=== PATIENT | female | born 1960 | race Caucasian/White ===

== ENCOUNTER → 2018-02-26 09:13 | Outpatient (CLI) | payer OTHER, MEDICAID, SELFPAY ==
[2018-02-26 09:34] LABS: Add Manual Diff / Slide Review NO; Eosinophils Percent Auto 1.8 % (2-4); Hematocrit 45.2 % (36-46); Hemoglobin 15.9 g/dL (12.0-16.0); Mean Corpuscular HGB Conc 35.3 % (30-36); Mean Corpuscular Volume 90.8 fL (80-100); Monocytes Percent Auto 5.3 % (3-14); Neutrophils Absolute Auto 3900 /uL (3000-5900); Neutrophils Percent Auto 53.9 % (50-75); Platelet Count 170 X10^3/uL (150-400); Red Blood Cell Count 4.98 X10^6/uL (4.0-5.2); Red Cell Distribution Width 13.3 % (11.6-14.8); White Blood Cell Count 7.3 X10^3/uL (4.5-11.0)
[2018-02-26 09:52] LABS: Alanine Aminotransferase 23 IU/L (9-52); Albumin 3.8 g/dL (3.5-5.0); Albumin Globulin Ratio 1.2 (1.0-2.8); Alkaline Phosphatase 62 U/L (38-126); Aspartate Aminotransferase 21 IU/L (14-36); BUN Creatinine Ratio 16.7 (6-22); Bilirubin Total 0.5 mg/dL (0.2-1.3); Blood Urea Nitrogen 10 mg/dL (7-17); Calcium 9.2 mg/dL (8.4-10.2); Carbon Dioxide 27 mmol/L (22-32); Chloride 101 mmol/L (98-107); Estimated Glomerular Filt Rate > 60.0 mL/min (>60); Globulin 3.3 g/dL (1.7-4.1); Glucose 89 mg/dL (70-100); HEMOLYSIS 16 (0-50); Sodium 138 mmol/L (137-145); Total Protein 7.1 g/dL (6.3-8.2)
== END ==
PROVIDERS: PCP Physician Assistant; Visit Provider Physician Assistant
DX: R10.12 Left upper quadrant pain (principal); R16.1 Splenomegaly, not elsewhere classified
CPT/HCPCS: 36415; 80053; 85025

== ENCOUNTER → 2018-03-07 08:35 | Outpatient (CLI) | payer OTHER, MEDICAID, SELFPAY ==
--- NOTE | 2018-03-07 08:37 | DI.US.S_ITS ---
PROCEDURE: US ABDOMEN COMPLETE INDICATIONS: Left upper quadrant pain TECHNIQUE: Real-time scanning was performed of the abdominal and retroperitoneal organs, with image documentation. COMPARISON: None. FINDINGS: Liver: Liver is normal in size and hyperechoic in echotexture. Gallbladder: Gallbladder is surgically absent Biliary ducts: Intrahepatic bile ducts are non-dilated. Extrahepatic bile duct caliber measures 8 mm. Normal is 6-7 mm or less in diameter, or 10 mm or less post-cholecystectomy. Pancreas: Visualized portions of the pancreas are sonographically normal. Spleen: Spleen is normal in size and homogeneous in echotexture. Kidneys: Kidneys are normal in size and echotexture. Right kidney measures 12.1 cm long; left kidney measures 12.3 cm long. No hydronephrosis or nephrolithiasis. No solid masses. Aorta: Visualized aorta is normal in caliber at less than 3 cm. Iliacs: Proximal common iliac arteries are normal in caliber at less than 2.5 cm. IVC: Intrahepatic inferior vena cava is patent. Miscellaneous: No free abdominal fluid. IMPRESSION: 1. Echogenic liver, likely representing hepatic steatosis but other etiologies not excluded. No mass lesions seen. No splenomegaly. 2. Gallbladder surgically absent. Mildly dilated common bile is compatible with prior cholecystectomy. Dictated by: Mac Rocha M.D. on 03/07/2018 at 9:43 Approved by: Mac Rocha M.D. on 03/07/2018 at 9:46
== END ==
PROVIDERS: PCP Physician Assistant; Visit Provider Physician Assistant
DX: K83.8 Other specified diseases of biliary tract (principal); R10.12 Left upper quadrant pain; Z90.49 Acquired absence of other specified parts of digestive tract
CPT/HCPCS: 76700

== ENCOUNTER → 2018-05-17 14:01 | Outpatient (CLI) | payer OTHER, MEDICAID, SELFPAY ==
[2018-05-17 16:05] LABS: Hep C Virus Ab w/Reflex Quant NEGATIVE s/c (NEGATIVE)
== END ==
PROVIDERS: Visit Provider Internal Medicine Gastroenterology
DX: Z11.59 Encounter for screening for other viral diseases (principal)
CPT/HCPCS: 36415; 86803

== ENCOUNTER 2018-06-22 10:01 | Day surgery (SDC) | payer OTHER, MEDICAID, SELFPAY ==
[2018-06-22] VITALS (10 sets, daily range): BP systolic 108–134; BP diastolic 75–94; PULSE 70–80; RESP 8–18; TEMP 36.1–36.3; O2SAT 92–97; BMI 37.8
--- NOTE | 2018-06-22 | PATH_ITS ---
[facility] Accession Number: [id number] . 01 Material submitted: . PART A: BODY OF ANTRUM PART B: TRANSVERSE COLON POLYP PART C: DESCENDING COLON POLYP . 02 Diagnosis: A. Antrum, Biopsy: Gastric antral mucosa with no diagnostic abnormality. No evidence of Helicobacter organisms on H/E stain. Negative for intestinal metaplasia, dysplasia or malignancy. . B. Transverse Colon Polyp: Hyperplastic polyp. . C. Descending Colon Polyp: Tubular adenoma. MRV/06/24/2018 . 02 Electronically signed: . Zackery Kearns MD, PhD, Pathologist NPI- [id number] . 01 Gross description: . Received three formalin-filled containers each labeled with the patient's name. . A. In a container labeled body antrum, the specimen consists of three 0.1 to 0.3 cm portions of tissue. Entirely submitted in cassette A. B. In a container labeled transverse colon polyp, the specimen consists of a 0.4 cm portion of tissue. Entirely submitted in cassette B. C. In a container labeled descending colon polyp, the specimen consists of a 0.1 cm portion of tissue. Entirely submitted in cassette C. ([facility]:[id number]) /[facility] . 02 Pathologist provided ICD-10: D12.4, K63.5, R10.13 . 02 CPT . 031165, 686481, 760593 Specimen Comment: A duplicate report has been generated due to demographic updates. Performed at: [facility] [address] [id number] MD Emre Goddard MD Phone: [phone] Performed at: 02 [facility] [place] [id number] [place] [id number] MD Jacob Swanson MD Phone: [phone]
[2018-06-22] MEDS: SODIUM CHLORIDE 0.9% 1,000 ML 70 ML IV (10:47)
--- NOTE | 2018-06-22 11:07 | PM.HP.1 ---
History of Present Illness Date Patient Seen: 06/22/18 Chief complaint: colonoscopy egd Narrative: 58-year-old female with history of heartburn and changes in bowel habits. Please refer to detailed office note 05/17/2018. She has been experiencing heartburn while taking Tums. She has a prior history of H pylori and peptic ulcer disease. Patient History Surgical History History of carpal tunnel repair Family & Social History Social History: household members family Tobacco & Substance use: Smoking Status Current every day smoker Meds Home Medications Medication Instructions Recorded Confirmed Type fluticasone [Flovent Diskus] 50 mcg INH BID #0 08/31/17 06/22/18 History ipratropium-albuterol [Combivent 1 puff INH PRN PRN #0 08/31/17 06/22/18 History Respimat] losartan 100 mg PO QDAY #0 08/31/17 06/22/18 History paroxetine HCl 37.5 mg PO QDAY #0 08/31/17 06/22/18 History levothyroxine [Synthroid] 50 mcg PO QDAY #90 tab 01/06/18 06/22/18 History triamcinolone acetonide 0.1 % 1 applictn TOP BID #80 gram 02/25/18 06/22/18 Rx topical cream oxybutynin chloride ER 10 mg 10 mg PO QDAY #90 tab 03/17/18 06/22/18 Rx tablet,extended release 24 hr carvedilol 3.125 mg tablet 3.125 mg PO BID #180 tab 04/27/18 06/22/18 Rx pravastatin 80 mg tablet 80 mg PO HS #90 tab 06/20/18 06/22/18 Rx Allergies Allergy/AdvReac Type Severity Reaction Status Date / Time No Known Allergies Allergy Uncoded 06/22/18 10:31 Review of Systems Review of Systems All systems reviewed & are unremarkable except as noted in HPI and below Exam Vital Signs (past 8 hours): - 06/22/18 10:40 Temperature 96.9 F L Pulse Rate 80 Respiratory Rate 15 Blood Pressure 134/94 H Pulse Oximetry 94 Oxygen Delivery Method Room Air Narrative Exam Narrative: General: Patient is obese, not in apparent distress Cardiovascular: Regular rate and rhythm, no murmurs, rubs, or gallops; no evidence of edema; no palpable abdominal aortic aneurysm Gastrointestinal: Normoactive bowel sounds, soft, nontender, nondistended, no rebound tenderness, no hepatosplenomegaly, no evidence of hernia Assessment & Plan Plan: Assessment/Plan Narrative: 58-year-old female with heartburn and changes in bowel habit here for upper endoscopy for further evaluation and colonoscopy for polyp surveillance. No changes in her physical exam since 05/17/2018 Regarding the procedure(s), the risks and potential complications, benefits, and alternatives (including not doing the procedure) were discussed with the patient. The risks include but are not limited to bleeding, infection, perforation which may require surgical intervention, missed lesions, and adverse reactions to sedative medicines. After a question and answer period, the patient agreed to proceed with the procedure(s) and gives informed consent.
--- NOTE | 2018-06-22 11:39 | PM.OP.ENDO ---
Operative Date/Time/Diagnoses Date of procedure: 06/22/18 Procedure Notes Procedure in detail: Surgeon: Oscar Holloway MD Procedure: Esophagogastroduodenoscopy with biopsy and colonoscopy with polypectomy Preoperative diagnosis: Longstanding heartburn with breakthrough symptoms with medication; colon polyp surveillance Postoperative diagnosis: Gastroduodenitis status post biopsy, small hiatal hernia, colon polyp status post polypectomy, grade 1 internal hemorrhoids Medications: Conscious sedation using 4 mg IV of Midazolam and 100 mcg IV of Fentanyl for EGD; 6 mg IV of Midazolam and 150 mcg IV of Fentanyl (total for both procedures) Preanesthesia Assessment An H and P was performed/updated and the Px?s ASA class is 2. The procedure was discussed in detail with the patient. The potential risks and complications including infection, bleeding, missed lesions, perforation, need for surgery in case of perforation, prolonged hospital stay, and were explained. A brief question and answer period was allotted and once all questions were answered, informed consent was obtained. The patient was brought back to the procedure room and placed on standard monitoring. The patient?s vital signs were monitored continuously throughout the entire procedure. Prior to starting, a timeout was performed to confirm the patient?s identity, allergies, medications, and procedure. Procedure in detail The patient was placed in left lateral decubitus position and a bite block was inserted. The tip of the upper endoscope was placed into the mouth and advanced without difficulty under direct visualization into the esophagus. Esophagus: Normal Stomach: Small hiatal hernia; there were multiple erosions in the antral area. Biopsies were taken to rule out H pylori Duodenum: There was mild patchy erythema in the duodenal bulb, the remainder of the visualized duodenum up to the 2nd portion showed no evidence of inflammation or ulceration After the upper endoscopy, preparations were made for the colonoscopy. Once adequate sedation was obtained a WAQAR was performed. The digital rectal examination did not reveal any palpable lesions. The tip of the colonoscope was placed in the anal canal and advanced without difficulty all the way to the cecum which was identified by the appendiceal orifice and the ileocecal valve. Careful examination of all roy of the colon was performed with irrigation of any stool. In the transverse colon, there was note of a 3 mm colon polyp which was removed by means of cold Jumbo forceps. Resection and retrieval were complete with minimal bleeding In the descending colon, there was note of a 3 mm colon polyp which was removed by means of cold Jumbo forceps. Resection and retrieval were complete with minimal bleeding Retroflexion was performed in the rectum which revealed grade 1 internal hemorrhoids. The patient tolerated the procedure well and will be brought back to the recovery area to be discharged once criteria are met. The prep was judged to be good/excellent and adequate to identify polyps less than 5 mm. The withdrawal time was 9 min. The total physician intraservice time was 26 min. Complications There were no complications and estimated blood loss was minimal. Recommendations Resume previous diet and avoid any food triggers for heartburn Anti reflex measures at all times Continue outpatient medications Start ranitidine 150 mg twice daily for the next 8 weeks Follow-up pathology results Repeat colonoscopy for colon polyp surveillance in 5 years Follow-up at our office if with persistent symptoms An emergency contact number was given to the patient for any complications related to the procedure
[2018-06-22] MEDS: TETRACAINE/BENZOCAINE/BUTAMBEN (CETACAINE) BOTTLE 1 SPRAY TOP (11:57)
[2018-06-22] MEDS: fentaNYL 250 MCG/5 ML INJ IV (11:59)
[2018-06-22] MEDS: MIDAZOLAM 5 MG/5 ML VIAL IV (11:59)
--- NOTE | 2018-06-22 12:17 | PM.DS.1 ---
History of Present Illness Chief complaint: colonoscopy egd Narrative: 58-year-old female with history of heartburn and changes in bowel habits. Please refer to detailed office note 05/17/2018. She has been experiencing heartburn while taking Tums. She has a prior history of H pylori and peptic ulcer disease. Discharge Providers Primary care physician: Cassie Ferris PA-C Discharge provider: Oscar Holloway MD Exam Vital Signs (past 8 hours): - 06/22/18 10:40 Temperature 96.9 F L Pulse Rate 80 Respiratory Rate 15 Blood Pressure 134/94 H Pulse Oximetry 94 Oxygen Delivery Method Room Air Narrative Exam Narrative: General: Patient is obese, not in apparent distress Cardiovascular: Regular rate and rhythm, no murmurs, rubs, or gallops; no evidence of edema; no palpable abdominal aortic aneurysm Gastrointestinal: Normoactive bowel sounds, soft, nontender, nondistended, no rebound tenderness, no hepatosplenomegaly, no evidence of hernia Discharge Plan Discharge Plan Patient Disposition: Home Discharge Med Rec/Prescriptions Prescriptions: Continue triamcinolone acetonide 0.1 % cream 1 applictn TOP BID Qty: 80 RF: 3 losartan 100 MG tablet 100 mg PO QDAY Qty: 0 RF: 0 ipratropium-albuterol [Combivent Respimat] 4 GM mist 1 puff INH PRN PRN (Reason: Shortness Of Breath) Qty: 0 RF: 0 fluticasone [Flovent Diskus] 50 MCG blister with device 50 mcg INH BID Qty: 0 RF: 0 paroxetine HCl 37.5 MG tablet extended release 24 hr 37.5 mg PO QDAY Qty: 0 RF: 0 levothyroxine [Synthroid] 50 MCG tablet 50 mcg PO QDAY Qty: 90 RF: 0 oxybutynin chloride 10 mg tablet extended release 24hr 10 mg PO QDAY Qty: 90 RF: 1 carvedilol [Coreg] 3.125 mg tablet 3.125 mg PO BID Qty: 180 RF: 1 pravastatin 80 mg tablet 80 mg PO HS Qty: 90 RF: 3 Discharge Orders: Discharge (Order); Ordered 06/22/18 Ordered By: Oscar Holloway Provider Discharge Instructions Diet: Diet as Tolerated Visit Report/Discharge Packet Stand Alone Forms: Surgery Discharge Discharge Data Primary Care Provider: Cassie Ferris Attending Provider: Oscar Holloway
--- NOTE | 2018-06-22 12:44 | SUR.PHASEI ---
arrousable to verbal stimuli, responds appropriatly, drifts back to sleep when not disturbed. oxygen decreased to 2L/cannula.
--- NOTE | 2018-06-22 12:48 | SUR.PHASEI ---
awake taking ice chips orally oxygen discontinued.
== END 2018-06-22 13:15 | disposition home or self-care (01) ==
PROVIDERS: PCP Physician Assistant; Visit Provider Internal Medicine Gastroenterology
PROC: 0DJ08ZZ Inspection of Upper Intestinal Tract, Via Natural or Artificial Opening Endoscopic (ICD-10-PCS; CPT 43235; principal; 2018-06-22 11:00)
PROC: 0DJD8ZZ Inspection of Lower Intestinal Tract, Via Natural or Artificial Opening Endoscopic (ICD-10-PCS; CPT 45378; 2018-06-22 11:00)
DX: K29.90 Gastroduodenitis, unspecified, without bleeding (principal); K44.9 Diaphragmatic hernia without obstruction or gangrene; K64.0 First degree hemorrhoids; R19.4 Change in bowel habit; R10.9 Unspecified abdominal pain; Z86.010 Personal history of colon polyps; I10 Essential (primary) hypertension; E78.5 Hyperlipidemia, unspecified; E03.9 Hypothyroidism, unspecified; K63.5 Polyp of colon; D12.4 Benign neoplasm of descending colon
CPT/HCPCS: 45380; 43239; 88305; J2250; J3010

== ENCOUNTER → 2018-07-26 13:28 | Outpatient (CLI) | payer OTHER, MEDICAID, SELFPAY | PROVIDERS: PCP Family Medicine; Visit Provider Family Medicine | DX: M85.851 Other specified disorders of bone density and structure, right thigh (principal); Z78.0 Asymptomatic menopausal state; F17.200 Nicotine dependence, unspecified, uncomplicated | CPT/HCPCS: 77080 ==

== ENCOUNTER → 2018-09-07 12:33 | Outpatient (CLI) | payer OTHER, MEDICAID, SELFPAY ==
[2018-09-07 13:04] LABS: Alanine Aminotransferase 25 IU/L (9-52); Albumin 4.2 g/dL (3.5-5.0); Albumin Globulin Ratio 1.3 (1.0-2.8); Alkaline Phosphatase 59 U/L (38-126); Aspartate Aminotransferase 26 IU/L (14-36); BUN Creatinine Ratio 16.7 (6-22); Bilirubin Total 0.6 mg/dL (0.2-1.3); Blood Urea Nitrogen 10 mg/dL (7-17); Calcium 9.3 mg/dL (8.4-10.2); Carbon Dioxide 27 mmol/L (22-32); Chloride 103 mmol/L (98-107); Cholesterol 162 mg/dL (140-199); Estimated Glomerular Filt Rate > 60.0 mL/min (>60); Globulin 3.2 g/dL (1.7-4.1); Glucose 99 mg/dL (70-100); HDL Cholesterol 52 mg/dL (40-60); HEMOLYSIS 27 (0-50); LDL Cholesterol Calculated 89 mg/dL (<100); Potassium 3.9 mmol/L (3.4-5.1); Sodium 142 mmol/L (137-145); Total Protein 7.4 g/dL (6.3-8.2); Triglycerides 103 mg/dL (35-150)
== END ==
PROVIDERS: PCP Family Medicine; Visit Provider Family Medicine
DX: E03.9 Hypothyroidism, unspecified (principal); I10 Essential (primary) hypertension
CPT/HCPCS: 36415; 80053; 80061

== ENCOUNTER → 2019-01-04 11:32 | Outpatient (CLI) | payer OTHER, MEDICAID, SELFPAY ==
--- NOTE | 2019-01-04 | DI.MG.S_ITS ---
BILATERAL DIGITAL SCREENING MAMMOGRAM 3D/2D WITH CAD: 01/04/2019 CLINICAL: Routine screening. Comparison is made to exams dated: 12/28/2017 mammogram - [facility], 12/03/2016 mammogram, and 04/21/2016 mammogram - . There are scattered fibroglandular elements in both breasts. Current study was also evaluated with a Computer Aided Detection (CAD) system. No significant masses, calcifications, or other findings are seen in either breast. There has been no significant interval change. IMPRESSION: NEGATIVE There is no mammographic evidence of malignancy. A 1 year screening mammogram is recommended. This exam was interpreted at Station ID: [id number]. NOTE: For mammograms, a report in lay terms will be sent to the patient. Approximately 15% of breast malignancies will not be visualized mammographically. In the management of a palpable breast mass, a negative mammogram must not discourage biopsy of a clinically suspicious lesion. Electronically Signed By: Rosy nevarez/jeniffer:01/04/2019 17:17:24 letter sent: Normal Exam ACR BI-RADS Category 1: Negative [id number]
== END ==
PROVIDERS: PCP Family Medicine; Visit Provider Family Medicine
DX: Z12.31 Encounter for screening mammogram for malignant neoplasm of breast (principal)
CPT/HCPCS: 77063; 77067

== ENCOUNTER → 2019-01-18 08:44 | Outpatient (CLI) | payer OTHER, MEDICAID, SELFPAY ==
[2019-01-18 09:28] LABS: Add Manual Diff / Slide Review NO; Basophils Absolute Auto 100 /uL (0-100); Basophils Percent Auto 0.7 % (0-2); Eosinophils Absolute Auto 100 /uL (0-450); Hematocrit 44.7 % (36-46); Lymphocytes Absolute Auto 2600 /uL (1100-4500); Lymphocytes Percent Auto 34.8 % (25-40); Mean Corpuscular HGB Conc 35.7 % (30-36); Mean Corpuscular Hemoglobin 32.7 PG (26-34); Mean Corpuscular Volume 91.5 fL (80-100); Monocytes Absolute Auto 400 /uL (0-900); Monocytes Percent Auto 4.9 % (3-14); Neutrophils Absolute Auto 4300 /uL (1500-7000); Neutrophils Percent Auto 57.6 % (50-75); Platelet Count 196 X10^3/uL (150-400); Red Blood Cell Count 4.89 X10^6/uL (4.0-5.2); White Blood Cell Count 7.4 X10^3/uL (4.5-11.0)
[2019-01-18 09:59] LABS: Alanine Aminotransferase 17 IU/L (9-52); Albumin 3.9 g/dL (3.5-5.0); Albumin Globulin Ratio 1.3 (1.0-2.8); Alkaline Phosphatase 64 U/L (38-126); Aspartate Aminotransferase 31 IU/L (14-36); Bilirubin Total 0.6 mg/dL (0.2-1.3); Blood Urea Nitrogen 12 mg/dL (7-17); Calcium 8.8 mg/dL (8.4-10.2); Carbon Dioxide 25 mmol/L (22-32); Chloride 106 mmol/L (98-107); Cholesterol 148 mg/dL (140-199); Estimated Glomerular Filt Rate > 60.0 mL/min (>60); Globulin 2.9 g/dL (1.7-4.1); Glucose 111 mg/dL (70-100); HDL Cholesterol 47 mg/dL (40-60); HEMOLYSIS 20 (0-50); LDL Cholesterol Calculated 87 mg/dL (<100); Potassium 3.9 mmol/L (3.4-5.1); Sodium 137 mmol/L (137-145); Total Protein 6.8 g/dL (6.3-8.2); Triglycerides 72 mg/dL (35-150)
[2019-01-18 10:12] LABS: Free T3, Triiodothyronine Free 3.13 pg/mL (2.77-5.27); Free T4, Direct Thyroxine 1.39 ng/dL (0.78-2.19)
[2019-01-18 10:28] LABS: Thyroid Stimulating Hormone 1.42 uIU/mL (0.47-4.68)
== END ==
PROVIDERS: PCP Family Medicine; Visit Provider Family Medicine
DX: E03.9 Hypothyroidism, unspecified (principal); Z51.81 Encounter for therapeutic drug level monitoring
CPT/HCPCS: 36415; 80053; 80061; 84439; 84443; 84481; 85025

== ENCOUNTER → 2019-02-07 13:10 | Outpatient (CLI) | payer OTHER, MEDICAID, SELFPAY ==
--- NOTE | 2019-02-07 13:12 | DI.RAD.S_ITS ---
PROCEDURE: XR WRIST RT MIN 3V INDICATIONS: R hip pain, right wrist pain TECHNIQUE: 4 views of the wrist were acquired. COMPARISON: None. FINDINGS: Bones: No fractures or dislocations. No suspicious bony lesions. First CMC and triscaphe joint degeneration. Sclerotic and mildly collapsed appearance of the scaphoid proximal pole Soft tissues: No suspicious soft tissue calcifications. 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 As clinically warranted, recommend continued surveillance with serial radiographs to assess progression. First CMC and triscaphe joint degeneration Dictated by: Junior Ingram M.D. on 02/07/2019 at 14:07 Approved by: Junior Ingram M.D. on 02/07/2019 at 14:09
--- NOTE | 2019-02-07 13:12 | DI.RAD.S_ITS ---
PROCEDURE: XR LUMBAR SPINE 2-3V INDICATIONS: R hip pain, right wrist pain TECHNIQUE: 3 views of the lumbar spine were acquired. COMPARISON: None. FINDINGS: Bones: No fracture or focal osseous destruction. Multilevel degenerative endplate sclerosis and spurring. Diffuse facet arthropathy. Straightening of the normal lordotic curvature. Mild narrowing of the upper lumbar and lower thoracic disc spaces. Soft tissues: Overlying bowel gas pattern is normal. No suspicious soft tissue calcifications. IMPRESSION: Mild upper lumbar spondylosis, and facet arthropathy Dictated by: Junior Ingram M.D. on 02/07/2019 at 15:56 Approved by: Junior Ingram M.D. on 02/07/2019 at 15:58
--- NOTE | 2019-02-07 13:12 | DI.RAD.S_ITS ---
PROCEDURE: XR HIP W PEL IF DONE RT 2V INDICATIONS: R hip pain, right wrist pain TECHNIQUE: 2 views of the hip were acquired. COMPARISON: None. FINDINGS: Bones: No fractures or dislocations. No suspicious bony lesions. The visualized pelvic ring appears intact. Mild right hip joint degeneration. Soft tissues: No suspicious soft tissue calcifications or masses. IMPRESSION: Mild right hip joint degeneration. Dictated by: Junior Ingram M.D. on 02/07/2019 at 16:02 Approved by: Junior Ingram M.D. on 02/07/2019 at 17:00
--- NOTE | 2019-02-07 13:12 | DI.RAD.S_ITS ---
PROCEDURE: XR SACRUM COCCYX MIN 2V INDICATIONS: coccyodynia TECHNIQUE: 3 views of the sacrum and coccyx acquired. COMPARISON: None. FINDINGS: Bones: No fractures or dislocations. No suspicious bony lesions. Lower lumbar spondylosis.. Sacroiliac joints appear unremarkable. Mild degenerative changes at the pubic symphysis. Soft tissues: Visualized bowel gas pattern is normal. No suspicious soft tissue densities. IMPRESSION: No definite fracture seen. Lower lumbar spondylosis. Dictated by: Junior Ingram M.D. on 02/07/2019 at 14:28 Approved by: Junior Ingram M.D. on 02/07/2019 at 14:29
== END ==
PROVIDERS: PCP Family Medicine; Visit Provider Family Medicine
DX: M25.551 Pain in right hip (principal); M16.11 Unilateral primary osteoarthritis, right hip; M25.531 Pain in right wrist; M19.031 Primary osteoarthritis, right wrist; M18.11 Unilateral primary osteoarthritis of first carpometacarpal joint, right hand; M53.3 Sacrococcygeal disorders, not elsewhere classified; M47.816 Spondylosis without myelopathy or radiculopathy, lumbar region
CPT/HCPCS: 72100; 72220; 73110; 73502

== ENCOUNTER → 2019-03-20 07:48 | Outpatient (CLI) | payer OTHER, MEDICAID, SELFPAY ==
--- NOTE | 2019-03-20 07:51 | DI.MRI.S_ITS ---
PROCEDURE: MR WRIST RT WO CON INDICATIONS: r wrist pain, recommended by ortho TECHNIQUE: Noncontrast coronal proton density fast spin echo and T2 fast spin echo with fat saturation; coronal 3-D gradient echo, axial T1 spin echo and T2 fast spin echo with fat saturation, sagittal T1 spin echo through the wrist. COMPARISON: [facility], CR, XR WRIST RT MIN 3V, 02/07/2019, 13:16. FINDINGS: Image quality: Excellent. Bones and cartilage: Fracture involving proximal one third of the scaphoid body is seen with mild edema at the fracture site. A well corticated margin is seen at fracture site concerning for delayed union or nonunion. There is ill-defined sclerotic changes involving proximal portion of scaphoid concerning for avascular necrosis. No other area of abnormal marrow signal is seen. No other fracture or dislocation. Carpal ligaments: The scapholunate and lunotriquetral ligaments appear intact. In the absence of intra-articular contrast, the extrinsic carpal ligaments are not well identified. On sagittal images, the pisohamate ligament appears intact. Triangular fibrocartilage complex: Degenerative changes involving ulnar portion of triangular fibrocartilage complex is seen, focal perforation near its ulnar insertion cannot be excluded. The adjacent meniscal homolog appears normal in the absence of intra-articular contrast. The extensor carpi ulnaris tendon is normal in location and morphology. Tendons and soft tissues: The carpal tunnel structures appear normal, including the median nerve. The ulnar nerve appears normal within Guyon's canal. All six extensor tendon compartments demonstrate normal morphology, without pathologic tendon sheath fluid. No soft tissue ganglion cysts. IMPRESSION: 1. Fracture involving proximal portion of scaphoid body with corticated margin suggestive of delayed union or nonunion. There is suggestion of avascular necrosis involving proximal portion of scaphoid fragment. No other area of abnormal marrow signal. No other fracture or dislocation. 2. Degenerative changes along ulnar aspect of triangular fibrocartilage complex with suggestion of focal perforation near its root insertion. 3. Wrist ligaments are grossly intact. Wrist tendons are grossly intact. Dictated by: Miles June M.D. on 03/20/2019 at 14:29 Approved by: Miles June M.D. on 03/20/2019 at 14:33
== END ==
PROVIDERS: Family Provider Physician Assistant Surgical; PCP Family Medicine; Visit Provider Family Medicine
DX: M25.531 Pain in right wrist (principal); S62.031A Displaced fracture of proximal third of navicular [scaphoid] bone of right wrist, initial encounter for closed fracture; X58.XXXA Exposure to other specified factors, initial encounter
CPT/HCPCS: 73221

== ENCOUNTER 2019-07-25 13:00 | Outpatient (RCR) | payer OTHER, MEDICAID, SELFPAY ==
--- NOTE | 2019-04-14 10:20 | PT.OIE ---
Current Diagnoses Pain in left hip (04/14/19) Past Surgical History (Last Reviewed 07/18/18 @ 12:23 by Adriana Ferreira DO) History of carpal tunnel repair Provider Visit Care Team Role Provider Type Adriana Ferreira DO Attending Provider Physician Family Provider Primary Care Provider Specialty: Family Practice Address: [address] [place] [address], [id number] Email: [email or web address] Physical Therapy Initial Evaluation PT-OP-A Visit Information Start: 04/14/19 09:30 Freq: Status: Active Protocol: Document 04/14/19 10:20 SAK (Rec: 04/14/19 10:35 SAK [id number]) Out-Patient Physical Therapy Visit Information Visit Information Visit Type Initial Evaluation Visit Start Time 10:15 Visit Stop Time 11:10 Total Visit Minutes 55 Visit Number 1 Precautions Precautions PMH: multiple falls and injuries PT-OP-B Current Condition Start: 04/14/19 09:30 Freq: Status: Active Protocol: Document 04/14/19 10:20 SAK (Rec: 04/14/19 10:35 SAK [id number]) Current Condition History of Current Condition Onset Date years Current Complaints bilateral LBP, tailbone pain History of Current Condition Progressive worsening of LBP and pain in tailbone region, poor tolerance for standing and walking, pain sitting; can 't sit directly on tailbone. Laying on side causes hands to go numb, laying on back increases LB and tailbone pain . Multiple falls. Reports poor alignment of pelvis. Takes Ibuprofen and uses heat for mild relief. Prior Treatments and Tests chiropractor and PT: helpful but reports pelvic alignment wouldn't stay when had adjustments by chiropractor. Not able to do any exercises. States told left leg shorter by 1 1/2 inches xray: Lower lumbar spondylosis , degenerative arthritis, Multilevel degenerative endplate sclerosis and spurring. Diffuse facet arthropathy. Straightening of the normal lordotic curvature. Treatment Goals Patient/Caregiver Goals strengthen core muscle Decrease pain Improve function Prior Functional Status Baseline Function- ADL's Independent Baseline Function- Mobility Independent Baseline Function- Gait Independent, no device, no limitations Baseline Function- Work/School doesn't work; disabled Baseline Function- Recreation/Hobbies no limitations Current Functional Impairments (Reported) Functional Limitations- ADL's painful Functional Limitations- Mobility/Gait limited to household and short distance community due to pain Functional Limitations- Work/School unable Functional Limitations- Recreation/ unable, painful Hobbies Personal Factors Other Personal Factors That May Effect PMH: arthritis, HTN, Therapy/Recovery depression, falls, neck pain, osteopenia, PTSD, thyroid dysfunction PT-OP-C Subjective Start: 04/14/19 09:30 Freq: Status: Active Protocol: Document 04/14/19 10:20 SAK (Rec: 04/14/19 16:49 [facility] [id number]) Patient Questionnaires Lower Extremity Functional Scale LEFS Score 30 OP-PT Pain Assessment Pain Assessment Grid Paper Pain Assessment Grid Completed Yes Location bilateral LB, coccyx Intensity 7 Scale Used Numeric (1 - 10) Frequency Frequent Pain Aggravating Factors ADL's Activity Standing Sitting Walking Pain Alleviating Factors Inactivity Changing Position PT-OP-F Manual Assessment Start: 04/14/19 09:30 Freq: Status: Active Protocol: Document 04/14/19 10:20 SAK (Rec: 04/14/19 16:49 [facility] [id number]) Manual Assessments Other Manual Assessments Other Manual Assessments Leg length: right 1/2 shorter than left PT-OP-G Mobility & Gait Start: 04/14/19 09:30 Freq: Status: Active Protocol: Document 04/14/19 10:20 SAK (Rec: 04/14/19 16:49 [facility] [id number]) OP Mobility Evaluation Bed Mobility Rolling poor core stab Supine to and from Sit cues for logroll OP Gait Assessment Gait Gait Assistance Required: Independent Assistive Devices Assistive Device None Gait Deviations General Gait Pattern Antalgic Decreased Stride Length Decreased Feet Clearance Flexed Trunk Factors Limiting Gait Function Factors Limiting Gait Function Pain PT-OP-H Neuro Start: 04/14/19 09:30 Freq: Status: Active Protocol: Document 04/14/19 10:20 SAK (Rec: 04/14/19 16:49 [facility] [id number]) Sensation Evaluation Gross Sensation Gross Sensation WNL Comments Summary Comments denied N/T LE's PT-OP-J Posture/Palpation/Skin Start: 04/14/19 09:30 Freq: Status: Active Protocol: Document 04/14/19 10:20 SAK (Rec: 04/14/19 16:49 [facility] [id number]) Posture Evaluation Position Standing Head/C-Spine Posture Forward Head T-Spine Posture Increased Kyphosis L-Spine Posture Increased Lordosis Pelvis Posture (L) Iliac Crest Superior (R) PSIS Inferior Palpation Assessment Location buttocks Palpation Details increased soft tissue tightness throughout right buttock lumbar paraspinals Palpation Findings Soft Tissue Tightness Muscle Guarding Tenderness PT-OP-K Range of Motion Start: 04/14/19 09:30 Freq: Status: Active Protocol: Document 04/14/19 10:20 SAK (Rec: 04/14/19 16:49 [facility] [id number]) Lumbar Spine Range of Motion Lumbar Spine Active Testing Position Standing ROM Limitations Pain Comments Moderate decrease in all motions due to c/o pain. With forward flexion PSIS became level. Hip Goniometric Range of Motion Hip left Hip ROM WFL No Testing Position Supine Flexion w/Knee Flexed 95 Straight Leg Raise 55 Extension 0 Internal Rotation 10 External Rotation 60 Right Hip ROM WFL No Testing Position Supine Flexion w/Knee Flexed 95 Straight Leg Raise 65 Extension 0 Internal Rotation 5 External Rotation 55 Hip ROM Limitations Hip ROM Limitations Soft Tissue Tightness Knee Goniometric Range of Motion Knee herbie Knee ROM WFL Yes Ankle and Foot Goniometric Range of Motion Ankle and Foot Active Ankle/Foot ROM WFL No Ankle and Foot ROM Limitations ROM Limitations Soft Tissue Tightness Comments df right 0, left 5 PT-OP-L Special Tests Start: 04/14/19 09:30 Freq: Status: Active Protocol: Document 04/14/19 10:20 SAK (Rec: 04/14/19 16:49 [facility] [id number]) Special Tests Lumbar Spine Special Tests Straight Leg Raise Test Results negative herbie Manual Traction Test Results decreased pain Eliezer Test Results positive herbie for hip flex tightness PT-OP-M Strength Start: 04/14/19 09:30 Freq: Status: Active Protocol: Document 04/14/19 10:20 SAK (Rec: 04/14/19 16:49 [facility] [id number]) Trunk Strength Trunk Manual Muscle Testing Testing Position Supine Flexion 2+ Poor+ Extension 3- Fair- Core Stabilization poor ability to activate TrA and multifidi Hip Strength Hip Manual Muscle Testing Left Flexion (L2) 3+ Fair+ Extension (S1) 3- Fair- Abduction 4- Good- External Rotation 4- Good- Internal Rotation 4- Good- Right Flexion (L2) 3+ Fair+ Extension (S1) 3- Fair- Abduction 4- Good- External Rotation 4- Good- Internal Rotation 4- Good- Knee Strength Knee Manual Muscle Testing herbie Flexion (S2) 5 Normal Extension (L3) 5 Normal Ankle/Foot Strength Ankle and Foot Manual Muscle Testing herbie Dorsiflexion (L4) 4 Good Plantarflexion (S1) 4- Good- PT-OP-Q Treatments Start: 04/14/19 09:30 Freq: Status: Active Protocol: Document 04/14/19 10:20 SAK (Rec: 04/14/19 16:49 [facility] [id number]) Self-Care/Home Management Treatment Education Patient Education Pain Management Posture Other Education abdominal bracing/core stabilization Activities Self-Care/Home Management Activities cut 10/04 cork for trial in right shoe PT-OP-R Modalities Start: 04/14/19 09:30 Freq: Status: Active Protocol: Document 04/14/19 10:20 SAK (Rec: 04/16/19 11:31 [facility] [id number]) Hot Pack/Cold Pack Treatment Hot Pack Location herbie lumbosacral spine Patient Position Hooklying Treatment Duration (minutes) 15 Patient Tolerance Good PT-OP-T Assessment and Plan Start: 04/14/19 09:30 Freq: Status: Active Protocol: Document 04/14/19 10:20 SAK (Rec: 04/14/19 16:49 [facility] [id number]) Physical Therapy Assessment Rehab Potential Rehabilitation Potential Good Evaluation Complexity Number of Personal Factors/Comorbidities 3 or More Number of Body Systems Impaired 3 Clinical Presentation at Evaluation Evolving Impairments Impairments Activity Tolerance Pain ROM Strength Goals Four Impairment inability to sit in neutral position due to coccyx pain Alf Goal (LTG) Patient will be able to sit in neutral position for at least 30 min without an increase in pain LTG Duration 06/15/19 Three Impairment sleep impairment due to pain Short Term Goal (STG) Patient will report at least a 25% improvement in her abiity to sleep STG Duration 05/15/19 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 Assembler Goal (LTG) Patient cata report at a least a 50% improvement in her ability to sleep due to decrease in her pain LTG Duration 06/15/19 Two Impairment unable to tolerate any exercise program Short Term Goal (STG) Instruct patient in HEP for core stabilization, flexibility, and strengthening STG Duration 04/26/19 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 Assembler Goal (LTG) Patient to be independent and compliant with HEP for long- term fitness and pain management possibly to include aquatic exercises LTG Duration 06/15/19 One Impairment activity intolerance; LEFS 30% Short Term Goal (STG) Improve LEFS to at least 50% STG Duration 05/15/19 Alf Goal (LTG) Improve LEFS to at least 70%, and decrease Oswestry score to no greater than 30% including ability to do usual daily activities without an increase in pain. LTG Duration 06/15/19 Assessment Summary Assessment Patient presents with function -limiting pain in bilateral lumbar spine, SI, and coccyx region which appears due muscle imbalances causing pelvic asymmetry, leg length discrepancy; patient has deficits in muscle strength throughout her core and hip musculature and decreased flexibility in same. She has difficulty activitating her core musculature for stabilization and function in her daily activities. She is uncomfortable in all positions but especially standing and walking, and in sitting shifts her position off of her coccyx. Her right LE is 1/2 inches shorter than her left this date but feel her muscle imbalances and pelvic asymmetry may be contributory; I put 1/8 cork in her right shoe today and depending on tolerance will increase it to 1/4 next session while we also address the muscle imbalances. Feel she may benefit from aquatic therapy to allow for bouyancy supported therapeutic exercise while decreasing joint compression in her spine and LE's. We started ther ex for activation of her deep core musculature today and did trial of moist heat for muscle relaxation and pain management. Physical Therapy Plan Frequency and Duration Frequency of Treatment 2 Duration of Treatment 8 Plan of Care Start Date 04/14/19 Plan of Care End Date 06/15/19 Therapeutic Interventions Therapeutic Interventions Aquatic Therapy Home Exercise Program Joint Mobilizations Manual Therapy Neuromuscular Re-education Patient/Caregiver Education Self-Care/Home Management Soft Tissue Mobilization Taping Therapeutic Activities Therapeutic Exercises Modalities Hot Packs Traction- Mechanical Ultrasound Next Visit Focus/Plan Next Note Type Treatment Note Next Visit Plan Review core stabilization and progress with therapeutic exercises for stabilization, gentle strengthening and flexibility. Manual therapy techniques for correction of pelvic malalignment. Modalities as indicated.
--- NOTE | 2019-04-18 09:03 | PT.OTN ---
Current Diagnoses Other chronic pain (04/18/19) Pain in left hip (04/18/19) Low back pain (04/18/19) Physical Therapy Treatment Note PT-OP-A Visit Information Start: 04/14/19 09:30 Freq: Status: Active Protocol: Document 04/18/19 09:03 SAK (Rec: 04/18/19 09:41 SAK [id number]) Out-Patient Physical Therapy Visit Information Visit Information Visit Type Treatment Note Visit Start Time 09:00 Visit Stop Time 09:45 Total Visit Minutes 45 Visit Number 2 Precautions Precautions PMH: multiple falls and injuries PT-OP-B Current Condition Start: 04/14/19 09:30 Freq: Status: Active Protocol: Document 04/14/19 10:20 SAK (Rec: 04/14/19 10:35 SAK [id number]) Current Condition History of Current Condition Onset Date years Current Complaints bilateral LBP, tailbone pain History of Current Condition Progressive worsening of LBP and pain in tailbone region, poor tolerance for standing and walking, pain sitting; can 't sit directly on tailbone. Laying on side causes hands to go numb, laying on back increases LB and tailbone pain . Multiple falls. Reports poor alignment of pelvis. Takes Ibuprofen and uses heat for mild relief. Prior Treatments and Tests chiropractor and PT: helpful but reports pelvic alignment wouldn't stay when had adjustments by chiropractor. Not able to do any exercises. States told left leg shorter by 1 1/2 inches xray: Lower lumbar spondylosis , degenerative arthritis, Multilevel degenerative endplate sclerosis and spurring. Diffuse facet arthropathy. Straightening of the normal lordotic curvature. Treatment Goals Patient/Caregiver Goals strengthen core muscle Decrease pain Improve function Prior Functional Status Baseline Function- ADL's Independent Baseline Function- Mobility Independent Baseline Function- Gait Independent, no device, no limitations Baseline Function- Work/School doesn't work; disabled Baseline Function- Recreation/Hobbies no limitations Current Functional Impairments (Reported) Functional Limitations- ADL's painful Functional Limitations- Mobility/Gait limited to household and short distance community due to pain Functional Limitations- Work/School unable Functional Limitations- Recreation/ unable, painful Hobbies Personal Factors Other Personal Factors That May Effect PMH: arthritis, HTN, Therapy/Recovery depression, falls, neck pain, osteopenia, PTSD, thyroid dysfunction PT-OP-C Subjective Start: 04/14/19 09:30 Freq: Status: Active Protocol: Document 04/18/19 09:03 SAK (Rec: 04/18/19 09:41 SAK [id number]) OP-PT Subjective Patient Comments Patient Comments No change though reports doing a lot of physical activity cleaning and painting her mother's house. 10/04 rubink felt ok in shoe, will add second one today. Brought prior HEP but left in pickup. PT-OP-F Manual Assessment Start: 04/14/19 09:30 Freq: Status: Active Protocol: Document 04/14/19 10:20 SAK (Rec: 04/14/19 16:49 SAK [id number]) Manual Assessments Other Manual Assessments Other Manual Assessments Leg length: right 1/2 shorter than left PT-OP-G Mobility & Gait Start: 04/14/19 09:30 Freq: Status: Active Protocol: Document 04/14/19 10:20 SAK (Rec: 04/14/19 16:49 SAK [id number]) OP Mobility Evaluation Bed Mobility Rolling poor core stab Supine to and from Sit cues for logroll OP Gait Assessment Gait Gait Assistance Required: Independent Assistive Devices Assistive Device None Gait Deviations General Gait Pattern Antalgic Decreased Stride Length Decreased Feet Clearance Flexed Trunk Factors Limiting Gait Function Factors Limiting Gait Function Pain PT-OP-H Neuro Start: 04/14/19 09:30 Freq: Status: Active Protocol: Document 04/14/19 10:20 SAK (Rec: 04/14/19 16:49 SAK [id number]) Sensation Evaluation Gross Sensation Gross Sensation WNL Comments Summary Comments denied N/T LE's PT-OP-J Posture/Palpation/Skin Start: 04/14/19 09:30 Freq: Status: Active Protocol: Document 04/14/19 10:20 SAK (Rec: 04/14/19 16:49 SAK [id number]) Posture Evaluation Position Standing Head/C-Spine Posture Forward Head T-Spine Posture Increased Kyphosis L-Spine Posture Increased Lordosis Pelvis Posture (L) Iliac Crest Superior (R) PSIS Inferior Palpation Assessment Location buttocks Palpation Details increased soft tissue tightness throughout right buttock lumbar paraspinals Palpation Findings Soft Tissue Tightness Muscle Guarding Tenderness PT-OP-K Range of Motion Start: 04/14/19 09:30 Freq: Status: Active Protocol: Document 04/14/19 10:20 SAK (Rec: 04/14/19 16:49 [facility] [id number]) Lumbar Spine Range of Motion Lumbar Spine Active Testing Position Standing ROM Limitations Pain Comments Moderate decrease in all motions due to c/o pain. With forward flexion PSIS became level. Hip Goniometric Range of Motion Hip left Hip ROM WFL No Testing Position Supine Flexion w/Knee Flexed 95 Straight Leg Raise 55 Extension 0 Internal Rotation 10 External Rotation 60 Right Hip ROM WFL No Testing Position Supine Flexion w/Knee Flexed 95 Straight Leg Raise 65 Extension 0 Internal Rotation 5 External Rotation 55 Hip ROM Limitations Hip ROM Limitations Soft Tissue Tightness Knee Goniometric Range of Motion Knee herbie Knee ROM WFL Yes Ankle and Foot Goniometric Range of Motion Ankle and Foot Active Ankle/Foot ROM WFL No Ankle and Foot ROM Limitations ROM Limitations Soft Tissue Tightness Comments df right 0, left 5 PT-OP-L Special Tests Start: 04/14/19 09:30 Freq: Status: Active Protocol: Document 04/14/19 10:20 SAK (Rec: 04/14/19 16:49 [facility] [id number]) Special Tests Lumbar Spine Special Tests Straight Leg Raise Test Results negative herbie Manual Traction Test Results decreased pain Eliezer Test Results positive herbie for hip flex tightness PT-OP-M Strength Start: 04/14/19 09:30 Freq: Status: Active Protocol: Document 04/14/19 10:20 SAK (Rec: 04/14/19 16:49 [facility] [id number]) Trunk Strength Trunk Manual Muscle Testing Testing Position Supine Flexion 2+ Poor+ Extension 3- Fair- Core Stabilization poor ability to activate TrA and multifidi Hip Strength Hip Manual Muscle Testing Left Flexion (L2) 3+ Fair+ Extension (S1) 3- Fair- Abduction 4- Good- External Rotation 4- Good- Internal Rotation 4- Good- Right Flexion (L2) 3+ Fair+ Extension (S1) 3- Fair- Abduction 4- Good- External Rotation 4- Good- Internal Rotation 4- Good- Knee Strength Knee Manual Muscle Testing herbie Flexion (S2) 5 Normal Extension (L3) 5 Normal Ankle/Foot Strength Ankle and Foot Manual Muscle Testing herbie Dorsiflexion (L4) 4 Good Plantarflexion (S1) 4- Good- PT-OP-Q Treatments Start: 04/14/19 09:30 Freq: Status: Active Protocol: Document 04/18/19 09:03 [facility] (Rec: 04/18/19 09:41 [facility] [id number]) Therapeutic Exercises Supine Exercises pec stretch Reps/Minutes 30x2 postural isometric Reps/Minutes 10x hip ab/ER Resistance L1 TB Reps/Minutes 10x hip add fiona Supine Exercise Name pillow squeeze Reps/Minutes 10x gluteal set Reps/Minutes 10x TrA Reps/Minutes 10x Manual Therapy Treatment Soft Tissue Mobilization right piriformis Mobilization Type Myofascial Release Rolling Strumming Body Position Prone lumbar paraspinals Mobilization Type Manual Lymphatic Drainage Rolling Strumming Body Position Prone Self-Care/Home Management Treatment Education Patient Education Pain Management Posture Other Education abdominal bracing/core stabilization Activities Self-Care/Home Management Activities patient to try 1/4 cork PT-OP-R Modalities Start: 04/14/19 09:30 Freq: Status: Active Protocol: Document 04/18/19 09:03 [facility] (Rec: 04/20/19 16:47 [facility] [id number]) Electric Stimulation Electric Stimulation Interferential Current (IFC) Body Location bilateral l/s, piriformis Duration (Minutes) 15 Target/Sweep Sweep High/Low High Patient Position Prone Combined With Heat/Cold Cold Pack Comments prone pillow PT-OP-T Assessment and Plan Start: 04/14/19 09:30 Freq: Status: Active Protocol: Document 04/18/19 09:03 [facility] (Rec: 04/18/19 09:41 [facility] [id number]) Physical Therapy Assessment Goals Four Impairment inability to sit in neutral position due to coccyx pain Senior Care Goal (LTG) Patient will be able to sit in neutral position for at least 30 min without an increase in pain LTG Duration 06/15/19 Three Impairment sleep impairment due to pain Short Term Goal (STG) Patient will report at least a 25% improvement in her abiity to sleep STG Duration 05/15/19 Hotel Supplies Salesperson Goal (LTG) Patient cata report at a least a 50% improvement in her ability to sleep due to decrease in her pain LTG Duration 06/15/19 Two Impairment unable to tolerate any exercise program Short Term Goal (STG) Instruct patient in HEP for core stabilization, flexibility, and strengthening STG Duration 04/26/19 Senior Care Goal (LTG) Patient to be independent and compliant with HEP for long- term fitness and pain management possibly to include aquatic exercises LTG Duration 06/15/19 One Impairment activity intolerance; LEFS 30% Short Term Goal (STG) Improve LEFS to at least 50% STG Duration 05/15/19 Senior Care Goal (LTG) Improve LEFS to at least 70%, and decrease Oswestry score to no greater than 30% including ability to do usual daily activities without an increase in pain. LTG Duration 06/15/19 Assessment Summary Assessment Patient reported decreased pain with treatment today. No change with use of 10/04 cork, will now try 09/30. Heavy physical activity has been causing increased pain. Physical Therapy Plan Frequency and Duration Frequency of Treatment 2 Duration of Treatment 8 Plan of Care Start Date 04/14/19 Plan of Care End Date 06/15/19 Therapeutic Interventions Therapeutic Interventions Aquatic Therapy Home Exercise Program Joint Mobilizations Manual Therapy Neuromuscular Re-education Patient/Caregiver Education Self-Care/Home Management Soft Tissue Mobilization Taping Therapeutic Activities Therapeutic Exercises Modalities Hot Packs Traction- Mechanical Ultrasound Next Visit Focus/Plan Next Note Type Treatment Note Next Visit Plan Review core stabilization and progress with therapeutic exercises for stabilization, gentle strengthening and flexibility. Manual therapy techniques for correction of pelvic malalignment. Modalities as indicated.
--- NOTE | 2019-05-10 14:05 | PT.OTN ---
Current Diagnoses Other chronic pain (05/10/19) Pain in left hip (05/10/19) Low back pain (05/10/19) Physical Therapy Treatment Note PT-OP-A Visit Information Start: 04/14/19 09:30 Freq: Status: Active Protocol: Document 05/10/19 13:00 SAK (Rec: 05/10/19 14:05 SAK [id number]) Out-Patient Physical Therapy Visit Information Visit Information Visit Type Treatment Note Visit Start Time 13:00 Visit Stop Time 13:45 Total Visit Minutes 55 Visit Number 3 Number of MECHANICAL INTEGRITY ENGINEER Visits 0 Precautions Precautions PMH: multiple falls and injuries PT-OP-B Current Condition Start: 04/14/19 09:30 Freq: Status: Active Protocol: Document 04/14/19 10:20 SAK (Rec: 04/14/19 10:35 SAK [id number]) Current Condition History of Current Condition Onset Date years Current Complaints bilateral LBP, tailbone pain History of Current Condition Progressive worsening of LBP and pain in tailbone region, poor tolerance for standing and walking, pain sitting; can 't sit directly on tailbone. Laying on side causes hands to go numb, laying on back increases LB and tailbone pain . Multiple falls. Reports poor alignment of pelvis. Takes Ibuprofen and uses heat for mild relief. Prior Treatments and Tests chiropractor and PT: helpful but reports pelvic alignment wouldn't stay when had adjustments by chiropractor. Not able to do any exercises. States told left leg shorter by 1 1/2 inches xray: Lower lumbar spondylosis , degenerative arthritis, Multilevel degenerative endplate sclerosis and spurring. Diffuse facet arthropathy. Straightening of the normal lordotic curvature. Treatment Goals Patient/Caregiver Goals strengthen core muscle Decrease pain Improve function Prior Functional Status Baseline Function- ADL's Independent Baseline Function- Mobility Independent Baseline Function- Gait Independent, no device, no limitations Baseline Function- Work/School doesn't work; disabled Baseline Function- Recreation/Hobbies no limitations Current Functional Impairments (Reported) Functional Limitations- ADL's painful Functional Limitations- Mobility/Gait limited to household and short distance community due to pain Functional Limitations- Work/School unable Functional Limitations- Recreation/ unable, painful Hobbies Personal Factors Other Personal Factors That May Effect PMH: arthritis, HTN, Therapy/Recovery depression, falls, neck pain, osteopenia, PTSD, thyroid dysfunction PT-OP-C Subjective Start: 04/14/19 09:30 Freq: Status: Active Protocol: Document 05/10/19 13:00 SAK (Rec: 05/10/19 14:05 SAK [id number]) OP-PT Subjective Patient Comments Patient Comments States she feels the cork in her shoe is helpful, a little less pain. Didn't get exercise handout last session. Liked massage and e-stim with ice laying on stomach. PT-OP-F Manual Assessment Start: 04/14/19 09:30 Freq: Status: Active Protocol: Document 04/14/19 10:20 SAK (Rec: 04/14/19 16:49 SAK [id number]) Manual Assessments Other Manual Assessments Other Manual Assessments Leg length: right 1/2 shorter than left PT-OP-G Mobility & Gait Start: 04/14/19 09:30 Freq: Status: Active Protocol: Document 04/14/19 10:20 SAK (Rec: 04/14/19 16:49 SAK [id number]) OP Mobility Evaluation Bed Mobility Rolling poor core stab Supine to and from Sit cues for logroll OP Gait Assessment Gait Gait Assistance Required: Independent Assistive Devices Assistive Device None Gait Deviations General Gait Pattern Antalgic Decreased Stride Length Decreased Feet Clearance Flexed Trunk Factors Limiting Gait Function Factors Limiting Gait Function Pain PT-OP-H Neuro Start: 04/14/19 09:30 Freq: Status: Active Protocol: Document 04/14/19 10:20 SAK (Rec: 04/14/19 16:49 [facility] [id number]) Sensation Evaluation Gross Sensation Gross Sensation WNL Comments Summary Comments denied N/T LE's PT-OP-J Posture/Palpation/Skin Start: 04/14/19 09:30 Freq: Status: Active Protocol: Document 04/14/19 10:20 SAK (Rec: 04/14/19 16:49 SAK [id number]) Posture Evaluation Position Standing Head/C-Spine Posture Forward Head T-Spine Posture Increased Kyphosis L-Spine Posture Increased Lordosis Pelvis Posture (L) Iliac Crest Superior (R) PSIS Inferior Palpation Assessment Location buttocks Palpation Details increased soft tissue tightness throughout right buttock lumbar paraspinals Palpation Findings Soft Tissue Tightness Muscle Guarding Tenderness PT-OP-K Range of Motion Start: 04/14/19 09:30 Freq: Status: Active Protocol: Document 04/14/19 10:20 SAK (Rec: 04/14/19 16:49 [facility] [id number]) Lumbar Spine Range of Motion Lumbar Spine Active Testing Position Standing ROM Limitations Pain Comments Moderate decrease in all motions due to c/o pain. With forward flexion PSIS became level. Hip Goniometric Range of Motion Hip left Hip ROM WFL No Testing Position Supine Flexion w/Knee Flexed 95 Straight Leg Raise 55 Extension 0 Internal Rotation 10 External Rotation 60 Right Hip ROM WFL No Testing Position Supine Flexion w/Knee Flexed 95 Straight Leg Raise 65 Extension 0 Internal Rotation 5 External Rotation 55 Hip ROM Limitations Hip ROM Limitations Soft Tissue Tightness Knee Goniometric Range of Motion Knee herbie Knee ROM WFL Yes Ankle and Foot Goniometric Range of Motion Ankle and Foot Active Ankle/Foot ROM WFL No Ankle and Foot ROM Limitations ROM Limitations Soft Tissue Tightness Comments df right 0, left 5 PT-OP-L Special Tests Start: 04/14/19 09:30 Freq: Status: Active Protocol: Document 04/14/19 10:20 SAK (Rec: 04/14/19 16:49 [facility] [id number]) Special Tests Lumbar Spine Special Tests Straight Leg Raise Test Results negative herbie Manual Traction Test Results decreased pain Eliezer Test Results positive herbie for hip flex tightness PT-OP-M Strength Start: 04/14/19 09:30 Freq: Status: Active Protocol: Document 04/14/19 10:20 SAK (Rec: 04/14/19 16:49 [facility] [id number]) Trunk Strength Trunk Manual Muscle Testing Testing Position Supine Flexion 2+ Poor+ Extension 3- Fair- Core Stabilization poor ability to activate TrA and multifidi Hip Strength Hip Manual Muscle Testing Left Flexion (L2) 3+ Fair+ Extension (S1) 3- Fair- Abduction 4- Good- External Rotation 4- Good- Internal Rotation 4- Good- Right Flexion (L2) 3+ Fair+ Extension (S1) 3- Fair- Abduction 4- Good- External Rotation 4- Good- Internal Rotation 4- Good- Knee Strength Knee Manual Muscle Testing herbie Flexion (S2) 5 Normal Extension (L3) 5 Normal Ankle/Foot Strength Ankle and Foot Manual Muscle Testing herbie Dorsiflexion (L4) 4 Good Plantarflexion (S1) 4- Good- PT-OP-Q Treatments Start: 04/14/19 09:30 Freq: Status: Active Protocol: Document 05/10/19 13:00 [facility] (Rec: 05/10/19 14:05 [facility] [id number]) Cardio Equipment Recumbent Stepper (Sci-Fit) Duration (Minutes) 6 Resistance 1.0 Seat Position 8 Gym Equipment Shuttle Recovery Unilateral Squats Resistance 37 Shuttle Recovery Platform Stable Reps/Time 10x Bilateral Squats Resistance 50 Shuttle Recovery Platform Stable Reps/Time 10x Therapeutic Exercises Supine Exercises pec stretch Reps/Minutes 30x2 postural isometric Reps/Minutes 10x hip ab/ER Resistance L1 TB Reps/Minutes 10x hip add fiona Supine Exercise Name pillow squeeze Reps/Minutes 10x gluteal set Reps/Minutes 10x TrA Reps/Minutes 10x Standing Exercises HC stretch Resistance CARLITA Reps/Minutes 2x30 shoulder extension Resistance L1 Reps/Minutes 10x row Resistance L1 Reps/Minutes 10x Manual Therapy Treatment Soft Tissue Mobilization right piriformis Mobilization Type Myofascial Release Rolling Strumming Body Position Prone Comments prone pillow lumbar paraspinals Mobilization Type Manual Lymphatic Drainage Rolling Strumming Body Position Prone Comments prone pillow PT-OP-R Modalities Start: 04/14/19 09:30 Freq: Status: Active Protocol: Document 05/10/19 13:00 [facility] (Rec: 05/10/19 14:05 [facility] [id number]) Electric Stimulation Electric Stimulation Interferential Current (IFC) Body Location bilateral l/s, piriformis Duration (Minutes) 15 Target/Sweep Sweep High/Low High Patient Position Prone Combined With Heat/Cold Cold Pack Comments prone pillow PT-OP-T Assessment and Plan Start: 04/14/19 09:30 Freq: Status: Active Protocol: Document 05/10/19 13:00 [facility] (Rec: 05/10/19 14:05 [facility] [id number]) Physical Therapy Assessment Goals Four Impairment inability to sit in neutral position due to coccyx pain Compensator Goal (LTG) Patient will be able to sit in neutral position for at least 30 min without an increase in pain LTG Duration 06/15/19 Three Impairment sleep impairment due to pain Short Term Goal (STG) Patient will report at least a 25% improvement in her abiity to sleep STG Duration 05/15/19 Compensator Goal (LTG) Patient cata report at a least a 50% improvement in her ability to sleep due to decrease in her pain LTG Duration 06/15/19 Two Impairment unable to tolerate any exercise program Short Term Goal (STG) Instruct patient in HEP for core stabilization, flexibility, and strengthening STG Duration 04/26/19 Compensator Goal (LTG) Patient to be independent and compliant with HEP for long- term fitness and pain management possibly to include aquatic exercises LTG Duration 06/15/19 One Impairment activity intolerance; LEFS 30% Short Term Goal (STG) Improve LEFS to at least 50% STG Duration 05/15/19 Halfway Goal (LTG) Improve LEFS to at least 70%, and decrease Oswestry score to no greater than 30% including ability to do usual daily activities without an increase in pain. LTG Duration 06/15/19 Assessment Summary Assessment Good tolerance for today's treatment with mod cues for exercise performance. Wrritten HEP issued. Patient compliant with wearing cork in show and finds it helpful. Physical Therapy Plan Frequency and Duration Frequency of Treatment 2 Duration of Treatment 8 Plan of Care Start Date 04/14/19 Plan of Care End Date 06/15/19 Therapeutic Interventions Therapeutic Interventions Aquatic Therapy Home Exercise Program Joint Mobilizations Manual Therapy Neuromuscular Re-education Patient/Caregiver Education Self-Care/Home Management Soft Tissue Mobilization Taping Therapeutic Activities Therapeutic Exercises Modalities Hot Packs Traction- Mechanical Ultrasound Next Visit Focus/Plan Next Note Type Treatment Note Next Visit Plan Progress ther ex as tolerated with emphasis on core stabilization
--- NOTE | 2019-05-15 17:26 | PT-OP ANOTE ---
didn't show for PT appointment
--- NOTE | 2019-05-17 16:27 | PT.OTN ---
Current Diagnoses Other chronic pain (05/17/19) Pain in left hip (05/17/19) Low back pain (05/17/19) Physical Therapy Treatment Note PT-OP-A Visit Information Start: 04/14/19 09:30 Freq: Status: Active Protocol: Document 05/17/19 15:29 SAK (Rec: 05/17/19 16:27 SAK [id number]) Out-Patient Physical Therapy Visit Information Visit Information Visit Type Treatment Note Visit Start Time 15:15 Visit Stop Time 16:15 Total Visit Minutes 60 Visit Number 4 Number of SPECIMEN PROCESSOR Visits 0 Precautions Precautions PMH: multiple falls and injuries PT-OP-B Current Condition Start: 04/14/19 09:30 Freq: Status: Active Protocol: Document 04/14/19 10:20 SAK (Rec: 04/14/19 10:35 SAK [id number]) Current Condition History of Current Condition Onset Date years Current Complaints bilateral LBP, tailbone pain History of Current Condition Progressive worsening of LBP and pain in tailbone region, poor tolerance for standing and walking, pain sitting; can 't sit directly on tailbone. Laying on side causes hands to go numb, laying on back increases LB and tailbone pain . Multiple falls. Reports poor alignment of pelvis. Takes Ibuprofen and uses heat for mild relief. Prior Treatments and Tests chiropractor and PT: helpful but reports pelvic alignment wouldn't stay when had adjustments by chiropractor. Not able to do any exercises. States told left leg shorter by 1 1/2 inches xray: Lower lumbar spondylosis , degenerative arthritis, Multilevel degenerative endplate sclerosis and spurring. Diffuse facet arthropathy. Straightening of the normal lordotic curvature. Treatment Goals Patient/Caregiver Goals strengthen core muscle Decrease pain Improve function Prior Functional Status Baseline Function- ADL's Independent Baseline Function- Mobility Independent Baseline Function- Gait Independent, no device, no limitations Baseline Function- Work/School doesn't work; disabled Baseline Function- Recreation/Hobbies no limitations Current Functional Impairments (Reported) Functional Limitations- ADL's painful Functional Limitations- Mobility/Gait limited to household and short distance community due to pain Functional Limitations- Work/School unable Functional Limitations- Recreation/ unable, painful Hobbies Personal Factors Other Personal Factors That May Effect PMH: arthritis, HTN, Therapy/Recovery depression, falls, neck pain, osteopenia, PTSD, thyroid dysfunction PT-OP-C Subjective Start: 04/14/19 09:30 Freq: Status: Active Protocol: Document 05/17/19 15:29 SAK (Rec: 05/17/19 16:27 SAK [id number]) OP-PT Subjective Patient Comments Patient Comments Thinks she has had multiple instances of injuring herself then compensating. LBP better , tailbone still painful, has been about 1 yr. Apologizes for oversleeping and missing last appointment. PT-OP-F Manual Assessment Start: 04/14/19 09:30 Freq: Status: Active Protocol: Document 04/14/19 10:20 SAK (Rec: 04/14/19 16:49 SAK [id number]) Manual Assessments Other Manual Assessments Other Manual Assessments Leg length: right 1/2 shorter than left PT-OP-G Mobility & Gait Start: 04/14/19 09:30 Freq: Status: Active Protocol: Document 04/14/19 10:20 SAK (Rec: 04/14/19 16:49 SAK [id number]) OP Mobility Evaluation Bed Mobility Rolling poor core stab Supine to and from Sit cues for logroll OP Gait Assessment Gait Gait Assistance Required: Independent Assistive Devices Assistive Device None Gait Deviations General Gait Pattern Antalgic Decreased Stride Length Decreased Feet Clearance Flexed Trunk Factors Limiting Gait Function Factors Limiting Gait Function Pain PT-OP-H Neuro Start: 04/14/19 09:30 Freq: Status: Active Protocol: Document 04/14/19 10:20 SAK (Rec: 04/14/19 16:49 SAK [id number]) Sensation Evaluation Gross Sensation Gross Sensation WNL Comments Summary Comments denied N/T LE's PT-OP-J Posture/Palpation/Skin Start: 04/14/19 09:30 Freq: Status: Active Protocol: Document 04/14/19 10:20 SAK (Rec: 04/14/19 16:49 SAK [id number]) Posture Evaluation Position Standing Head/C-Spine Posture Forward Head T-Spine Posture Increased Kyphosis L-Spine Posture Increased Lordosis Pelvis Posture (L) Iliac Crest Superior (R) PSIS Inferior Palpation Assessment Location buttocks Palpation Details increased soft tissue tightness throughout right buttock lumbar paraspinals Palpation Findings Soft Tissue Tightness Muscle Guarding Tenderness PT-OP-K Range of Motion Start: 04/14/19 09:30 Freq: Status: Active Protocol: Document 04/14/19 10:20 SAK (Rec: 04/14/19 16:49 [facility] [id number]) Lumbar Spine Range of Motion Lumbar Spine Active Testing Position Standing ROM Limitations Pain Comments Moderate decrease in all motions due to c/o pain. With forward flexion PSIS became level. Hip Goniometric Range of Motion Hip left Hip ROM WFL No Testing Position Supine Flexion w/Knee Flexed 95 Straight Leg Raise 55 Extension 0 Internal Rotation 10 External Rotation 60 Right Hip ROM WFL No Testing Position Supine Flexion w/Knee Flexed 95 Straight Leg Raise 65 Extension 0 Internal Rotation 5 External Rotation 55 Hip ROM Limitations Hip ROM Limitations Soft Tissue Tightness Knee Goniometric Range of Motion Knee herbie Knee ROM WFL Yes Ankle and Foot Goniometric Range of Motion Ankle and Foot Active Ankle/Foot ROM WFL No Ankle and Foot ROM Limitations ROM Limitations Soft Tissue Tightness Comments df right 0, left 5 PT-OP-L Special Tests Start: 04/14/19 09:30 Freq: Status: Active Protocol: Document 04/14/19 10:20 [facility] (Rec: 04/14/19 16:49 [facility] [id number]) Special Tests Lumbar Spine Special Tests Straight Leg Raise Test Results negative herbie Manual Traction Test Results decreased pain Eliezer Test Results positive herbie for hip flex tightness PT-OP-M Strength Start: 04/14/19 09:30 Freq: Status: Active Protocol: Document 04/14/19 10:20 SAK (Rec: 04/14/19 16:49 [facility] [id number]) Trunk Strength Trunk Manual Muscle Testing Testing Position Supine Flexion 2+ Poor+ Extension 3- Fair- Core Stabilization poor ability to activate TrA and multifidi Hip Strength Hip Manual Muscle Testing Left Flexion (L2) 3+ Fair+ Extension (S1) 3- Fair- Abduction 4- Good- External Rotation 4- Good- Internal Rotation 4- Good- Right Flexion (L2) 3+ Fair+ Extension (S1) 3- Fair- Abduction 4- Good- External Rotation 4- Good- Internal Rotation 4- Good- Knee Strength Knee Manual Muscle Testing herbie Flexion (S2) 5 Normal Extension (L3) 5 Normal Ankle/Foot Strength Ankle and Foot Manual Muscle Testing heribe Dorsiflexion (L4) 4 Good Plantarflexion (S1) 4- Good- PT-OP-Q Treatments Start: 04/14/19 09:30 Freq: Status: Active Protocol: Document 05/17/19 15:29 [facility] (Rec: 05/17/19 16:27 [facility] [id number]) Cardio Equipment Recumbent Stepper (Sci-Fit) Duration (Minutes) 7 Resistance 2 Seat Position 8 Gym Equipment Shuttle Recovery Unilateral Squats Resistance 37 Shuttle Recovery Platform Stable Reps/Time 10x Bilateral Squats Resistance 50 Shuttle Recovery Platform Stable Reps/Time 10x Therapeutic Exercises Supine Exercises TrA with march Reps/Minutes 10x pec stretch Reps/Minutes 30x2 postural isometric Reps/Minutes 10x TrA Reps/Minutes 10x Standing Exercises HC stretch Resistance CARLITA Reps/Minutes 2x30 shoulder extension Resistance L1 Reps/Minutes 10x row Resistance L1 Reps/Minutes 10x Manual Therapy Treatment Soft Tissue Mobilization right piriformis Mobilization Type Myofascial Release Rolling Strumming Body Position Prone Comments prone pillow lumbar paraspinals Mobilization Type Myofascial Release Rolling Strumming Body Position Prone Comments prone pillow Self-Care/Home Management Treatment Education Other Education use of tennis ball for soft tissue release of piriformis PT-OP-R Modalities Start: 04/14/19 09:30 Freq: Status: Active Protocol: Document 05/17/19 15:29 [facility] (Rec: 05/17/19 16:27 [facility] [id number]) Hot Pack/Cold Pack Treatment Hot Pack Location herbie lumbosacral spine Patient Position Hooklying Treatment Duration (minutes) 15 Patient Tolerance Good PT-OP-T Assessment and Plan Start: 04/14/19 09:30 Freq: Status: Active Protocol: Document 05/17/19 15:29 [facility] (Rec: 05/17/19 16:27 [facility] [id number]) Physical Therapy Assessment Goals Four Impairment inability to sit in neutral position due to coccyx pain [facility]ci Goal (LTG) Patient will be able to sit in neutral position for at least 30 min without an increase in pain LTG Duration 06/15/19 Three Impairment sleep impairment due to pain Short Term Goal (STG) Patient will report at least a 25% improvement in her abiity to sleep STG Duration 05/15/19 [facility] Goal (LTG) Patient cata report at a least a 50% improvement in her ability to sleep due to decrease in her pain LTG Duration 06/15/19 Two Impairment unable to tolerate any exercise program Short Term Goal (STG) Instruct patient in HEP for core stabilization, flexibility, and strengthening STG Duration 04/26/19 Member Of Technical Staff Goal (LTG) Patient to be independent and compliant with HEP for long- term fitness and pain management possibly to include aquatic exercises LTG Duration 06/15/19 One Impairment activity intolerance; LEFS 30% Short Term Goal (STG) Improve LEFS to at least 50% STG Duration 05/15/19 [facility] Goal (LTG) Improve LEFS to at least 70%, and decrease Oswestry score to no greater than 30% including ability to do usual daily activities without an increase in pain. LTG Duration 06/15/19 Assessment Summary Assessment mild progress with decrease in LBP, persistent tailbone pain , will need further assessment . Physical Therapy Plan Frequency and Duration Frequency of Treatment 2 Duration of Treatment 8 Plan of Care Start Date 04/14/19 Plan of Care End Date 06/15/19 Therapeutic Interventions Therapeutic Interventions Aquatic Therapy Home Exercise Program Joint Mobilizations Manual Therapy Neuromuscular Re-education Patient/Caregiver Education Self-Care/Home Management Soft Tissue Mobilization Taping Therapeutic Activities Therapeutic Exercises Modalities Hot Packs Traction- Mechanical Ultrasound Next Visit Focus/Plan Next Note Type Treatment Note Next Visit Plan Assess coccyx position, mobilize as indicated. Progress ther ex as tolerated with emphasis on core stabilization
--- NOTE | 2019-05-22 16:33 | PT.OTN ---
Current Diagnoses Other chronic pain (05/22/19) Pain in left hip (05/22/19) Low back pain (05/22/19) Physical Therapy Treatment Note PT-OP-A Visit Information Start: 04/14/19 09:30 Freq: Status: Active Protocol: Document 05/22/19 15:15 SAK (Rec: 05/22/19 16:33 [facility] [id number]) Out-Patient Physical Therapy Visit Information Visit Information Visit Type Treatment Note Visit Start Time 15:15 Visit Stop Time 16:17 Total Visit Minutes 62 Number of PHYSICAL CHEMISTRY PROFESSOR Visits 0 Precautions Precautions PMH: multiple falls and injuries PT-OP-B Current Condition Start: 04/14/19 09:30 Freq: Status: Active Protocol: Document 04/14/19 10:20 SAK (Rec: 04/14/19 10:35 [facility] [id number]) Current Condition History of Current Condition Onset Date years Current Complaints bilateral LBP, tailbone pain History of Current Condition Progressive worsening of LBP and pain in tailbone region, poor tolerance for standing and walking, pain sitting; can 't sit directly on tailbone. Laying on side causes hands to go numb, laying on back increases LB and tailbone pain . Multiple falls. Reports poor alignment of pelvis. Takes Ibuprofen and uses heat for mild relief. Prior Treatments and Tests chiropractor and PT: helpful but reports pelvic alignment wouldn't stay when had adjustments by chiropractor. Not able to do any exercises. States told left leg shorter by 1 1/2 inches xray: Lower lumbar spondylosis , degenerative arthritis, Multilevel degenerative endplate sclerosis and spurring. Diffuse facet arthropathy. Straightening of the normal lordotic curvature. Treatment Goals Patient/Caregiver Goals strengthen core muscle Decrease pain Improve function Prior Functional Status Baseline Function- ADL's Independent Baseline Function- Mobility Independent Baseline Function- Gait Independent, no device, no limitations Baseline Function- Work/School doesn't work; disabled Baseline Function- Recreation/Hobbies no limitations Current Functional Impairments (Reported) Functional Limitations- ADL's painful Functional Limitations- Mobility/Gait limited to household and short distance community due to pain Functional Limitations- Work/School unable Functional Limitations- Recreation/ unable, painful Hobbies Personal Factors Other Personal Factors That May Effect PMH: arthritis, HTN, Therapy/Recovery depression, falls, neck pain, osteopenia, PTSD, thyroid dysfunction PT-OP-C Subjective Start: 04/14/19 09:30 Freq: Status: Active Protocol: Document 05/22/19 15:15 SAK (Rec: 05/22/19 16:33 SAK [id number]) OP-PT Subjective Patient Comments Patient Comments Reports decreased pain in back and hip, coccyx pain the same . When knees straight can clench buttock muscles, with knees bent cannot. PT-OP-F Manual Assessment Start: 04/14/19 09:30 Freq: Status: Active Protocol: Document 04/14/19 10:20 SAK (Rec: 04/14/19 16:49 SAK [id number]) Manual Assessments Other Manual Assessments Other Manual Assessments Leg length: right 1/2 shorter than left PT-OP-G Mobility & Gait Start: 04/14/19 09:30 Freq: Status: Active Protocol: Document 04/14/19 10:20 SAK (Rec: 04/14/19 16:49 SAK [id number]) OP Mobility Evaluation Bed Mobility Rolling poor core stab Supine to and from Sit cues for logroll OP Gait Assessment Gait Gait Assistance Required: Independent Assistive Devices Assistive Device None Gait Deviations General Gait Pattern Antalgic Decreased Stride Length Decreased Feet Clearance Flexed Trunk Factors Limiting Gait Function Factors Limiting Gait Function Pain PT-OP-H Neuro Start: 04/14/19 09:30 Freq: Status: Active Protocol: Document 04/14/19 10:20 SAK (Rec: 04/14/19 16:49 SAK [id number]) Sensation Evaluation Gross Sensation Gross Sensation WNL Comments Summary Comments denied N/T LE's PT-OP-J Posture/Palpation/Skin Start: 04/14/19 09:30 Freq: Status: Active Protocol: Document 04/14/19 10:20 SAK (Rec: 04/14/19 16:49 SAK [id number]) Posture Evaluation Position Standing Head/C-Spine Posture Forward Head T-Spine Posture Increased Kyphosis L-Spine Posture Increased Lordosis Pelvis Posture (L) Iliac Crest Superior (R) PSIS Inferior Palpation Assessment Location buttocks Palpation Details increased soft tissue tightness throughout right buttock lumbar paraspinals Palpation Findings Soft Tissue Tightness Muscle Guarding Tenderness PT-OP-K Range of Motion Start: 04/14/19 09:30 Freq: Status: Active Protocol: Document 04/14/19 10:20 SAK (Rec: 04/14/19 16:49 [facility] [id number]) Lumbar Spine Range of Motion Lumbar Spine Active Testing Position Standing ROM Limitations Pain Comments Moderate decrease in all motions due to c/o pain. With forward flexion PSIS became level. Hip Goniometric Range of Motion Hip left Hip ROM WFL No Testing Position Supine Flexion w/Knee Flexed 95 Straight Leg Raise 55 Extension 0 Internal Rotation 10 External Rotation 60 Right Hip ROM WFL No Testing Position Supine Flexion w/Knee Flexed 95 Straight Leg Raise 65 Extension 0 Internal Rotation 5 External Rotation 55 Hip ROM Limitations Hip ROM Limitations Soft Tissue Tightness Knee Goniometric Range of Motion Knee herbie Knee ROM WFL Yes Ankle and Foot Goniometric Range of Motion Ankle and Foot Active Ankle/Foot ROM WFL No Ankle and Foot ROM Limitations ROM Limitations Soft Tissue Tightness Comments df right 0, left 5 PT-OP-L Special Tests Start: 04/14/19 09:30 Freq: Status: Active Protocol: Document 04/14/19 10:20 SAK (Rec: 04/14/19 16:49 [facility] [id number]) Special Tests Lumbar Spine Special Tests Straight Leg Raise Test Results negative herbie Manual Traction Test Results decreased pain Eliezer Test Results positive herbie for hip flex tightness PT-OP-M Strength Start: 04/14/19 09:30 Freq: Status: Active Protocol: Document 04/14/19 10:20 SAK (Rec: 04/14/19 16:49 [facility] [id number]) Trunk Strength Trunk Manual Muscle Testing Testing Position Supine Flexion 2+ Poor+ Extension 3- Fair- Core Stabilization poor ability to activate TrA and multifidi Hip Strength Hip Manual Muscle Testing Left Flexion (L2) 3+ Fair+ Extension (S1) 3- Fair- Abduction 4- Good- External Rotation 4- Good- Internal Rotation 4- Good- Right Flexion (L2) 3+ Fair+ Extension (S1) 3- Fair- Abduction 4- Good- External Rotation 4- Good- Internal Rotation 4- Good- Knee Strength Knee Manual Muscle Testing herbie Flexion (S2) 5 Normal Extension (L3) 5 Normal Ankle/Foot Strength Ankle and Foot Manual Muscle Testing herbie Dorsiflexion (L4) 4 Good Plantarflexion (S1) 4- Good- PT-OP-Q Treatments Start: 04/14/19 09:30 Freq: Status: Active Protocol: Document 05/22/19 15:15 SAK (Rec: 05/22/19 16:33 [facility] [id number]) Cardio Equipment Recumbent Stepper (Sci-Fit) Duration (Minutes) 8 Resistance 2 Seat Position 8 Gym Equipment Shuttle Recovery Unilateral Squats Resistance 37 Shuttle Recovery Platform Stable Reps/Time 10x Bilateral Squats Resistance 50 Shuttle Recovery Platform Stable Reps/Time 10x Therapeutic Exercises Supine Exercises happy baby Reps/Minutes 1x 30 segmental bridge Reps/Minutes 10x gluteal set Reps/Minutes 10x Comments knees extended, knees bent ( unable knees bent) TrA Reps/Minutes 10x Standing Exercises HC stretch Resistance CARLITA Reps/Minutes 2x30 Other Exercises cat/cow Reps/Minutes 5x Comments including wag the tail herber pose Reps/Minutes 5x Manual Therapy Treatment Soft Tissue Mobilization right piriformis Mobilization Type Myofascial Release Rolling Strumming Body Position Prone Comments prone pillow lumbar paraspinals Mobilization Type Myofascial Release Rolling Strumming Body Position Prone Comments prone pillow Self-Care/Home Management Treatment Education Other Education use of raquetball ball for soft tissue release pelvis PT-OP-R Modalities Start: 04/14/19 09:30 Freq: Status: Active Protocol: Document 05/22/19 15:15 [facility] (Rec: 05/22/19 16:33 [facility] [id number]) Electric Stimulation Electric Stimulation Interferential Current (IFC) Body Location bilateral l/s, piriformis Duration (Minutes) 15 Target/Sweep Sweep High/Low High Patient Position Prone Combined With Heat/Cold Cold Pack Comments prone pillow PT-OP-T Assessment and Plan Start: 04/14/19 09:30 Freq: Status: Active Protocol: Document 05/22/19 15:15 [facility] (Rec: 05/22/19 16:33 [facility] [id number]) Physical Therapy Assessment Goals Four Impairment inability to sit in neutral position due to coccyx pain Senior Living Goal (LTG) Patient will be able to sit in neutral position for at least 30 min without an increase in pain LTG Duration 06/15/19 Three Impairment sleep impairment due to pain Short Term Goal (STG) Patient will report at least a 25% improvement in her abiity to sleep STG Duration 05/15/19 Instructor Trainer Canine Service Goal (LTG) Patient cata report at a least a 50% improvement in her ability to sleep due to decrease in her pain LTG Duration 06/15/19 Two Impairment unable to tolerate any exercise program Short Term Goal (STG) Instruct patient in HEP for core stabilization, flexibility, and strengthening STG Duration 04/26/19 Senior Living Goal (LTG) Patient to be independent and compliant with HEP for long- term fitness and pain management possibly to include aquatic exercises LTG Duration 06/15/19 One Impairment activity intolerance; LEFS 30% Short Term Goal (STG) Improve LEFS to at least 50% STG Duration 05/15/19 Senior Living Goal (LTG) Improve LEFS to at least 70%, and decrease Oswestry score to no greater than 30% including ability to do usual daily activities without an increase in pain. LTG Duration 06/15/19 Assessment Summary Assessment Good progress with decrease in hip and LBP. Increased focus today on coccyx pain with ther ex and soft tissue work. Patient's coccyx appears in flexed position, discussed options for treatment including internal manual correction which patient not receptive to this date, prefers to obtain cushion, discussed options. Physical Therapy Plan Frequency and Duration Frequency of Treatment 2 Duration of Treatment 8 Plan of Care Start Date 04/14/19 Plan of Care End Date 06/15/19 Therapeutic Interventions Therapeutic Interventions Aquatic Therapy Home Exercise Program Joint Mobilizations Manual Therapy Neuromuscular Re-education Patient/Caregiver Education Self-Care/Home Management Soft Tissue Mobilization Taping Therapeutic Activities Therapeutic Exercises Modalities Hot Packs Traction- Mechanical Ultrasound Next Visit Focus/Plan Next Note Type Treatment Note Next Visit Plan Patient to see orthopedist tomorrow. Evaluate response to today's treatment and continue PT pending any further recommendations from orthopedist.
--- NOTE | 2019-05-24 16:40 | PT.OTN ---
Current Diagnoses Other chronic pain (05/24/19) Pain in left hip (05/24/19) Low back pain (05/24/19) Physical Therapy Treatment Note PT-OP-A Visit Information Start: 04/14/19 09:30 Freq: Status: Active Protocol: Document 05/24/19 15:13 SAK (Rec: 05/24/19 16:09 [facility] [id number]) Out-Patient Physical Therapy Visit Information Visit Information Visit Type Treatment Note Visit Start Time 15:15 Visit Stop Time 16:17 Total Visit Minutes 62 Visit Number 6 Number of FIELD MARKETING DIRECTOR Visits 0 Precautions Precautions PMH: multiple falls and injuries PT-OP-B Current Condition Start: 04/14/19 09:30 Freq: Status: Active Protocol: Document 04/14/19 10:20 SAK (Rec: 04/14/19 10:35 SAK [id number]) Current Condition History of Current Condition Onset Date years Current Complaints bilateral LBP, tailbone pain History of Current Condition Progressive worsening of LBP and pain in tailbone region, poor tolerance for standing and walking, pain sitting; can 't sit directly on tailbone. Laying on side causes hands to go numb, laying on back increases LB and tailbone pain . Multiple falls. Reports poor alignment of pelvis. Takes Ibuprofen and uses heat for mild relief. Prior Treatments and Tests chiropractor and PT: helpful but reports pelvic alignment wouldn't stay when had adjustments by chiropractor. Not able to do any exercises. States told left leg shorter by 1 1/2 inches xray: Lower lumbar spondylosis , degenerative arthritis, Multilevel degenerative endplate sclerosis and spurring. Diffuse facet arthropathy. Straightening of the normal lordotic curvature. Treatment Goals Patient/Caregiver Goals strengthen core muscle Decrease pain Improve function Prior Functional Status Baseline Function- ADL's Independent Baseline Function- Mobility Independent Baseline Function- Gait Independent, no device, no limitations Baseline Function- Work/School doesn't work; disabled Baseline Function- Recreation/Hobbies no limitations Current Functional Impairments (Reported) Functional Limitations- ADL's painful Functional Limitations- Mobility/Gait limited to household and short distance community due to pain Functional Limitations- Work/School unable Functional Limitations- Recreation/ unable, painful Hobbies Personal Factors Other Personal Factors That May Effect PMH: arthritis, HTN, Therapy/Recovery depression, falls, neck pain, osteopenia, PTSD, thyroid dysfunction PT-OP-C Subjective Start: 04/14/19 09:30 Freq: Status: Active Protocol: Document 05/24/19 15:13 SAK (Rec: 05/24/19 16:09 SAK [id number]) OP-PT Subjective Patient Comments Patient Comments No new c/o, tolerated last session well. I think my gluts are starting to work. Got raquetball for soft tissue mobilization as taught last session. PT-OP-F Manual Assessment Start: 04/14/19 09:30 Freq: Status: Active Protocol: Document 04/14/19 10:20 SAK (Rec: 04/14/19 16:49 SAK [id number]) Manual Assessments Other Manual Assessments Other Manual Assessments Leg length: right 1/2 shorter than left PT-OP-G Mobility & Gait Start: 04/14/19 09:30 Freq: Status: Active Protocol: Document 04/14/19 10:20 SAK (Rec: 04/14/19 16:49 [facility] [id number]) OP Mobility Evaluation Bed Mobility Rolling poor core stab Supine to and from Sit cues for logroll OP Gait Assessment Gait Gait Assistance Required: Independent Assistive Devices Assistive Device None Gait Deviations General Gait Pattern Antalgic,Decreased Stride Length,Decreased Feet Clearance,Flexed Trunk Factors Limiting Gait Function Factors Limiting Gait Function Pain PT-OP-H Neuro Start: 04/14/19 09:30 Freq: Status: Active Protocol: Document 04/14/19 10:20 SAK (Rec: 04/14/19 16:49 [facility] [id number]) Sensation Evaluation Gross Sensation Gross Sensation WNL Comments Summary Comments denied N/T LE's PT-OP-J Posture/Palpation/Skin Start: 04/14/19 09:30 Freq: Status: Active Protocol: Document 04/14/19 10:20 SAK (Rec: 04/14/19 16:49 [facility] [id number]) Posture Evaluation Position Standing Head/C-Spine Posture Forward Head T-Spine Posture Increased Kyphosis L-Spine Posture Increased Lordosis Pelvis Posture (L) Iliac Crest Superior,(R) PSIS Inferior Palpation Assessment Location buttocks Palpation Details increased soft tissue tightness throughout right buttock lumbar paraspinals Palpation Findings Soft Tissue Tightness,Muscle Guarding,Tenderness PT-OP-K Range of Motion Start: 04/14/19 09:30 Freq: Status: Active Protocol: Document 04/14/19 10:20 SAK (Rec: 04/14/19 16:49 [facility] [id number]) Lumbar Spine Range of Motion Lumbar Spine Active Testing Position Standing ROM Limitations Pain Comments Moderate decrease in all motions due to c/o pain. With forward flexion PSIS became level. Hip Goniometric Range of Motion Hip left Hip ROM WFL No Testing Position Supine Flexion w/Knee Flexed 95 Straight Leg Raise 55 Extension 0 Internal Rotation 10 External Rotation 60 Right Hip ROM WFL No Testing Position Supine Flexion w/Knee Flexed 95 Straight Leg Raise 65 Extension 0 Internal Rotation 5 External Rotation 55 Hip ROM Limitations Hip ROM Limitations Soft Tissue Tightness Knee Goniometric Range of Motion Knee herbie Knee ROM WFL Yes Ankle and Foot Goniometric Range of Motion Ankle and Foot Active Ankle/Foot ROM WFL No Ankle and Foot ROM Limitations ROM Limitations Soft Tissue Tightness Comments df right 0, left 5 PT-OP-L Special Tests Start: 04/14/19 09:30 Freq: Status: Active Protocol: Document 04/14/19 10:20 SAK (Rec: 04/14/19 16:49 [facility] [id number]) Special Tests Lumbar Spine Special Tests Straight Leg Raise Test Results negative herbie Manual Traction Test Results decreased pain Eliezer Test Results positive herbie for hip flex tightness PT-OP-M Strength Start: 04/14/19 09:30 Freq: Status: Active Protocol: Document 04/14/19 10:20 SAK (Rec: 04/14/19 16:49 [facility] [id number]) Trunk Strength Trunk Manual Muscle Testing Testing Position Supine Flexion 2+ Poor+ Extension 3- Fair- Core Stabilization poor ability to activate TrA and multifidi Hip Strength Hip Manual Muscle Testing Left Flexion (L2) 3+ Fair+ Extension (S1) 3- Fair- Abduction 4- Good- External Rotation 4- Good- Internal Rotation 4- Good- Right Flexion (L2) 3+ Fair+ Extension (S1) 3- Fair- Abduction 4- Good- External Rotation 4- Good- Internal Rotation 4- Good- Knee Strength Knee Manual Muscle Testing herbie Flexion (S2) 5 Normal Extension (L3) 5 Normal Ankle/Foot Strength Ankle and Foot Manual Muscle Testing herbie Dorsiflexion (L4) 4 Good Plantarflexion (S1) 4- Good- PT-OP-Q Treatments Start: 04/14/19 09:30 Freq: Status: Active Protocol: Document 05/24/19 15:13 [facility] (Rec: 05/24/19 16:09 [facility] [id number]) Cardio Equipment Recumbent Stepper (Sci-Fit) Duration (Minutes) 8 Resistance 2 Seat Position 8 Other last 4 min LE's only Gym Equipment Shuttle Recovery Unilateral Squats Resistance 37 Shuttle Recovery Platform Stable Reps/Time 10x Bilateral Squats Resistance 62 Shuttle Recovery Platform Stable Reps/Time 10x Sport Cord forward, backward, side Cord/Resistance green Reps/Duration 5x ea Therapeutic Exercises Supine Exercises TrA with single leg lower Reps/Minutes 3x happy baby Reps/Minutes 1x 30 segmental bridge Reps/Minutes 10x TrA with march Reps/Minutes 10x gluteal set Reps/Minutes 10x Comments knees extended, knees bent ( unable knees bent) Standing Exercises HC stretch Resistance CARLITA Reps/Minutes 2x30 Other Exercises cat/cow Reps/Minutes 5x Comments including wag the tail herber pose Reps/Minutes 5x Comments forward Manual Therapy Treatment Soft Tissue Mobilization right piriformis Mobilization Type Myofascial Release,Rolling, Strumming Body Position Prone Comments prone pillow lumbar paraspinals Mobilization Type Myofascial Release,Rolling, Strumming Body Position Prone Comments prone pillow PT-OP-R Modalities Start: 04/14/19 09:30 Freq: Status: Active Protocol: Document 05/24/19 15:13 [facility] (Rec: 05/24/19 16:09 [facility] [id number]) Electric Stimulation Electric Stimulation Interferential Current (IFC) Body Location bilateral l/s, piriformis Duration (Minutes) 15 Target/Sweep Sweep High/Low High Patient Position Prone Combined With Heat/Cold Hot Pack Comments prone pillow PT-OP-T Assessment and Plan Start: 04/14/19 09:30 Freq: Status: Active Protocol: Document 05/24/19 15:13 [facility] (Rec: 05/24/19 16:09 [facility] [id number]) Physical Therapy Assessment Goals Four Impairment inability to sit in neutral position due to coccyx pain Rheologist Goal (LTG) Patient will be able to sit in neutral position for at least 30 min without an increase in pain LTG Duration 06/15/19 Three Impairment sleep impairment due to pain Short Term Goal (STG) Patient will report at least a 25% improvement in her abiity to sleep STG Duration 05/15/19 Rheologist Goal (LTG) Patient cata report at a least a 50% improvement in her ability to sleep due to decrease in her pain LTG Duration 06/15/19 Two Impairment unable to tolerate any exercise program Short Term Goal (STG) Instruct patient in HEP for core stabilization, flexibility, and strengthening STG Duration 04/26/19 Rheologist Goal (LTG) Patient to be independent and compliant with HEP for long- term fitness and pain management possibly to include aquatic exercises LTG Duration 06/15/19 One Impairment activity intolerance; LEFS 30% Short Term Goal (STG) Improve LEFS to at least 50% STG Duration 05/15/19 [facility] Goal (LTG) Improve LEFS to at least 70%, and decrease Oswestry score to no greater than 30% including ability to do usual daily activities without an increase in pain. LTG Duration 06/15/19 Progress Towards Goals Progress Towards Goals Progressing Toward Goals Assessment Summary Assessment Improving pain, patient compliant with use of raquetball for soft tissue release in pelvic floor. Progressing with ther ex program with good tolerance. Patient appears highly compliant with HEP Physical Therapy Plan Frequency and Duration Frequency of Treatment 2 Duration of Treatment 8 Plan of Care Start Date 04/14/19 Plan of Care End Date 06/15/19 Therapeutic Interventions Therapeutic Interventions Aquatic Therapy,Home Exercise Program,Joint Mobilizations, Manual Therapy,Neuromuscular Re-education,Patient/Caregiver Education,Self-Care/Home Management,Soft Tissue Mobilization,Taping, Therapeutic Activities, Therapeutic Exercises Modalities Hot Packs,Traction- Mechanical ,Ultrasound Next Visit Focus/Plan Next Note Type Treatment Note Next Visit Plan add lateral child's pose, progress core stabilization ex
--- NOTE | 2019-05-30 16:19 | PT.OTN ---
Current Diagnoses Other chronic pain (05/30/19) Pain in left hip (05/30/19) Low back pain (05/30/19) Physical Therapy Treatment Note PT-OP-A Visit Information Start: 04/14/19 09:30 Freq: Status: Active Protocol: Document 05/30/19 15:19 SAK (Rec: 05/30/19 16:11 [facility] [id number]) Out-Patient Physical Therapy Visit Information Visit Information Visit Type Treatment Note Visit Start Time 15:17 Visit Stop Time 16:19 Total Visit Minutes 62 Visit Number 7 Number of MARKETING EXECUTIVE Visits 0 Precautions Precautions PMH: multiple falls and injuries PT-OP-B Current Condition Start: 04/14/19 09:30 Freq: Status: Active Protocol: Document 04/14/19 10:20 SAK (Rec: 04/14/19 10:35 SAK [id number]) Current Condition History of Current Condition Onset Date years Current Complaints bilateral LBP, tailbone pain History of Current Condition Progressive worsening of LBP and pain in tailbone region, poor tolerance for standing and walking, pain sitting; can 't sit directly on tailbone. Laying on side causes hands to go numb, laying on back increases LB and tailbone pain . Multiple falls. Reports poor alignment of pelvis. Takes Ibuprofen and uses heat for mild relief. Prior Treatments and Tests chiropractor and PT: helpful but reports pelvic alignment wouldn't stay when had adjustments by chiropractor. Not able to do any exercises. States told left leg shorter by 1 1/2 inches xray: Lower lumbar spondylosis , degenerative arthritis, Multilevel degenerative endplate sclerosis and spurring. Diffuse facet arthropathy. Straightening of the normal lordotic curvature. Treatment Goals Patient/Caregiver Goals strengthen core muscle Decrease pain Improve function Prior Functional Status Baseline Function- ADL's Independent Baseline Function- Mobility Independent Baseline Function- Gait Independent, no device, no limitations Baseline Function- Work/School doesn't work; disabled Baseline Function- Recreation/Hobbies no limitations Current Functional Impairments (Reported) Functional Limitations- ADL's painful Functional Limitations- Mobility/Gait limited to household and short distance community due to pain Functional Limitations- Work/School unable Functional Limitations- Recreation/ unable, painful Hobbies Personal Factors Other Personal Factors That May Effect PMH: arthritis, HTN, Therapy/Recovery depression, falls, neck pain, osteopenia, PTSD, thyroid dysfunction PT-OP-C Subjective Start: 04/14/19 09:30 Freq: Status: Active Protocol: Document 05/30/19 15:19 SAK (Rec: 05/30/19 16:11 SAK [id number]) OP-PT Subjective Patient Comments Patient Comments Back and buttock pain not quite as well. PT-OP-F Manual Assessment Start: 04/14/19 09:30 Freq: Status: Active Protocol: Document 04/14/19 10:20 SAK (Rec: 04/14/19 16:49 [facility] [id number]) Manual Assessments Other Manual Assessments Other Manual Assessments Leg length: right 1/2 shorter than left PT-OP-G Mobility & Gait Start: 04/14/19 09:30 Freq: Status: Active Protocol: Document 04/14/19 10:20 SAK (Rec: 04/14/19 16:49 [facility] [id number]) OP Mobility Evaluation Bed Mobility Rolling poor core stab Supine to and from Sit cues for logroll OP Gait Assessment Gait Gait Assistance Required: Independent Assistive Devices Assistive Device None Gait Deviations General Gait Pattern Antalgic,Decreased Stride Length,Decreased Feet Clearance,Flexed Trunk Factors Limiting Gait Function Factors Limiting Gait Function Pain PT-OP-H Neuro Start: 04/14/19 09:30 Freq: Status: Active Protocol: Document 04/14/19 10:20 SAK (Rec: 04/14/19 16:49 [facility] [id number]) Sensation Evaluation Gross Sensation Gross Sensation WNL Comments Summary Comments denied N/T LE's PT-OP-J Posture/Palpation/Skin Start: 04/14/19 09:30 Freq: Status: Active Protocol: Document 04/14/19 10:20 SAK (Rec: 04/14/19 16:49 [facility] [id number]) Posture Evaluation Position Standing Head/C-Spine Posture Forward Head T-Spine Posture Increased Kyphosis L-Spine Posture Increased Lordosis Pelvis Posture (L) Iliac Crest Superior,(R) PSIS Inferior Palpation Assessment Location buttocks Palpation Details increased soft tissue tightness throughout right buttock lumbar paraspinals Palpation Findings Soft Tissue Tightness,Muscle Guarding,Tenderness PT-OP-K Range of Motion Start: 04/14/19 09:30 Freq: Status: Active Protocol: Document 04/14/19 10:20 SAK (Rec: 04/14/19 16:49 [facility] [id number]) Lumbar Spine Range of Motion Lumbar Spine Active Testing Position Standing ROM Limitations Pain Comments Moderate decrease in all motions due to c/o pain. With forward flexion PSIS became level. Hip Goniometric Range of Motion Hip left Hip ROM WFL No Testing Position Supine Flexion w/Knee Flexed 95 Straight Leg Raise 55 Extension 0 Internal Rotation 10 External Rotation 60 Right Hip ROM WFL No Testing Position Supine Flexion w/Knee Flexed 95 Straight Leg Raise 65 Extension 0 Internal Rotation 5 External Rotation 55 Hip ROM Limitations Hip ROM Limitations Soft Tissue Tightness Knee Goniometric Range of Motion Knee herbie Knee ROM WFL Yes Ankle and Foot Goniometric Range of Motion Ankle and Foot Active Ankle/Foot ROM WFL No Ankle and Foot ROM Limitations ROM Limitations Soft Tissue Tightness Comments df right 0, left 5 PT-OP-L Special Tests Start: 04/14/19 09:30 Freq: Status: Active Protocol: Document 04/14/19 10:20 [facility] (Rec: 04/14/19 16:49 [facility] [id number]) Special Tests Lumbar Spine Special Tests Straight Leg Raise Test Results negative herbie Manual Traction Test Results decreased pain Eliezer Test Results positive herbie for hip flex tightness PT-OP-M Strength Start: 04/14/19 09:30 Freq: Status: Active Protocol: Document 04/14/19 10:20 [facility] (Rec: 04/14/19 16:49 [facility] [id number]) Trunk Strength Trunk Manual Muscle Testing Testing Position Supine Flexion 2+ Poor+ Extension 3- Fair- Core Stabilization poor ability to activate TrA and multifidi Hip Strength Hip Manual Muscle Testing Left Flexion (L2) 3+ Fair+ Extension (S1) 3- Fair- Abduction 4- Good- External Rotation 4- Good- Internal Rotation 4- Good- Right Flexion (L2) 3+ Fair+ Extension (S1) 3- Fair- Abduction 4- Good- External Rotation 4- Good- Internal Rotation 4- Good- Knee Strength Knee Manual Muscle Testing herbie Flexion (S2) 5 Normal Extension (L3) 5 Normal Ankle/Foot Strength Ankle and Foot Manual Muscle Testing herbie Dorsiflexion (L4) 4 Good Plantarflexion (S1) 4- Good- PT-OP-Q Treatments Start: 04/14/19 09:30 Freq: Status: Active Protocol: Document 05/30/19 15:19 SAK (Rec: 05/30/19 16:11 [facility] [id number]) Cardio Equipment Recumbent Stepper (Sci-Fit) Duration (Minutes) 8 Resistance 2 Seat Position 8 Other last 4 min LE's only Therapeutic Exercises Supine Exercises bridge Reps/Minutes 10x segmental bridge Reps/Minutes 10x Prone Exercises hip ext Side bilateral Reps/Minutes 6x Sidelying Exercises clamshell Reps/Minutes 10x Standing Exercises Hs stretch Reps/Minutes 2x wall squat Reps/Minutes 10x Comments partial resisted sidestepping Resistance yellow TB Reps/Minutes 2 min HC stretch Resistance CARLITA Reps/Minutes 2x30 Therapeutic Activity Therapeutic Activity march Name at counter for UE support Comments emphasis on gluteal activation on stance leg Manual Therapy Treatment Soft Tissue Mobilization right piriformis Mobilization Type Myofascial Release,Rolling, Strumming Body Position Prone Comments prone pillow lumbar paraspinals Mobilization Type Myofascial Release,Rolling, Strumming Body Position Prone Comments prone pillow PT-OP-R Modalities Start: 04/14/19 09:30 Freq: Status: Active Protocol: Document 05/30/19 15:19 [facility] (Rec: 05/30/19 16:11 [facility] [id number]) Electric Stimulation Electric Stimulation Interferential Current (IFC) Body Location bilateral l/s, piriformis Duration (Minutes) 15 Target/Sweep Sweep High/Low High Patient Position Prone Combined With Heat/Cold Hot Pack Comments prone pillow PT-OP-T Assessment and Plan Start: 04/14/19 09:30 Freq: Status: Active Protocol: Document 05/30/19 15:19 [facility] (Rec: 05/30/19 16:11 [facility] [id number]) Physical Therapy Assessment Goals Four Impairment inability to sit in neutral position due to coccyx pain Cloak Room Attendant Goal (LTG) Patient will be able to sit in neutral position for at least 30 min without an increase in pain LTG Duration 06/15/19 Three Impairment sleep impairment due to pain Short Term Goal (STG) Patient will report at least a 25% improvement in her abiity to sleep STG Duration 05/15/19 Cloak Room Attendant Goal (LTG) Patient cata report at a least a 50% improvement in her ability to sleep due to decrease in her pain LTG Duration 06/15/19 Two Impairment unable to tolerate any exercise program Short Term Goal (STG) Instruct patient in HEP for core stabilization, flexibility, and strengthening STG Duration 04/26/19 Cloak Room Attendant Goal (LTG) Patient to be independent and compliant with HEP for long- term fitness and pain management possibly to include aquatic exercises LTG Duration 06/15/19 One Impairment activity intolerance; LEFS 30% Short Term Goal (STG) Improve LEFS to at least 50% STG Duration 05/15/19 Residential Goal (LTG) Improve LEFS to at least 70%, and decrease Oswestry score to no greater than 30% including ability to do usual daily activities without an increase in pain. LTG Duration 06/15/19 Progress Towards Goals Progress Towards Goals Progressing Toward Goals Assessment Summary Assessment Patient continues to have difficulty with activating gluteals though awareness improving. Physical Therapy Plan Frequency and Duration Frequency of Treatment 2 Duration of Treatment 8 Plan of Care Start Date 04/14/19 Plan of Care End Date 06/15/19 Therapeutic Interventions Therapeutic Interventions Aquatic Therapy,Home Exercise Program,Joint Mobilizations, Manual Therapy,Neuromuscular Re-education,Patient/Caregiver Education,Self-Care/Home Management,Soft Tissue Mobilization,Taping, Therapeutic Activities, Therapeutic Exercises Modalities Hot Packs,Traction- Mechanical ,Ultrasound Next Visit Focus/Plan Next Note Type Treatment Note Next Visit Plan add lateral child's pose, progress core stabilization ex
--- NOTE | 2019-06-01 15:46 | PT.OTN ---
Current Diagnoses Other chronic pain (06/01/19) Pain in left hip (06/01/19) Low back pain (06/01/19) Physical Therapy Treatment Note PT-OP-A Visit Information Start: 04/14/19 09:30 Freq: Status: Active Protocol: Document 06/01/19 14:28 SAK (Rec: 06/01/19 15:45 [facility] [id number]) Out-Patient Physical Therapy Visit Information Visit Information Visit Type Treatment Note Visit Start Time 15:10 Visit Stop Time 16:11 Total Visit Minutes 61 Visit Number 8 Number of COTTON FEEDER Visits 0 Precautions Precautions PMH: multiple falls and injuries PT-OP-B Current Condition Start: 04/14/19 09:30 Freq: Status: Active Protocol: Document 04/14/19 10:20 SAK (Rec: 04/14/19 10:35 [facility] [id number]) Current Condition History of Current Condition Onset Date years Current Complaints bilateral LBP, tailbone pain History of Current Condition Progressive worsening of LBP and pain in tailbone region, poor tolerance for standing and walking, pain sitting; can 't sit directly on tailbone. Laying on side causes hands to go numb, laying on back increases LB and tailbone pain . Multiple falls. Reports poor alignment of pelvis. Takes Ibuprofen and uses heat for mild relief. Prior Treatments and Tests chiropractor and PT: helpful but reports pelvic alignment wouldn't stay when had adjustments by chiropractor. Not able to do any exercises. States told left leg shorter by 1 1/2 inches xray: Lower lumbar spondylosis , degenerative arthritis, Multilevel degenerative endplate sclerosis and spurring. Diffuse facet arthropathy. Straightening of the normal lordotic curvature. Treatment Goals Patient/Caregiver Goals strengthen core muscle Decrease pain Improve function Prior Functional Status Baseline Function- ADL's Independent Baseline Function- Mobility Independent Baseline Function- Gait Independent, no device, no limitations Baseline Function- Work/School doesn't work; disabled Baseline Function- Recreation/Hobbies no limitations Current Functional Impairments (Reported) Functional Limitations- ADL's painful Functional Limitations- Mobility/Gait limited to household and short distance community due to pain Functional Limitations- Work/School unable Functional Limitations- Recreation/ unable, painful Hobbies Personal Factors Other Personal Factors That May Effect PMH: arthritis, HTN, Therapy/Recovery depression, falls, neck pain, osteopenia, PTSD, thyroid dysfunction PT-OP-C Subjective Start: 04/14/19 09:30 Freq: Status: Active Protocol: Document 06/01/19 14:28 SAK (Rec: 06/01/19 15:16 SAK [id number]) OP-PT Subjective Patient Comments Patient Comments No new c/o. Compliant to HEP and use of ball for self- massage. No increase in pain after increased exercise next sesson PT-OP-F Manual Assessment Start: 04/14/19 09:30 Freq: Status: Active Protocol: Document 04/14/19 10:20 SAK (Rec: 04/14/19 16:49 [facility] [id number]) Manual Assessments Other Manual Assessments Other Manual Assessments Leg length: right 1/2 shorter than left PT-OP-G Mobility & Gait Start: 04/14/19 09:30 Freq: Status: Active Protocol: Document 04/14/19 10:20 SAK (Rec: 04/14/19 16:49 [facility] [id number]) OP Mobility Evaluation Bed Mobility Rolling poor core stab Supine to and from Sit cues for logroll OP Gait Assessment Gait Gait Assistance Required: Independent Assistive Devices Assistive Device None Gait Deviations General Gait Pattern Antalgic,Decreased Stride Length,Decreased Feet Clearance,Flexed Trunk Factors Limiting Gait Function Factors Limiting Gait Function Pain PT-OP-H Neuro Start: 04/14/19 09:30 Freq: Status: Active Protocol: Document 04/14/19 10:20 SAK (Rec: 04/14/19 16:49 [facility] [id number]) Sensation Evaluation Gross Sensation Gross Sensation WNL Comments Summary Comments denied N/T LE's PT-OP-J Posture/Palpation/Skin Start: 04/14/19 09:30 Freq: Status: Active Protocol: Document 04/14/19 10:20 SAK (Rec: 04/14/19 16:49 [facility] [id number]) Posture Evaluation Position Standing Head/C-Spine Posture Forward Head T-Spine Posture Increased Kyphosis L-Spine Posture Increased Lordosis Pelvis Posture (L) Iliac Crest Superior,(R) PSIS Inferior Palpation Assessment Location buttocks Palpation Details increased soft tissue tightness throughout right buttock lumbar paraspinals Palpation Findings Soft Tissue Tightness,Muscle Guarding,Tenderness PT-OP-K Range of Motion Start: 04/14/19 09:30 Freq: Status: Active Protocol: Document 04/14/19 10:20 [facility] (Rec: 04/14/19 16:49 [facility] [id number]) Lumbar Spine Range of Motion Lumbar Spine Active Testing Position Standing ROM Limitations Pain Comments Moderate decrease in all motions due to c/o pain. With forward flexion PSIS became level. Hip Goniometric Range of Motion Hip left Hip ROM WFL No Testing Position Supine Flexion w/Knee Flexed 95 Straight Leg Raise 55 Extension 0 Internal Rotation 10 External Rotation 60 Right Hip ROM WFL No Testing Position Supine Flexion w/Knee Flexed 95 Straight Leg Raise 65 Extension 0 Internal Rotation 5 External Rotation 55 Hip ROM Limitations Hip ROM Limitations Soft Tissue Tightness Knee Goniometric Range of Motion Knee herbie Knee ROM WFL Yes Ankle and Foot Goniometric Range of Motion Ankle and Foot Active Ankle/Foot ROM WFL No Ankle and Foot ROM Limitations ROM Limitations Soft Tissue Tightness Comments df right 0, left 5 PT-OP-L Special Tests Start: 04/14/19 09:30 Freq: Status: Active Protocol: Document 04/14/19 10:20 SAK (Rec: 04/14/19 16:49 [facility] [id number]) Special Tests Lumbar Spine Special Tests Straight Leg Raise Test Results negative herbie Manual Traction Test Results decreased pain Eliezer Test Results positive herbie for hip flex tightness PT-OP-M Strength Start: 04/14/19 09:30 Freq: Status: Active Protocol: Document 04/14/19 10:20 [facility] (Rec: 04/14/19 16:49 [facility] [id number]) Trunk Strength Trunk Manual Muscle Testing Testing Position Supine Flexion 2+ Poor+ Extension 3- Fair- Core Stabilization poor ability to activate TrA and multifidi Hip Strength Hip Manual Muscle Testing Left Flexion (L2) 3+ Fair+ Extension (S1) 3- Fair- Abduction 4- Good- External Rotation 4- Good- Internal Rotation 4- Good- Right Flexion (L2) 3+ Fair+ Extension (S1) 3- Fair- Abduction 4- Good- External Rotation 4- Good- Internal Rotation 4- Good- Knee Strength Knee Manual Muscle Testing herbie Flexion (S2) 5 Normal Extension (L3) 5 Normal Ankle/Foot Strength Ankle and Foot Manual Muscle Testing herbie Dorsiflexion (L4) 4 Good Plantarflexion (S1) 4- Good- PT-OP-Q Treatments Start: 04/14/19 09:30 Freq: Status: Active Protocol: Document 06/01/19 14:28 SAK (Rec: 06/01/19 15:16 [facility] [id number]) Cardio Equipment Recumbent Stepper (Sci-Fit) Duration (Minutes) 12 Resistance 2 Seat Position 8 Other last 5 min LE's only Gym Equipment Shuttle Recovery Unilateral Squats Resistance 37 Shuttle Recovery Platform Stable Reps/Time 10x2 Bilateral Squats Resistance 75 Shuttle Recovery Platform Stable Reps/Time 10x2 Therapeutic Exercises Supine Exercises bridge Reps/Minutes 10x TrA with single leg lower Reps/Minutes 3x TrA with march Reps/Minutes 10x Prone Exercises hip extension Prone Exercise Name legs off table Reps/Minutes 10x Standing Exercises resisted walking forward, back Resistance yellow TB Hs stretch Reps/Minutes 2x resisted sidestepping Resistance yellow TB Reps/Minutes 2 min HC stretch Resistance CARLITA Reps/Minutes 2x30 Other Exercises cat/cow Reps/Minutes 5x Comments including wag the tail herber pose Reps/Minutes 5x Comments forward Manual Therapy Treatment Soft Tissue Mobilization right piriformis Mobilization Type Myofascial Release,Rolling, Strumming Body Position Prone Comments prone pillow lumbar paraspinals Mobilization Type Myofascial Release,Rolling, Strumming Body Position Prone Comments prone pillow PT-OP-R Modalities Start: 04/14/19 09:30 Freq: Status: Active Protocol: Document 06/01/19 14:28 [facility] (Rec: 06/01/19 15:45 [facility] [id number]) Electric Stimulation Electric Stimulation Interferential Current (IFC) Body Location bilateral l/s, piriformis Duration (Minutes) 15 Target/Sweep Sweep High/Low High Patient Position Prone Combined With Heat/Cold Hot Pack Comments prone pillow PT-OP-T Assessment and Plan Start: 04/14/19 09:30 Freq: Status: Active Protocol: Document 06/01/19 14:28 [facility] (Rec: 06/01/19 15:45 [facility] [id number]) Physical Therapy Assessment Goals Four Impairment inability to sit in neutral position due to coccyx pain Fashion Adviser Goal (LTG) Patient will be able to sit in neutral position for at least 30 min without an increase in pain LTG Duration 06/15/19 Three Impairment sleep impairment due to pain Short Term Goal (STG) Patient will report at least a 25% improvement in her abiity to sleep STG Duration 05/15/19 Half-Way Goal (LTG) Patient cata report at a least a 50% improvement in her ability to sleep due to decrease in her pain LTG Duration 06/15/19 Two Impairment unable to tolerate any exercise program Short Term Goal (STG) Instruct patient in HEP for core stabilization, flexibility, and strengthening STG Duration 04/26/19 Fashion Adviser Goal (LTG) Patient to be independent and compliant with HEP for long- term fitness and pain management possibly to include aquatic exercises LTG Duration 06/15/19 One Impairment activity intolerance; LEFS 30% Short Term Goal (STG) Improve LEFS to at least 50% STG Duration 05/15/19 Half-Way Goal (LTG) Improve LEFS to at least 70%, and decrease Oswestry score to no greater than 30% including ability to do usual daily activities without an increase in pain. LTG Duration 06/15/19 Progress Towards Goals Progress Towards Goals Progressing Toward Goals Assessment Summary Assessment Tolerated progression of ther ex well, mod cues for muscle activation, postural alignment with all ex. Physical Therapy Plan Frequency and Duration Frequency of Treatment 2 Duration of Treatment 8 Plan of Care Start Date 04/14/19 Plan of Care End Date 06/15/19 Therapeutic Interventions Therapeutic Interventions Aquatic Therapy,Home Exercise Program,Joint Mobilizations, Manual Therapy,Neuromuscular Re-education,Patient/Caregiver Education,Self-Care/Home Management,Soft Tissue Mobilization,Taping, Therapeutic Activities, Therapeutic Exercises Modalities Hot Packs,Traction- Mechanical ,Ultrasound Next Visit Focus/Plan Next Note Type Treatment Note Next Visit Plan Continue to progress ther ex as tolerated. Manual therapy for muscle release and pain management. Possible muscle energy technique for coccyx release and mobilization.
--- NOTE | 2019-06-06 17:21 | PT.OTN ---
Current Diagnoses Other chronic pain (06/06/19) Pain in left hip (06/06/19) Low back pain (06/06/19) Physical Therapy Treatment Note PT-OP-A Visit Information Start: 04/14/19 09:30 Freq: Status: Active Protocol: Document 06/06/19 14:30 SAK (Rec: 06/07/19 17:18 SAK [id number]) Out-Patient Physical Therapy Visit Information Visit Information Visit Type Treatment Note Visit Start Time 15:10 Visit Stop Time 16:11 Total Visit Minutes 61 Visit Number 8 Number of AGENT BASED MODELER Visits 0 Precautions Precautions PMH: multiple falls and injuries PT-OP-B Current Condition Start: 04/14/19 09:30 Freq: Status: Active Protocol: Document 04/14/19 10:20 SAK (Rec: 04/14/19 10:35 SAK [id number]) Current Condition History of Current Condition Onset Date years Current Complaints bilateral LBP, tailbone pain History of Current Condition Progressive worsening of LBP and pain in tailbone region, poor tolerance for standing and walking, pain sitting; can 't sit directly on tailbone. Laying on side causes hands to go numb, laying on back increases LB and tailbone pain . Multiple falls. Reports poor alignment of pelvis. Takes Ibuprofen and uses heat for mild relief. Prior Treatments and Tests chiropractor and PT: helpful but reports pelvic alignment wouldn't stay when had adjustments by chiropractor. Not able to do any exercises. States told left leg shorter by 1 1/2 inches xray: Lower lumbar spondylosis , degenerative arthritis, Multilevel degenerative endplate sclerosis and spurring. Diffuse facet arthropathy. Straightening of the normal lordotic curvature. Treatment Goals Patient/Caregiver Goals strengthen core muscle Decrease pain Improve function Prior Functional Status Baseline Function- ADL's Independent Baseline Function- Mobility Independent Baseline Function- Gait Independent, no device, no limitations Baseline Function- Work/School doesn't work; disabled Baseline Function- Recreation/Hobbies no limitations Current Functional Impairments (Reported) Functional Limitations- ADL's painful Functional Limitations- Mobility/Gait limited to household and short distance community due to pain Functional Limitations- Work/School unable Functional Limitations- Recreation/ unable, painful Hobbies Personal Factors Other Personal Factors That May Effect PMH: arthritis, HTN, Therapy/Recovery depression, falls, neck pain, osteopenia, PTSD, thyroid dysfunction PT-OP-C Subjective Start: 04/14/19 09:30 Freq: Status: Active Protocol: Document 06/06/19 14:30 SAK (Rec: 06/07/19 17:18 SAK [id number]) OP-PT Subjective Patient Comments Patient Comments Reports feeling she is getting stronger, doing her exercises . PT-OP-F Manual Assessment Start: 04/14/19 09:30 Freq: Status: Active Protocol: Document 04/14/19 10:20 SAK (Rec: 04/14/19 16:49 SAK [id number]) Manual Assessments Other Manual Assessments Other Manual Assessments Leg length: right 1/2 shorter than left PT-OP-G Mobility & Gait Start: 04/14/19 09:30 Freq: Status: Active Protocol: Document 04/14/19 10:20 SAK (Rec: 04/14/19 16:49 SAK [id number]) OP Mobility Evaluation Bed Mobility Rolling poor core stab Supine to and from Sit cues for logroll OP Gait Assessment Gait Gait Assistance Required: Independent Assistive Devices Assistive Device None Gait Deviations General Gait Pattern Antalgic,Decreased Stride Length,Decreased Feet Clearance,Flexed Trunk Factors Limiting Gait Function Factors Limiting Gait Function Pain PT-OP-H Neuro Start: 04/14/19 09:30 Freq: Status: Active Protocol: Document 04/14/19 10:20 SAK (Rec: 04/14/19 16:49 SAK [id number]) Sensation Evaluation Gross Sensation Gross Sensation WNL Comments Summary Comments denied N/T LE's PT-OP-J Posture/Palpation/Skin Start: 04/14/19 09:30 Freq: Status: Active Protocol: Document 04/14/19 10:20 SAK (Rec: 04/14/19 16:49 [facility] [id number]) Posture Evaluation Position Standing Head/C-Spine Posture Forward Head T-Spine Posture Increased Kyphosis L-Spine Posture Increased Lordosis Pelvis Posture (L) Iliac Crest Superior,(R) PSIS Inferior Palpation Assessment Location buttocks Palpation Details increased soft tissue tightness throughout right buttock lumbar paraspinals Palpation Findings Soft Tissue Tightness,Muscle Guarding,Tenderness PT-OP-K Range of Motion Start: 04/14/19 09:30 Freq: Status: Active Protocol: Document 04/14/19 10:20 SAK (Rec: 04/14/19 16:49 SAK [id number]) Lumbar Spine Range of Motion Lumbar Spine Active Testing Position Standing ROM Limitations Pain Comments Moderate decrease in all motions due to c/o pain. With forward flexion PSIS became level. Hip Goniometric Range of Motion Hip left Hip ROM WFL No Testing Position Supine Flexion w/Knee Flexed 95 Straight Leg Raise 55 Extension 0 Internal Rotation 10 External Rotation 60 Right Hip ROM WFL No Testing Position Supine Flexion w/Knee Flexed 95 Straight Leg Raise 65 Extension 0 Internal Rotation 5 External Rotation 55 Hip ROM Limitations Hip ROM Limitations Soft Tissue Tightness Knee Goniometric Range of Motion Knee herbie Knee ROM WFL Yes Ankle and Foot Goniometric Range of Motion Ankle and Foot Active Ankle/Foot ROM WFL No Ankle and Foot ROM Limitations ROM Limitations Soft Tissue Tightness Comments df right 0, left 5 PT-OP-L Special Tests Start: 04/14/19 09:30 Freq: Status: Active Protocol: Document 04/14/19 10:20 [facility] (Rec: 04/14/19 16:49 [facility] [id number]) Special Tests Lumbar Spine Special Tests Straight Leg Raise Test Results negative herbie Manual Traction Test Results decreased pain Eliezer Test Results positive herbie for hip flex tightness PT-OP-M Strength Start: 04/14/19 09:30 Freq: Status: Active Protocol: Document 04/14/19 10:20 SAK (Rec: 04/14/19 16:49 [facility] [id number]) Trunk Strength Trunk Manual Muscle Testing Testing Position Supine Flexion 2+ Poor+ Extension 3- Fair- Core Stabilization poor ability to activate TrA and multifidi Hip Strength Hip Manual Muscle Testing Left Flexion (L2) 3+ Fair+ Extension (S1) 3- Fair- Abduction 4- Good- External Rotation 4- Good- Internal Rotation 4- Good- Right Flexion (L2) 3+ Fair+ Extension (S1) 3- Fair- Abduction 4- Good- External Rotation 4- Good- Internal Rotation 4- Good- Knee Strength Knee Manual Muscle Testing herbie Flexion (S2) 5 Normal Extension (L3) 5 Normal Ankle/Foot Strength Ankle and Foot Manual Muscle Testing herbie Dorsiflexion (L4) 4 Good Plantarflexion (S1) 4- Good- PT-OP-Q Treatments Start: 04/14/19 09:30 Freq: Status: Active Protocol: Document 06/06/19 14:30 SAK (Rec: 06/07/19 17:18 [facility] [id number]) Cardio Equipment Recumbent Stepper (Sci-Fit) Duration (Minutes) 20 Resistance 2 Seat Position 8 Other last 5 min LE's only Gym Equipment Shuttle Recovery Unilateral Squats Resistance 37 Shuttle Recovery Platform Stable Reps/Time 10x2 Bilateral Squats Resistance 75 Shuttle Recovery Platform Stable Reps/Time 10x2 Therapeutic Exercises Supine Exercises HS stretch Reps/Minutes 2x bridge Reps/Minutes 10x Comments segmental, 4x with LE lift TrA with single leg lower Reps/Minutes 3x gluteal set Reps/Minutes 10x Comments knees bent Prone Exercises hip extension Prone Exercise Name legs off table Reps/Minutes 10x Sidelying Exercises clamshell Reps/Minutes 10x Standing Exercises gluteal set Reps/Minutes 10x resisted walking forward, back Resistance yellow TB HC stretch Resistance CARLITA Reps/Minutes 2x30 Other Exercises cat/cow Reps/Minutes 5x Comments including wag the tail herber pose Reps/Minutes 5x Comments forward Gait Training Gait Activity gait with gluteal activation Description slow Surface level Treatment Focus gluteal activation with stance leg Manual Therapy Treatment Soft Tissue Mobilization right piriformis Mobilization Type Myofascial Release,Rolling, Strumming Body Position Prone Comments prone pillow lumbar paraspinals Mobilization Type Myofascial Release,Rolling, Strumming Body Position Prone Comments prone pillow PT-OP-R Modalities Start: 04/14/19 09:30 Freq: Status: Active Protocol: Document 06/06/19 14:30 [facility] (Rec: 06/07/19 17:18 [facility] [id number]) Electric Stimulation Electric Stimulation Interferential Current (IFC) Body Location bilateral l/s, piriformis Duration (Minutes) 15 Target/Sweep Sweep High/Low High Patient Position Prone Combined With Heat/Cold Hot Pack Comments prone pillow PT-OP-T Assessment and Plan Start: 04/14/19 09:30 Freq: Status: Active Protocol: Document 06/06/19 14:30 [facility] (Rec: 06/07/19 17:18 [facility] [id number]) Physical Therapy Assessment Goals Four Impairment inability to sit in neutral position due to coccyx pain Skilled Nursing Goal (LTG) Patient will be able to sit in neutral position for at least 30 min without an increase in pain LTG Duration 06/15/19 Three Impairment sleep impairment due to pain Short Term Goal (STG) Patient will report at least a 25% improvement in her abiity to sleep STG Duration 8/19/19 Skilled Nursing Goal (LTG) Patient cata report at a least a 50% improvement in her ability to sleep due to decrease in her pain LTG Duration 06/15/19 Two Impairment unable to tolerate any exercise program Short Term Goal (STG) Instruct patient in HEP for core stabilization, flexibility, and strengthening STG Duration 04/26/19 Skilled Nursing Goal (LTG) Patient to be independent and compliant with HEP for long- term fitness and pain management possibly to include aquatic exercises LTG Duration 06/15/19 One Impairment activity intolerance; LEFS 30% Short Term Goal (STG) Improve LEFS to at least 50% STG Duration 05/15/19 Plumbing Installer Goal (LTG) Improve LEFS to at least 70%, and decrease Oswestry score to no greater than 30% including ability to do usual daily activities without an increase in pain. LTG Duration 06/15/19 Progress Towards Goals Progress Towards Goals Progressing Toward Goals Assessment Summary Assessment improving gluteal activation, decreased pain with ex. Physical Therapy Plan Frequency and Duration Frequency of Treatment 2 Duration of Treatment 8 Plan of Care Start Date 04/14/19 Plan of Care End Date 06/15/19 Therapeutic Interventions Therapeutic Interventions Aquatic Therapy,Home Exercise Program,Joint Mobilizations, Manual Therapy,Neuromuscular Re-education,Patient/Caregiver Education,Self-Care/Home Management,Soft Tissue Mobilization,Taping, Therapeutic Activities, Therapeutic Exercises Modalities Hot Packs,Traction- Mechanical ,Ultrasound Next Visit Focus/Plan Next Note Type Treatment Note Next Visit Plan Continue PT per POC.
--- NOTE | 2019-06-07 17:18 | PT.OTN ---
Current Diagnoses Other chronic pain (06/06/19) Pain in left hip (06/06/19) Low back pain (06/06/19) Physical Therapy Treatment Note PT-OP-A Visit Information Start: 04/14/19 09:30 Freq: Status: Active Protocol: Document 06/06/19 14:30 SAK (Rec: 06/07/19 17:18 SAK [id number]) Out-Patient Physical Therapy Visit Information Visit Information Visit Type Treatment Note Visit Start Time 15:10 Visit Stop Time 16:11 Total Visit Minutes 61 Visit Number 8 Number of LOGGING SUPERVISOR Visits 0 Precautions Precautions PMH: multiple falls and injuries PT-OP-B Current Condition Start: 04/14/19 09:30 Freq: Status: Active Protocol: Document 04/14/19 10:20 SAK (Rec: 04/14/19 10:35 SAK [id number]) Current Condition History of Current Condition Onset Date years Current Complaints bilateral LBP, tailbone pain History of Current Condition Progressive worsening of LBP and pain in tailbone region, poor tolerance for standing and walking, pain sitting; can 't sit directly on tailbone. Laying on side causes hands to go numb, laying on back increases LB and tailbone pain . Multiple falls. Reports poor alignment of pelvis. Takes Ibuprofen and uses heat for mild relief. Prior Treatments and Tests chiropractor and PT: helpful but reports pelvic alignment wouldn't stay when had adjustments by chiropractor. Not able to do any exercises. States told left leg shorter by 1 1/2 inches xray: Lower lumbar spondylosis , degenerative arthritis, Multilevel degenerative endplate sclerosis and spurring. Diffuse facet arthropathy. Straightening of the normal lordotic curvature. Treatment Goals Patient/Caregiver Goals strengthen core muscle Decrease pain Improve function Prior Functional Status Baseline Function- ADL's Independent Baseline Function- Mobility Independent Baseline Function- Gait Independent, no device, no limitations Baseline Function- Work/School doesn't work; disabled Baseline Function- Recreation/Hobbies no limitations Current Functional Impairments (Reported) Functional Limitations- ADL's painful Functional Limitations- Mobility/Gait limited to household and short distance community due to pain Functional Limitations- Work/School unable Functional Limitations- Recreation/ unable, painful Hobbies Personal Factors Other Personal Factors That May Effect PMH: arthritis, HTN, Therapy/Recovery depression, falls, neck pain, osteopenia, PTSD, thyroid dysfunction PT-OP-C Subjective Start: 04/14/19 09:30 Freq: Status: Active Protocol: Document 06/06/19 14:30 SAK (Rec: 06/07/19 17:18 SAK [id number]) OP-PT Subjective Patient Comments Patient Comments Reports feeling she is getting stronger, doing her exercises . PT-OP-F Manual Assessment Start: 04/14/19 09:30 Freq: Status: Active Protocol: Document 04/14/19 10:20 SAK (Rec: 04/14/19 16:49 SAK [id number]) Manual Assessments Other Manual Assessments Other Manual Assessments Leg length: right 1/2 shorter than left PT-OP-G Mobility & Gait Start: 04/14/19 09:30 Freq: Status: Active Protocol: Document 04/14/19 10:20 SAK (Rec: 04/14/19 16:49 SAK [id number]) OP Mobility Evaluation Bed Mobility Rolling poor core stab Supine to and from Sit cues for logroll OP Gait Assessment Gait Gait Assistance Required: Independent Assistive Devices Assistive Device None Gait Deviations General Gait Pattern Antalgic,Decreased Stride Length,Decreased Feet Clearance,Flexed Trunk Factors Limiting Gait Function Factors Limiting Gait Function Pain PT-OP-H Neuro Start: 04/14/19 09:30 Freq: Status: Active Protocol: Document 04/14/19 10:20 SAK (Rec: 04/14/19 16:49 SAK [id number]) Sensation Evaluation Gross Sensation Gross Sensation WNL Comments Summary Comments denied N/T LE's PT-OP-J Posture/Palpation/Skin Start: 04/14/19 09:30 Freq: Status: Active Protocol: Document 04/14/19 10:20 SAK (Rec: 04/14/19 16:49 [facility] [id number]) Posture Evaluation Position Standing Head/C-Spine Posture Forward Head T-Spine Posture Increased Kyphosis L-Spine Posture Increased Lordosis Pelvis Posture (L) Iliac Crest Superior,(R) PSIS Inferior Palpation Assessment Location buttocks Palpation Details increased soft tissue tightness throughout right buttock lumbar paraspinals Palpation Findings Soft Tissue Tightness,Muscle Guarding,Tenderness PT-OP-K Range of Motion Start: 04/14/19 09:30 Freq: Status: Active Protocol: Document 04/14/19 10:20 SAK (Rec: 04/14/19 16:49 SAK [id number]) Lumbar Spine Range of Motion Lumbar Spine Active Testing Position Standing ROM Limitations Pain Comments Moderate decrease in all motions due to c/o pain. With forward flexion PSIS became level. Hip Goniometric Range of Motion Hip left Hip ROM WFL No Testing Position Supine Flexion w/Knee Flexed 95 Straight Leg Raise 55 Extension 0 Internal Rotation 10 External Rotation 60 Right Hip ROM WFL No Testing Position Supine Flexion w/Knee Flexed 95 Straight Leg Raise 65 Extension 0 Internal Rotation 5 External Rotation 55 Hip ROM Limitations Hip ROM Limitations Soft Tissue Tightness Knee Goniometric Range of Motion Knee herbie Knee ROM WFL Yes Ankle and Foot Goniometric Range of Motion Ankle and Foot Active Ankle/Foot ROM WFL No Ankle and Foot ROM Limitations ROM Limitations Soft Tissue Tightness Comments df right 0, left 5 PT-OP-L Special Tests Start: 04/14/19 09:30 Freq: Status: Active Protocol: Document 04/14/19 10:20 [facility] (Rec: 04/14/19 16:49 [facility] [id number]) Special Tests Lumbar Spine Special Tests Straight Leg Raise Test Results negative herbie Manual Traction Test Results decreased pain Eliezer Test Results positive herbie for hip flex tightness PT-OP-M Strength Start: 04/14/19 09:30 Freq: Status: Active Protocol: Document 04/14/19 10:20 SAK (Rec: 04/14/19 16:49 [facility] [id number]) Trunk Strength Trunk Manual Muscle Testing Testing Position Supine Flexion 2+ Poor+ Extension 3- Fair- Core Stabilization poor ability to activate TrA and multifidi Hip Strength Hip Manual Muscle Testing Left Flexion (L2) 3+ Fair+ Extension (S1) 3- Fair- Abduction 4- Good- External Rotation 4- Good- Internal Rotation 4- Good- Right Flexion (L2) 3+ Fair+ Extension (S1) 3- Fair- Abduction 4- Good- External Rotation 4- Good- Internal Rotation 4- Good- Knee Strength Knee Manual Muscle Testing herbie Flexion (S2) 5 Normal Extension (L3) 5 Normal Ankle/Foot Strength Ankle and Foot Manual Muscle Testing herbie Dorsiflexion (L4) 4 Good Plantarflexion (S1) 4- Good- PT-OP-Q Treatments Start: 04/14/19 09:30 Freq: Status: Active Protocol: Document 06/06/19 14:30 SAK (Rec: 06/07/19 17:18 [facility] [id number]) Cardio Equipment Recumbent Stepper (Sci-Fit) Duration (Minutes) 20 Resistance 2 Seat Position 8 Other last 5 min LE's only Gym Equipment Shuttle Recovery Unilateral Squats Resistance 37 Shuttle Recovery Platform Stable Reps/Time 10x2 Bilateral Squats Resistance 75 Shuttle Recovery Platform Stable Reps/Time 10x2 Therapeutic Exercises Supine Exercises HS stretch Reps/Minutes 2x bridge Reps/Minutes 10x Comments segmental, 4x with LE lift TrA with single leg lower Reps/Minutes 3x gluteal set Reps/Minutes 10x Comments knees bent Prone Exercises hip extension Prone Exercise Name legs off table Reps/Minutes 10x Sidelying Exercises clamshell Reps/Minutes 10x Standing Exercises gluteal set Reps/Minutes 10x resisted walking forward, back Resistance yellow TB HC stretch Resistance CARLITA Reps/Minutes 2x30 Other Exercises cat/cow Reps/Minutes 5x Comments including wag the tail herber pose Reps/Minutes 5x Comments forward Gait Training Gait Activity gait with gluteal activation Description slow Surface level Treatment Focus gluteal activation with stance leg Manual Therapy Treatment Soft Tissue Mobilization right piriformis Mobilization Type Myofascial Release,Rolling, Strumming Body Position Prone Comments prone pillow lumbar paraspinals Mobilization Type Myofascial Release,Rolling, Strumming Body Position Prone Comments prone pillow PT-OP-R Modalities Start: 04/14/19 09:30 Freq: Status: Active Protocol: Document 06/06/19 14:30 [facility] (Rec: 06/07/19 17:18 [facility] [id number]) Electric Stimulation Electric Stimulation Interferential Current (IFC) Body Location bilateral l/s, piriformis Duration (Minutes) 15 Target/Sweep Sweep High/Low High Patient Position Prone Combined With Heat/Cold Hot Pack Comments prone pillow PT-OP-T Assessment and Plan Start: 04/14/19 09:30 Freq: Status: Active Protocol: Document 06/06/19 14:30 [facility] (Rec: 06/07/19 17:18 [facility] [id number]) Physical Therapy Assessment Goals Four Impairment inability to sit in neutral position due to coccyx pain Residential Goal (LTG) Patient will be able to sit in neutral position for at least 30 min without an increase in pain LTG Duration 06/15/19 Three Impairment sleep impairment due to pain Short Term Goal (STG) Patient will report at least a 25% improvement in her abiity to sleep STG Duration 8/19/19 Residential Goal (LTG) Patient cata report at a least a 50% improvement in her ability to sleep due to decrease in her pain LTG Duration 06/15/19 Two Impairment unable to tolerate any exercise program Short Term Goal (STG) Instruct patient in HEP for core stabilization, flexibility, and strengthening STG Duration 04/26/19 Residential Goal (LTG) Patient to be independent and compliant with HEP for long- term fitness and pain management possibly to include aquatic exercises LTG Duration 06/15/19 One Impairment activity intolerance; LEFS 30% Short Term Goal (STG) Improve LEFS to at least 50% STG Duration 05/15/19 Set Up Machinist Goal (LTG) Improve LEFS to at least 70%, and decrease Oswestry score to no greater than 30% including ability to do usual daily activities without an increase in pain. LTG Duration 06/15/19 Progress Towards Goals Progress Towards Goals Progressing Toward Goals Assessment Summary Assessment improving gluteal activation, decreased pain with ex. Physical Therapy Plan Frequency and Duration Frequency of Treatment 2 Duration of Treatment 8 Plan of Care Start Date 04/14/19 Plan of Care End Date 06/15/19 Therapeutic Interventions Therapeutic Interventions Aquatic Therapy,Home Exercise Program,Joint Mobilizations, Manual Therapy,Neuromuscular Re-education,Patient/Caregiver Education,Self-Care/Home Management,Soft Tissue Mobilization,Taping, Therapeutic Activities, Therapeutic Exercises Modalities Hot Packs,Traction- Mechanical ,Ultrasound Next Visit Focus/Plan Next Note Type Treatment Note Next Visit Plan Continue PT per POC.
--- NOTE | 2019-06-08 16:36 | PT.OTN ---
Current Diagnoses Other chronic pain (06/08/19) Pain in left hip (06/08/19) Low back pain (06/08/19) Physical Therapy Treatment Note PT-OP-A Visit Information Start: 04/14/19 09:30 Freq: Status: Active Protocol: Document 06/08/19 14:33 SAK (Rec: 06/08/19 15:14 SAK [id number]) Out-Patient Physical Therapy Visit Information Visit Information Visit Type Treatment Note Visit Note 10 min late Visit Start Time 14:40 Visit Stop Time 15:25 Total Visit Minutes 45 Visit Number 10 Number of SQL DATA ARCHITECT Visits 0 Precautions Precautions PMH: multiple falls and injuries PT-OP-B Current Condition Start: 04/14/19 09:30 Freq: Status: Active Protocol: Document 04/14/19 10:20 SAK (Rec: 04/14/19 10:35 [facility] [id number]) Current Condition History of Current Condition Onset Date years Current Complaints bilateral LBP, tailbone pain History of Current Condition Progressive worsening of LBP and pain in tailbone region, poor tolerance for standing and walking, pain sitting; can 't sit directly on tailbone. Laying on side causes hands to go numb, laying on back increases LB and tailbone pain . Multiple falls. Reports poor alignment of pelvis. Takes Ibuprofen and uses heat for mild relief. Prior Treatments and Tests chiropractor and PT: helpful but reports pelvic alignment wouldn't stay when had adjustments by chiropractor. Not able to do any exercises. States told left leg shorter by 1 1/2 inches xray: Lower lumbar spondylosis , degenerative arthritis, Multilevel degenerative endplate sclerosis and spurring. Diffuse facet arthropathy. Straightening of the normal lordotic curvature. Treatment Goals Patient/Caregiver Goals strengthen core muscle Decrease pain Improve function Prior Functional Status Baseline Function- ADL's Independent Baseline Function- Mobility Independent Baseline Function- Gait Independent, no device, no limitations Baseline Function- Work/School doesn't work; disabled Baseline Function- Recreation/Hobbies no limitations Current Functional Impairments (Reported) Functional Limitations- ADL's painful Functional Limitations- Mobility/Gait limited to household and short distance community due to pain Functional Limitations- Work/School unable Functional Limitations- Recreation/ unable, painful Hobbies Personal Factors Other Personal Factors That May Effect PMH: arthritis, HTN, Therapy/Recovery depression, falls, neck pain, osteopenia, PTSD, thyroid dysfunction PT-OP-C Subjective Start: 04/14/19 09:30 Freq: Status: Active Protocol: Document 06/08/19 14:33 SAK (Rec: 06/08/19 15:14 SAK [id number]) OP-PT Subjective Patient Comments Patient Comments States everything getting better except her tailbone pain. Willing to be scheduled with women's health PT for further evaluation of tailbone and mobilization as indicated , possibly to include internal mobilization. PT-OP-F Manual Assessment Start: 04/14/19 09:30 Freq: Status: Active Protocol: Document 04/14/19 10:20 SAK (Rec: 04/14/19 16:49 SAK [id number]) Manual Assessments Other Manual Assessments Other Manual Assessments Leg length: right 1/2 shorter than left PT-OP-G Mobility & Gait Start: 04/14/19 09:30 Freq: Status: Active Protocol: Document 04/14/19 10:20 SAK (Rec: 04/14/19 16:49 [facility] [id number]) OP Mobility Evaluation Bed Mobility Rolling poor core stab Supine to and from Sit cues for logroll OP Gait Assessment Gait Gait Assistance Required: Independent Assistive Devices Assistive Device None Gait Deviations General Gait Pattern Antalgic,Decreased Stride Length,Decreased Feet Clearance,Flexed Trunk Factors Limiting Gait Function Factors Limiting Gait Function Pain PT-OP-H Neuro Start: 04/14/19 09:30 Freq: Status: Active Protocol: Document 04/14/19 10:20 SAK (Rec: 04/14/19 16:49 [facility] [id number]) Sensation Evaluation Gross Sensation Gross Sensation WNL Comments Summary Comments denied N/T LE's PT-OP-J Posture/Palpation/Skin Start: 04/14/19 09:30 Freq: Status: Active Protocol: Document 04/14/19 10:20 SAK (Rec: 04/14/19 16:49 SAK [id number]) Posture Evaluation Position Standing Head/C-Spine Posture Forward Head T-Spine Posture Increased Kyphosis L-Spine Posture Increased Lordosis Pelvis Posture (L) Iliac Crest Superior,(R) PSIS Inferior Palpation Assessment Location buttocks Palpation Details increased soft tissue tightness throughout right buttock lumbar paraspinals Palpation Findings Soft Tissue Tightness,Muscle Guarding,Tenderness PT-OP-K Range of Motion Start: 04/14/19 09:30 Freq: Status: Active Protocol: Document 04/14/19 10:20 SAK (Rec: 04/14/19 16:49 [facility] [id number]) Lumbar Spine Range of Motion Lumbar Spine Active Testing Position Standing ROM Limitations Pain Comments Moderate decrease in all motions due to c/o pain. With forward flexion PSIS became level. Hip Goniometric Range of Motion Hip left Hip ROM WFL No Testing Position Supine Flexion w/Knee Flexed 95 Straight Leg Raise 55 Extension 0 Internal Rotation 10 External Rotation 60 Right Hip ROM WFL No Testing Position Supine Flexion w/Knee Flexed 95 Straight Leg Raise 65 Extension 0 Internal Rotation 5 External Rotation 55 Hip ROM Limitations Hip ROM Limitations Soft Tissue Tightness Knee Goniometric Range of Motion Knee herbie Knee ROM WFL Yes Ankle and Foot Goniometric Range of Motion Ankle and Foot Active Ankle/Foot ROM WFL No Ankle and Foot ROM Limitations ROM Limitations Soft Tissue Tightness Comments df right 0, left 5 PT-OP-L Special Tests Start: 04/14/19 09:30 Freq: Status: Active Protocol: Document 04/14/19 10:20 SAK (Rec: 04/14/19 16:49 [facility] [id number]) Special Tests Lumbar Spine Special Tests Straight Leg Raise Test Results negative herbie Manual Traction Test Results decreased pain Eliezer Test Results positive herbie for hip flex tightness PT-OP-M Strength Start: 04/14/19 09:30 Freq: Status: Active Protocol: Document 04/14/19 10:20 SAK (Rec: 04/14/19 16:49 [facility] [id number]) Trunk Strength Trunk Manual Muscle Testing Testing Position Supine Flexion 2+ Poor+ Extension 3- Fair- Core Stabilization poor ability to activate TrA and multifidi Hip Strength Hip Manual Muscle Testing Left Flexion (L2) 3+ Fair+ Extension (S1) 3- Fair- Abduction 4- Good- External Rotation 4- Good- Internal Rotation 4- Good- Right Flexion (L2) 3+ Fair+ Extension (S1) 3- Fair- Abduction 4- Good- External Rotation 4- Good- Internal Rotation 4- Good- Knee Strength Knee Manual Muscle Testing herbie Flexion (S2) 5 Normal Extension (L3) 5 Normal Ankle/Foot Strength Ankle and Foot Manual Muscle Testing herbie Dorsiflexion (L4) 4 Good Plantarflexion (S1) 4- Good- PT-OP-Q Treatments Start: 04/14/19 09:30 Freq: Status: Active Protocol: Document 06/08/19 14:33 SAK (Rec: 06/08/19 15:14 SAK [id number]) Cardio Equipment Recumbent Stepper (Sci-Fit) Duration (Minutes) 5 Resistance 2.2 Seat Position 8 Other LE's only Gym Equipment Shuttle Recovery Unilateral Squats Resistance 37 Shuttle Recovery Platform Stable Reps/Time 10x2 Bilateral Squats Resistance 75 Shuttle Recovery Platform Stable Reps/Time 10x2 Therapeutic Exercises Prone Exercises hip extension Prone Exercise Name legs off table Reps/Minutes 10x Sidelying Exercises clamshell Reps/Minutes 10x Other Exercises cat/cow Reps/Minutes 5x herber pose Reps/Minutes 3x Comments forward, lateral Manual Therapy Treatment Soft Tissue Mobilization right piriformis Mobilization Type Myofascial Release,Rolling, Strumming Body Position Prone Comments prone pillow lumbar paraspinals Mobilization Type Myofascial Release,Rolling, Strumming Body Position Prone Comments prone pillow PT-OP-R Modalities Start: 04/14/19 09:30 Freq: Status: Active Protocol: Document 06/08/19 14:33 [facility] (Rec: 06/08/19 15:14 [facility] [id number]) Electric Stimulation Electric Stimulation Interferential Current (IFC) Body Location bilateral l/s, piriformis Duration (Minutes) 15 Target/Sweep Sweep High/Low High Patient Position Prone Combined With Heat/Cold Hot Pack Comments prone pillow PT-OP-T Assessment and Plan Start: 04/14/19 09:30 Freq: Status: Active Protocol: Document 06/08/19 14:33 SANTA (Rec: 06/08/19 15:14 [facility] [id number]) Physical Therapy Assessment Goals Four Impairment inability to sit in neutral position due to coccyx pain Parking Cashier Goal (LTG) Patient will be able to sit in neutral position for at least 30 min without an increase in pain LTG Duration 06/15/19 Three Impairment sleep impairment due to pain Short Term Goal (STG) Patient will report at least a 25% improvement in her abiity to sleep STG Duration 05/15/19 Parking Cashier Goal (LTG) Patient cata report at a least a 50% improvement in her ability to sleep due to decrease in her pain LTG Duration 06/15/19 Two Impairment unable to tolerate any exercise program Short Term Goal (STG) Instruct patient in HEP for core stabilization, flexibility, and strengthening STG Duration 04/26/19 Parking Cashier Goal (LTG) Patient to be independent and compliant with HEP for long- term fitness and pain management possibly to include aquatic exercises LTG Duration 06/15/19 One Impairment activity intolerance; LEFS 30% Short Term Goal (STG) Improve LEFS to at least 50% STG Duration 05/15/19 Parking Cashier Goal (LTG) Improve LEFS to at least 70%, and decrease Oswestry score to no greater than 30% including ability to do usual daily activities without an increase in pain. LTG Duration 06/15/19 Assessment Summary Assessment Decreased back and LE pain, coccyx pain and difficulty sitting persists. Patient now agreeable to see women's health specialist PT for further evaluation and treatment of coccyx pain to possibly include internal mobilization. Physical Therapy Plan Frequency and Duration Frequency of Treatment 2 Duration of Treatment 8 Plan of Care Start Date 04/14/19 Plan of Care End Date 06/15/19 Therapeutic Interventions Therapeutic Interventions Aquatic Therapy,Home Exercise Program,Joint Mobilizations, Manual Therapy,Neuromuscular Re-education,Patient/Caregiver Education,Self-Care/Home Management,Soft Tissue Mobilization,Taping, Therapeutic Activities, Therapeutic Exercises Modalities Hot Packs,Traction- Mechanical ,Ultrasound Next Visit Focus/Plan Next Note Type Treatment Note Next Visit Plan Continue PT per POC to help patient achieve her goals. LEFS questionnaire
--- NOTE | 2019-07-11 14:30 | PT.OTN ---
Current Diagnoses Other chronic pain (07/11/19) Pain in left hip (07/11/19) Low back pain (07/11/19) Physical Therapy Treatment Note PT-OP-A Visit Information Start: 04/14/19 09:30 Freq: Status: Active Protocol: Document 07/11/19 14:30 SP (Rec: 07/11/19 16:12 SP [id number]) Out-Patient Physical Therapy Visit Information Visit Information Visit Type Treatment Note Visit Start Time 13:45 Visit Stop Time 14:30 Total Visit Minutes 45 Visit Number 11 Number of SUPPORT TEAM MEMBER Visits 1 PT-OP-B Current Condition Start: 04/14/19 09:30 Freq: Status: Active Protocol: Document 04/14/19 10:20 SAK (Rec: 04/14/19 10:35 SAK [id number]) Current Condition History of Current Condition Onset Date years Current Complaints bilateral LBP, tailbone pain History of Current Condition Progressive worsening of LBP and pain in tailbone region, poor tolerance for standing and walking, pain sitting; can 't sit directly on tailbone. Laying on side causes hands to go numb, laying on back increases LB and tailbone pain . Multiple falls. Reports poor alignment of pelvis. Takes Ibuprofen and uses heat for mild relief. Prior Treatments and Tests chiropractor and PT: helpful but reports pelvic alignment wouldn't stay when had adjustments by chiropractor. Not able to do any exercises. States told left leg shorter by 1 1/2 inches xray: Lower lumbar spondylosis , degenerative arthritis, Multilevel degenerative endplate sclerosis and spurring. Diffuse facet arthropathy. Straightening of the normal lordotic curvature. Treatment Goals Patient/Caregiver Goals strengthen core muscle Decrease pain Improve function Prior Functional Status Baseline Function- ADL's Independent Baseline Function- Mobility Independent Baseline Function- Gait Independent, no device, no limitations Baseline Function- Work/School doesn't work; disabled Baseline Function- Recreation/Hobbies no limitations Current Functional Impairments (Reported) Functional Limitations- ADL's painful Functional Limitations- Mobility/Gait limited to household and short distance community due to pain Functional Limitations- Work/School unable Functional Limitations- Recreation/ unable, painful Hobbies Personal Factors Other Personal Factors That May Effect PMH: arthritis, HTN, Therapy/Recovery depression, falls, neck pain, osteopenia, PTSD, thyroid dysfunction PT-OP-C Subjective Start: 04/14/19 09:30 Freq: Status: Active Protocol: Document 07/11/19 14:30 SP (Rec: 07/11/19 16:12 SP [id number]) OP-PT Subjective Patient Comments Patient Comments Pt states doing each exercise until tires, not good at counting. PT-OP-F Manual Assessment Start: 04/14/19 09:30 Freq: Status: Active Protocol: Document 04/14/19 10:20 SAK (Rec: 04/14/19 16:49 SAK [id number]) Manual Assessments Other Manual Assessments Other Manual Assessments Leg length: right 1/2 shorter than left PT-OP-G Mobility & Gait Start: 04/14/19 09:30 Freq: Status: Active Protocol: Document 04/14/19 10:20 SAK (Rec: 04/14/19 16:49 SAK [id number]) OP Mobility Evaluation Bed Mobility Rolling poor core stab Supine to and from Sit cues for logroll OP Gait Assessment Gait Gait Assistance Required: Independent Assistive Devices Assistive Device None Gait Deviations General Gait Pattern Antalgic,Decreased Stride Length,Decreased Feet Clearance,Flexed Trunk Factors Limiting Gait Function Factors Limiting Gait Function Pain PT-OP-H Neuro Start: 04/14/19 09:30 Freq: Status: Active Protocol: Document 04/14/19 10:20 SAK (Rec: 04/14/19 16:49 SAK [id number]) Sensation Evaluation Gross Sensation Gross Sensation WNL Comments Summary Comments denied N/T LE's PT-OP-J Posture/Palpation/Skin Start: 04/14/19 09:30 Freq: Status: Active Protocol: Document 04/14/19 10:20 SAK (Rec: 04/14/19 16:49 SAK [id number]) Posture Evaluation Position Standing Head/C-Spine Posture Forward Head T-Spine Posture Increased Kyphosis L-Spine Posture Increased Lordosis Pelvis Posture (L) Iliac Crest Superior,(R) PSIS Inferior Palpation Assessment Location buttocks Palpation Details increased soft tissue tightness throughout right buttock lumbar paraspinals Palpation Findings Soft Tissue Tightness,Muscle Guarding,Tenderness PT-OP-K Range of Motion Start: 04/14/19 09:30 Freq: Status: Active Protocol: Document 04/14/19 10:20 SAK (Rec: 04/14/19 16:49 SAK [id number]) Lumbar Spine Range of Motion Lumbar Spine Active Testing Position Standing ROM Limitations Pain Comments Moderate decrease in all motions due to c/o pain. With forward flexion PSIS became level. Hip Goniometric Range of Motion Hip left Hip ROM WFL No Testing Position Supine Flexion w/Knee Flexed 95 Straight Leg Raise 55 Extension 0 Internal Rotation 10 External Rotation 60 Right Hip ROM WFL No Testing Position Supine Flexion w/Knee Flexed 95 Straight Leg Raise 65 Extension 0 Internal Rotation 5 External Rotation 55 Hip ROM Limitations Hip ROM Limitations Soft Tissue Tightness Knee Goniometric Range of Motion Knee herbie Knee ROM WFL Yes Ankle and Foot Goniometric Range of Motion Ankle and Foot Active Ankle/Foot ROM WFL No Ankle and Foot ROM Limitations ROM Limitations Soft Tissue Tightness Comments df right 0, left 5 PT-OP-L Special Tests Start: 04/14/19 09:30 Freq: Status: Active Protocol: Document 04/14/19 10:20 SAK (Rec: 04/14/19 16:49 SAK [id number]) Special Tests Lumbar Spine Special Tests Straight Leg Raise Test Results negative herbie Manual Traction Test Results decreased pain Eliezer Test Results positive herbie for hip flex tightness PT-OP-M Strength Start: 04/14/19 09:30 Freq: Status: Active Protocol: Document 04/14/19 10:20 SAK (Rec: 04/14/19 16:49 SAK [id number]) Trunk Strength Trunk Manual Muscle Testing Testing Position Supine Flexion 2+ Poor+ Extension 3- Fair- Core Stabilization poor ability to activate TrA and multifidi Hip Strength Hip Manual Muscle Testing Left Flexion (L2) 3+ Fair+ Extension (S1) 3- Fair- Abduction 4- Good- External Rotation 4- Good- Internal Rotation 4- Good- Right Flexion (L2) 3+ Fair+ Extension (S1) 3- Fair- Abduction 4- Good- External Rotation 4- Good- Internal Rotation 4- Good- Knee Strength Knee Manual Muscle Testing herbie Flexion (S2) 5 Normal Extension (L3) 5 Normal Ankle/Foot Strength Ankle and Foot Manual Muscle Testing herbie Dorsiflexion (L4) 4 Good Plantarflexion (S1) 4- Good- PT-OP-Q Treatments Start: 04/14/19 09:30 Freq: Status: Active Protocol: Document 07/11/19 14:30 SP (Rec: 07/11/19 16:12 SP [id number]) Cardio Equipment Recumbent Bicycle Duration (Minutes) 20 Resistance 2.2 Therapeutic Exercises Supine Exercises DKFO Side bilateral Reps/Minutes x5 3sec hold Comments slow controlled bridge Equipment Used level 1 TB Reps/Minutes 10x 2 Comments Ab bracing, cued trans ab PPT TrA with single leg lower Supine Exercise Name DL lift with alternating knee extension Reps/Minutes x4 Prone Exercises Bird dog Side bilateral Reps/Minutes x5 Comments Cued for LE contact with table hip extension Prone Exercise Name legs off table Side bilateral Reps/Minutes 10 x2 Comments alternating, keep knee straight Sidelying Exercises TS rotation Side bilateral Reps/Minutes x5 clamshell Equipment Used level 1 TB Reps/Minutes 10x Comments slow and controlled Sitting Exercises glut stretch Reps/Minutes 30 sec x3 HS stretch Side bilateral Reps/Minutes 30 sec hold x3 scap retraction Reps/Minutes 5 sec hold x10 Comments cued to decrease shld elevation recruitment Standing Exercises side stepping Resistance level 1 TB 10 ft x2 l aps Equipment Used AROM cones 10 ft x2 laps Comments keep feet parallel QL stretch Side bilateral Reps/Minutes 30 sec x3 Other Exercises cat/cow Reps/Minutes 5x PT-OP-R Modalities Start: 04/14/19 09:30 Freq: Status: Active Protocol: Document 06/08/19 14:33 SAK (Rec: 06/08/19 15:14 SAK [id number]) Electric Stimulation Electric Stimulation Interferential Current (IFC) Body Location bilateral l/s, piriformis Duration (Minutes) 15 Target/Sweep Sweep High/Low High Patient Position Prone Combined With Heat/Cold Hot Pack Comments prone pillow PT-OP-T Assessment and Plan Start: 04/14/19 09:30 Freq: Status: Active Protocol: Document 07/11/19 14:30 SP (Rec: 07/11/19 16:12 SP [id number]) Physical Therapy Assessment Assessment Summary Assessment decreased tailbone pain from 10 /10 to 3/10 end of tx. Focused on glut and trans ab facilitation and level pelvis during side step patterning to assist improve gait with positive demonstration and feedback. Cued as needed for posture. Physical Therapy Plan Frequency and Duration Frequency of Treatment 2 Duration of Treatment 8 Plan of Care Start Date 04/14/19 Plan of Care End Date 06/15/19 Therapeutic Interventions Therapeutic Interventions Aquatic Therapy,Home Exercise Program,Joint Mobilizations, Manual Therapy,Neuromuscular Re-education,Patient/Caregiver Education,Self-Care/Home Management,Soft Tissue Mobilization,Taping, Therapeutic Activities, Therapeutic Exercises Modalities Hot Packs,Traction- Mechanical ,Ultrasound Next Visit Focus/Plan Next Note Type Treatment Note Next Visit Plan Continue PT per POC to help patient achieve her goals. LEFS questionnaire
--- NOTE | 2019-07-25 16:31 | PT.OPPN ---
Current Diagnoses Other chronic pain (07/25/19) Pain in left hip (07/25/19) Low back pain (07/25/19) Physical Therapy Progress Note PT-OP-A Visit Information Start: 04/14/19 09:30 Freq: Status: Active Protocol: Document 07/25/19 15:58 NFW (Rec: 07/25/19 16:31 NFW [id number]) Out-Patient Physical Therapy Visit Information Visit Information Visit Type Progress Note Visit Start Time 13:00 Visit Stop Time 13:45 Total Visit Minutes 45 Visit Number 12 PT-OP-B Current Condition Start: 04/14/19 09:30 Freq: Status: Active Protocol: Document 07/25/19 15:58 NFW (Rec: 07/25/19 16:31 NFW [id number]) Current Condition History of Current Condition Current Complaints Pain concentrated lowback and coccyx. Pain does reach level of 8/10. Treatment Goals Patient/Caregiver Goals Return to normal activities without the high intensity of pain. PT-OP-C Subjective Start: 04/14/19 09:30 Freq: Status: Active Protocol: Document 07/25/19 15:58 NFW (Rec: 07/25/19 16:31 NFW [id number]) OP-PT Subjective Patient Comments Patient Comments Pt is pleased with the progress that she has made in PT. She attributes the decrease frequency and intensity of pain and her improved activity level to the use of heel lift in her right shoe. She states she can now stand for 20-30 min, walk for 10-15 min and sit for 10 min. Patient has also been able to do some light gardening at her mother's home. Patient Reported Progress Improving Patient Questionnaires Lower Extremity Functional Scale LEFS Score 28 LEFS Impairment 60 to 79% Impaired (Score 17- 31) Oswestry Low Back Index Oswestry Score 25 Oswestry Impairment 20 to 39% Impaired (Score 20- 39) OP-PT Pain Assessment Location bilateral LB, coccyx Pain Location Details L/S Junction, Coccyx Intensity 7 Scale Used Numeric (1 - 10) PT-OP-F Manual Assessment Start: 04/14/19 09:30 Freq: Status: Active Protocol: Document 04/14/19 10:20 SAK (Rec: 04/14/19 16:49 SAK [id number]) Manual Assessments Other Manual Assessments Other Manual Assessments Leg length: right 1/2 shorter than left PT-OP-G Mobility & Gait Start: 04/14/19 09:30 Freq: Status: Active Protocol: Document 04/14/19 10:20 SAK (Rec: 04/14/19 16:49 SAK [id number]) OP Mobility Evaluation Bed Mobility Rolling poor core stab Supine to and from Sit cues for logroll OP Gait Assessment Gait Gait Assistance Required: Independent Assistive Devices Assistive Device None Gait Deviations General Gait Pattern Antalgic,Decreased Stride Length,Decreased Feet Clearance,Flexed Trunk Factors Limiting Gait Function Factors Limiting Gait Function Pain PT-OP-H Neuro Start: 04/14/19 09:30 Freq: Status: Active Protocol: Document 04/14/19 10:20 SAK (Rec: 04/14/19 16:49 SAK [id number]) Sensation Evaluation Gross Sensation Gross Sensation WNL Comments Summary Comments denied N/T LE's PT-OP-J Posture/Palpation/Skin Start: 04/14/19 09:30 Freq: Status: Active Protocol: Document 07/25/19 15:58 NFW (Rec: 07/25/19 16:31 NFW [id number]) Posture Evaluation Position Standing Head/C-Spine Posture Forward Head T-Spine Posture Increased Kyphosis L-Spine Posture Increased Lordosis Pelvis Posture (L) Iliac Crest Superior,(R) PSIS Inferior Palpation Assessment Location buttocks Palpation Location Over greater trochanter, decrease tenderness over buttocks lumbar paraspinals Palpation Location Lumbar Paraspinals Palpation Details Decrease tenderness to palpation over L/S spine PT-OP-K Range of Motion Start: 04/14/19 09:30 Freq: Status: Active Protocol: Document 07/25/19 15:58 NFW (Rec: 07/25/19 16:31 NFW [id number]) Lumbar Spine Range of Motion Lumbar Spine Active Testing Position Standing Comments Decrease of pain in available ROM. Hip Goniometric Range of Motion Hip Measured in Degrees left Hip ROM WFL No Testing Position Supine Flexion w/Knee Flexed 100 Straight Leg Raise 65 Internal Rotation 10 External Rotation 70 Right Hip ROM WFL No Testing Position Supine Flexion w/Knee Flexed 95 Straight Leg Raise 75 Internal Rotation 5 External Rotation 60 Hip ROM Limitations Hip ROM Limitations Soft Tissue Tightness,Pain Knee Goniometric Range of Motion Knee Measured in Degrees herbie Knee ROM WFL Yes Ankle and Foot Goniometric Range of Motion Ankle and Foot Measured in Degrees Active Ankle/Foot ROM WFL No Ankle and Foot ROM Limitations ROM Limitations Soft Tissue Tightness Comments Notable inflexibility gastrocnemius herbie. R>L PT-OP-L Special Tests Start: 04/14/19 09:30 Freq: Status: Active Protocol: Document 07/25/19 15:58 NFW (Rec: 07/25/19 16:31 NFW [id number]) Special Tests Lumbar Spine Special Tests Straight Leg Raise Test Results negative herbie. Manual Traction Comments eases pain Eliezer Test Results negative herbie. PT-OP-M Strength Start: 04/14/19 09:30 Freq: Status: Active Protocol: Document 07/25/19 15:58 NFW (Rec: 07/25/19 16:31 NFW [id number]) Trunk Strength Trunk Manual Muscle Testing Testing Position Supine Flexion 2+ Poor+ Extension 3- Fair- Core Stabilization poor ability to activate TrA and multifidi Abdominal Stabilization level 1 Hip Strength Hip Manual Muscle Testing Left Flexion (L2) 4 Good Extension (S1) 3- Fair- Abduction 4- Good- External Rotation 4- Good- Internal Rotation 4- Good- Right Flexion (L2) 4 Good Extension (S1) 3- Fair- Abduction 4- Good- External Rotation 4- Good- Internal Rotation 4- Good- Knee Strength Knee Manual Muscle Testing herbie Flexion (S2) 5 Normal Extension (L3) 5 Normal Ankle/Foot Strength Ankle and Foot Manual Muscle Testing herbie Dorsiflexion (L4) 4 Good Plantarflexion (S1) 4- Good- PT-OP-T Assessment and Plan Start: 04/14/19 09:30 Freq: Status: Active Protocol: Document 07/25/19 15:58 NFW (Rec: 07/25/19 16:31 NFW [id number]) Physical Therapy Assessment Rehab Potential Rehabilitation Potential Good Impairments Impairments Activity Tolerance,Pain,ROM, Strength Goals Four Impairment inability to sit in neutral position due to coccyx pain Correction Goal (LTG) Patient will be able to sit in neutral position for at least 30 min without an increase in pain LTG Duration 09/26/19 Three Impairment sleep impairment due to pain Short Term Goal (STG) Patient will report at least a 25% improvement in her abiity to sleep STG Duration 09/26/19 Correction Goal (LTG) Patient cata report at a least a 50% improvement in her ability to sleep due to decrease in her pain LTG Duration 09/26/19 Two Impairment unable to tolerate any exercise program Short Term Goal (STG) Instruct patient in HEP for core stabilization, flexibility, and strengthening STG Duration 08/26/19 Correction Goal (LTG) Patient to be independent and compliant with HEP for long- term fitness and pain management possibly to include aquatic exercises LTG Duration 09/26/19 One Impairment activity intolerance; LEFS 30% Short Term Goal (STG) Improve LEFS to at least 50% STG Duration 08/26/19 Artificial Snow Making Machine Operator Goal (LTG) Improve LEFS to at least 70%, and decrease Oswestry score to no greater than 30% including ability to do usual daily activities without an increase in pain. LTG Duration 09/26/19
--- NOTE | 2019-07-25 16:32 | PT.OPPOC ---
Current Diagnoses Other chronic pain (07/25/19) Pain in left hip (07/25/19) Low back pain (07/25/19) Visit Care Team Role Provider Type Adriana Ferreira DO Attending Provider Physician Primary Care Provider Specialty: [facility] Address: [address] [place] [address], [address], [address] Email: [email or web address] Plan Of Care PT-OP-T Assessment and Plan Start: 04/14/19 09:30 Freq: Status: Active Protocol: Document 07/25/19 15:58 NFW (Rec: 07/25/19 16:31 NFW [id number]) Physical Therapy Assessment Rehab Potential Rehabilitation Potential Good Impairments Impairments Activity Tolerance,Pain,ROM, Strength Goals Four Impairment inability to sit in neutral position due to coccyx pain Fpc Goal (LTG) Patient will be able to sit in neutral position for at least 30 min without an increase in pain LTG Duration 09/26/19 Three Impairment sleep impairment due to pain Short Term Goal (STG) Patient will report at least a 25% improvement in her abiity to sleep STG Duration 09/26/19 Fpc Goal (LTG) Patient cata report at a least a 50% improvement in her ability to sleep due to decrease in her pain LTG Duration 09/26/19 Two Impairment unable to tolerate any exercise program Short Term Goal (STG) Instruct patient in HEP for core stabilization, flexibility, and strengthening STG Duration 08/26/19 Surveyor Goal (LTG) Patient to be independent and compliant with HEP for long- term fitness and pain management possibly to include aquatic exercises LTG Duration 09/26/19 One Impairment activity intolerance; LEFS 30% Short Term Goal (STG) Improve LEFS to at least 50% STG Duration 08/26/19 Surveyor Goal (LTG) Improve LEFS to at least 70%, and decrease Oswestry score to no greater than 30% including ability to do usual daily activities without an increase in pain. LTG Duration 09/26/19 Plan of Care Dates Plan of Care Start Date 04/14/19 Plan of Care End Date 06/15/19
--- NOTE | 2019-07-25 16:59 | PT.OTN ---
Current Diagnoses Other chronic pain (07/25/19) Pain in left hip (07/25/19) Low back pain (07/25/19) Physical Therapy Treatment Note PT-OP-A Visit Information Start: 04/14/19 09:30 Freq: Status: Active Protocol: Document 07/25/19 15:58 NFW (Rec: 07/25/19 16:31 NFW [id number]) Out-Patient Physical Therapy Visit Information Visit Information Visit Type Progress Note Visit Start Time 13:00 Visit Stop Time 13:45 Total Visit Minutes 45 Visit Number 12 PT-OP-B Current Condition Start: 04/14/19 09:30 Freq: Status: Active Protocol: Document 07/25/19 15:58 NFW (Rec: 07/25/19 16:31 NFW [id number]) Current Condition History of Current Condition Current Complaints Pain concentrated lowback and coccyx. Pain does reach level of 8/10. Treatment Goals Patient/Caregiver Goals Return to normal activities without the high intensity of pain. PT-OP-C Subjective Start: 04/14/19 09:30 Freq: Status: Active Protocol: Document 07/25/19 15:58 NFW (Rec: 07/25/19 16:31 NFW [id number]) OP-PT Subjective Patient Comments Patient Comments Pt is pleased with the progress that she has made in PT. She attributes the decrease frequency and intensity of pain and her improved activity level to the use of heel lift in her right shoe. She states she can now stand for 20-30 min, walk for 10-15 min and sit for 10 min. Patient has also been able to do some light gardening at her mother's home. Patient Reported Progress Improving Patient Questionnaires Lower Extremity Functional Scale LEFS Score 28 LEFS Impairment 60 to 79% Impaired (Score 17- 31) Oswestry Low Back Index Oswestry Score 25 Oswestry Impairment 20 to 39% Impaired (Score 20- 39) OP-PT Pain Assessment Location bilateral LB, coccyx Pain Location Details L/S Junction, Coccyx Intensity 7 Scale Used Numeric (1 - 10) PT-OP-F Manual Assessment Start: 04/14/19 09:30 Freq: Status: Active Protocol: Document 04/14/19 10:20 SAK (Rec: 04/14/19 16:49 SAK [id number]) Manual Assessments Other Manual Assessments Other Manual Assessments Leg length: right 1/2 shorter than left PT-OP-G Mobility & Gait Start: 04/14/19 09:30 Freq: Status: Active Protocol: Document 04/14/19 10:20 SAK (Rec: 04/14/19 16:49 SAK [id number]) OP Mobility Evaluation Bed Mobility Rolling poor core stab Supine to and from Sit cues for logroll OP Gait Assessment Gait Gait Assistance Required: Independent Assistive Devices Assistive Device None Gait Deviations General Gait Pattern Antalgic,Decreased Stride Length,Decreased Feet Clearance,Flexed Trunk Factors Limiting Gait Function Factors Limiting Gait Function Pain PT-OP-H Neuro Start: 04/14/19 09:30 Freq: Status: Active Protocol: Document 04/14/19 10:20 SAK (Rec: 04/14/19 16:49 SAK [id number]) Sensation Evaluation Gross Sensation Gross Sensation WNL Comments Summary Comments denied N/T LE's PT-OP-J Posture/Palpation/Skin Start: 04/14/19 09:30 Freq: Status: Active Protocol: Document 07/25/19 15:58 NFW (Rec: 07/25/19 16:31 NFW [id number]) Posture Evaluation Position Standing Head/C-Spine Posture Forward Head T-Spine Posture Increased Kyphosis L-Spine Posture Increased Lordosis Pelvis Posture (L) Iliac Crest Superior,(R) PSIS Inferior Palpation Assessment Location buttocks Palpation Location Over greater trochanter, decrease tenderness over buttocks lumbar paraspinals Palpation Location Lumbar Paraspinals Palpation Details Decrease tenderness to palpation over L/S spine PT-OP-K Range of Motion Start: 04/14/19 09:30 Freq: Status: Active Protocol: Document 07/25/19 15:58 NFW (Rec: 07/25/19 16:31 NFW [id number]) Lumbar Spine Range of Motion Lumbar Spine Active Testing Position Standing Comments Decrease of pain in available ROM. Hip Goniometric Range of Motion Hip left Hip ROM WFL No Testing Position Supine Flexion w/Knee Flexed 100 Straight Leg Raise 65 Internal Rotation 10 External Rotation 70 Right Hip ROM WFL No Testing Position Supine Flexion w/Knee Flexed 95 Straight Leg Raise 75 Internal Rotation 5 External Rotation 60 Hip ROM Limitations Hip ROM Limitations Soft Tissue Tightness,Pain Knee Goniometric Range of Motion Knee herbie Knee ROM WFL Yes Ankle and Foot Goniometric Range of Motion Ankle and Foot Active Ankle/Foot ROM WFL No Ankle and Foot ROM Limitations ROM Limitations Soft Tissue Tightness Comments Notable inflexibility gastrocnemius herbie. R>L PT-OP-L Special Tests Start: 04/14/19 09:30 Freq: Status: Active Protocol: Document 07/25/19 15:58 NFW (Rec: 07/25/19 16:31 NFW [id number]) Special Tests Lumbar Spine Special Tests Straight Leg Raise Test Results negative herbie. Manual Traction Comments eases pain Eliezer Test Results negative herbie. PT-OP-M Strength Start: 04/14/19 09:30 Freq: Status: Active Protocol: Document 07/25/19 15:58 NFW (Rec: 07/25/19 16:31 NFW [id number]) Trunk Strength Trunk Manual Muscle Testing Testing Position Supine Flexion 2+ Poor+ Extension 3- Fair- Core Stabilization poor ability to activate TrA and multifidi Abdominal Stabilization level 1 Hip Strength Hip Manual Muscle Testing Left Flexion (L2) 4 Good Extension (S1) 3- Fair- Abduction 4- Good- External Rotation 4- Good- Internal Rotation 4- Good- Right Flexion (L2) 4 Good Extension (S1) 3- Fair- Abduction 4- Good- External Rotation 4- Good- Internal Rotation 4- Good- Knee Strength Knee Manual Muscle Testing herbie Flexion (S2) 5 Normal Extension (L3) 5 Normal Ankle/Foot Strength Ankle and Foot Manual Muscle Testing herbie Dorsiflexion (L4) 4 Good Plantarflexion (S1) 4- Good- PT-OP-Q Treatments Start: 04/14/19 09:30 Freq: Status: Active Protocol: Document 07/25/19 15:58 NFW (Rec: 07/25/19 16:31 NFW [id number]) Therapeutic Activity Therapeutic Activity 1 Name Education - Functional Standin Reps/Minutes 20 Comments Discussion static standing and controlling trendelenberg. Progression into standing with activities such as reaching overhead, doing dishes, reaching below knee level. PT-OP-R Modalities Start: 04/14/19 09:30 Freq: Status: Active Protocol: Document 06/08/19 14:33 SAK (Rec: 06/08/19 15:14 SAK [id number]) Electric Stimulation Electric Stimulation Interferential Current (IFC) Body Location bilateral l/s, piriformis Duration (Minutes) 15 Target/Sweep Sweep High/Low High Patient Position Prone Combined With Heat/Cold Hot Pack Comments prone pillow PT-OP-T Assessment and Plan Start: 04/14/19 09:30 Freq: Status: Active Protocol: Document 07/25/19 15:58 NFW (Rec: 07/25/19 16:31 NFW [id number]) Physical Therapy Assessment Rehab Potential Rehabilitation Potential Good Impairments Impairments Activity Tolerance,Pain,ROM, Strength Goals Four Impairment inability to sit in neutral position due to coccyx pain Care Home Goal (LTG) Patient will be able to sit in neutral position for at least 30 min without an increase in pain LTG Duration 09/26/19 Three Impairment sleep impairment due to pain Short Term Goal (STG) Patient will report at least a 25% improvement in her abiity to sleep STG Duration 09/26/19 Video Game Script Writer Goal (LTG) Patient cata report at a least a 50% improvement in her ability to sleep due to decrease in her pain LTG Duration 09/26/19 Two Impairment unable to tolerate any exercise program Short Term Goal (STG) Instruct patient in HEP for core stabilization, flexibility, and strengthening STG Duration 08/26/19 Care Home Goal (LTG) Patient to be independent and compliant with HEP for long- term fitness and pain management possibly to include aquatic exercises LTG Duration 09/26/19 One Impairment activity intolerance; LEFS 30% Short Term Goal (STG) Improve LEFS to at least 50% STG Duration 08/26/19 Video Game Script Writer Goal (LTG) Improve LEFS to at least 70%, and decrease Oswestry score to no greater than 30% including ability to do usual daily activities without an increase in pain. LTG Duration 09/26/19 Physical Therapy Plan Frequency and Duration Frequency of Treatment 2x/Week Duration of Treatment 8 Plan of Care Start Date 07/25/19 Plan of Care End Date 09/23/19
--- NOTE | 2019-07-27 17:00 | PT.OPPN ---
Current Diagnoses Other chronic pain (07/25/19) Pain in left hip (07/25/19) Low back pain (07/25/19) Physical Therapy Progress Note PT-OP-A Visit Information Start: 04/14/19 09:30 Freq: Status: Active Protocol: Document 07/25/19 15:58 NFW (Rec: 07/25/19 16:31 NFW [id number]) Out-Patient Physical Therapy Visit Information Visit Information Visit Type Progress Note Visit Start Time 13:00 Visit Stop Time 13:45 Total Visit Minutes 45 Visit Number 12 PT-OP-B Current Condition Start: 04/14/19 09:30 Freq: Status: Active Protocol: Document 07/25/19 15:58 NFW (Rec: 07/25/19 16:31 NFW [id number]) Current Condition History of Current Condition Current Complaints Pain concentrated lowback and coccyx. Pain does reach level of 8/10. Treatment Goals Patient/Caregiver Goals Return to normal activities without the high intensity of pain. PT-OP-C Subjective Start: 04/14/19 09:30 Freq: Status: Active Protocol: Document 07/25/19 15:58 NFW (Rec: 07/25/19 16:31 NFW [id number]) OP-PT Subjective Patient Comments Patient Comments Pt is pleased with the progress that she has made in PT. She attributes the decrease frequency and intensity of pain and her improved activity level to the use of heel lift in her right shoe. She states she can now stand for 20-30 min, walk for 10-15 min and sit for 10 min. Patient has also been able to do some light gardening at her mother's home. Patient Reported Progress Improving Patient Questionnaires Lower Extremity Functional Scale LEFS Score 28 LEFS Impairment 60 to 79% Impaired (Score 17- 31) Oswestry Low Back Index Oswestry Score 25 Oswestry Impairment 20 to 39% Impaired (Score 20- 39) OP-PT Pain Assessment Location bilateral LB, coccyx Pain Location Details L/S Junction, Coccyx Intensity 7 Scale Used Numeric (1 - 10) PT-OP-F Manual Assessment Start: 04/14/19 09:30 Freq: Status: Active Protocol: Document 04/14/19 10:20 SAK (Rec: 04/14/19 16:49 SAK [id number]) Manual Assessments Other Manual Assessments Other Manual Assessments Leg length: right 1/2 shorter than left PT-OP-G Mobility & Gait Start: 04/14/19 09:30 Freq: Status: Active Protocol: Document 04/14/19 10:20 SAK (Rec: 04/14/19 16:49 SAK [id number]) OP Mobility Evaluation Bed Mobility Rolling poor core stab Supine to and from Sit cues for logroll OP Gait Assessment Gait Gait Assistance Required: Independent Assistive Devices Assistive Device None Gait Deviations General Gait Pattern Antalgic,Decreased Stride Length,Decreased Feet Clearance,Flexed Trunk Factors Limiting Gait Function Factors Limiting Gait Function Pain PT-OP-H Neuro Start: 04/14/19 09:30 Freq: Status: Active Protocol: Document 04/14/19 10:20 SAK (Rec: 04/14/19 16:49 SAK [id number]) Sensation Evaluation Gross Sensation Gross Sensation WNL Comments Summary Comments denied N/T LE's PT-OP-J Posture/Palpation/Skin Start: 04/14/19 09:30 Freq: Status: Active Protocol: Document 07/25/19 15:58 NFW (Rec: 07/25/19 16:31 NFW [id number]) Posture Evaluation Position Standing Head/C-Spine Posture Forward Head T-Spine Posture Increased Kyphosis L-Spine Posture Increased Lordosis Pelvis Posture (L) Iliac Crest Superior,(R) PSIS Inferior Palpation Assessment Location buttocks Palpation Location Over greater trochanter, decrease tenderness over buttocks lumbar paraspinals Palpation Location Lumbar Paraspinals Palpation Details Decrease tenderness to palpation over L/S spine PT-OP-K Range of Motion Start: 04/14/19 09:30 Freq: Status: Active Protocol: Document 07/25/19 15:58 NFW (Rec: 07/25/19 16:31 NFW [id number]) Lumbar Spine Range of Motion Lumbar Spine Active Testing Position Standing Comments Decrease of pain in available ROM. Hip Goniometric Range of Motion Hip Measured in Degrees left Hip ROM WFL No Testing Position Supine Flexion w/Knee Flexed 100 Straight Leg Raise 65 Internal Rotation 10 External Rotation 70 Right Hip ROM WFL No Testing Position Supine Flexion w/Knee Flexed 95 Straight Leg Raise 75 Internal Rotation 5 External Rotation 60 Hip ROM Limitations Hip ROM Limitations Soft Tissue Tightness,Pain Knee Goniometric Range of Motion Knee Measured in Degrees herbie Knee ROM WFL Yes Ankle and Foot Goniometric Range of Motion Ankle and Foot Measured in Degrees Active Ankle/Foot ROM WFL No Ankle and Foot ROM Limitations ROM Limitations Soft Tissue Tightness Comments Notable inflexibility gastrocnemius herbie. R>L PT-OP-L Special Tests Start: 04/14/19 09:30 Freq: Status: Active Protocol: Document 07/25/19 15:58 NFW (Rec: 07/25/19 16:31 NFW [id number]) Special Tests Lumbar Spine Special Tests Straight Leg Raise Test Results negative herbie. Manual Traction Comments eases pain Eliezer Test Results negative herbie. PT-OP-M Strength Start: 04/14/19 09:30 Freq: Status: Active Protocol: Document 07/25/19 15:58 NFW (Rec: 07/25/19 16:31 NFW [id number]) Trunk Strength Trunk Manual Muscle Testing Testing Position Supine Flexion 2+ Poor+ Extension 3- Fair- Core Stabilization poor ability to activate TrA and multifidi Abdominal Stabilization level 1 Hip Strength Hip Manual Muscle Testing Left Flexion (L2) 4 Good Extension (S1) 3- Fair- Abduction 4- Good- External Rotation 4- Good- Internal Rotation 4- Good- Right Flexion (L2) 4 Good Extension (S1) 3- Fair- Abduction 4- Good- External Rotation 4- Good- Internal Rotation 4- Good- Knee Strength Knee Manual Muscle Testing herbie Flexion (S2) 5 Normal Extension (L3) 5 Normal Ankle/Foot Strength Ankle and Foot Manual Muscle Testing herbie Dorsiflexion (L4) 4 Good Plantarflexion (S1) 4- Good- PT-OP-T Assessment and Plan Start: 04/14/19 09:30 Freq: Status: Active Protocol: Document 07/25/19 15:58 NFW (Rec: 07/25/19 16:31 NFW [id number]) Physical Therapy Assessment Rehab Potential Rehabilitation Potential Good Impairments Impairments Activity Tolerance,Pain,ROM, Strength Goals Four Impairment inability to sit in neutral position due to coccyx pain Correction Goal (LTG) Patient will be able to sit in neutral position for at least 30 min without an increase in pain LTG Duration 09/26/19 Three Impairment sleep impairment due to pain Short Term Goal (STG) Patient will report at least a 25% improvement in her abiity to sleep STG Duration 09/26/19 Correction Goal (LTG) Patient cata report at a least a 50% improvement in her ability to sleep due to decrease in her pain LTG Duration 09/26/19 Two Impairment unable to tolerate any exercise program Short Term Goal (STG) Instruct patient in HEP for core stabilization, flexibility, and strengthening STG Duration 08/26/19 Correction Goal (LTG) Patient to be independent and compliant with HEP for long- term fitness and pain management possibly to include aquatic exercises LTG Duration 09/26/19 One Impairment activity intolerance; LEFS 30% Short Term Goal (STG) Improve LEFS to at least 50% STG Duration 08/26/19 Mold Capper Helper Goal (LTG) Improve LEFS to at least 70%, and decrease Oswestry score to no greater than 30% including ability to do usual daily activities without an increase in pain. LTG Duration 09/26/19 Physical Therapy Plan Frequency and Duration Frequency of Treatment 2x/Week Duration of Treatment 8 Plan of Care Start Date 07/25/19 Plan of Care End Date 09/23/19
--- NOTE | 2019-07-27 17:01 | PT.OPPOC ---
Current Diagnoses Other chronic pain (07/25/19) Pain in left hip (07/25/19) Low back pain (07/25/19) Visit Care Team Role Provider Type Adriana Ferreira DO Attending Provider Physician Primary Care Provider Specialty: [facility] Address: [address] [place] [address], [address], [address] Email: [email or web address] Plan Of Care PT-OP-T Assessment and Plan Start: 04/14/19 09:30 Freq: Status: Active Protocol: Document 07/25/19 15:58 NFW (Rec: 07/25/19 16:31 NFW [id number]) Physical Therapy Assessment Rehab Potential Rehabilitation Potential Good Impairments Impairments Activity Tolerance,Pain,ROM, Strength Goals Four Impairment inability to sit in neutral position due to coccyx pain Skilled Nursing Goal (LTG) Patient will be able to sit in neutral position for at least 30 min without an increase in pain LTG Duration 09/26/19 Three Impairment sleep impairment due to pain Short Term Goal (STG) Patient will report at least a 25% improvement in her abiity to sleep STG Duration 09/26/19 Skilled Nursing Goal (LTG) Patient cata report at a least a 50% improvement in her ability to sleep due to decrease in her pain LTG Duration 09/26/19 Two Impairment unable to tolerate any exercise program Short Term Goal (STG) Instruct patient in HEP for core stabilization, flexibility, and strengthening STG Duration 08/26/19 Museum Director Goal (LTG) Patient to be independent and compliant with HEP for long- term fitness and pain management possibly to include aquatic exercises LTG Duration 09/26/19 One Impairment activity intolerance; LEFS 30% Short Term Goal (STG) Improve LEFS to at least 50% STG Duration 08/26/19 Museum Director Goal (LTG) Improve LEFS to at least 70%, and decrease Oswestry score to no greater than 30% including ability to do usual daily activities without an increase in pain. LTG Duration 09/26/19 Physical Therapy Plan Frequency and Duration Frequency of Treatment 2x/Week Duration of Treatment 8 Plan of Care Start Date 07/25/19 Plan of Care End Date 09/23/19 Plan of Care Dates Plan of Care Start Date 07/25/19 Plan of Care End Date 09/23/19
== END 2019-07-26 13:00 ==
LOC: PHYS 13:00
PROVIDERS: PCP Family Medicine; Visit Provider Family Medicine
DX: M25.552 Pain in left hip (principal); M54.5 Low back pain; G89.29 Other chronic pain
CPT/HCPCS: 97010; 97014; 97110; 97140; 97162; 97530; 97535; G0283

== ENCOUNTER → 2019-08-03 15:52 | Outpatient (CLI) | payer OTHER, MEDICAID, SELFPAY ==
--- NOTE | 2019-08-03 | DI.MRI.S_ITS ---
PROCEDURE: MR LUMBAR SPINE WO CON INDICATIONS: Low back and bilateral hip pain TECHNIQUE: Noncontrast sagittal T1 spin echo and T2 fast echo, sagittal STIR, axial T1 and T2 fast spin echo through the lumbar spine. In cases with scoliosis, additional coronal T2 fast spin echo may be performed. COMPARISON: None. FINDINGS: Image quality: Excellent. Alignment and Curvature: There is normal bony alignment. Bone Marrow: Marrow is of normal overall signal. No acute vertebral body compression fractures. Spinal Cord: Conus medullaris terminates at the T12 level. Visualized cord demonstrates normal signal and size. Paraspinous Soft Tissues: No paravertebral masses. 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 There is nonspecific, dependent posterior subcutaneous soft tissue edema from level of L1-L2 L1-L2: Normal appearance. L2-L3: Mild canal narrowing. Lateral recesses appear patent. Moderate right foraminal stenosis with nerve root compression. Mild left foraminal narrowing with minimal nerve root compression. L3-L4: No canal stenosis. Lateral recesses appear patent. Mild left foraminal narrowing with nerve root compression. Mild right foraminal narrowing with minimal nerve root compression L4-L5: No canal stenosis. Lateral recesses appear patent. Mild right foraminal narrowing with minimal nerve root compression. No left foraminal stenosis L5-S1: Normal appearance. IMPRESSION: Multilevel lumbar spondylosis and facet disease with diffuse mild-moderate foraminal narrowing from L2-L5 as discussed above. Dictated by: Junior Ingram M.D. on 08/03/2019 at 17:14 Approved by: Junior Ingram M.D. on 08/03/2019 at 17:18
== END ==
PROVIDERS: PCP Family Medicine; Visit Provider Physician Assistant Surgical
DX: M54.5 Low back pain (principal); M25.552 Pain in left hip; M25.551 Pain in right hip; M47.816 Spondylosis without myelopathy or radiculopathy, lumbar region; M48.061 Spinal stenosis, lumbar region without neurogenic claudication
CPT/HCPCS: 72148

== ENCOUNTER → 2019-08-11 08:09 | Outpatient (CLI) | payer OTHER, MEDICAID, SELFPAY ==
[2019-08-11 09:17] LABS: Alanine Aminotransferase 15 IU/L (<35); Albumin 3.7 g/dL (3.5-5.0); Albumin Globulin Ratio 1.3 (1.0-2.8); Alkaline Phosphatase 55 U/L (38-126); Aspartate Aminotransferase 24 IU/L (14-36); BUN Creatinine Ratio 21.4 (6-22); Bilirubin Total 0.5 mg/dL (0.2-1.3); Blood Urea Nitrogen 15 mg/dL (7-17); Calcium 9.5 mg/dL (8.4-10.2); Carbon Dioxide 29 mmol/L (22-32); Chloride 104 mmol/L (98-107); Cholesterol 163 mg/dL (140-199); Estimated Glomerular Filt Rate > 60.0 mL/min (>60); Globulin 2.9 g/dL (1.7-4.1); Glucose 104 mg/dL (70-100); HDL Cholesterol 56 mg/dL (40-60); HEMOLYSIS < 15 (0-50); LDL Cholesterol Calculated 92 mg/dL (<100); Potassium 3.7 mmol/L (3.4-5.1); Sodium 139 mmol/L (137-145); Total Protein 6.6 g/dL (6.3-8.2); Triglycerides 76 mg/dL (35-150)
== END ==
PROVIDERS: PCP Family Medicine; Visit Provider Family Medicine
DX: I10 Essential (primary) hypertension (principal)
CPT/HCPCS: 36415; 80053; 80061

== ENCOUNTER → 2020-05-01 16:51 | Outpatient (CLI) | payer OTHER, MEDICAID, SELFPAY ==
--- NOTE | 2020-05-01 | DI.MG.S_ITS ---
BILATERAL DIGITAL SCREENING MAMMOGRAM 3D/2D WITH CAD: 05/01/2020 CLINICAL: Routine screening. Comparison is made to exams dated: 01/04/2019 mammogram, 12/28/2017 mammogram - [facility], and 12/03/2016 mammogram - [facility]. There are scattered fibroglandular elements in both breasts. Current study was also evaluated with a Computer Aided Detection (CAD) system. No significant masses, calcifications, or other findings are seen in either breast. There has been no significant interval change. IMPRESSION: NEGATIVE There is no mammographic evidence of malignancy. A 1 year screening mammogram is recommended. This exam was interpreted at Station ID: [id number]. NOTE: For mammograms, a report in lay terms will be sent to the patient. Approximately 15% of breast malignancies will not be visualized mammographically. In the management of a palpable breast mass, a negative mammogram must not discourage biopsy of a clinically suspicious lesion. Electronically Signed By: Paxton montalvo/jeniffer:05/01/2020 17:08:37 letter sent: Normal Exam ACR BI-RADS Category 1: Negative [id number]
== END ==
PROVIDERS: PCP Family Medicine; Referring Provider Family Medicine; Visit Provider Family Medicine
DX: Z12.31 Encounter for screening mammogram for malignant neoplasm of breast (principal)
CPT/HCPCS: 77063; 77067

== ENCOUNTER → 2020-08-30 13:39 | Outpatient (CLI) | payer OTHER, MEDICAID, SELFPAY ==
--- NOTE | 2020-08-30 13:45 | DI.RAD.S_ITS ---
PROCEDURE: XR FOOT LT MIN 3V INDICATIONS: Left heal pain TECHNIQUE: 3 views of the foot were acquired. COMPARISON: None. FINDINGS: Bones: No fractures or dislocations. No suspicious bony lesions. Moderate 1st MTP joint degeneration. Plantar and posterior calcaneal spurring. Mild midfoot sclerosis and spurring. Soft tissues: No tibiotalar joint effusion. Achilles tendon appears normal. IMPRESSION: Degenerative changes as above. Posterior and plantar calcaneal spurring. Dictated by: Junior Ingram M.D. on 08/30/2020 at 14:22 Approved by: Junior Ingram M.D. on 08/30/2020 at 14:24
== END ==
PROVIDERS: PCP Family Medicine; Referring Provider Family Medicine; Visit Provider Family Medicine
DX: M79.672 Pain in left foot (principal); M77.32 Calcaneal spur, left foot
CPT/HCPCS: 73630

== ENCOUNTER → 2020-10-21 13:01 | Outpatient (CLI) | payer OTHER, MEDICAID, SELFPAY ==
[2020-10-21 14:15] LABS: COVID19 -Nasal RAPID Negative (Negative)
== END ==
PROVIDERS: PCP Family Medicine; Visit Provider Family Medicine Sleep Medicine
DX: Z20.822 Contact with and (suspected) exposure to COVID-19 (principal); G47.33 Obstructive sleep apnea (adult) (pediatric)
CPT/HCPCS: 87635; 95810

== ENCOUNTER → 2020-11-14 08:27 | Outpatient (CLI) | payer OTHER, MEDICAID, SELFPAY ==
[2020-11-14 12:37] LABS: COVID19 -Nasal RAPID Negative (Negative)
== END ==
PROVIDERS: PCP Family Medicine; Visit Provider Family Medicine Sleep Medicine
DX: Z20.822 Contact with and (suspected) exposure to COVID-19 (principal); G47.33 Obstructive sleep apnea (adult) (pediatric); R06.83 Snoring; G47.34 Idiopathic sleep related nonobstructive alveolar hypoventilation
CPT/HCPCS: 87635; 95811

== ENCOUNTER → 2020-12-05 08:20 | Outpatient (CLI) | payer OTHER, MEDICAID, SELFPAY ==
[2020-12-05 09:13] LABS: Add Manual Diff / Slide Review NO; Basophils Absolute Auto 100 /uL (0-100); Basophils Percent Auto 1.3 % (0-2); Eosinophils Absolute Auto 200 /uL (0-450); Eosinophils Percent Auto 2.5 % (2-4); Hematocrit 45.8 % (36-46); Hemoglobin 15.7 g/dL (12.0-16.0); Lymphocytes Absolute Auto 2100 /uL (1100-4500); Lymphocytes Percent Auto 28.4 % (25-40); Mean Corpuscular HGB Conc 34.3 % (30-36); Mean Corpuscular Hemoglobin 31.4 PG (26-34); Mean Corpuscular Volume 91.3 fL (80-100); Monocytes Absolute Auto 500 /uL (0-900); Monocytes Percent Auto 6.3 % (3-14); Neutrophils Absolute Auto 4500 /uL (1500-7000); Neutrophils Percent Auto 61.5 % (50-75); Platelet Count 207 X10^3/uL (150-400); Red Blood Cell Count 5.01 X10^6/uL (4.0-5.2); Red Cell Distribution Width 12.8 % (11.6-14.8); White Blood Cell Count 7.3 X10^3/uL (4.5-11.0)
[2020-12-05 09:34] LABS: Alanine Aminotransferase 15 IU/L (<35); Albumin 4.1 g/dL (3.5-5.0); Albumin Globulin Ratio 1.3 (1.0-2.8); Alkaline Phosphatase 66 U/L (38-126); Aspartate Aminotransferase 22 IU/L (14-36); BUN Creatinine Ratio 34.5 (6-22); Bilirubin Total 0.4 mg/dL (0.2-1.3); Blood Urea Nitrogen 19 mg/dL (7-17); Calcium 9.3 mg/dL (8.4-10.2); Carbon Dioxide 25 mmol/L (22-32); Chloride 106 mmol/L (98-107); Cholesterol 181 mg/dL (140-199); Estimated Glomerular Filt Rate > 60.0 mL/min (>60); Globulin 3.1 g/dL (1.7-4.1); Glucose 111 mg/dL (70-100); HDL Cholesterol 51 mg/dL (40-60); HEMOLYSIS < 15 (0-50); LDL Cholesterol Calculated 118 mg/dL (<100); Potassium 3.9 mmol/L (3.4-5.1); Sodium 138 mmol/L (137-145); Total Protein 7.2 g/dL (6.3-8.2); Triglycerides 59 mg/dL (35-150)
[2020-12-05 10:06] LABS: Free T3, Triiodothyronine Free 2.95 pg/mL (2.77-5.27); Free T4, Direct Thyroxine 1.43 ng/dL (0.78-2.19)
[2020-12-05 10:19] LABS: Thyroid Stimulating Hormone 3.17 uIU/mL (0.47-4.68)
== END ==
PROVIDERS: PCP Family Medicine; Referring Provider Family Medicine; Visit Provider Family Medicine
DX: E03.9 Hypothyroidism, unspecified (principal); E78.5 Hyperlipidemia, unspecified; I10 Essential (primary) hypertension
CPT/HCPCS: 36415; 80053; 80061; 84439; 84443; 84481; 85025

== ENCOUNTER → 2020-12-05 14:45 | Outpatient (CLI) | payer MEDICARE, MEDICAID, SELFPAY ==
[2020-12-05] MEDS: COVID-19 VACC, Ad26(JANSSEN)/PF 0.5 ML IM (15:09)
== END ==
PROVIDERS: PCP Family Medicine; Visit Provider Internal Medicine
DX: Z23 Encounter for immunization (principal)
CPT/HCPCS: 0031A; 91303

== ENCOUNTER → 2020-12-13 14:58 | Outpatient (CLI) | payer OTHER, MEDICAID, SELFPAY ==
[2020-12-13 15:44] LABS: COVID19 -Nasal RAPID Negative (Negative)
== END ==
PROVIDERS: PCP Family Medicine; Visit Provider Family Medicine Sleep Medicine
DX: Z20.822 Contact with and (suspected) exposure to COVID-19 (principal)
CPT/HCPCS: 87635; C9803

== ENCOUNTER → 2021-01-06 15:49 | Outpatient (CLI) | payer OTHER, MEDICAID, SELFPAY ==
[2021-01-06 17:05] LABS: Add Manual Diff / Slide Review NO; Basophils Absolute Auto 100 /uL (0-100); Basophils Percent Auto 0.9 % (0-2); Eosinophils Absolute Auto 200 /uL (0-450); Hematocrit 43.3 % (36-46); Lymphocytes Absolute Auto 2700 /uL (1100-4500); Lymphocytes Percent Auto 34.8 % (25-40); Mean Corpuscular HGB Conc 34.6 % (30-36); Mean Corpuscular Hemoglobin 31.6 PG (26-34); Mean Corpuscular Volume 91.2 fL (80-100); Monocytes Absolute Auto 400 /uL (0-900); Monocytes Percent Auto 5.6 % (3-14); Neutrophils Absolute Auto 4400 /uL (1500-7000); Neutrophils Percent Auto 56.7 % (50-75); Platelet Count 200 X10^3/uL (150-400); Red Blood Cell Count 4.75 X10^6/uL (4.0-5.2); Red Cell Distribution Width 12.7 % (11.6-14.8); White Blood Cell Count 7.8 X10^3/uL (4.5-11.0)
[2021-01-06 18:13] LABS: Alanine Aminotransferase 15 IU/L (<35); Albumin Globulin Ratio 1.3 (1.0-2.8); Alkaline Phosphatase 63 U/L (38-126); Aspartate Aminotransferase 25 IU/L (14-36); BUN Creatinine Ratio 27.7 (6-22); Bilirubin Total 0.3 mg/dL (0.2-1.3); Bilirubin Unconjugated 0.1 mg/dL (0.0-1.1); Blood Urea Nitrogen 18 mg/dL (7-17); Calcium 9.5 mg/dL (8.4-10.2); Carbon Dioxide 25 mmol/L (22-32); Chloride 108 mmol/L (98-107); Cholesterol 198 mg/dL (140-199); Estimated Glomerular Filt Rate > 60.0 mL/min (>60); Globulin 3.1 g/dL (1.7-4.1); Glucose 113 mg/dL (70-100); HDL Cholesterol 58 mg/dL (40-60); HEMOLYSIS < 15 (0-50); LDL Cholesterol Calculated 106 mg/dL (<100); Potassium 3.4 mmol/L (3.4-5.1); Sodium 140 mmol/L (137-145); Total Protein 7.1 g/dL (6.3-8.2); Triglycerides 169 mg/dL (35-150)
[2021-01-07 01:59] LABS: Hepatitis B Surface Antigen NEGATIVE s/c (NEGATIVE)
[2021-01-07 02:19] LABS: Hep C Virus Ab w/Reflex Quant NEGATIVE s/c (NEGATIVE)
[2021-01-07 05:30] LABS: Hepatitis B Core Antibody Negative (Negative)
[2021-01-07 09:36] LABS: Hepatitis B Surf Ab Qualitativ Non Reactive (.)
[2021-01-09 00:44] LABS: QuantiFERON Mitogen Value >10.00 IU/mL (.); QuantiFERON Nil Value 0.02 IU/mL (.); QuantiFERON TB Gold Plus Negative (Negative); QuantiFERON TB1 Ag Value 0.05 IU/mL (.); QuantiFERON TB2 Ag Value 0.05 IU/mL (.)
== END ==
PROVIDERS: PCP Family Medicine; Referring Provider Physician Assistant; Visit Provider Physician Assistant
DX: L40.0 Psoriasis vulgaris (principal)
CPT/HCPCS: 36415; 80048; 80061; 80076; 85025; 86480; 86704; 86706; 86803; 87340

== ENCOUNTER → 2021-06-04 12:45 | Outpatient (CLI) | payer OTHER, MEDICAID, SELFPAY ==
--- NOTE | 2021-06-04 | DI.MG.S_ITS ---
BILATERAL DIGITAL SCREENING MAMMOGRAM 3D/2D WITH CAD: 06/04/2021 CLINICAL: Routine screening. Comparison is made to exams dated: 05/01/2020 mammogram, 01/04/2019 mammogram, and 12/28/2017 mammogram - [facility]. There are scattered fibroglandular elements in both breasts. Current study was also evaluated with a Computer Aided Detection (CAD) system. There is a stable benign focal asymmetry in the right breast. There also are benign post operative findings in the right breast. No significant masses, calcifications, or other findings are seen in either breast. There has been no significant interval change. IMPRESSION: BENIGN There is no mammographic evidence of malignancy. A 1 year screening mammogram is recommended. This exam was interpreted at Station ID: [id number]. NOTE: For mammograms, a report in lay terms will be sent to the patient. Approximately 15% of breast malignancies will not be visualized mammographically. In the management of a palpable breast mass, a negative mammogram must not discourage biopsy of a clinically suspicious lesion. Electronically Signed By: Shayan Howard acr/jeniffer:06/04/2021 13:31:16 letter sent: Normal Exam ACR BI-RADS Category 2: Benign Finding(s) [id number]
== END ==
PROVIDERS: PCP Family Medicine; Referring Provider Family Medicine; Visit Provider Family Medicine
DX: Z12.31 Encounter for screening mammogram for malignant neoplasm of breast (principal)
CPT/HCPCS: 77063; 77067

== ENCOUNTER → 2021-06-25 09:36 | Outpatient (CLI) | payer OTHER, MEDICAID, SELFPAY ==
--- NOTE | 2021-06-25 | DI.RAD.S_ITS ---
PROCEDURE: XR FOOT LT MIN 3V INDICATIONS: LEFT FOOT PAIN TECHNIQUE: 3 views of the foot were acquired. COMPARISON: Located Within [facility], , XR FOOT LT MIN 3V, 08/30/2020, 13:47. FINDINGS: Bones: No fractures or dislocations. No suspicious bony lesions. Mild MTP narrowing is present. It is overall relatively stable compared to prior exam. Plantar posterior calcaneal spurs are noted, also stable. Soft tissues: No tibiotalar joint effusion. Achilles tendon appears normal. IMPRESSION: Persistent degenerative change most prominent at 1st MTP joint as above. Dictated by: Victoria Prescott M.D. on 06/25/2021 at 12:04 Approved by: Victoria Prescott M.D. on 06/25/2021 at 12:06
== END ==
PROVIDERS: PCP Family Medicine; Referring Provider Podiatrist Foot & Ankle Surgery; Visit Provider Podiatrist Foot & Ankle Surgery
DX: M93.872 Other specified osteochondropathies, left ankle and foot (principal); M79.672 Pain in left foot
CPT/HCPCS: 73630

== ENCOUNTER 2021-07-03 13:00 | Outpatient (RCR) | payer OTHER, MEDICAID, SELFPAY ==
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
--- NOTE | 2021-05-14 15:43 | PT.OPPOC ---
Physical, Occupational & Speech Therapy At [facility] Current Diagnoses Other acquired deformities of unspecified foot (05/14/21) Juvenile osteochondrosis of tarsus, unspecified ankle (05/14/21) Visit Care Team Role Provider Type Chu Bradley DO Primary Care Provider Physician Specialty: Family Practice Address: [address] [place] [address], [id number] Email: Vern Hardwick DPM Attending Provider Non-Staff Referring Provider Specialty: Podiatry Address: [address] [place] [address], [phone] Email: Plan Of Care PT-OP-T Assessment and Plan Start: 05/13/21 13:59 Freq: Status: Active Protocol: Document 05/14/21 10:29 MB (Rec: 05/14/21 15:42 MB [id number]) Physical Therapy Assessment Rehab Potential Rehabilitation Potential Fair Evaluation Complexity Number of Personal Factors/Comorbidities 3 or More Number of Body Systems Impaired 3 Clinical Presentation at Evaluation Evolving Impairments Impairments Activity Tolerance,Balance, Functional Activities, Functional Mobility,Gait,Pain, Posture,ROM,Soft Tissue Mobility,Strength,Transfers Other Impairments Personal factors include pt reports she is agoraphobic, multiple areas of pain and questionable activity tolerance, previous PT course was not helpful. Body systems affected include musculoskeletal, neuromuscular , psychosocial. Her clinical presentation is evolving in setting of increasing pain and known bone spur, increased body mass and difficulty with increased upright time. Other Concerns Fall Risk Yes Goals 3 Continuous Process Rotary Drum Tanner Goal (LTG) Pt will report a 25% improvement in left LE pain to improve quality of life by . LTG Duration 8 weeks 2 Half-Way Goal (LTG) Pt will perform progressive HEP with I including aquatic program, balance, strengtehning, flexibility and gait exercises to improve pain and gait by 07/14/21. LTG Duration 8 weeks 1 Continuous Process Rotary Drum Tanner Goal (LTG) Pt will perform WNLs on a standardized balance test to decrease fall risk by 07/14/21 . LTG Duration 8 weeks Assessment Summary Assessment Pt is a 61 y/o female returning to PT. She reports left heel spur and doctor's note also records this as a report of the patient and PT does not see that the doctor validates this report. Pt presents with antalgic gait favoring the left foot, decreased left ankle ROM and strength and decreased balance . She reports that she did not receive a lot of relief from previous PT course. She is open to aquatic HEP and therapy and PT can start providing a HEP while therapy is not yet back in the pool. Pt put on waiting list for the pool. She reports a coccyx and sacral issue but is it is unclear what she means. She also reports her right leg is shorter than the left and that the most recent doctor told her to use the Super Feet and not worry about addressing the leg length difference. With barefoot gait today, she is mildly functionally shoulder in RLE. Overall, clinical presentation is chronic and functional prognosis is guarded. Pt will benefit from PT to attempt to improve flexibility, range, balance and gait. Barriers include high pain, multiple areas of pain, leg length reports and presentation, decreased insight and low activity tolerance. PT does feel that leg length discrepancy should be further addressed to ensure less left LE burden. Physical Therapy Plan Frequency and Duration Frequency of Treatment 2x/Week Duration of Treatment 8 weeks Plan of Care Start Date 05/14/21 Plan of Care End Date 07/14/21 Therapeutic Interventions Therapeutic Interventions Aquatic Therapy,Balance Training,Canalithic Repositioning,Gait Training, Home Exercise Program,Joint Mobilizations,Manual Therapy, Neuromuscular Re-education, Orthotic/Prosthetic Management ,Patient/Caregiver Education, Self-Care/Home Management, Sensory Integration,Soft Tissue Mobilization,Taping, Therapeutic Activities, Therapeutic Exercises Modalities Cold Pack/Ice Massage,Electric Stimulation,Hot Packs, Ultrasound Next Visit Focus/Plan Next Note Type Treatment Note Next Visit Plan Initiate recumbent stepper, relook at leg length and consider adding full-length cork liner to right shoe, consider coming up with pool program, manual work Plan of Care Dates Plan of Care Start Date 05/14/21 Plan of Care End Date 07/14/21 Electronically Signed by: Chayito Sheets PT 05/14/21 2701 Please Sign and Return: I have reviewed this Plan of Care and certify that the skilled therapy services above are required to meet the patient?s needs. Physician Signature Date Printed Name and Credentials Clinical Instructor Signature Printed Name and Credentials
--- NOTE | 2021-05-16 11:10 | PT.OTN ---
Current Diagnoses Other acquired deformities of unspecified foot (05/16/21) Juvenile osteochondrosis of tarsus, unspecified ankle (05/16/21) Physical Therapy Treatment Note PT-OP-A Visit Information Start: 05/13/21 13:59 Freq: Status: Active Protocol: Document 05/16/21 10:32 MB (Rec: 05/16/21 11:07 MB [id number]) Out-Patient Physical Therapy Visit Information Visit Information Visit Type Treatment Note Visit Note [facility] [employer] 12 visits before pre-auth 11/15 before KX Visit Start Time 10:32 Visit Stop Time 11:10 Total Visit Minutes 38 Visit Number 2 Precautions Precautions Pt states that she is agoraphobic and does not like being out in the clinic with a lot of people X-ray left heel 08/2020: Bones: No fractures or dislocations. No suspicious bony lesions. Moderate 1st MTP joint degeneration. Plantar and posterior calcaneal spurring. Mild midfoot sclerosis and spurring . Soft tissues: No tibiotalar joint effusion. Achilles tendon appears normal. IMPRESSION: Degenerative changes as above. Posterior and plantar calcaneal spurring. PT-OP-B Current Condition Start: 05/13/21 13:59 Freq: Status: Active Protocol: Document 05/14/21 10:29 MB (Rec: 05/14/21 10:52 MB [id number]) Current Condition History of Current Condition Onset Date Greater than a year Current Complaints Left ankle and heel pain that gets worse when she is up during the day History of Current Condition PMH includes back pain, neck pain, falls (last fall 1 month ago), ? neuropathy, osteopenia, SOB, thyroid disorder, cataracts and born with double vision. Pt is on disability. She smokes 1 PPD. Pt has short leg syndrome with the left leg longer. She was given a lift with PT for her right shoe and it seemed to help a little. She is currently not using a lift on the right and a lift will not fit with the Super Feet. Pt states that she likes her soft cushiony snow boots that don't touch the back of the right heel. Pt reports that Dr. Hardwick told her her left calf is so tight that he if did surgery for the spur, it would come back. He would like for her to try PT to help. Pt reports pain up to 7/10 left ankle and heel with WB and walking. She wears slip on shoes today because they do not touch the back of her heel. Dr. Hardwick recommend [employer], which pt purchased and is working on trying to wear. PT at this clinic was not helpful. She saw a lot of different providers. Pt is a little agoraphobic and did not like being around a lot of people. She liked the recumbent stepper. Pt is using brace at night. She got needling from Dr. Bradley and it wasn't helpful. She is wearing slippers or braces at home. Prior Treatments and Tests Pt was getting PT here before COVID and was told that she needed some lifts for her shoes. Treatment Goals Patient/Caregiver Goals To decrease pain and work on dorsiflexion PT-OP-C Subjective Start: 05/13/21 13:59 Freq: Status: Active Protocol: Document 05/16/21 10:32 MB (Rec: 05/16/21 11:07 MB [id number]) OP-PT Subjective Patient Comments Patient Comments Pt states that she forgot to put on her shoes this morning and she arrives in slippers. She states that she might have some pictures from exercises given to her previously and she can bring them in next time. She shows PT boot that she wears at home: she states it is soft and she walks in it . She states it is soft. PT-OP-G Mobility & Gait Start: 05/13/21 13:59 Freq: Status: Active Protocol: Document 05/14/21 10:29 MB (Rec: 05/14/21 14:27 MB [id number]) OP Gait Assessment Comments Gait Comments Gait with bare feet: decreased step-length and foot clearance B, greater on the left. Antalgic quality, little heel strike and toe off, also greater on the left. Very mild functional leg length difference with right leg functional shorter with gait, very mildly today. Decreased pelvic movement, pt favors the left foot and gait is slow. Decreased plantar arch B, some lateral WB on left foot and more flat foot on the right with gait. Little toe movement , extension PT-OP-J Posture/Palpation/Skin Start: 05/13/21 13:59 Freq: Status: Active Protocol: Document 05/14/21 10:29 MB (Rec: 05/14/21 15:23 MB [id number]) Posture Evaluation Comments Posture Comments Standing posture barefoot: Dowager's hump, decreased thoracic kyphosis, right shoulder higher than the left, left iliac crest higher than the right, pt stands with right foot slightly forward and weight shifted to the right PT-OP-K Range of Motion Start: 05/13/21 13:59 Freq: Status: Active Protocol: Document 05/14/21 10:29 MB (Rec: 05/14/21 14:29 MB [id number]) Hip Goniometric Range of Motion Hip ROM Limitations Comments Supine passive SLR right 80 deg and left 70 deg Ankle and Foot Goniometric Range of Motion Ankle and Foot ROM Limitations Comments Right active DF to neutral in supine, left lacks 5 deg No active eversion left today Decreased great toe extension, more on the left and pt's toes do not abduct from one another well either foot PF in supine: left 25 deg and right 35 deg PT-OP-M Strength Start: 05/13/21 13:59 Freq: Status: Active Protocol: Document 05/14/21 10:29 MB (Rec: 05/14/21 15:25 MB [id number]) Hip Strength Hip Manual Muscle Testing Bilateral Flexion (L2) 5 Normal Abduction 4 Good Knee Strength Knee Manual Muscle Testing Bilateral Flexion (S2) 5 Normal Extension (L3) 5 Normal Ankle/Foot Strength Ankle and Foot Manual Muscle Testing Left Dorsiflexion (L4) 4 Good Inversion 4 Good Comments Does not perform eversion Right Dorsiflexion (L4) 5 Normal Inversion 5 Normal Eversion (S1) 4 Good Toe Strength Toe Manual Muscle Testing Left Great Toe Extension 3- Fair- Right Great Toe Extension 4 Good Comments Sensation feet intact to light touch PT-OP-Q Treatments Start: 05/13/21 13:59 Freq: Status: Active Protocol: Document 05/16/21 10:32 MB (Rec: 05/16/21 11:07 MB [id number]) Cardio Equipment Recumbent Stepper (Sci-Fit) Duration (Minutes) 20 Resistance 1 Seat Position 3 Other Legs only Therapeutic Exercises Supine Exercises Hamstring stretch with AP Side bilateral Equipment Used Towel under thigh for hamstring stretch Comments Opposite leg straight, AP Pelvic realignment exercises Side bilateral Equipment Used Towel under thigh for third exercise Comments 5 rep, 3 sec hold all exercises PT-OP-T Assessment and Plan Start: 05/13/21 13:59 Freq: Status: Active Protocol: Document 05/16/21 10:32 MB (Rec: 05/16/21 11:07 MB [id number]) Physical Therapy Assessment Rehab Potential Rehabilitation Potential Fair Evaluation Complexity Number of Personal Factors/Comorbidities 3 or More Number of Body Systems Impaired 3 Clinical Presentation at Evaluation Evolving Impairments Impairments Activity Tolerance,Balance, Functional Activities, Functional Mobility,Gait,Pain, Posture,ROM,Soft Tissue Mobility,Strength,Transfers Other Impairments Personal factors include pt reports she is agoraphobic, multiple areas of pain and questionable activity tolerance, previous PT course was not helpful. Body systems affected include musculoskeletal, neuromuscular , psychosocial. Her clinical presentation is evolving in setting of increasing pain and known bone spur, increased body mass and difficulty with increased upright time. Other Concerns Fall Risk Yes Goals 3 Archery Equipment Repairer Goal (LTG) Pt will report a 25% improvement in left LE pain to improve quality of life by . LTG Duration 8 weeks 2 Fpc Goal (LTG) Pt will perform progressive HEP with I including aquatic program, balance, strengtehning, flexibility and gait exercises to improve pain and gait by 07/14/21. LTG Duration 8 weeks 1 Fpc Goal (LTG) Pt will perform WNLs on a standardized balance test to decrease fall risk by 07/14/21 . LTG Duration 8 weeks Assessment Summary Assessment Pt does not wear proper foot wear to appointment and so limited PT to hook lying and recumbent stepper exercises. Pt con't with antalgic gait and functional leg length difference with gait. Physical Therapy Plan Frequency and Duration Frequency of Treatment 2x/Week Duration of Treatment 8 weeks Plan of Care Start Date 05/14/21 Plan of Care End Date 07/14/21 Therapeutic Interventions Therapeutic Interventions Aquatic Therapy,Balance Training,Canalithic Repositioning,Gait Training, Home Exercise Program,Joint Mobilizations,Manual Therapy, Neuromuscular Re-education, Orthotic/Prosthetic Management ,Patient/Caregiver Education, Self-Care/Home Management, Sensory Integration,Soft Tissue Mobilization,Taping, Therapeutic Activities, Therapeutic Exercises Modalities Cold Pack/Ice Massage,Electric Stimulation,Hot Packs, Ultrasound Next Visit Focus/Plan Next Note Type Treatment Note Next Visit Plan Relook at leg length and consider adding full-length cork liner to right shoe, consider coming up with pool program, manual work. Consider core progression and leg strengthening in sitting with band. Hip flexor and hip rotator stretches in hook lying.
--- NOTE | 2021-05-20 12:55 | PT.OTN ---
Current Diagnoses Other acquired deformities of unspecified foot (05/20/21) Juvenile osteochondrosis of tarsus, unspecified ankle (05/20/21) Physical Therapy Treatment Note PT-OP-A Visit Information Start: 05/13/21 13:59 Freq: Status: Active Protocol: Document 05/20/21 12:15 MB (Rec: 05/20/21 12:55 MB [id number]) Out-Patient Physical Therapy Visit Information Visit Information Visit Type Treatment Note Visit Note [facility] [employer] 12 visits before pre-auth 12/13 before KX Visit Start Time 12:15 Visit Stop Time 12:55 Total Visit Minutes 40 Visit Number 3 Precautions Precautions Pt states that she is agoraphobic and does not like being out in the clinic with a lot of people X-ray left heel 08/2020: Bones: No fractures or dislocations. No suspicious bony lesions. Moderate 1st MTP joint degeneration. Plantar and posterior calcaneal spurring. Mild midfoot sclerosis and spurring . Soft tissues: No tibiotalar joint effusion. Achilles tendon appears normal. IMPRESSION: Degenerative changes as above. Posterior and plantar calcaneal spurring. PT-OP-B Current Condition Start: 05/13/21 13:59 Freq: Status: Active Protocol: Document 05/14/21 10:29 MB (Rec: 05/14/21 10:52 MB [id number]) Current Condition History of Current Condition Onset Date Greater than a year Current Complaints Left ankle and heel pain that gets worse when she is up during the day History of Current Condition PMH includes back pain, neck pain, falls (last fall 1 month ago), ? neuropathy, osteopenia, SOB, thyroid disorder, cataracts and born with double vision. Pt is on disability. She smokes 1 PPD. Pt has short leg syndrome with the left leg longer. She was given a lift with PT for her right shoe and it seemed to help a little. She is currently not using a lift on the right and a lift will not fit with the Super Feet. Pt states that she likes her soft cushiony snow boots that don't touch the back of the right heel. Pt reports that Dr. Hardwick told her her left calf is so tight that he if did surgery for the spur, it would come back. He would like for her to try PT to help. Pt reports pain up to 7/10 left ankle and heel with WB and walking. She wears slip on shoes today because they do not touch the back of her heel. Dr. Hardwick recommend [employer], which pt purchased and is working on trying to wear. PT at this clinic was not helpful. She saw a lot of different providers. Pt is a little agoraphobic and did not like being around a lot of people. She liked the recumbent stepper. Pt is using brace at night. She got needling from Dr. Bradley and it wasn't helpful. She is wearing slippers or braces at home. Prior Treatments and Tests Pt was getting PT here before COVID and was told that she needed some lifts for her shoes. Treatment Goals Patient/Caregiver Goals To decrease pain and work on dorsiflexion PT-OP-C Subjective Start: 05/13/21 13:59 Freq: Status: Active Protocol: Document 05/20/21 12:15 MB (Rec: 05/20/21 12:55 MB [id number]) OP-PT Subjective Patient Comments Patient Comments Pt brings in her folders and wears her slip on tennis shoes with super feet in them. They are not cushy like her other inserts and she thinks the doctor would like for her heels to toughen up. She has to get used to them. PT-OP-G Mobility & Gait Start: 05/13/21 13:59 Freq: Status: Active Protocol: Document 05/14/21 10:29 MB (Rec: 05/14/21 14:27 MB [id number]) OP Gait Assessment Comments Gait Comments Gait with bare feet: decreased step-length and foot clearance B, greater on the left. Antalgic quality, little heel strike and toe off, also greater on the left. Very mild functional leg length difference with right leg functional shorter with gait, very mildly today. Decreased pelvic movement, pt favors the left foot and gait is slow. Decreased plantar arch B, some lateral WB on left foot and more flat foot on the right with gait. Little toe movement , extension PT-OP-J Posture/Palpation/Skin Start: 05/13/21 13:59 Freq: Status: Active Protocol: Document 05/14/21 10:29 MB (Rec: 05/14/21 15:23 MB [id number]) Posture Evaluation Comments Posture Comments Standing posture barefoot: Dowager's hump, decreased thoracic kyphosis, right shoulder higher than the left, left iliac crest higher than the right, pt stands with right foot slightly forward and weight shifted to the right PT-OP-K Range of Motion Start: 05/13/21 13:59 Freq: Status: Active Protocol: Document 05/14/21 10:29 MB (Rec: 05/14/21 14:29 MB [id number]) Hip Goniometric Range of Motion Hip ROM Limitations Comments Supine passive SLR right 80 deg and left 70 deg Ankle and Foot Goniometric Range of Motion Ankle and Foot ROM Limitations Comments Right active DF to neutral in supine, left lacks 5 deg No active eversion left today Decreased great toe extension, more on the left and pt's toes do not abduct from one another well either foot PF in supine: left 25 deg and right 35 deg PT-OP-M Strength Start: 05/13/21 13:59 Freq: Status: Active Protocol: Document 05/14/21 10:29 MB (Rec: 05/14/21 15:25 MB [id number]) Hip Strength Hip Manual Muscle Testing Bilateral Flexion (L2) 5 Normal Abduction 4 Good Knee Strength Knee Manual Muscle Testing Bilateral Flexion (S2) 5 Normal Extension (L3) 5 Normal Ankle/Foot Strength Ankle and Foot Manual Muscle Testing Left Dorsiflexion (L4) 4 Good Inversion 4 Good Comments Does not perform eversion Right Dorsiflexion (L4) 5 Normal Inversion 5 Normal Eversion (S1) 4 Good Toe Strength Toe Manual Muscle Testing Left Great Toe Extension 3- Fair- Right Great Toe Extension 4 Good Comments Sensation feet intact to light touch PT-OP-Q Treatments Start: 05/13/21 13:59 Freq: Status: Active Protocol: Document 05/20/21 12:15 MB (Rec: 05/20/21 12:55 MB [id number]) Cardio Equipment Recumbent Stepper (Sci-Fit) Duration (Minutes) 13 Resistance 2 Seat Position 7 Other Legs only Therapeutic Exercises Supine Exercises Core progression Supine Exercise Name From old handouts from 2019- november, clam with band around knees, bridge Side bilateral Comments Level 2 band around knees for clam Pelvic tilt with transverse abdominal Supine Exercise Name From old handout from 2019 Comments 10 reps slowly, to perform 1x/ say Glute squeeze with legs straight Supine Exercise Name From old handout from 2019 Side bilateral Comments 10 reps slowly and cues to perform at home 1x/day, toes up Prone Exercises Child's pose static and hands walking Prone Exercise Name From old handout from 2019 Comments Pt to perform 1x/day at home Cat/cow Prone Exercise Name From old handout from 2019 Comments Pt to perform 1x/day at home Gait Training Gait Activity Changed orthotics various ways and gait Comments Pt arrives with both super feet in slip on shoes and her gait is mildly antalgic on the way in. Cut thinnest cork full length and put in right shoe and pt states it feels fine without the super feet in . Put super feet in both shoes with the right one on top of the cork and pt states that gait feels okay PT-OP-T Assessment and Plan Start: 05/13/21 13:59 Freq: Status: Active Protocol: Document 05/20/21 12:15 MB (Rec: 05/20/21 12:55 MB [id number]) Physical Therapy Assessment Rehab Potential Rehabilitation Potential Fair Evaluation Complexity Number of Personal Factors/Comorbidities 3 or More Number of Body Systems Impaired 3 Clinical Presentation at Evaluation Evolving Impairments Impairments Activity Tolerance,Balance, Functional Activities, Functional Mobility,Gait,Pain, Posture,ROM,Soft Tissue Mobility,Strength,Transfers Other Impairments Personal factors include pt reports she is agoraphobic, multiple areas of pain and questionable activity tolerance, previous PT course was not helpful. Body systems affected include musculoskeletal, neuromuscular , psychosocial. Her clinical presentation is evolving in setting of increasing pain and known bone spur, increased body mass and difficulty with increased upright time. Other Concerns Fall Risk Yes Goals 3 Penitentiary Goal (LTG) Pt will report a 25% improvement in left LE pain to improve quality of life by . LTG Duration 8 weeks 2 Job Counselor Goal (LTG) Pt will perform progressive HEP with I including aquatic program, balance, strengtehning, flexibility and gait exercises to improve pain and gait by 07/14/21. LTG Duration 8 weeks 1 Job Counselor Goal (LTG) Pt will perform WNLs on a standardized balance test to decrease fall risk by 07/14/21 . LTG Duration 8 weeks Assessment Summary Assessment Pt brings in handouts from ID and from last PT course here at this clinic. PT ed pt to not do any of the exercises from ID as they are one sided. Will con't to re-integrate PT exercises from this clinic into this PT course. Physical Therapy Plan Frequency and Duration Frequency of Treatment 2x/Week Duration of Treatment 8 weeks Plan of Care Start Date 05/14/21 Plan of Care End Date 07/14/21 Therapeutic Interventions Therapeutic Interventions Aquatic Therapy,Balance Training,Canalithic Repositioning,Gait Training, Home Exercise Program,Joint Mobilizations,Manual Therapy, Neuromuscular Re-education, Orthotic/Prosthetic Management ,Patient/Caregiver Education, Self-Care/Home Management, Sensory Integration,Soft Tissue Mobilization,Taping, Therapeutic Activities, Therapeutic Exercises Modalities Cold Pack/Ice Massage,Electric Stimulation,Hot Packs, Ultrasound Next Visit Focus/Plan Next Note Type Treatment Note Next Visit Plan Add back previous PT course row exercises, consider coming up with pool program, manual work. Consider leg strengthening in sitting with band. Hip flexor and hip rotator stretches in hook lying.
--- NOTE | 2021-05-22 12:59 | PT.OTN ---
Current Diagnoses Other acquired deformities of unspecified foot (05/22/21) Juvenile osteochondrosis of tarsus, unspecified ankle (05/22/21) Physical Therapy Treatment Note PT-OP-A Visit Information Start: 05/13/21 13:59 Freq: Status: Active Protocol: Document 05/22/21 12:16 MB (Rec: 05/22/21 12:49 MB [id number]) Out-Patient Physical Therapy Visit Information Visit Information Visit Type Treatment Note Visit Note [facility] [employer] 12 visits before pre-auth 01/13 before KX Visit Start Time 12:16 Visit Stop Time 12:57 Total Visit Minutes 41 Visit Number 4 Precautions Precautions Pt states that she is agoraphobic and does not like being out in the clinic with a lot of people X-ray left heel 08/2020: Bones: No fractures or dislocations. No suspicious bony lesions. Moderate 1st MTP joint degeneration. Plantar and posterior calcaneal spurring. Mild midfoot sclerosis and spurring . Soft tissues: No tibiotalar joint effusion. Achilles tendon appears normal. IMPRESSION: Degenerative changes as above. Posterior and plantar calcaneal spurring. PT-OP-B Current Condition Start: 05/13/21 13:59 Freq: Status: Active Protocol: Document 05/14/21 10:29 MB (Rec: 05/14/21 10:52 MB [id number]) Current Condition History of Current Condition Onset Date Greater than a year Current Complaints Left ankle and heel pain that gets worse when she is up during the day History of Current Condition PMH includes back pain, neck pain, falls (last fall 1 month ago), ? neuropathy, osteopenia, SOB, thyroid disorder, cataracts and born with double vision. Pt is on disability. She smokes 1 PPD. Pt has short leg syndrome with the left leg longer. She was given a lift with PT for her right shoe and it seemed to help a little. She is currently not using a lift on the right and a lift will not fit with the Super Feet. Pt states that she likes her soft cushiony snow boots that don't touch the back of the right heel. Pt reports that Dr. Hardwick told her her left calf is so tight that he if did surgery for the spur, it would come back. He would like for her to try PT to help. Pt reports pain up to 7/10 left ankle and heel with WB and walking. She wears slip on shoes today because they do not touch the back of her heel. Dr. Hardwick recommend [employer], which pt purchased and is working on trying to wear. PT at this clinic was not helpful. She saw a lot of different providers. Pt is a little agoraphobic and did not like being around a lot of people. She liked the recumbent stepper. Pt is using brace at night. She got needling from Dr. Bradley and it wasn't helpful. She is wearing slippers or braces at home. Prior Treatments and Tests Pt was getting PT here before COVID and was told that she needed some lifts for her shoes. Treatment Goals Patient/Caregiver Goals To decrease pain and work on dorsiflexion PT-OP-C Subjective Start: 05/13/21 13:59 Freq: Status: Active Protocol: Document 05/22/21 12:16 MB (Rec: 05/22/21 12:49 MB [id number]) OP-PT Subjective Patient Comments Patient Comments Pt states that she is feeling pretty good about the exercises. PT-OP-G Mobility & Gait Start: 05/13/21 13:59 Freq: Status: Active Protocol: Document 05/14/21 10:29 MB (Rec: 05/14/21 14:27 MB [id number]) OP Gait Assessment Comments Gait Comments Gait with bare feet: decreased step-length and foot clearance B, greater on the left. Antalgic quality, little heel strike and toe off, also greater on the left. Very mild functional leg length difference with right leg functional shorter with gait, very mildly today. Decreased pelvic movement, pt favors the left foot and gait is slow. Decreased plantar arch B, some lateral WB on left foot and more flat foot on the right with gait. Little toe movement , extension PT-OP-J Posture/Palpation/Skin Start: 05/13/21 13:59 Freq: Status: Active Protocol: Document 05/14/21 10:29 MB (Rec: 05/14/21 15:23 MB [id number]) Posture Evaluation Comments Posture Comments Standing posture barefoot: Dowager's hump, decreased thoracic kyphosis, right shoulder higher than the left, left iliac crest higher than the right, pt stands with right foot slightly forward and weight shifted to the right PT-OP-K Range of Motion Start: 05/13/21 13:59 Freq: Status: Active Protocol: Document 05/14/21 10:29 MB (Rec: 05/14/21 14:29 MB [id number]) Hip Goniometric Range of Motion Hip ROM Limitations Comments Supine passive SLR right 80 deg and left 70 deg Ankle and Foot Goniometric Range of Motion Ankle and Foot ROM Limitations Comments Right active DF to neutral in supine, left lacks 5 deg No active eversion left today Decreased great toe extension, more on the left and pt's toes do not abduct from one another well either foot PF in supine: left 25 deg and right 35 deg PT-OP-M Strength Start: 05/13/21 13:59 Freq: Status: Active Protocol: Document 05/14/21 10:29 MB (Rec: 05/14/21 15:25 MB [id number]) Hip Strength Hip Manual Muscle Testing Bilateral Flexion (L2) 5 Normal Abduction 4 Good Knee Strength Knee Manual Muscle Testing Bilateral Flexion (S2) 5 Normal Extension (L3) 5 Normal Ankle/Foot Strength Ankle and Foot Manual Muscle Testing Left Dorsiflexion (L4) 4 Good Inversion 4 Good Comments Does not perform eversion Right Dorsiflexion (L4) 5 Normal Inversion 5 Normal Eversion (S1) 4 Good Toe Strength Toe Manual Muscle Testing Left Great Toe Extension 3- Fair- Right Great Toe Extension 4 Good Comments Sensation feet intact to light touch PT-OP-Q Treatments Start: 05/13/21 13:59 Freq: Status: Active Protocol: Document 05/22/21 12:16 MB (Rec: 05/22/21 12:49 MB [id number]) Cardio Equipment Recumbent Stepper (Sci-Fit) Duration (Minutes) 13 Resistance 3 Seat Position 6 Other Legs only Therapeutic Exercises Supine Exercises Hip rotator stretch Side bilateral Comments Towel behind non-stretching leg Eliezer stretch Side bilateral Comments Core tight and pelvic tilt first, then dangle leg 30 sec Sitting Exercises Hammock exercises for plantar fascia stretch and PF exercise Side left Comments Level 2 band too easy and then performed with level 4 band Manual Therapy Treatment Other Other Manual Treatments Gentle STM left plantar flexors, plantar fascia, lavage both sides achilles proximall, grade II mobs tarsals, metatarsals and phalanges PT-OP-T Assessment and Plan Start: 05/13/21 13:59 Freq: Status: Active Protocol: Document 05/22/21 12:16 MB (Rec: 05/22/21 12:49 MB [id number]) Physical Therapy Assessment Rehab Potential Rehabilitation Potential Fair Evaluation Complexity Number of Personal Factors/Comorbidities 3 or More Number of Body Systems Impaired 3 Clinical Presentation at Evaluation Evolving Impairments Impairments Activity Tolerance,Balance, Functional Activities, Functional Mobility,Gait,Pain, Posture,ROM,Soft Tissue Mobility,Strength,Transfers Other Impairments Personal factors include pt reports she is agoraphobic, multiple areas of pain and questionable activity tolerance, previous PT course was not helpful. Body systems affected include musculoskeletal, neuromuscular , psychosocial. Her clinical presentation is evolving in setting of increasing pain and known bone spur, increased body mass and difficulty with increased upright time. Other Concerns Fall Risk Yes Goals 3 Foreclosure Field Inspector Goal (LTG) Pt will report a 25% improvement in left LE pain to improve quality of life by . LTG Duration 8 weeks 2 Foreclosure Field Inspector Goal (LTG) Pt will perform progressive HEP with I including aquatic program, balance, strengtehning, flexibility and gait exercises to improve pain and gait by 07/14/21. LTG Duration 8 weeks 1 Intermediate Goal (LTG) Pt will perform WNLs on a standardized balance test to decrease fall risk by 07/14/21 . LTG Duration 8 weeks Assessment Summary Assessment Progressed flexibility exercises today and added ankle strengthening and stretch with band. Will monitor response. Physical Therapy Plan Frequency and Duration Frequency of Treatment 2x/Week Duration of Treatment 8 weeks Plan of Care Start Date 05/14/21 Plan of Care End Date 07/14/21 Therapeutic Interventions Therapeutic Interventions Aquatic Therapy,Balance Training,Canalithic Repositioning,Gait Training, Home Exercise Program,Joint Mobilizations,Manual Therapy, Neuromuscular Re-education, Orthotic/Prosthetic Management ,Patient/Caregiver Education, Self-Care/Home Management, Sensory Integration,Soft Tissue Mobilization,Taping, Therapeutic Activities, Therapeutic Exercises Modalities Cold Pack/Ice Massage,Electric Stimulation,Hot Packs, Ultrasound Next Visit Focus/Plan Next Note Type Treatment Note Next Visit Plan Consider pool program, manual work, LAQ, clam and combined eversion and DF with band for resistance (all three exercises in sitting)
--- NOTE | 2021-05-29 09:41 | PT.OTN ---
Current Diagnoses Other acquired deformities of unspecified foot (05/29/21) Juvenile osteochondrosis of tarsus, unspecified ankle (05/29/21) Physical Therapy Treatment Note PT-OP-A Visit Information Start: 05/13/21 13:59 Freq: Status: Active Protocol: Document 05/29/21 08:54 MB (Rec: 05/29/21 09:23 MB [id number]) Out-Patient Physical Therapy Visit Information Visit Information Visit Type Treatment Note Visit Note [facility] [employer] 12 visits before pre-auth 02/12 before KX Visit Start Time 08:54 Visit Stop Time 09:38 Total Visit Minutes 44 Visit Number 5 Precautions Precautions Pt states that she is agoraphobic and does not like being out in the clinic with a lot of people X-ray left heel 08/2020: Bones: No fractures or dislocations. No suspicious bony lesions. Moderate 1st MTP joint degeneration. Plantar and posterior calcaneal spurring. Mild midfoot sclerosis and spurring . Soft tissues: No tibiotalar joint effusion. Achilles tendon appears normal. IMPRESSION: Degenerative changes as above. Posterior and plantar calcaneal spurring. PT-OP-B Current Condition Start: 05/13/21 13:59 Freq: Status: Active Protocol: Document 05/14/21 10:29 MB (Rec: 05/14/21 10:52 MB [id number]) Current Condition History of Current Condition Onset Date Greater than a year Current Complaints Left ankle and heel pain that gets worse when she is up during the day History of Current Condition PMH includes back pain, neck pain, falls (last fall 1 month ago), ? neuropathy, osteopenia, SOB, thyroid disorder, cataracts and born with double vision. Pt is on disability. She smokes 1 PPD. Pt has short leg syndrome with the left leg longer. She was given a lift with PT for her right shoe and it seemed to help a little. She is currently not using a lift on the right and a lift will not fit with the Super Feet. Pt states that she likes her soft cushiony snow boots that don't touch the back of the right heel. Pt reports that Dr. Hardwick told her her left calf is so tight that he if did surgery for the spur, it would come back. He would like for her to try PT to help. Pt reports pain up to 7/10 left ankle and heel with WB and walking. She wears slip on shoes today because they do not touch the back of her heel. Dr. Hardwick recommend [employer], which pt purchased and is working on trying to wear. PT at this clinic was not helpful. She saw a lot of different providers. Pt is a little agoraphobic and did not like being around a lot of people. She liked the recumbent stepper. Pt is using brace at night. She got needling from Dr. Bardley and it wasn't helpful. She is wearing slippers or braces at home. Prior Treatments and Tests Pt was getting PT here before COVID and was told that she needed some lifts for her shoes. Treatment Goals Patient/Caregiver Goals To decrease pain and work on dorsiflexion PT-OP-C Subjective Start: 05/13/21 13:59 Freq: Status: Active Protocol: Document 05/29/21 08:54 MB (Rec: 05/29/21 09:23 MB [id number]) OP-PT Subjective Patient Comments Patient Comments Pt feels good about her exercises. She does not have to do them all everyday. She follows up with Dr. Hardwick in 4 weeks or so to see how she is doing and if she wants a surgical intervention. PT-OP-G Mobility & Gait Start: 05/13/21 13:59 Freq: Status: Active Protocol: Document 05/14/21 10:29 MB (Rec: 05/14/21 14:27 MB [id number]) OP Gait Assessment Comments Gait Comments Gait with bare feet: decreased step-length and foot clearance B, greater on the left. Antalgic quality, little heel strike and toe off, also greater on the left. Very mild functional leg length difference with right leg functional shorter with gait, very mildly today. Decreased pelvic movement, pt favors the left foot and gait is slow. Decreased plantar arch B, some lateral WB on left foot and more flat foot on the right with gait. Little toe movement , extension PT-OP-J Posture/Palpation/Skin Start: 05/13/21 13:59 Freq: Status: Active Protocol: Document 05/14/21 10:29 MB (Rec: 05/14/21 15:23 MB [id number]) Posture Evaluation Comments Posture Comments Standing posture barefoot: Dowager's hump, decreased thoracic kyphosis, right shoulder higher than the left, left iliac crest higher than the right, pt stands with right foot slightly forward and weight shifted to the right PT-OP-K Range of Motion Start: 05/13/21 13:59 Freq: Status: Active Protocol: Document 05/14/21 10:29 MB (Rec: 05/14/21 14:29 MB [id number]) Hip Goniometric Range of Motion Hip ROM Limitations Comments Supine passive SLR right 80 deg and left 70 deg Ankle and Foot Goniometric Range of Motion Ankle and Foot ROM Limitations Comments Right active DF to neutral in supine, left lacks 5 deg No active eversion left today Decreased great toe extension, more on the left and pt's toes do not abduct from one another well either foot PF in supine: left 25 deg and right 35 deg PT-OP-M Strength Start: 05/13/21 13:59 Freq: Status: Active Protocol: Document 05/14/21 10:29 MB (Rec: 05/14/21 15:25 MB [id number]) Hip Strength Hip Manual Muscle Testing Bilateral Flexion (L2) 5 Normal Abduction 4 Good Knee Strength Knee Manual Muscle Testing Bilateral Flexion (S2) 5 Normal Extension (L3) 5 Normal Ankle/Foot Strength Ankle and Foot Manual Muscle Testing Left Dorsiflexion (L4) 4 Good Inversion 4 Good Comments Does not perform eversion Right Dorsiflexion (L4) 5 Normal Inversion 5 Normal Eversion (S1) 4 Good Toe Strength Toe Manual Muscle Testing Left Great Toe Extension 3- Fair- Right Great Toe Extension 4 Good Comments Sensation feet intact to light touch PT-OP-Q Treatments Start: 05/13/21 13:59 Freq: Status: Active Protocol: Document 05/29/21 08:54 MB (Rec: 05/29/21 09:23 MB [id number]) Cardio Equipment Recumbent Stepper (Sci-Fit) Duration (Minutes) 13 Resistance 4 Seat Position 6 Other Legs only Therapeutic Exercises Sitting Exercises LAQ with band around ankles Side bilateral Comments AP foot x5 once extended, 10 reps alterating Clam with band around knees Sitting Exercise Name Trouble with glute squeeze first, did put towel roll under ischial tub Side bilateral Comments Level 2 band around knees, glute squeeze first Ankle eversion and DF with band Side bilateral Comments Level 2 band looped around front of feet, heels close to ground, 10 reps Manual Therapy Treatment Other Other Manual Treatments Gentle STM left plantar flexors, plantar fascia, lavage both sides achilles proximall, grade II mobs tarsals, metatarsals and phalanges PT-OP-T Assessment and Plan Start: 05/13/21 13:59 Freq: Status: Active Protocol: Document 05/29/21 08:54 MB (Rec: 05/29/21 09:23 MB [id number]) Physical Therapy Assessment Rehab Potential Rehabilitation Potential Fair Evaluation Complexity Number of Personal Factors/Comorbidities 3 or More Number of Body Systems Impaired 3 Clinical Presentation at Evaluation Evolving Impairments Impairments Activity Tolerance,Balance, Functional Activities, Functional Mobility,Gait,Pain, Posture,ROM,Soft Tissue Mobility,Strength,Transfers Other Impairments Personal factors include pt reports she is agoraphobic, multiple areas of pain and questionable activity tolerance, previous PT course was not helpful. Body systems affected include musculoskeletal, neuromuscular , psychosocial. Her clinical presentation is evolving in setting of increasing pain and known bone spur, increased body mass and difficulty with increased upright time. Other Concerns Fall Risk Yes Goals 3 Alf Goal (LTG) Pt will report a 25% improvement in left LE pain to improve quality of life by . LTG Duration 8 weeks 2 Alf Goal (LTG) Pt will perform progressive HEP with I including aquatic program, balance, strengtehning, flexibility and gait exercises to improve pain and gait by 07/14/21. LTG Duration 8 weeks 1 Biophysics Teacher Goal (LTG) Pt will perform WNLs on a standardized balance test to decrease fall risk by 07/14/21 . LTG Duration 8 weeks Assessment Summary Assessment Progressed sitting strengthening today and manual work. Pt to start seeing her old PT, Lo, for next three visits and they can discuss pool program and anticipate progression with balance and ankle exercises. Pt has trouble engaging glutes in sitting and so will see if the hip abductor exercise is helpful. She presents with some pitting edema around theraband after exercises today and overall LE edema and so may need to discontinue the band use around her ankles and consider teaching about compression hose. Physical Therapy Plan Frequency and Duration Frequency of Treatment 2x/Week Duration of Treatment 8 weeks Plan of Care Start Date 05/14/21 Plan of Care End Date 07/14/21 Therapeutic Interventions Therapeutic Interventions Aquatic Therapy,Balance Training,Canalithic Repositioning,Gait Training, Home Exercise Program,Joint Mobilizations,Manual Therapy, Neuromuscular Re-education, Orthotic/Prosthetic Management ,Patient/Caregiver Education, Self-Care/Home Management, Sensory Integration,Soft Tissue Mobilization,Taping, Therapeutic Activities, Therapeutic Exercises Modalities Cold Pack/Ice Massage,Electric Stimulation,Hot Packs, Ultrasound Next Visit Focus/Plan Next Note Type Treatment Note Next Visit Plan Consider ed about thigh high compresssion. Consider pool program if Lo agrees since pt cannot get pool therapy right now, manual work, consider BAPS board sitting for ankle movement and control , balance exercises in standing such as on mini tramp , blue cushion, other ankle range and stability exercises, progressive heel raises if tolerable
--- NOTE | 2021-06-04 16:40 | PT.OTN ---
Current Diagnoses Other acquired deformities of unspecified foot (06/04/21) Juvenile osteochondrosis of tarsus, unspecified ankle (06/04/21) Physical Therapy Treatment Note PT-OP-A Visit Information Start: 05/13/21 13:59 Freq: Status: Active Protocol: Document 06/04/21 14:31 SAK (Rec: 06/04/21 15:16 SAK [id number]) Out-Patient Physical Therapy Visit Information Visit Information Visit Type Treatment Note Visit Note [facility] [employer] 12 visits before pre-auth 03/15 before KX Visit Start Time 14:32 Visit Stop Time 15:15 Total Visit Minutes 43 Visit Number 6 Precautions Precautions Pt states that she is agoraphobic and does not like being out in the clinic with a lot of people X-ray left heel 08/2020: Bones: No fractures or dislocations. No suspicious bony lesions. Moderate 1st MTP joint degeneration. Plantar and posterior calcaneal spurring. Mild midfoot sclerosis and spurring . Soft tissues: No tibiotalar joint effusion. Achilles tendon appears normal. IMPRESSION: Degenerative changes as above. Posterior and plantar calcaneal spurring. PT-OP-B Current Condition Start: 05/13/21 13:59 Freq: Status: Active Protocol: Document 05/14/21 10:29 MB (Rec: 05/14/21 10:52 MB [id number]) Current Condition History of Current Condition Onset Date Greater than a year Current Complaints Left ankle and heel pain that gets worse when she is up during the day History of Current Condition PMH includes back pain, neck pain, falls (last fall 1 month ago), ? neuropathy, osteopenia, SOB, thyroid disorder, cataracts and born with double vision. Pt is on disability. She smokes 1 PPD. Pt has short leg syndrome with the left leg longer. She was given a lift with PT for her right shoe and it seemed to help a little. She is currently not using a lift on the right and a lift will not fit with the Super Feet. Pt states that she likes her soft cushiony snow boots that don't touch the back of the right heel. Pt reports that Dr. Hardwick told her her left calf is so tight that he if did surgery for the spur, it would come back. He would like for her to try PT to help. Pt reports pain up to 7/10 left ankle and heel with WB and walking. She wears slip on shoes today because they do not touch the back of her heel. Dr. Hardwick recommend [employer], which pt purchased and is working on trying to wear. PT at this clinic was not helpful. She saw a lot of different providers. Pt is a little agoraphobic and did not like being around a lot of people. She liked the recumbent stepper. Pt is using brace at night. She got needling from Dr. Bradley and it wasn't helpful. She is wearing slippers or braces at home. Prior Treatments and Tests Pt was getting PT here before COVID and was told that she needed some lifts for her shoes. Treatment Goals Patient/Caregiver Goals To decrease pain and work on dorsiflexion PT-OP-C Subjective Start: 05/13/21 13:59 Freq: Status: Active Protocol: Document 06/04/21 14:31 SAK (Rec: 06/04/21 15:16 SAK [id number]) OP-PT Subjective Patient Comments Patient Comments I think I'm getting a little better, pain about a 7/10 today while walking, no pain when sitting. PT-OP-G Mobility & Gait Start: 05/13/21 13:59 Freq: Status: Active Protocol: Document 05/14/21 10:29 MB (Rec: 05/14/21 14:27 MB [id number]) OP Gait Assessment Comments Gait Comments Gait with bare feet: decreased step-length and foot clearance B, greater on the left. Antalgic quality, little heel strike and toe off, also greater on the left. Very mild functional leg length difference with right leg functional shorter with gait, very mildly today. Decreased pelvic movement, pt favors the left foot and gait is slow. Decreased plantar arch B, some lateral WB on left foot and more flat foot on the right with gait. Little toe movement , extension PT-OP-J Posture/Palpation/Skin Start: 05/13/21 13:59 Freq: Status: Active Protocol: Document 05/14/21 10:29 MB (Rec: 05/14/21 15:23 MB [id number]) Posture Evaluation Comments Posture Comments Standing posture barefoot: Dowager's hump, decreased thoracic kyphosis, right shoulder higher than the left, left iliac crest higher than the right, pt stands with right foot slightly forward and weight shifted to the right PT-OP-K Range of Motion Start: 05/13/21 13:59 Freq: Status: Active Protocol: Document 05/14/21 10:29 MB (Rec: 05/14/21 14:29 MB [id number]) Hip Goniometric Range of Motion Hip ROM Limitations Comments Supine passive SLR right 80 deg and left 70 deg Ankle and Foot Goniometric Range of Motion Ankle and Foot ROM Limitations Comments Right active DF to neutral in supine, left lacks 5 deg No active eversion left today Decreased great toe extension, more on the left and pt's toes do not abduct from one another well either foot PF in supine: left 25 deg and right 35 deg PT-OP-M Strength Start: 05/13/21 13:59 Freq: Status: Active Protocol: Document 05/14/21 10:29 MB (Rec: 05/14/21 15:25 MB [id number]) Hip Strength Hip Manual Muscle Testing Bilateral Flexion (L2) 5 Normal Abduction 4 Good Knee Strength Knee Manual Muscle Testing Bilateral Flexion (S2) 5 Normal Extension (L3) 5 Normal Ankle/Foot Strength Ankle and Foot Manual Muscle Testing Left Dorsiflexion (L4) 4 Good Inversion 4 Good Comments Does not perform eversion Right Dorsiflexion (L4) 5 Normal Inversion 5 Normal Eversion (S1) 4 Good Toe Strength Toe Manual Muscle Testing Left Great Toe Extension 3- Fair- Right Great Toe Extension 4 Good Comments Sensation feet intact to light touch PT-OP-Q Treatments Start: 05/13/21 13:59 Freq: Status: Active Protocol: Document 06/04/21 14:31 SAK (Rec: 06/04/21 15:16 SAK [id number]) Cardio Equipment Recumbent Stepper (Sci-Fit) Duration (Minutes) 13 Resistance 4 Seat Position 6 Other Legs only Therapeutic Exercises Sitting Exercises BAPS Sitting Exercise Name f/b, side, circles Equipment Used L3 Reps/Minutes 10x ea Ankle eversion and DF with band Side bilateral Comments Level 2 band looped around front of feet, heels close to ground, 10 reps Hammock exercises for plantar fascia stretch and PF exercise Side left Comments Level 2 band too easy and then performed with level 4 band Manual Therapy Treatment Other Other Manual Treatments Gentle STM left plantar flexors, plantar fascia, lavage both sides achilles proximall, grade II mobs tarsals, metatarsals and phalanges Self-Care/Home Management Treatment Education Other Education measured for compression stocking, given information on Juzo soft 15-20 mm Hg size III, as well as places to purchase. PT-OP-T Assessment and Plan Start: 05/13/21 13:59 Freq: Status: Active Protocol: Document 06/04/21 14:31 SAK (Rec: 06/04/21 15:16 SAK [id number]) Physical Therapy Assessment Rehab Potential Rehabilitation Potential Fair Evaluation Complexity Number of Personal Factors/Comorbidities 3 or More Number of Body Systems Impaired 3 Clinical Presentation at Evaluation Evolving Impairments Impairments Activity Tolerance,Balance, Functional Activities, Functional Mobility,Gait,Pain, Posture,ROM,Soft Tissue Mobility,Strength,Transfers Other Impairments Personal factors include pt reports she is agoraphobic, multiple areas of pain and questionable activity tolerance, previous PT course was not helpful. Body systems affected include musculoskeletal, neuromuscular , psychosocial. Her clinical presentation is evolving in setting of increasing pain and known bone spur, increased body mass and difficulty with increased upright time. Other Concerns Fall Risk Yes Goals 3 [facility] Goal (LTG) Pt will report a 25% improvement in left LE pain to improve quality of life by . LTG Duration 8 weeks 2 [employer] Goal (LTG) Pt will perform progressive HEP with I including aquatic program, balance, strengtehning, flexibility and gait exercises to improve pain and gait by 07/14/21. LTG Duration 8 weeks 1 [employer] Goal (LTG) Pt will perform WNLs on a standardized balance test to decrease fall risk by 07/14/21 . LTG Duration 8 weeks Assessment Summary Assessment Patient pain some reduced per her report though as high as 7 /10. Good tolerance for seated stepper, L3 BAPS board. Mild swelling so given information about compression stockings which may be helpful for pain as well. Kinesiotape tape test on forearm prior to possible taping next session. Compliant to HEP. Physical Therapy Plan Frequency and Duration Frequency of Treatment 2x/Week Duration of Treatment 8 weeks Plan of Care Start Date 05/14/21 Plan of Care End Date 07/14/21 Therapeutic Interventions Therapeutic Interventions Aquatic Therapy,Balance Training,Canalithic Repositioning,Gait Training, Home Exercise Program,Joint Mobilizations,Manual Therapy, Neuromuscular Re-education, Orthotic/Prosthetic Management ,Patient/Caregiver Education, Self-Care/Home Management, Sensory Integration,Soft Tissue Mobilization,Taping, Therapeutic Activities, Therapeutic Exercises Modalities Cold Pack/Ice Massage,Electric Stimulation,Hot Packs, Ultrasound Next Visit Focus/Plan Next Note Type Treatment Note Next Visit Plan Start heel raises, bal ex on foam. Kinesiotape for pain management if tape test tolerated. Continue flexibility, manual treatment.
--- NOTE | 2021-06-09 16:25 | PT.OTN ---
Current Diagnoses Other acquired deformities of unspecified foot (06/09/21) Juvenile osteochondrosis of tarsus, unspecified ankle (06/09/21) Physical Therapy Treatment Note PT-OP-A Visit Information Start: 05/13/21 13:59 Freq: Status: Active Protocol: Document 06/09/21 15:20 SAK (Rec: 06/09/21 16:02 SAK [id number]) Out-Patient Physical Therapy Visit Information Visit Information Visit Type Treatment Note Visit Note [facility] [employer] 12 visits before pre-auth 04/14 before KX Visit Start Time 15:20 Visit Stop Time 16:05 Total Visit Minutes 45 Visit Number 7 Precautions Precautions Pt states that she is agoraphobic and does not like being out in the clinic with a lot of people X-ray left heel 08/2020: Bones: No fractures or dislocations. No suspicious bony lesions. Moderate 1st MTP joint degeneration. Plantar and posterior calcaneal spurring. Mild midfoot sclerosis and spurring . Soft tissues: No tibiotalar joint effusion. Achilles tendon appears normal. IMPRESSION: Degenerative changes as above. Posterior and plantar calcaneal spurring. PT-OP-B Current Condition Start: 05/13/21 13:59 Freq: Status: Active Protocol: Document 05/14/21 10:29 MB (Rec: 05/14/21 10:52 MB [id number]) Current Condition History of Current Condition Onset Date Greater than a year Current Complaints Left ankle and heel pain that gets worse when she is up during the day History of Current Condition PMH includes back pain, neck pain, falls (last fall 1 month ago), ? neuropathy, osteopenia, SOB, thyroid disorder, cataracts and born with double vision. Pt is on disability. She smokes 1 PPD. Pt has short leg syndrome with the left leg longer. She was given a lift with PT for her right shoe and it seemed to help a little. She is currently not using a lift on the right and a lift will not fit with the Super Feet. Pt states that she likes her soft cushiony snow boots that don't touch the back of the right heel. Pt reports that Dr. Hardwick told her her left calf is so tight that he if did surgery for the spur, it would come back. He would like for her to try PT to help. Pt reports pain up to 7/10 left ankle and heel with WB and walking. She wears slip on shoes today because they do not touch the back of her heel. Dr. Hardwick recommend [employer], which pt purchased and is working on trying to wear. PT at this clinic was not helpful. She saw a lot of different providers. Pt is a little agoraphobic and did not like being around a lot of people. She liked the recumbent stepper. Pt is using brace at night. She got needling from Dr. Bradley and it wasn't helpful. She is wearing slippers or braces at home. Prior Treatments and Tests Pt was getting PT here before COVID and was told that she needed some lifts for her shoes. Treatment Goals Patient/Caregiver Goals To decrease pain and work on dorsiflexion PT-OP-C Subjective Start: 05/13/21 13:59 Freq: Status: Active Protocol: Document 06/09/21 15:20 SAK (Rec: 06/09/21 16:02 SAK [id number]) OP-PT Subjective Patient Comments Patient Comments More sore after working (at [employer]) 4+ hours; states after 3 hours starts to hurt. Hasn't ordered compression stockings yet. They won't do anything about my heel spur until I have more mobility in the back of my foot and calf. PT-OP-G Mobility & Gait Start: 05/13/21 13:59 Freq: Status: Active Protocol: Document 05/14/21 10:29 MB (Rec: 05/14/21 14:27 MB [id number]) OP Gait Assessment Comments Gait Comments Gait with bare feet: decreased step-length and foot clearance B, greater on the left. Antalgic quality, little heel strike and toe off, also greater on the left. Very mild functional leg length difference with right leg functional shorter with gait, very mildly today. Decreased pelvic movement, pt favors the left foot and gait is slow. Decreased plantar arch B, some lateral WB on left foot and more flat foot on the right with gait. Little toe movement , extension PT-OP-J Posture/Palpation/Skin Start: 05/13/21 13:59 Freq: Status: Active Protocol: Document 05/14/21 10:29 MB (Rec: 05/14/21 15:23 MB [id number]) Posture Evaluation Comments Posture Comments Standing posture barefoot: Dowager's hump, decreased thoracic kyphosis, right shoulder higher than the left, left iliac crest higher than the right, pt stands with right foot slightly forward and weight shifted to the right PT-OP-K Range of Motion Start: 05/13/21 13:59 Freq: Status: Active Protocol: Document 05/14/21 10:29 MB (Rec: 05/14/21 14:29 MB [id number]) Hip Goniometric Range of Motion Hip ROM Limitations Comments Supine passive SLR right 80 deg and left 70 deg Ankle and Foot Goniometric Range of Motion Ankle and Foot ROM Limitations Comments Right active DF to neutral in supine, left lacks 5 deg No active eversion left today Decreased great toe extension, more on the left and pt's toes do not abduct from one another well either foot PF in supine: left 25 deg and right 35 deg PT-OP-M Strength Start: 05/13/21 13:59 Freq: Status: Active Protocol: Document 05/14/21 10:29 MB (Rec: 05/14/21 15:25 MB [id number]) Hip Strength Hip Manual Muscle Testing Bilateral Flexion (L2) 5 Normal Abduction 4 Good Knee Strength Knee Manual Muscle Testing Bilateral Flexion (S2) 5 Normal Extension (L3) 5 Normal Ankle/Foot Strength Ankle and Foot Manual Muscle Testing Left Dorsiflexion (L4) 4 Good Inversion 4 Good Comments Does not perform eversion Right Dorsiflexion (L4) 5 Normal Inversion 5 Normal Eversion (S1) 4 Good Toe Strength Toe Manual Muscle Testing Left Great Toe Extension 3- Fair- Right Great Toe Extension 4 Good Comments Sensation feet intact to light touch PT-OP-Q Treatments Start: 05/13/21 13:59 Freq: Status: Active Protocol: Document 06/09/21 15:20 SAK (Rec: 06/09/21 16:02 SAK [id number]) Cardio Equipment Recumbent Stepper (Sci-Fit) Duration (Minutes) 10 Resistance 2 Seat Position 6 Other Legs only Therapeutic Exercises Sitting Exercises HC stretch Equipment Used strap Reps/Minutes 2x30 Comments manual overpressure BAPS Sitting Exercise Name f/b, side, circles Equipment Used L3 Reps/Minutes 10x ea Ankle eversion and DF with band Side bilateral Comments Level 2 band looped around front of feet, heels close to ground, 10 reps Hammock exercises for plantar fascia stretch and PF exercise Side left Comments Level 2 band too easy and then performed with level 4 band Manual Therapy Treatment Taping 1 Body Location plantar fascia, achilles, mid calf left Treatment Focus inhibition Type of Tape kinesiotape Skin Inspection intact Comments I strip: anchored at heel, applied to MTP joint distally, and just inferior to knee proximally, paper off tension I strip: to support medial longitudinal arch, 50-75% tension Other Other Manual Treatments STM left plantar flexors, plantar fascia, lavage both sides achilles proximall, grade II mobs tarsals, metatarsals and phalanges PT-OP-T Assessment and Plan Start: 05/13/21 13:59 Freq: Status: Active Protocol: Document 06/09/21 15:20 [facility] (Rec: 06/09/21 16:02 [facility] [id number]) Physical Therapy Assessment Rehab Potential Rehabilitation Potential Fair Evaluation Complexity Number of Personal Factors/Comorbidities 3 or More Number of Body Systems Impaired 3 Clinical Presentation at Evaluation Evolving Impairments Impairments Activity Tolerance,Balance, Functional Activities, Functional Mobility,Gait,Pain, Posture,ROM,Soft Tissue Mobility,Strength,Transfers Other Impairments Personal factors include pt reports she is agoraphobic, multiple areas of pain and questionable activity tolerance, previous PT course was not helpful. Body systems affected include musculoskeletal, neuromuscular , psychosocial. Her clinical presentation is evolving in setting of increasing pain and known bone spur, increased body mass and difficulty with increased upright time. Goals 3 [facility] Goal (LTG) Pt will report a 25% improvement in left LE pain to improve quality of life by . LTG Duration 8 weeks 2 [employer] Goal (LTG) Pt will perform progressive HEP with I including aquatic program, balance, strengtehning, flexibility and gait exercises to improve pain and gait by 07/14/21. LTG Duration 8 weeks 1 [facility] Goal (LTG) Pt will perform WNLs on a standardized balance test to decrease fall risk by 07/14/21 . LTG Duration 8 weeks Assessment Summary Assessment No response to tape test, kinesiotape trial today. Patient has not yet obtained compression stocking. Good tolerance for stretching including addition of manual overpressure to calf stretch, and increased depth of STM at calf, achilles, khalif fascia. Patient experiencing pain with any pressure to heel. Physical Therapy Plan Frequency and Duration Frequency of Treatment 2x/Week Duration of Treatment 8 weeks Plan of Care Start Date 05/14/21 Plan of Care End Date 07/14/21 Therapeutic Interventions Therapeutic Interventions Aquatic Therapy,Balance Training,Canalithic Repositioning,Gait Training, Home Exercise Program,Joint Mobilizations,Manual Therapy, Neuromuscular Re-education, Orthotic/Prosthetic Management ,Patient/Caregiver Education, Self-Care/Home Management, Sensory Integration,Soft Tissue Mobilization,Taping, Therapeutic Activities, Therapeutic Exercises Modalities Cold Pack/Ice Massage,Electric Stimulation,Hot Packs, Ultrasound Next Visit Focus/Plan Next Note Type Treatment Note Next Visit Plan Continue ther ex with emphasis on achilles and calf flexibility, medial longitudinal arch support; add short foot exercise, balance on foam, standing HC stretch off stair.
--- NOTE | 2021-06-12 15:15 | PT.OTN ---
Current Diagnoses Other acquired deformities of unspecified foot (06/12/21) Juvenile osteochondrosis of tarsus, unspecified ankle (06/12/21) Physical Therapy Treatment Note PT-OP-A Visit Information Start: 05/13/21 13:59 Freq: Status: Active Protocol: Document 06/12/21 14:31 MB (Rec: 06/12/21 15:15 MB [id number]) Out-Patient Physical Therapy Visit Information Visit Information Visit Type Treatment Note Visit Note [facility] [employer] 12 visits before pre-auth 05/15 before KX Visit Start Time 14:31 Visit Stop Time 15:15 Total Visit Minutes 44 Visit Number 8 Precautions Precautions Pt states that she is agoraphobic and does not like being out in the clinic with a lot of people X-ray left heel 08/2020: Bones: No fractures or dislocations. No suspicious bony lesions. Moderate 1st MTP joint degeneration. Plantar and posterior calcaneal spurring. Mild midfoot sclerosis and spurring . Soft tissues: No tibiotalar joint effusion. Achilles tendon appears normal. IMPRESSION: Degenerative changes as above. Posterior and plantar calcaneal spurring. PT-OP-B Current Condition Start: 05/13/21 13:59 Freq: Status: Active Protocol: Document 05/14/21 10:29 MB (Rec: 05/14/21 10:52 MB [id number]) Current Condition History of Current Condition Onset Date Greater than a year Current Complaints Left ankle and heel pain that gets worse when she is up during the day History of Current Condition PMH includes back pain, neck pain, falls (last fall 1 month ago), ? neuropathy, osteopenia, SOB, thyroid disorder, cataracts and born with double vision. Pt is on disability. She smokes 1 PPD. Pt has short leg syndrome with the left leg longer. She was given a lift with PT for her right shoe and it seemed to help a little. She is currently not using a lift on the right and a lift will not fit with the Super Feet. Pt states that she likes her soft cushiony snow boots that don't touch the back of the right heel. Pt reports that Dr. Hardwick told her her left calf is so tight that he if did surgery for the spur, it would come back. He would like for her to try PT to help. Pt reports pain up to 7/10 left ankle and heel with WB and walking. She wears slip on shoes today because they do not touch the back of her heel. Dr. Hardwick recommend [employer], which pt purchased and is working on trying to wear. PT at this clinic was not helpful. She saw a lot of different providers. Pt is a little agoraphobic and did not like being around a lot of people. She liked the recumbent stepper. Pt is using brace at night. She got needling from Dr. Bradley and it wasn't helpful. She is wearing slippers or braces at home. Prior Treatments and Tests Pt was getting PT here before COVID and was told that she needed some lifts for her shoes. Treatment Goals Patient/Caregiver Goals To decrease pain and work on dorsiflexion PT-OP-C Subjective Start: 05/13/21 13:59 Freq: Status: Active Protocol: Document 06/12/21 14:31 MB (Rec: 06/12/21 15:15 MB [id number]) OP-PT Subjective Patient Comments Patient Comments Pt has not yet ordered compression hose. She returns to doctor next and wonders about scheduling more appointments. PT-OP-G Mobility & Gait Start: 05/13/21 13:59 Freq: Status: Active Protocol: Document 05/14/21 10:29 MB (Rec: 05/14/21 14:27 MB [id number]) OP Gait Assessment Comments Gait Comments Gait with bare feet: decreased step-length and foot clearance B, greater on the left. Antalgic quality, little heel strike and toe off, also greater on the left. Very mild functional leg length difference with right leg functional shorter with gait, very mildly today. Decreased pelvic movement, pt favors the left foot and gait is slow. Decreased plantar arch B, some lateral WB on left foot and more flat foot on the right with gait. Little toe movement , extension PT-OP-J Posture/Palpation/Skin Start: 05/13/21 13:59 Freq: Status: Active Protocol: Document 05/14/21 10:29 MB (Rec: 05/14/21 15:23 MB [id number]) Posture Evaluation Comments Posture Comments Standing posture barefoot: Dowager's hump, decreased thoracic kyphosis, right shoulder higher than the left, left iliac crest higher than the right, pt stands with right foot slightly forward and weight shifted to the right PT-OP-K Range of Motion Start: 05/13/21 13:59 Freq: Status: Active Protocol: Document 05/14/21 10:29 MB (Rec: 05/14/21 14:29 MB [id number]) Hip Goniometric Range of Motion Hip ROM Limitations Comments Supine passive SLR right 80 deg and left 70 deg Ankle and Foot Goniometric Range of Motion Ankle and Foot ROM Limitations Comments Right active DF to neutral in supine, left lacks 5 deg No active eversion left today Decreased great toe extension, more on the left and pt's toes do not abduct from one another well either foot PF in supine: left 25 deg and right 35 deg PT-OP-M Strength Start: 05/13/21 13:59 Freq: Status: Active Protocol: Document 05/14/21 10:29 MB (Rec: 05/14/21 15:25 MB [id number]) Hip Strength Hip Manual Muscle Testing Bilateral Flexion (L2) 5 Normal Abduction 4 Good Knee Strength Knee Manual Muscle Testing Bilateral Flexion (S2) 5 Normal Extension (L3) 5 Normal Ankle/Foot Strength Ankle and Foot Manual Muscle Testing Left Dorsiflexion (L4) 4 Good Inversion 4 Good Comments Does not perform eversion Right Dorsiflexion (L4) 5 Normal Inversion 5 Normal Eversion (S1) 4 Good Toe Strength Toe Manual Muscle Testing Left Great Toe Extension 3- Fair- Right Great Toe Extension 4 Good Comments Sensation feet intact to light touch PT-OP-Q Treatments Start: 05/13/21 13:59 Freq: Status: Active Protocol: Document 06/12/21 14:31 MB (Rec: 06/12/21 15:15 MB [id number]) Therapeutic Exercises Sitting Exercises Foot intrinsic exercise Side bilateral Comments Barefoot on floor, try to bring great toe out and back, lift arch BAPS Equipment Used L4 Comments 15 reps each, forward and back , side to side and circles Manual Therapy Treatment Other Other Manual Treatments STM left plantarflexors, plantar fascia and gentle toe mobs PT-OP-T Assessment and Plan Start: 05/13/21 13:59 Freq: Status: Active Protocol: Document 06/12/21 14:31 MB (Rec: 06/12/21 15:15 MB [id number]) Physical Therapy Assessment Rehab Potential Rehabilitation Potential Fair Evaluation Complexity Number of Personal Factors/Comorbidities 3 or More Number of Body Systems Impaired 3 Clinical Presentation at Evaluation Evolving Impairments Impairments Activity Tolerance,Balance, Functional Activities, Functional Mobility,Gait,Pain, Posture,ROM,Soft Tissue Mobility,Strength,Transfers Other Impairments Personal factors include pt reports she is agoraphobic, multiple areas of pain and questionable activity tolerance, previous PT course was not helpful. Body systems affected include musculoskeletal, neuromuscular , psychosocial. Her clinical presentation is evolving in setting of increasing pain and known bone spur, increased body mass and difficulty with increased upright time. Goals 3 [facility] Goal (LTG) Pt will report a 25% improvement in left LE pain to improve quality of life by . 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 LTG Duration 8 weeks 1 [employer] Goal (LTG) Pt will perform WNLs on a standardized balance test to decrease fall risk by 07/14/21 . LTG Duration 8 weeks Assessment Summary Assessment Initiated intrinsic strengthening today. Pt returns to doctor next week. Will con't PT 1x/wk after next week and put her on the waiting list for the pool. If therapist hears that pool is not opening in June, would like to create a program for pt to do on her own. Physical Therapy Plan Frequency and Duration Frequency of Treatment 2x/Week Duration of Treatment 8 weeks Plan of Care Start Date 05/14/21 Plan of Care End Date 07/14/21 Therapeutic Interventions Therapeutic Interventions Aquatic Therapy,Balance Training,Canalithic Repositioning,Gait Training, Home Exercise Program,Joint Mobilizations,Manual Therapy, Neuromuscular Re-education, Orthotic/Prosthetic Management ,Patient/Caregiver Education, Self-Care/Home Management, Sensory Integration,Soft Tissue Mobilization,Taping, Therapeutic Activities, Therapeutic Exercises Modalities Cold Pack/Ice Massage,Electric Stimulation,Hot Packs, Ultrasound Next Visit Focus/Plan Next Note Type Treatment Note Next Visit Plan This PT does not recommend calf stretch off step given pain and anatomical changes-- she will con't with standard gastroc and soleus stretches as given and PT can review these. Consider making pool program for patient.
--- NOTE | 2021-06-16 13:39 | PT.OTN ---
Current Diagnoses Other acquired deformities of unspecified foot (06/16/21) Juvenile osteochondrosis of tarsus, unspecified ankle (06/16/21) Physical Therapy Treatment Note PT-OP-A Visit Information Start: 05/13/21 13:59 Freq: Status: Active Protocol: Document 06/16/21 12:57 MB (Rec: 06/16/21 13:39 MB [id number]) Out-Patient Physical Therapy Visit Information Visit Information Visit Type Progress Note Visit Note [facility] [employer] 12 visits before pre-auth 06/15 before KX Visit Start Time 12:57 Visit Stop Time 13:39 Total Visit Minutes 42 Visit Number 9 Precautions Precautions Pt states that she is agoraphobic and does not like being out in the clinic with a lot of people X-ray left heel 08/2020: Bones: No fractures or dislocations. No suspicious bony lesions. Moderate 1st MTP joint degeneration. Plantar and posterior calcaneal spurring. Mild midfoot sclerosis and spurring . Soft tissues: No tibiotalar joint effusion. Achilles tendon appears normal. IMPRESSION: Degenerative changes as above. Posterior and plantar calcaneal spurring. PT-OP-B Current Condition Start: 05/13/21 13:59 Freq: Status: Active Protocol: Document 05/14/21 10:29 MB (Rec: 05/14/21 10:52 MB [id number]) Current Condition History of Current Condition Onset Date Greater than a year Current Complaints Left ankle and heel pain that gets worse when she is up during the day History of Current Condition PMH includes back pain, neck pain, falls (last fall 1 month ago), ? neuropathy, osteopenia, SOB, thyroid disorder, cataracts and born with double vision. Pt is on disability. She smokes 1 PPD. Pt has short leg syndrome with the left leg longer. She was given a lift with PT for her right shoe and it seemed to help a little. She is currently not using a lift on the right and a lift will not fit with the Super Feet. Pt states that she likes her soft cushiony snow boots that don't touch the back of the right heel. Pt reports that Dr. Hardwick told her her left calf is so tight that he if did surgery for the spur, it would come back. He would like for her to try PT to help. Pt reports pain up to 7/10 left ankle and heel with WB and walking. She wears slip on shoes today because they do not touch the back of her heel. Dr. Hardwick recommend [employer]antto, which pt purchased and is working on trying to wear. PT at this clinic was not helpful. She saw a lot of different providers. Pt is a little agoraphobic and did not like being around a lot of people. She liked the recumbent stepper. Pt is using brace at night. She got needling from Dr. Bradley and it wasn't helpful. She is wearing slippers or braces at home. Prior Treatments and Tests Pt was getting PT here before COVID and was told that she needed some lifts for her shoes. Treatment Goals Patient/Caregiver Goals To decrease pain and work on dorsiflexion PT-OP-C Subjective Start: 05/13/21 13:59 Freq: Status: Active Protocol: Document 06/16/21 12:57 MB (Rec: 06/16/21 13:39 MB [id number]) OP-PT Subjective Patient Comments Patient Comments Pt states that she sees Dr. Hardwick this week. She is agreeable to being on the waiting list for the pool. Pt states that the left foot pain is a lot better since starting PT. She would like to be able to wear regular shoes this winter. PT-OP-G Mobility & Gait Start: 05/13/21 13:59 Freq: Status: Active Protocol: Document 05/14/21 10:29 MB (Rec: 05/14/21 14:27 MB [id number]) OP Gait Assessment Comments Gait Comments Gait with bare feet: decreased step-length and foot clearance B, greater on the left. Antalgic quality, little heel strike and toe off, also greater on the left. Very mild functional leg length difference with right leg functional shorter with gait, very mildly today. Decreased pelvic movement, pt favors the left foot and gait is slow. Decreased plantar arch B, some lateral WB on left foot and more flat foot on the right with gait. Little toe movement , extension PT-OP-J Posture/Palpation/Skin Start: 05/13/21 13:59 Freq: Status: Active Protocol: Document 05/14/21 10:29 MB (Rec: 05/14/21 15:23 MB [id number]) Posture Evaluation Comments Posture Comments Standing posture barefoot: Dowager's hump, decreased thoracic kyphosis, right shoulder higher than the left, left iliac crest higher than the right, pt stands with right foot slightly forward and weight shifted to the right PT-OP-K Range of Motion Start: 05/13/21 13:59 Freq: Status: Active Protocol: Document 05/14/21 10:29 MB (Rec: 05/14/21 14:29 MB [id number]) Hip Goniometric Range of Motion Hip ROM Limitations Comments Supine passive SLR right 80 deg and left 70 deg Ankle and Foot Goniometric Range of Motion Ankle and Foot ROM Limitations Comments Right active DF to neutral in supine, left lacks 5 deg No active eversion left today Decreased great toe extension, more on the left and pt's toes do not abduct from one another well either foot PF in supine: left 25 deg and right 35 deg PT-OP-M Strength Start: 05/13/21 13:59 Freq: Status: Active Protocol: Document 05/14/21 10:29 MB (Rec: 05/14/21 15:25 MB [id number]) Hip Strength Hip Manual Muscle Testing Bilateral Flexion (L2) 5 Normal Abduction 4 Good Knee Strength Knee Manual Muscle Testing Bilateral Flexion (S2) 5 Normal Extension (L3) 5 Normal Ankle/Foot Strength Ankle and Foot Manual Muscle Testing Left Dorsiflexion (L4) 4 Good Inversion 4 Good Comments Does not perform eversion Right Dorsiflexion (L4) 5 Normal Inversion 5 Normal Eversion (S1) 4 Good Toe Strength Toe Manual Muscle Testing Left Great Toe Extension 3- Fair- Right Great Toe Extension 4 Good Comments Sensation feet intact to light touch PT-OP-Q Treatments Start: 05/13/21 13:59 Freq: Status: Active Protocol: Document 06/16/21 12:57 MB (Rec: 06/16/21 13:39 MB [id number]) Cardio Equipment Recumbent Stepper (Sci-Fit) Duration (Minutes) 21 Resistance 3 Seat Position Legs only, performed during going over goals and LEF Therapeutic Exercises Supine Exercises Hip rotator stretch Comments Verbally reviewed today Eliezer stretch Comments Verbally reviewed today Core progression Comments Verbally reviewed today Pelvic tilt with transverse abdominal Comments Verbally reviewed today Glute squeeze with legs straight Comments Verbally reviewed today Hamstring stretch with AP Comments Verbally reviewed today Pelvic realignment exercises Comments Verbally reviewed today Prone Exercises Child's pose static and hands walking Comments Verbally reviewed today Cat/cow Comments Verbally reviewed today Sitting Exercises Foot intrinsic exercise Comments Verbally reviewed today LAQ with band around ankles Comments Vebally reviewed today Clam with band around knees Comments Verbally reviewed today Ankle eversion and DF with band Comments Verbally reviewed today Hammock exercises for plantar fascia stretch and PF exercise Comments Verbally reviewed today Manual Therapy Treatment Other Other Manual Treatments KT I strip plantar surface up back of achilles and gastroc, one c strip around for anchor. Gentle edema palpation today and ed pt on benefits of starting to wear her compression hose. PT-OP-T Assessment and Plan Start: 05/13/21 13:59 Freq: Status: Active Protocol: Document 06/16/21 12:57 MB (Rec: 06/16/21 13:39 MB [id number]) Physical Therapy Assessment Rehab Potential Rehabilitation Potential Fair Evaluation Complexity Number of Personal Factors/Comorbidities 3 or More Number of Body Systems Impaired 3 Clinical Presentation at Evaluation Evolving Impairments Impairments Activity Tolerance,Balance, Functional Activities, Functional Mobility,Gait,Pain, Posture,ROM,Soft Tissue Mobility,Strength,Transfers Other Impairments Personal factors include pt reports she is agoraphobic, multiple areas of pain and questionable activity tolerance, previous PT course was not helpful. Body systems affected include musculoskeletal, neuromuscular , psychosocial. Her clinical presentation is evolving in setting of increasing pain and known bone spur, increased body mass and difficulty with increased upright time. Goals 3 Longterm Goal (LTG) Pt will report a 25% improvement in left LE pain to improve quality of life by . 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 06/16/21: Pt is performing pelvic realignment exercises, Eliezer stretch, hamstring stretch with AP, hammock exercise for ankle, she is trying toe extrinsic exercises , LTG Duration 8 weeks 1 Longterm Goal (LTG) Pt will perform WNLs on a standardized balance test to decrease fall risk by 08/16/21 . 06/16/21: Slip on shoes on. No trouble with Romberg EO and EC . Tandem right foot behind imbalance after 1 sec and she con't to try up to 20 sec x2 reps. Left foot behind: similar performance. Pt reports back of both heels are uncomfortable with tandem standing. LTG Duration 8 weeks Assessment Summary Assessment LEF score con't to reflect high funcitonal impairment. Pt con't with pain at the calcaneal spur area on her left heel that limits walking, home activity and shoe wearing. She reports that PT has helped some with flexibility and sharp pains. Pool therapy has not yet started and may start at the end of June or in July. She is wearing the small insert from PT and Super Feet. KT was helping. May consider adding balance exercise for home. Lift amount is limited d /t limited shoe space with Super Feet. Will con't efforts . Physical Therapy Plan Frequency and Duration Frequency of Treatment 2x/Week Duration of Treatment 8 weeks Plan of Care Start Date 06/16/21 Plan of Care End Date 08/15/21 Therapeutic Interventions Therapeutic Interventions Aquatic Therapy,Balance Training,Canalithic Repositioning,Gait Training, Home Exercise Program,Joint Mobilizations,Manual Therapy, Neuromuscular Re-education, Orthotic/Prosthetic Management ,Patient/Caregiver Education, Self-Care/Home Management, Sensory Integration,Soft Tissue Mobilization,Taping, Therapeutic Activities, Therapeutic Exercises Modalities Cold Pack/Ice Massage,Electric Stimulation,Hot Packs, Ultrasound Next Visit Focus/Plan Next Note Type Treatment Note Next Visit Plan Pt will bring in folder with handouts of exercises for actual practice and review of all exercises to see which are most beneficial
--- NOTE | 2021-06-16 13:40 | PT.OPPOC ---
Physical, Occupational & Speech Therapy At [facility] Current Diagnoses Other acquired deformities of unspecified foot (06/16/21) Juvenile osteochondrosis of tarsus, unspecified ankle (06/16/21) Visit Care Team Role Provider Type Chu Bradley DO Primary Care Provider Physician Specialty: Family Practice Address: [address] [place] [address], [id number] Email: Vern Hardwick DPM Attending Provider Non-Staff Referring Provider Specialty: Podiatry Address: [address] [place] [address], [phone] Email: Plan Of Care PT-OP-T Assessment and Plan Start: 05/13/21 13:59 Freq: Status: Active Protocol: Document 06/16/21 12:57 MB (Rec: 06/16/21 13:39 MB [id number]) Physical Therapy Assessment Rehab Potential Rehabilitation Potential Fair Evaluation Complexity Number of Personal Factors/Comorbidities 3 or More Number of Body Systems Impaired 3 Clinical Presentation at Evaluation Evolving Impairments Impairments Activity Tolerance,Balance, Functional Activities, Functional Mobility,Gait,Pain, Posture,ROM,Soft Tissue Mobility,Strength,Transfers Other Impairments Personal factors include pt reports she is agoraphobic, multiple areas of pain and questionable activity tolerance, previous PT course was not helpful. Body systems affected include musculoskeletal, neuromuscular , psychosocial. Her clinical presentation is evolving in setting of increasing pain and known bone spur, increased body mass and difficulty with increased upright time. 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 06/16/21: LEF reflects 55% impairment LTG Duration 8 weeks 2 Fdc Goal (LTG) Pt will perform progressive HEP with I including aquatic program, balance, strengtehning, flexibility and gait exercises to improve pain and gait by 08/16/21. 06/16/21: Pt is performing pelvic realignment exercises, Eliezer stretch, hamstring stretch with AP, hammock exercise for ankle, she is trying toe extrinsic exercises , LTG Duration 8 weeks 1 Mach[employer] Goal (LTG) Pt will perform WNLs on a standardized balance test to decrease fall risk by 08/16/21 . 06/16/21: Slip on shoes on. No trouble with Romberg EO and EC . Tandem right foot behind imbalance after 1 sec and she con't to try up to 20 sec x2 reps. Left foot behind: similar performance. Pt reports back of both heels are uncomfortable with tandem standing. LTG Duration 8 weeks Assessment Summary Assessment LEF score con't to reflect high funcitonal impairment. Pt con't with pain at the calcaneal spur area on her left heel that limits walking, home activity and shoe wearing. She reports that PT has helped some with flexibility and sharp pains. Pool therapy has not yet started and may start at the end of June or in July. She is wearing the small insert from PT and Super Feet. KT was helping. May consider adding balance exercise for home. Lift amount is limited d /t limited shoe space with Super Feet. Will con't efforts . Physical Therapy Plan Frequency and Duration Frequency of Treatment 2x/Week Duration of Treatment 8 weeks Plan of Care Start Date 06/16/21 Plan of Care End Date 08/15/21 Therapeutic Interventions Therapeutic Interventions Aquatic Therapy,Balance Training,Canalithic Repositioning,Gait Training, Home Exercise Program,Joint Mobilizations,Manual Therapy, Neuromuscular Re-education, Orthotic/Prosthetic Management ,Patient/Caregiver Education, Self-Care/Home Management, Sensory Integration,Soft Tissue Mobilization,Taping, Therapeutic Activities, Therapeutic Exercises Modalities Cold Pack/Ice Massage,Electric Stimulation,Hot Packs, Ultrasound Next Visit Focus/Plan Next Note Type Treatment Note Next Visit Plan Pt will bring in folder with handouts of exercises for actual practice and review of all exercises to see which are most beneficial Plan of Care Dates Plan of Care Start Date 06/16/21 Plan of Care End Date 08/15/21 Electronically Signed by: Chayito Sheets, PT 06/16/21 1340 Please Sign and Return: I have reviewed this Plan of Care and certify that the skilled therapy services above are required to meet the patient?s needs. Physician Signature Date Printed Name and Credentials Clinical Instructor Signature Printed Name and Credentials
--- NOTE | 2021-06-20 15:10 | PT.OTN ---
Current Diagnoses Other acquired deformities of unspecified foot (06/20/21) Juvenile osteochondrosis of tarsus, unspecified ankle (06/20/21) Physical Therapy Treatment Note PT-OP-A Visit Information Start: 05/13/21 13:59 Freq: Status: Active Protocol: Document 06/20/21 14:29 MB (Rec: 06/20/21 15:10 MB [id number]) Out-Patient Physical Therapy Visit Information Visit Information Visit Type Treatment Note Visit Note 07/15 before KX Visit Start Time 14:29 Visit Stop Time 15:09 Total Visit Minutes 40 Visit Number 10 Precautions Precautions Pt states that she is agoraphobic and does not like being out in the clinic with a lot of people X-ray left heel 08/2020: Bones: No fractures or dislocations. No suspicious bony lesions. Moderate 1st MTP joint degeneration. Plantar and posterior calcaneal spurring. Mild midfoot sclerosis and spurring . Soft tissues: No tibiotalar joint effusion. Achilles tendon appears normal. IMPRESSION: Degenerative changes as above. Posterior and plantar calcaneal spurring. PT-OP-B Current Condition Start: 05/13/21 13:59 Freq: Status: Active Protocol: Document 05/14/21 10:29 MB (Rec: 05/14/21 10:52 MB [id number]) Current Condition History of Current Condition Onset Date Greater than a year Current Complaints Left ankle and heel pain that gets worse when she is up during the day History of Current Condition PMH includes back pain, neck pain, falls (last fall 1 month ago), ? neuropathy, osteopenia, SOB, thyroid disorder, cataracts and born with double vision. Pt is on disability. She smokes 1 PPD. Pt has short leg syndrome with the left leg longer. She was given a lift with PT for her right shoe and it seemed to help a little. She is currently not using a lift on the right and a lift will not fit with the Super Feet. Pt states that she likes her soft cushiony snow boots that don't touch the back of the right heel. Pt reports that Dr. Hardwick told her her left calf is so tight that he if did surgery for the spur, it would come back. He would like for her to try PT to help. Pt reports pain up to 7/10 left ankle and heel with WB and walking. She wears slip on shoes today because they do not touch the back of her heel. Dr. Hardwick recommend [employer], which pt purchased and is working on trying to wear. PT at this clinic was not helpful. She saw a lot of different providers. Pt is a little agoraphobic and did not like being around a lot of people. She liked the recumbent stepper. Pt is using brace at night. She got needling from Dr. Bradley and it wasn't helpful. She is wearing slippers or braces at home. Prior Treatments and Tests Pt was getting PT here before COVID and was told that she needed some lifts for her shoes. Treatment Goals Patient/Caregiver Goals To decrease pain and work on dorsiflexion PT-OP-C Subjective Start: 05/13/21 13:59 Freq: Status: Active Protocol: Document 06/20/21 14:29 MB (Rec: 06/20/21 15:10 MB [id number]) OP-PT Subjective Patient Comments Patient Comments Pt saw Dr. Hardwick and he is going to operate. She does not have a surgical date. She would like to keep current appointments and pool appointments until she knows surgical plan. The taping is helpful. PT-OP-G Mobility & Gait Start: 05/13/21 13:59 Freq: Status: Active Protocol: Document 05/14/21 10:29 MB (Rec: 05/14/21 14:27 MB [id number]) OP Gait Assessment Comments Gait Comments Gait with bare feet: decreased step-length and foot clearance B, greater on the left. Antalgic quality, little heel strike and toe off, also greater on the left. Very mild functional leg length difference with right leg functional shorter with gait, very mildly today. Decreased pelvic movement, pt favors the left foot and gait is slow. Decreased plantar arch B, some lateral WB on left foot and more flat foot on the right with gait. Little toe movement , extension PT-OP-J Posture/Palpation/Skin Start: 05/13/21 13:59 Freq: Status: Active Protocol: Document 05/14/21 10:29 MB (Rec: 05/14/21 15:23 MB [id number]) Posture Evaluation Comments Posture Comments Standing posture barefoot: Dowager's hump, decreased thoracic kyphosis, right shoulder higher than the left, left iliac crest higher than the right, pt stands with right foot slightly forward and weight shifted to the right PT-OP-K Range of Motion Start: 05/13/21 13:59 Freq: Status: Active Protocol: Document 05/14/21 10:29 MB (Rec: 05/14/21 14:29 MB [id number]) Hip Goniometric Range of Motion Hip ROM Limitations Comments Supine passive SLR right 80 deg and left 70 deg Ankle and Foot Goniometric Range of Motion Ankle and Foot ROM Limitations Comments Right active DF to neutral in supine, left lacks 5 deg No active eversion left today Decreased great toe extension, more on the left and pt's toes do not abduct from one another well either foot PF in supine: left 25 deg and right 35 deg PT-OP-M Strength Start: 05/13/21 13:59 Freq: Status: Active Protocol: Document 05/14/21 10:29 MB (Rec: 05/14/21 15:25 MB [id number]) Hip Strength Hip Manual Muscle Testing Bilateral Flexion (L2) 5 Normal Abduction 4 Good Knee Strength Knee Manual Muscle Testing Bilateral Flexion (S2) 5 Normal Extension (L3) 5 Normal Ankle/Foot Strength Ankle and Foot Manual Muscle Testing Left Dorsiflexion (L4) 4 Good Inversion 4 Good Comments Does not perform eversion Right Dorsiflexion (L4) 5 Normal Inversion 5 Normal Eversion (S1) 4 Good Toe Strength Toe Manual Muscle Testing Left Great Toe Extension 3- Fair- Right Great Toe Extension 4 Good Comments Sensation feet intact to light touch PT-OP-Q Treatments Start: 05/13/21 13:59 Freq: Status: Active Protocol: Document 06/20/21 14:29 MB (Rec: 06/20/21 15:10 MB [id number]) Cardio Equipment Recumbent Stepper (Sci-Fit) Duration (Minutes) 12 Resistance 4 Other Legs only Manual Therapy Treatment Other Other Manual Treatments STM left gastroc, fibularis longus, middle soleus, plantar fascia, gentle toe mobs, Black KT I strip plantar surface up the back of achilles and gastroc, one c strip around for anchor. PT-OP-T Assessment and Plan Start: 05/13/21 13:59 Freq: Status: Active Protocol: Document 06/20/21 14:29 MB (Rec: 06/20/21 15:10 MB [id number]) Physical Therapy Assessment Rehab Potential Rehabilitation Potential Fair Evaluation Complexity Number of Personal Factors/Comorbidities 3 or More Number of Body Systems Impaired 3 Clinical Presentation at Evaluation Evolving Impairments Impairments Activity Tolerance,Balance, Functional Activities, Functional Mobility,Gait,Pain, Posture,ROM,Soft Tissue Mobility,Strength,Transfers Other Impairments Personal factors include pt reports she is agoraphobic, multiple areas of pain and questionable activity tolerance, previous PT course was not helpful. Body systems affected include musculoskeletal, neuromuscular , psychosocial. Her clinical presentation is evolving in setting of increasing pain and known bone spur, increased body mass and difficulty with increased upright time. Goals 3 Migratory Game Bird Biologist Goal (LTG) Pt will report a 25% improvement in left LE pain to improve quality of life by . 06/16/21: LEF reflects 55% impairment LTG Duration 8 weeks 2 Migratory Game Bird Biologist Goal (LTG) Pt will perform progressive HEP with I including aquatic program, balance, strengtehning, flexibility and gait exercises to improve pain and gait by 08/16/21. 06/16/21: Pt is performing pelvic realignment exercises, Eliezer stretch, hamstring stretch with AP, hammock exercise for ankle, she is trying toe extrinsic exercises , LTG Duration 8 weeks 1 Care Home Goal (LTG) Pt will perform WNLs on a standardized balance test to decrease fall risk by 08/16/21 . 06/16/21: Slip on shoes on. No trouble with Romberg EO and EC . Tandem right foot behind imbalance after 1 sec and she con't to try up to 20 sec x2 reps. Left foot behind: similar performance. Pt reports back of both heels are uncomfortable with tandem standing. LTG Duration 8 weeks Assessment Summary Assessment Pt will have surgery but it is not scheduled yet. Once she knows, she will inform PT and then can determine PT plan at that point. Manual work today. Pt will bring in handouts for review of all exercises next PT date. Physical Therapy Plan Frequency and Duration Frequency of Treatment 2x/Week Duration of Treatment 8 weeks Plan of Care Start Date 06/16/21 Plan of Care End Date 08/15/21 Therapeutic Interventions Therapeutic Interventions Aquatic Therapy,Balance Training,Canalithic Repositioning,Gait Training, Home Exercise Program,Joint Mobilizations,Manual Therapy, Neuromuscular Re-education, Orthotic/Prosthetic Management ,Patient/Caregiver Education, Self-Care/Home Management, Sensory Integration,Soft Tissue Mobilization,Taping, Therapeutic Activities, Therapeutic Exercises Modalities Cold Pack/Ice Massage,Electric Stimulation,Hot Packs, Ultrasound Next Visit Focus/Plan Next Note Type Treatment Note Next Visit Plan Similar: Pt will bring in folder with handouts of exercises for actual practice and review of all exercises to see which are most beneficial
--- NOTE | 2021-06-23 13:43 | PT.OTN ---
Current Diagnoses Other acquired deformities of unspecified foot (06/23/21) Juvenile osteochondrosis of tarsus, unspecified ankle (06/23/21) Physical Therapy Treatment Note PT-OP-A Visit Information Start: 05/13/21 13:59 Freq: Status: Active Protocol: Document 06/23/21 12:57 MB (Rec: 06/23/21 13:43 MB [id number]) Out-Patient Physical Therapy Visit Information Visit Information Visit Type Treatment Note Visit Note 08/15 before KX Visit Start Time 12:57 Visit Stop Time 13:42 Total Visit Minutes 45 Visit Number 11 Precautions Precautions Pt states that she is agoraphobic and does not like being out in the clinic with a lot of people X-ray left heel 08/2020: Bones: No fractures or dislocations. No suspicious bony lesions. Moderate 1st MTP joint degeneration. Plantar and posterior calcaneal spurring. Mild midfoot sclerosis and spurring . Soft tissues: No tibiotalar joint effusion. Achilles tendon appears normal. IMPRESSION: Degenerative changes as above. Posterior and plantar calcaneal spurring. PT-OP-B Current Condition Start: 05/13/21 13:59 Freq: Status: Active Protocol: Document 05/14/21 10:29 MB (Rec: 05/14/21 10:52 MB [id number]) Current Condition History of Current Condition Onset Date Greater than a year Current Complaints Left ankle and heel pain that gets worse when she is up during the day History of Current Condition PMH includes back pain, neck pain, falls (last fall 1 month ago), ? neuropathy, osteopenia, SOB, thyroid disorder, cataracts and born with double vision. Pt is on disability. She smokes 1 PPD. Pt has short leg syndrome with the left leg longer. She was given a lift with PT for her right shoe and it seemed to help a little. She is currently not using a lift on the right and a lift will not fit with the Super Feet. Pt states that she likes her soft cushiony snow boots that don't touch the back of the right heel. Pt reports that Dr. Hardwick told her her left calf is so tight that he if did surgery for the spur, it would come back. He would like for her to try PT to help. Pt reports pain up to 7/10 left ankle and heel with WB and walking. She wears slip on shoes today because they do not touch the back of her heel. Dr. Hardwick recommend [employer], which pt purchased and is working on trying to wear. PT at this clinic was not helpful. She saw a lot of different providers. Pt is a little agoraphobic and did not like being around a lot of people. She liked the recumbent stepper. Pt is using brace at night. She got needling from Dr. Bradley and it wasn't helpful. She is wearing slippers or braces at home. Prior Treatments and Tests Pt was getting PT here before COV and was told that she needed some lifts for her shoes. Treatment Goals Patient/Caregiver Goals To decrease pain and work on dorsiflexion PT-OP-C Subjective Start: 05/13/21 13:59 Freq: Status: Active Protocol: Document 06/23/21 12:57 MB (Rec: 06/23/21 13:43 MB [id number]) OP-PT Subjective Patient Comments Patient Comments Pt states that the weekend was unproductive because of the weather. She is still waiting to hear about when her foot surgery will be. PT-OP-G Mobility & Gait Start: 05/13/21 13:59 Freq: Status: Active Protocol: Document 05/14/21 10:29 MB (Rec: 05/14/21 14:27 MB [id number]) OP Gait Assessment Comments Gait Comments Gait with bare feet: decreased step-length and foot clearance B, greater on the left. Antalgic quality, little heel strike and toe off, also greater on the left. Very mild functional leg length difference with right leg functional shorter with gait, very mildly today. Decreased pelvic movement, pt favors the left foot and gait is slow. Decreased plantar arch B, some lateral WB on left foot and more flat foot on the right with gait. Little toe movement , extension PT-OP-J Posture/Palpation/Skin Start: 05/13/21 13:59 Freq: Status: Active Protocol: Document 05/14/21 10:29 MB (Rec: 05/14/21 15:23 MB [id number]) Posture Evaluation Comments Posture Comments Standing posture barefoot: Dowager's hump, decreased thoracic kyphosis, right shoulder higher than the left, left iliac crest higher than the right, pt stands with right foot slightly forward and weight shifted to the right PT-OP-K Range of Motion Start: 05/13/21 13:59 Freq: Status: Active Protocol: Document 05/14/21 10:29 MB (Rec: 05/14/21 14:29 MB [id number]) Hip Goniometric Range of Motion Hip ROM Limitations Comments Supine passive SLR right 80 deg and left 70 deg Ankle and Foot Goniometric Range of Motion Ankle and Foot ROM Limitations Comments Right active DF to neutral in supine, left lacks 5 deg No active eversion left today Decreased great toe extension, more on the left and pt's toes do not abduct from one another well either foot PF in supine: left 25 deg and right 35 deg PT-OP-M Strength Start: 05/13/21 13:59 Freq: Status: Active Protocol: Document 05/14/21 10:29 MB (Rec: 05/14/21 15:25 MB [id number]) Hip Strength Hip Manual Muscle Testing Bilateral Flexion (L2) 5 Normal Abduction 4 Good Knee Strength Knee Manual Muscle Testing Bilateral Flexion (S2) 5 Normal Extension (L3) 5 Normal Ankle/Foot Strength Ankle and Foot Manual Muscle Testing Left Dorsiflexion (L4) 4 Good Inversion 4 Good Comments Does not perform eversion Right Dorsiflexion (L4) 5 Normal Inversion 5 Normal Eversion (S1) 4 Good Toe Strength Toe Manual Muscle Testing Left Great Toe Extension 3- Fair- Right Great Toe Extension 4 Good Comments Sensation feet intact to light touch PT-OP-Q Treatments Start: 05/13/21 13:59 Freq: Status: Active Protocol: Document 06/23/21 12:57 MB (Rec: 06/23/21 13:43 MB [id number]) Cardio Equipment Recumbent Stepper (Sci-Fit) Duration (Minutes) 10 Resistance 3 Other Legs only Therapeutic Exercises Supine Exercises Hip rotator stretch Comments Pt states that she does not like this one d/t shoulder and hands Eliezer stretch Side bilateral Comments Cues to flatten spine and tip pelvis up, core tight, 30 sec hold Core progression Supine Exercise Name Core exercises, mini march, bridge Comments Cues for slowing down march Pelvic tilt with transverse abdominal Comments Performed today Glute squeeze with legs straight Comments Performed today to cues glute contraction Hamstring stretch with AP Side bilateral Comments 20-30 AP with each stretch Pelvic realignment exercises Side bilateral Comments 5 reps, 3 sec hold all exercises Prone Exercises Child's pose static and hands walking Comments Pt performs well today Cat/cow Comments Cues to move pelvis Sitting Exercises Foot intrinsic exercise Comments Pt does not like and asks to d /c LAQ with band around ankles Side bilateral Comments Level 1 band around lower legs , 2 reps alternating with APs Ankle eversion and DF with band Side bilateral Comments Level 1 band, ankle around fore feet, 10 reps slowly Hammock exercises for plantar fascia stretch and PF exercise Comments Pt performing at home Standing Exercises Calf stretch--gastroc and soleus Side bilateral Comments Straighten and bend the back knee to work stretch PT-OP-T Assessment and Plan Start: 05/13/21 13:59 Freq: Status: Active Protocol: Document 06/23/21 12:57 MB (Rec: 06/23/21 13:43 MB [id number]) Physical Therapy Assessment Rehab Potential Rehabilitation Potential Fair Evaluation Complexity Number of Personal Factors/Comorbidities 3 or More Number of Body Systems Impaired 3 Clinical Presentation at Evaluation Evolving Impairments Impairments Activity Tolerance,Balance, Functional Activities, Functional Mobility,Gait,Pain, Posture,ROM,Soft Tissue Mobility,Strength,Transfers Other Impairments Personal factors include pt reports she is agoraphobic, multiple areas of pain and questionable activity tolerance, previous PT course was not helpful. Body systems affected include musculoskeletal, neuromuscular , psychosocial. Her clinical presentation is evolving in setting of increasing pain and known bone spur, increased body mass and difficulty with increased upright time. Goals 3 Mcfp Goal (LTG) Pt will report a 25% improvement in left LE pain to improve quality of life by . 06/16/21: LEF reflects 55% impairment LTG Duration 8 weeks 2 Dietitian Helper Goal (LTG) Pt will perform progressive HEP with I including aquatic program, balance, strengtehning, flexibility and gait exercises to improve pain and gait by 08/16/21. 06/16/21: Pt is performing pelvic realignment exercises, Eliezer stretch, hamstring stretch with AP, hammock exercise for ankle, she is trying toe extrinsic exercises , LTG Duration 8 weeks 1 Dietitian Helper Goal (LTG) Pt will perform WNLs on a standardized balance test to decrease fall risk by 08/16/21 . 06/16/21: Slip on shoes on. No trouble with Romberg EO and EC . Tandem right foot behind imbalance after 1 sec and she con't to try up to 20 sec x2 reps. Left foot behind: similar performance. Pt reports back of both heels are uncomfortable with tandem standing. LTG Duration 8 weeks Assessment Summary Assessment Reviewed pt's HEP today with patient performing almost all of her exercises and PT providing cues as needed for form. Revised program. Physical Therapy Plan Frequency and Duration Frequency of Treatment 2x/Week Duration of Treatment 8 weeks Plan of Care Start Date 06/16/21 Plan of Care End Date 08/15/21 Therapeutic Interventions Therapeutic Interventions Aquatic Therapy,Balance Training,Canalithic Repositioning,Gait Training, Home Exercise Program,Joint Mobilizations,Manual Therapy, Neuromuscular Re-education, Orthotic/Prosthetic Management ,Patient/Caregiver Education, Self-Care/Home Management, Sensory Integration,Soft Tissue Mobilization,Taping, Therapeutic Activities, Therapeutic Exercises Modalities Cold Pack/Ice Massage,Electric Stimulation,Hot Packs, Ultrasound Next Visit Focus/Plan Next Note Type Treatment Note Next Visit Plan Try tandem balance exercise
--- NOTE | 2021-07-03 13:48 | PT.OTN ---
Current Diagnoses Other acquired deformities of unspecified foot (07/03/21) Juvenile osteochondrosis of tarsus, unspecified ankle (07/03/21) Physical Therapy Treatment Note PT-OP-A Visit Information Start: 05/13/21 13:59 Freq: Status: Active Protocol: Document 07/03/21 12:59 MB (Rec: 07/03/21 13:48 MB [id number]) Out-Patient Physical Therapy Visit Information Visit Information Visit Type Treatment Note Visit Note 08/15 before KX Visit Start Time 12:59 Visit Stop Time 13:39 Total Visit Minutes 40 Visit Number 12 Precautions Precautions Pt states that she is agoraphobic and does not like being out in the clinic with a lot of people X-ray left heel 08/2020: Bones: No fractures or dislocations. No suspicious bony lesions. Moderate 1st MTP joint degeneration. Plantar and posterior calcaneal spurring. Mild midfoot sclerosis and spurring . Soft tissues: No tibiotalar joint effusion. Achilles tendon appears normal. IMPRESSION: Degenerative changes as above. Posterior and plantar calcaneal spurring. PT-OP-B Current Condition Start: 05/13/21 13:59 Freq: Status: Active Protocol: Document 05/14/21 10:29 MB (Rec: 05/14/21 10:52 MB [id number]) Current Condition History of Current Condition Onset Date Greater than a year Current Complaints Left ankle and heel pain that gets worse when she is up during the day History of Current Condition PMH includes back pain, neck pain, falls (last fall 1 month ago), ? neuropathy, osteopenia, SOB, thyroid disorder, cataracts and born with double vision. Pt is on disability. She smokes 1 PPD. Pt has short leg syndrome with the left leg longer. She was given a lift with PT for her right shoe and it seemed to help a little. She is currently not using a lift on the right and a lift will not fit with the Super Feet. Pt states that she likes her soft cushiony snow boots that don't touch the back of the right heel. Pt reports that Dr. Hardwick told her her left calf is so tight that he if did surgery for the spur, it would come back. He would like for her to try PT to help. Pt reports pain up to 7/10 left ankle and heel with WB and walking. She wears slip on shoes today because they do not touch the back of her heel. Dr. Hardwick recommend [employer], which pt purchased and is working on trying to wear. PT at this clinic was not helpful. She saw a lot of different providers. Pt is a little agoraphobic and did not like being around a lot of people. She liked the recumbent stepper. Pt is using brace at night. She got needling from Dr. Bradley and it wasn't helpful. She is wearing slippers or braces at home. Prior Treatments and Tests Pt was getting PT here before COVID and was told that she needed some lifts for her shoes. Treatment Goals Patient/Caregiver Goals To decrease pain and work on dorsiflexion PT-OP-C Subjective Start: 05/13/21 13:59 Freq: Status: Active Protocol: Document 07/03/21 12:59 MB (Rec: 07/03/21 13:48 MB [id number]) OP-PT Subjective Patient Comments Patient Comments Pt states that she has left foot surgery on 08/01/21. We will make today her last appointment pre-op. PT-OP-G Mobility & Gait Start: 05/13/21 13:59 Freq: Status: Active Protocol: Document 05/14/21 10:29 MB (Rec: 05/14/21 14:27 MB [id number]) OP Gait Assessment Comments Gait Comments Gait with bare feet: decreased step-length and foot clearance B, greater on the left. Antalgic quality, little heel strike and toe off, also greater on the left. Very mild functional leg length difference with right leg functional shorter with gait, very mildly today. Decreased pelvic movement, pt favors the left foot and gait is slow. Decreased plantar arch B, some lateral WB on left foot and more flat foot on the right with gait. Little toe movement , extension PT-OP-J Posture/Palpation/Skin Start: 05/13/21 13:59 Freq: Status: Active Protocol: Document 05/14/21 10:29 MB (Rec: 05/14/21 15:23 MB [id number]) Posture Evaluation Comments Posture Comments Standing posture barefoot: Dowager's hump, decreased thoracic kyphosis, right shoulder higher than the left, left iliac crest higher than the right, pt stands with right foot slightly forward and weight shifted to the right PT-OP-K Range of Motion Start: 05/13/21 13:59 Freq: Status: Active Protocol: Document 05/14/21 10:29 MB (Rec: 05/14/21 14:29 MB [id number]) Hip Goniometric Range of Motion Hip ROM Limitations Comments Supine passive SLR right 80 deg and left 70 deg Ankle and Foot Goniometric Range of Motion Ankle and Foot ROM Limitations Comments Right active DF to neutral in supine, left lacks 5 deg No active eversion left today Decreased great toe extension, more on the left and pt's toes do not abduct from one another well either foot PF in supine: left 25 deg and right 35 deg PT-OP-M Strength Start: 05/13/21 13:59 Freq: Status: Active Protocol: Document 05/14/21 10:29 MB (Rec: 05/14/21 15:25 MB [id number]) Hip Strength Hip Manual Muscle Testing Bilateral Flexion (L2) 5 Normal Abduction 4 Good Knee Strength Knee Manual Muscle Testing Bilateral Flexion (S2) 5 Normal Extension (L3) 5 Normal Ankle/Foot Strength Ankle and Foot Manual Muscle Testing Left Dorsiflexion (L4) 4 Good Inversion 4 Good Comments Does not perform eversion Right Dorsiflexion (L4) 5 Normal Inversion 5 Normal Eversion (S1) 4 Good Toe Strength Toe Manual Muscle Testing Left Great Toe Extension 3- Fair- Right Great Toe Extension 4 Good Comments Sensation feet intact to light touch PT-OP-Q Treatments Start: 05/13/21 13:59 Freq: Status: Active Protocol: Document 07/03/21 12:59 MB (Rec: 07/03/21 13:48 MB [id number]) Cardio Equipment Recumbent Stepper (Sci-Fit) Duration (Minutes) 17 Resistance 3 Other Legs only Manual Therapy Treatment Other Other Manual Treatments STM left gastroc, fibularis longus, middle soleus, plantar fascia, gentle toe mobs, Black KT I strip plantar surface up the back of achilles and gastroc, one c strip around for anchor. Self-Care/Home Management Treatment Education Other Education Ed pt that today will be her last appointment pre-op since surgery is now scheduled for 08/01/21. Ed pt that post-op, she cannot do any PT exercises that require WB through her left foot. She can perform: hamstring stretch without pumping foot but with bending and straightening knee, Eliezer stretch, glute squeezes, LAQ, thoracic rotation. Ed her that she will con't PT as cleared by Dr. Hardwick post-op and will need clearance for pool post-op/when incision is healed. Anticipate this to be in September of 2021. She will ask surgeon about PT at her follow-up appointment. Ed pt in benefits of rolling walker preferable to crutches, rollator and knee scooter for better control and with her history of falls and being uncoordinated per her report PT-OP-T Assessment and Plan Start: 05/13/21 13:59 Freq: Status: Active Protocol: Document 07/03/21 12:59 MB (Rec: 07/03/21 13:48 MB [id number]) Physical Therapy Assessment Rehab Potential Rehabilitation Potential Fair Evaluation Complexity Number of Personal Factors/Comorbidities 3 or More Number of Body Systems Impaired 3 Clinical Presentation at Evaluation Evolving Impairments Impairments Activity Tolerance,Balance, Functional Activities, Functional Mobility,Gait,Pain, Posture,ROM,Soft Tissue Mobility,Strength,Transfers Other Impairments Personal factors include pt reports she is agoraphobic, multiple areas of pain and questionable activity tolerance, previous PT course was not helpful. Body systems affected include musculoskeletal, neuromuscular , psychosocial. Her clinical presentation is evolving in setting of increasing pain and known bone spur, increased body mass and difficulty with increased upright time. Goals 3 Teenage Program Director Goal (LTG) Pt will report a 25% improvement in left LE pain to improve quality of life by . 07/03/21: Pt reports a 25% improvement in left LE pain since starting PT and she no longer has the constant pain LTG Duration Met 2 Teenage Program Director Goal (LTG) Pt will perform progressive HEP with I including aquatic program, balance, strengtehning, flexibility and gait exercises to improve pain and gait by 08/16/21. 07/03/21: Pt has met HEP goal for land exercises. Will not start aquatic therapy until after surgery when cleared by surgeon LTG Duration Partially met 1 Skilled Nursing Goal (LTG) Pt will perform WNLs on a standardized balance test to decrease fall risk by 08/16/21 . 06/16/21: Slip on shoes on. No trouble with Romberg EO and EC . Tandem right foot behind imbalance after 1 sec and she con't to try up to 20 sec x2 reps. Left foot behind: similar performance. Pt reports back of both heels are uncomfortable with tandem standing. LTG Duration Not met Assessment Summary Assessment Pt has a surgery date scheduled. Ed her in importance of compression, use of rolling walker and safe exercises she has for post-op that do not WB or range the feet. Will d/c PT.
== END 2021-07-15 10:17 ==
LOC: PHYS 13:00
PROVIDERS: PCP Family Medicine; Referring Provider Podiatrist Foot & Ankle Surgery; Visit Provider Podiatrist Foot & Ankle Surgery
DX: M21.6X9 Other acquired deformities of unspecified foot (principal); M92.60 Juvenile osteochondrosis of tarsus, unspecified ankle
CPT/HCPCS: 97110; 97140; 97161; 97535

== ENCOUNTER → 2021-07-17 08:47 | Outpatient (CLI) | payer OTHER, MEDICAID, SELFPAY ==
[2021-07-17 10:18] LABS: Add Manual Diff / Slide Review NO; Basophils Absolute Auto 0 /uL (0-100); Basophils Percent Auto 0.4 % (0-2); Eosinophils Absolute Auto 100 /uL (0-450); Eosinophils Percent Auto 1.2 % (2-4); Hematocrit 46.7 % (36-46); Hemoglobin 15.9 g/dL (12.0-16.0); Lymphocytes Absolute Auto 2000 /uL (1100-4500); Lymphocytes Percent Auto 24.2 % (25-40); Mean Corpuscular Hemoglobin 31.3 PG (26-34); Mean Corpuscular Volume 91.9 fL (80-100); Monocytes Absolute Auto 500 /uL (0-900); Neutrophils Absolute Auto 5600 /uL (1500-7000); Neutrophils Percent Auto 68.2 % (50-75); Platelet Count 175 X10^3/uL (150-400); Red Blood Cell Count 5.08 X10^6/uL (4.0-5.2); Red Cell Distribution Width 12.8 % (11.6-14.8); White Blood Cell Count 8.2 X10^3/uL (4.5-11.0)
[2021-07-17 11:00] LABS: Alanine Aminotransferase 20 IU/L (<35); Albumin 4.1 g/dL (3.5-5.0); Albumin Globulin Ratio 1.4 (1.0-2.8); Alkaline Phosphatase 68 U/L (38-126); Aspartate Aminotransferase 26 IU/L (14-36); BUN Creatinine Ratio 25.8 (6-22); Bilirubin Total 0.8 mg/dL (0.2-1.3); Blood Urea Nitrogen 17 mg/dL (7-17); Calcium 10.1 mg/dL (8.4-10.2); Carbon Dioxide 28 mmol/L (22-32); Chloride 103 mmol/L (98-107); Cholesterol 175 mg/dL (140-199); Estimated Glomerular Filt Rate > 60.0 mL/min (>60); Glucose 95 mg/dL (70-100); HDL Cholesterol 60 mg/dL (40-60); HEMOLYSIS < 15 (0-50); LDL Cholesterol Calculated 102 mg/dL (<100); Potassium 4.2 mmol/L (3.4-5.1); Sodium 139 mmol/L (137-145); Total Protein 7.1 g/dL (6.3-8.2); Triglycerides 66 mg/dL (35-150)
[2021-07-17 11:17] LABS: Free T3, Triiodothyronine Free 2.92 pg/mL (2.77-5.27); Free T4, Direct Thyroxine 1.31 ng/dL (0.78-2.19)
[2021-07-17 11:31] LABS: Thyroid Stimulating Hormone 2.42 uIU/mL (0.47-4.68)
== END ==
PROVIDERS: PCP Family Medicine; Referring Provider Family Medicine; Visit Provider Family Medicine
DX: Z01.818 Encounter for other preprocedural examination (principal); E03.9 Hypothyroidism, unspecified; E78.5 Hyperlipidemia, unspecified; I10 Essential (primary) hypertension
CPT/HCPCS: 36415; 80053; 80061; 84439; 84443; 84481; 85025; 93005; 93010

== ENCOUNTER → 2021-08-11 12:34 | Outpatient (CLI) | payer OTHER, MEDICAID, SELFPAY | PROVIDERS: PCP Family Medicine; Referring Provider Physician Assistant; Visit Provider Physician Assistant | DX: R30.9 Painful micturition, unspecified (principal) | CPT/HCPCS: 87077; 87086; 87186 ==

== ENCOUNTER → 2021-09-15 11:38 | Outpatient (CLI) | payer OTHER, MEDICAID, SELFPAY ==
--- NOTE | 2021-09-15 | DI.RAD.S_ITS ---
PROCEDURE: XR ANKLE LT MIN 3V INDICATIONS: POST ANKLE SURGERY TECHNIQUE: 3 views of the ankle were acquired. COMPARISON: [facility], CR, XR FOOT LT MIN 3V, 06/25/2021, 10:22. FINDINGS: Bones: No fractures or dislocations. Ankle mortise is normally aligned. No suspicious bony lesions. Soft tissues: No tibiotalar joint effusion. Achilles tendon appears thickened distally measuring up to 1.9 cm Achilles tendon calcification also is present IMPRESSION: Thickening of the distal Achilles tendon with tendon calcification. Dictated by: Arthur Orellana RR Interpreted: Miles June MD on 09/15/2021 at 13:24 Transcribed by: MARTÍN on 09/15/2021 at 13:26 Approved by: Miles June M.D. on 09/15/2021 at 13:29
== END ==
PROVIDERS: PCP Family Medicine; Referring Provider Podiatrist Foot & Ankle Surgery; Visit Provider Podiatrist Foot & Ankle Surgery
DX: M92.62 Juvenile osteochondrosis of tarsus, left ankle (principal); M65.872 Other synovitis and tenosynovitis, left ankle and foot; Z98.890 Other specified postprocedural states
CPT/HCPCS: 73610

== ENCOUNTER → 2021-11-14 14:45 | Outpatient (CLI) | payer OTHER, MEDICAID, SELFPAY | PROVIDERS: PCP Family Medicine; Visit Provider Physician Assistant | DX: R30.0 Dysuria (principal) | CPT/HCPCS: 87086 ==

== ENCOUNTER → 2022-03-10 10:43 | Outpatient (CLI) | payer OTHER, MEDICAID, SELFPAY ==
--- NOTE | 2022-03-10 10:44 | DI.RAD.S_ITS ---
PROCEDURE: XR FINGER RT MIN 2V INDICATIONS: Right middle finger pain TECHNIQUE: AP hand, 2 views of the right 3rd finger(s) acquired. COMPARISON: None. FINDINGS: Bones: No fractures or dislocations. No suspicious bony lesions. Soft tissues: No suspicious soft tissue calcifications. IMPRESSION: No fracture. No osseous lesion. If symptoms and/or clinical suspicion for pathology persists, further assessment with repeat radiographs (7-10 days) or advanced imaging (e.g. CT, MRI or bone scan) should be considered. Dictated by: Rina Miranda MD, PhD on 03/10/2022 at 12:11 Approved by: Rina Miranda MD, PhD on 03/10/2022 at 12:12
== END ==
PROVIDERS: PCP Family Medicine; Referring Provider Physician Assistant; Visit Provider Physician Assistant
DX: M79.644 Pain in right finger(s) (principal)
CPT/HCPCS: 73140

== ENCOUNTER → 2022-07-24 11:51 | Outpatient (CLI) | payer OTHER, MEDICAID, SELFPAY ==
--- NOTE | 2022-07-24 | DI.MG.S_ITS ---
BILATERAL DIGITAL SCREENING MAMMOGRAM 3D/2D WITH CAD: 07/24/2022 CLINICAL: Routine screening. Comparison is made to exams dated: 06/04/2021 mammogram, 05/01/2020 mammogram, and 01/04/2019 mammogram - [facility]. There are scattered areas of fibroglandular density in both breasts (category b / 25%-50% glandular tissue). Current study was also evaluated with a Computer Aided Detection (CAD) system. There are benign post operative findings in the right breast. No significant masses, calcifications, or other findings are seen in either breast. There has been no significant interval change. IMPRESSION: BENIGN There is no mammographic evidence of malignancy. A 1 year screening mammogram is recommended. Based on the Tyrer Cuzick model (a risk assessment model) the patient's lifetime risk is 6.3% and her 10 year risk is 2.5%. According to the ACR, ACS, and NCCN guidelines, an annual breast MRI exam along with mammogram is recommended if the patient's lifetime risk is 20% or greater. This exam was interpreted at Station ID: [id number]. NOTE: For mammograms, a report in lay terms will be sent to the patient. Approximately 15% of breast malignancies will not be visualized mammographically. In the management of a palpable breast mass, a negative mammogram must not discourage biopsy of a clinically suspicious lesion. Electronically Signed By: Rosy nevarez/jeniffer:07/24/2022 16:00:31 letter sent: Normal Exam ACR BI-RADS Category 2: Benign Finding(s) 3342F
== END ==
PROVIDERS: PCP Family Medicine; Referring Provider Family Medicine; Visit Provider Family Medicine
DX: Z12.31 Encounter for screening mammogram for malignant neoplasm of breast (principal)
CPT/HCPCS: 77063; 77067

== ENCOUNTER → 2023-02-17 16:42 | Outpatient (CLI) | payer OTHER, MEDICAID, SELFPAY ==
[2023-02-17 19:09] LABS: Appearance Urine UA CLEAR; Bilirubin Urine UA NEGATIVE (NEGATIVE); Color Urine UA YELLOW; Glucose Urine UA NEGATIVE (Negative); Ketones Urine UA NEGATIVE (NEGATIVE); Leukocyte Esterase Urine UA 1+ (NEGATIVE); Nitrite Urine UA NEGATIVE (Negative); Occult Blood Urine UA 1+ (Negative); Protein Urine UA NEGATIVE (Negative); Specific Gravity Urine UA <=1.005 (1.000-1.035)
[2023-02-17 19:29] LABS: Amorphous Sediment Urine 1+; RBC Urine 1-5/HPF (0-5/HPF); Squamous Epithelial Cell Urine 10-30 /HPF (0-5/HPF); WBC Urine 10-30/HPF (0-5/HPF)
[2023-02-17 19:30] LABS: Bacteria Urine Moderate (10-30); Culture Indicated Urine Specimen Cultured
== END ==
PROVIDERS: PCP Family Medicine; Visit Provider Family Medicine
DX: N39.0 Urinary tract infection, site not specified (principal); R30.0 Dysuria; R35.0 Frequency of micturition; R39.15 Urgency of urination; G89.29 Other chronic pain; M25.551 Pain in right hip
CPT/HCPCS: 81001; 87086

== ENCOUNTER → 2023-02-17 16:57 | Outpatient (CLI) | payer OTHER, MEDICAID, SELFPAY ==
--- NOTE | 2023-02-17 | DI.RAD.S_ITS ---
PROCEDURE: XR PELVIS 1-2V INDICATIONS: ROUTINE TECHNIQUE: Single view(s) of the pelvis acquired. COMPARISON: [facility], CR, XR HIP W PEL IF DONE RT 2V, 02/07/2019, 13:22. FINDINGS: Bones: No fractures or dislocations. No suspicious bony lesions. Lower lumbar spondylosis. Degenerative changes of the bilateral hips more severe on the right with increased degenerative changes involving the medial aspect of the right hip joint with increased subchondral lucency. Soft tissues: Visualized bowel gas pattern is normal. No suspicious soft tissue calcifications. IMPRESSION: Pelvis without acute radiographic abnormalities. Progression of right hip osteoarthrosis with possible increased subchondral lucency involving the inferomedial margin of the humeral head. Recommend dedicated radiographic series of the right hip for further evaluation. Dictated by: Robb Hernandez M.D. on 02/18/2023 at 9:25 Approved by: Robb Hernandez M.D. on 02/18/2023 at 9:28
== END ==
PROVIDERS: PCP Family Medicine; Referring Provider Family Medicine; Visit Provider Family Medicine
DX: M25.551 Pain in right hip (principal); G89.29 Other chronic pain; M85.80 Other specified disorders of bone density and structure, unspecified site; N39.0 Urinary tract infection, site not specified; R30.0 Dysuria; R35.0 Frequency of micturition; R39.15 Urgency of urination; M16.11 Unilateral primary osteoarthritis, right hip
CPT/HCPCS: 72170; 81001; 87077; 87086; 87186

== ENCOUNTER → 2023-02-18 09:55 | Outpatient (CLI) | payer OTHER, MEDICAID, SELFPAY ==
[2023-02-18 11:24] LABS: Add Manual Diff / Slide Review NO; Basophils Absolute Auto 0 /uL (0-100); Basophils Percent Auto 0.7 % (0-2); Eosinophils Absolute Auto 100 /uL (0-450); Eosinophils Percent Auto 1.4 % (2-4); Hematocrit 45.3 % (36-46); Hemoglobin 15.6 g/dL (12.0-16.0); Lymphocytes Absolute Auto 1800 /uL (1100-4500); Lymphocytes Percent Auto 25.1 % (25-40); Mean Corpuscular HGB Conc 34.4 % (30-36); Mean Corpuscular Hemoglobin 31.8 PG (26-34); Mean Corpuscular Volume 92.3 fL (80-100); Monocytes Absolute Auto 400 /uL (0-900); Monocytes Percent Auto 5.9 % (3-14); Neutrophils Absolute Auto 4700 /uL (1500-7000); Neutrophils Percent Auto 66.9 % (50-75); Platelet Count 199 X10^3/uL (150-400); Red Blood Cell Count 4.91 X10^6/uL (4.0-5.2); Red Cell Distribution Width 12.9 % (11.6-14.8); White Blood Cell Count 7.1 X10^3/uL (4.5-11.0)
[2023-02-18 11:45] LABS: Alanine Aminotransferase 17 IU/L (<35); Albumin 4.2 g/dL (3.5-5.0); Albumin Globulin Ratio 1.4 (1.0-2.8); Alkaline Phosphatase 83 U/L (38-126); Aspartate Aminotransferase 25 IU/L (14-36); BUN Creatinine Ratio 16.1 (6-22); Bilirubin Total 0.6 mg/dL (0.2-1.3); Blood Urea Nitrogen 9 mg/dL (7-17); Carbon Dioxide 25 mmol/L (22-32); Chloride 105 mmol/L (98-107); Cholesterol 176 mg/dL (140-199); Estimated Glomerular Filt Rate > 60 mL/min (>60); Globulin 3.1 g/dL (1.7-4.1); Glucose 107 mg/dL (80-110); HDL Cholesterol 59 mg/dL (40-60); HEMOLYSIS < 15 (0-50); LDL Cholesterol Calculated 102 mg/dL (<100); Potassium 3.7 mmol/L (3.4-5.1); Sodium 138 mmol/L (137-145); Total Protein 7.3 g/dL (6.3-8.2); Triglycerides 73 mg/dL (35-150)
[2023-02-18 12:01] LABS: TSH w/ Reflex to FT4 4.21 uIU/mL (0.47-4.68)
== END ==
PROVIDERS: PCP Family Medicine; Referring Provider Family Medicine; Visit Provider Family Medicine
DX: E03.9 Hypothyroidism, unspecified (principal); I10 Essential (primary) hypertension; E78.5 Hyperlipidemia, unspecified
CPT/HCPCS: 36415; 80053; 80061; 84443; 85025

== ENCOUNTER → 2023-02-20 10:13 | Outpatient (CLI) | payer OTHER, MEDICAID, SELFPAY ==
--- NOTE | 2023-02-20 10:15 | DI.RAD.S_ITS ---
PROCEDURE: XR HIP W PEL IF DONE RT 2V INDICATIONS: pain TECHNIQUE: AP pelvis with lateral view(s) of the right hip(s). COMPARISON: [facility], , XR HIP W PEL IF DONE RT 2V, 02/07/2019, 13:22. FINDINGS: Bones: Normal mineralization. No fractures or dislocation. Mild asymmetric right-sided joint space loss with mid and inferior acetabular sclerosis. Moderate femoral head spurring. Sacroiliac joints and pubic symphysis are normal. Soft tissues: The visualized bowel gas pattern is normal. No suspicious soft tissue calcifications. IMPRESSION: 1. Mild to moderate asymmetric right hip joint degeneration with minimal progression since the prior study. Dictated by: Ila Posey M.D. on 02/20/2023 at 13:51 Approved by: Ila Posey M.D. on 02/20/2023 at 13:53
== END ==
PROVIDERS: PCP Family Medicine; Referring Provider Family Medicine; Visit Provider Family Medicine
DX: M19.90 Unspecified osteoarthritis, unspecified site (principal)
CPT/HCPCS: 73502

== ENCOUNTER → 2023-03-11 13:48 | Outpatient (CLI) | payer OTHER, MEDICAID, SELFPAY ==
--- NOTE | 2023-03-11 14:03 | DI.DEXA.S_ITS ---
Bone Density Report Name: CHITO BEAN Age: 62 Sex: Female Ethnicity: White Date of : 1960 Indication: postmenopausal; screening for osteoporosis; Referring Provider: KANE FROST D.O. Study: Bone densitometry was performed. Exam Date: March 11, 2023 Accession number: [id number] Bone Density: Region BMD T-score Z-score Classification AP Spine(L1-L4) 1.058 0.1 1.6 Normal Femoral Neck (Left) 0.720 -1.2 0.2 Osteopenia Total Hip (Left) 0.810 -1.1 -0.1 Osteopenia Femoral Neck (Right) 0.742 -1.0 0.4 Normal Total Hip (Right) 0.817 -1.0 0.0 Normal Total Hip Mean 0.813 -1.1 -0.1 Osteopenia World Health Organization criteria for BMD impression classify patients as: Normal (T-score at or above -1.0), Osteopenia (T-score between -1.0 and -2.5), or Osteoporosis (T-score at or below -2.5). 10-year Fracture Risk(1): Major Osteoporotic Fracture 7.0% Hip Fracture 0.8% Reported Risk Factors: [place] (), Neck BMD=0.720, BMI=34.8, smoking (1) FRAX(R) Version 3.08. Fracture probability calculated for an untreated patient. Fracture probability may be lower if the patient has received treatment. Previous Exams: -- Region Exam Age BMD T-score BMD Change BMD Change Date g/cm2 vs Baseline vs Previous -- AP Spine (L1-L4) 03/11/2023 62 1.058 0.1 -0.070 (-6.2%)# -0.070 (-6.2%)# 07/26/2018 58 1.128 0.7 Total Hip(Left) 03/11/2023 62 0.810 -1.1 -0.017 (-2.0%)# -0.017 (-2.0%)# 07/26/2018 58 0.826 -1.0 Total Hip(Right) 03/11/2023 62 0.817 -1.0 -0.023 (-2.8%)# -0.023 (-2.8%)# 07/26/2018 58 0.840 -0.8 -- *Denotes significance at 95% confidence level, LSC for AP Spine = 0.022 g/cm2, LSC for Total Hip = 0.027 g/cm2 # Denotes dissimilar scan types or analysis methods Impression: The patient has low bone mass, based on the Left Femoral Neck T-score. The patient has an estimated ten-year risk of hip fracture of 0.8% and an estimated ten-year risk of major fracture of 7%, based on the WHO FRAX algorithm. The patient has risk factors, including: smoking. No significant bone loss was observed. Discussion: BONE DENSITY IS LOW AT ONE OR MORE SKELETAL SITES. This patient's lowest T-score is low at one or more skeletal sites. It meets the World Health Organization's (WHO) criteria for ?low bone mass? (T-score between -1.0 and -2.5). The patient's 10-year risk of fracture as calculated by FRAX is less than the threshold where pharmacological therapy is recommended by the National Osteoporosis Foundation (NOF). However, all treatment decisions require clinical judgment and consideration of individual patient factors, including patient preferences, comorbidities, previous drug use, risk factors not captured in the FRAX model (e.g., frailty, falls, vitamin D deficiency, increased bone turnover, interval significant decline in bone density) and possible under or overestimation of fracture risk by FRAX. The patient should follow a healthful lifestyle (good nutrition with adequate calcium and vitamin D, and appropriate weight-bearing exercise). Follow-Up: Consider repeating this study in 2 to 3 years to reassess this patient's status, or sooner if there is some new clinical indication. Reported by: KARO ASHER M.D. on 03/11/2023 2:13:00 PM.
== END ==
PROVIDERS: PCP Family Medicine; Referring Provider Family Medicine; Visit Provider Family Medicine
DX: Z78.0 Asymptomatic menopausal state (principal); M85.852 Other specified disorders of bone density and structure, left thigh; Z13.820 Encounter for screening for osteoporosis
CPT/HCPCS: 77080

== ENCOUNTER → 2023-07-27 13:15 | Outpatient (CLI) | payer OTHER, MEDICAID, SELFPAY ==
--- NOTE | 2023-07-27 | DI.MG.S_ITS ---
BILATERAL DIGITAL SCREENING MAMMOGRAM 3D/2D WITH CAD: 07/27/2023 CLINICAL: Routine screening. Comparison is made to exams dated: 07/24/2022 mammogram, 06/04/2021 mammogram, and 05/01/2020 mammogram - [facility]. There are scattered areas of fibroglandular density in both breasts (category b / 25%-50% glandular tissue). Current study was also evaluated with a Computer Aided Detection (CAD) system. There is a stable benign focal asymmetry in both breasts. There also are stable benign calcifications in both breasts. No significant masses, calcifications, or other findings are seen in either breast. There has been no significant interval change. IMPRESSION: BENIGN There is no mammographic evidence of malignancy. A 1 year screening mammogram is recommended. Based on the Tyrer Cuzick model (a risk assessment model) the patient's lifetime risk is 6.2% and her 10 year risk is 2.6%. According to the ACR, ACS, and NCCN guidelines, an annual breast MRI exam along with mammogram is recommended if the patient's lifetime risk is 20% or greater. This exam was interpreted at Station ID: [id number]. NOTE: For mammograms, a report in lay terms will be sent to the patient. Approximately 15% of breast malignancies will not be visualized mammographically. In the management of a palpable breast mass, a negative mammogram must not discourage biopsy of a clinically suspicious lesion. Electronically Signed By: Shayan banks/jeniffer:07/27/2023 14:09:20 letter sent: Normal Exam ACR BI-RADS Category 2: Benign Finding(s) [id number]
== END ==
PROVIDERS: Family Provider Family Medicine; PCP Family Medicine; Referring Provider Family Medicine; Visit Provider Family Medicine
DX: Z12.31 Encounter for screening mammogram for malignant neoplasm of breast (principal)
CPT/HCPCS: 77063; 77067

== ENCOUNTER 2023-08-05 15:00 | Outpatient (RCR) | payer OTHER, MEDICAID, SELFPAY ==
--- NOTE | 2023-05-05 16:00 | PT.OPPOC ---
Physical, Occupational & Speech Therapy At [facility] Current Diagnoses Other chronic pain (05/05/23) Pain in right hip (05/05/23) Difficulty in walking, not elsewhere classified (05/05/23) Weakness (05/05/23) Visit Care Team Role Provider Type Carlos Bradley DO Attending Provider Physician Family Provider Primary Care Provider Referring Provider Specialty: [facility] Address: [address] [place] [address], [facility] Email: Plan Of Care PT-OP-T Assessment and Plan Start: 05/04/23 16:33 Freq: Status: Active Protocol: Document 05/05/23 10:30 SAK (Rec: 05/05/23 11:15 SAK [id number]) Physical Therapy Assessment Rehab Potential Rehabilitation Potential Good Evaluation Complexity Number of Personal Factors/Comorbidities 1-2 Number of Body Systems Impaired 3 Clinical Presentation at Evaluation Evolving Impairments Impairments Balance,Gait,Pain,Strength Goals Three Impairment weakness Impairment LE's and core with altered muscle activation Short Term Goal (STG) Patient will be instsructed in HEP for purposes of core and hip strengthening and stabilization STG Duration 06/05/23 Emergency Dispatcher Goal (LTG) Patient will be independent and compliant with HEP and demonstrate improved strength to at least 4+/5 with improved functional activation of gluteals. Two Impairment gait Impairment antalgic, step-to pattern on stairs Short Term Goal (STG) Patient will be able to walk on level surfaces with minimal to no limp STG Duration 06/05/23 [facility]ci Goal (LTG) Patient will be able to ambulate on stairs with alternating step pattern LTG Duration 07/05/23 One Impairment activity tolerance Impairment Lower extremity functional scale score 32% Short Term Goal (STG) Improve LEFS score to at least 45% as measure of improved functional activity tolerance STG Duration 06/05/23 Emergency Dispatcher Goal (LTG) Improve LEFS score to at least 60% as measure of improved functional activity tolerance and quality of life. LTG Duration 07/05/23 Assessment Summary Assessment Patient presents to PT with function limiting right hip. She has history of LBP and hip pain, not doing consistent exercise at this time, limited functional activity. She presents with weakness throughout her core and hips right greater than left, with altered mechanics and muscle activation during gait and other functional movements. She would benefit from PT for pain management, strengthening , work on gait mechanics and correct muscle activation to help her decrease her pain and return to prior level of function. POC was discussed and she was in agreement. Physical Therapy Plan Frequency and Duration Frequency of Treatment 2x/Week Duration of treatment (weeks) 8 Plan of Care Start Date 05/05/23 Plan of Care End Date 07/05/23 Therapeutic Interventions Therapeutic Interventions Home Exercise Program,Manual Therapy,Neuromuscular Re- education,Patient/Caregiver Education,Self-Care/Home Management,Soft Tissue Mobilization,Taping, Therapeutic Activities, Therapeutic Exercises Modalities Cold Pack/Ice Massage,Electric Stimulation,Hot Packs, Ultrasound Next Visit Focus/Plan Next Note Type Treatment Note Next Visit Plan Review HEP, Gentle strengthening and core stab. Work on gait mechanics, gluteal activation. Review bed positioning. Modalities and manual therapy as indicated Plan of Care Dates Plan of Care Start Date 05/05/23 Plan of Care End Date 07/05/23 Electronically Signed by: Lo Martinez, PT 05/09/23 0828 If you are in agreement with this Plan of Care, please return a signed and dated copy. I have reviewed this Plan of Care and certify that the skilled therapy services above are required to meet the patient?s needs. Physician Signature Date Printed Name and Credentials Clinical Instructor Signature Printed Name and Credentials
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
--- NOTE | 2023-05-10 15:48 | PT.OTN ---
Current Diagnoses Other chronic pain (05/10/23) Pain in right hip (05/10/23) Difficulty in walking, not elsewhere classified (05/10/23) Weakness (05/10/23) Physical Therapy Treatment Note PT-OP-A Visit Information Start: 05/04/23 16:33 Freq: Status: Active Protocol: Document 05/10/23 12:30 SAK (Rec: 05/10/23 13:18 [facility] [id number]) Out-Patient Physical Therapy Visit Information Visit Information Visit Type Treatment Note Visit Start Time 12:31 Visit Stop Time 13:25 Total Visit Minutes 54 Visit Number 2 Evaluation Information Evaluation Date 05/05/23 PT-OP-B Current Condition Start: 05/04/23 16:33 Freq: Status: Active Protocol: Document 05/10/23 12:30 SAK (Rec: 05/10/23 13:18 [facility] [id number]) Current Condition History of Current Condition Onset Date 1 year Current Complaints chronic right hip pain History of Current Condition Gradual worsening of right hip pain to the point it is hard to stand and walk. Doesn't use any device for walking. Doing some exercising. Reports right leg short. Sees chiropractor every other week. Prior Treatments and Tests left achilles bone spur removed 1+ year ago Treatment Goals Patient/Caregiver Goals Be able to walk up ramp to house without pain. Able to walk up and down stairs with alternating patter Decrease pain. Current Functional Impairments (Reported) Functional Limitations- ADL's painful Functional Limitations- Mobility/Gait painful Functional Limitations- Work/School unable Functional Limitations- Recreation/ gardens, does puzzles; painful Hobbies gardening Functional Limitations- Other LEFS PT-OP-C Subjective Start: 05/04/23 16:33 Freq: Status: Active Protocol: Document 05/10/23 12:30 SAK (Rec: 05/10/23 13:18 [facility] [id number]) OP-PT Subjective Patient Comments Patient Comments Didn't do much the past couple days, less pain. Receptive to trial trekking pole for improved support with gait PT-OP-G Mobility & Gait Start: 05/04/23 16:33 Freq: Status: Active Protocol: Document 05/05/23 10:30 SAK (Rec: 05/05/23 11:15 [facility] [id number]) OP Mobility Evaluation Transfers Sit to Stand decreased weight bearing right OP Gait Assessment Gait Gait Assistance Required: Independent Assistive Devices Assistive Device None Gait Deviations General Gait Pattern Antalgic,Decreased Stride Length,Decreased Feet Clearance Factors Limiting Gait Function Factors Limiting Gait Function Decreased Activity Tolerance, Decreased Strength,Limited Range of Motion,Pain,Poor Balance Stair Climbing Evaluation Evaluation Level of Assist On Stairs Independent Technique/Endurance Stair Climbing Technique Step to Step PT-OP-H Neuro Start: 05/04/23 16:33 Freq: Status: Active Protocol: Document 05/05/23 10:30 [facility] (Rec: 05/05/23 11:15 [facility] [id number]) Sensation Evaluation Gross Sensation Gross Sensation WNL PT-OP-J Posture/Palpation/Skin Start: 05/04/23 16:33 Freq: Status: Active Protocol: Document 05/05/23 10:30 [facility] (Rec: 05/05/23 11:15 [facility] [id number]) Posture Evaluation Position Standing Head/C-Spine Posture Forward Head T-Spine Posture Increased Kyphosis L-Spine Posture Shifted Right Shoulder Posture (L) Rounded,(R) Rounded,(L) Elevated Scapula Posture (L) Protracted,(R) Protracted Arm Posture (L) Internally Rotated,(R) Internally Rotated Ankle/Foot Posture (R) Pronated Foot Arch (L) Low Arch,(R) No Arch Palpation Assessment Location piriformis lef Palpation Findings Soft Tissue Tightness, Tenderness hip Palpation Location gr trochanter herbie Palpation Findings Tenderness PT-OP-K Range of Motion Start: 05/04/23 16:33 Freq: Status: Active Protocol: Document 05/05/23 10:30 [facility] (Rec: 05/05/23 11:15 [facility] [id number]) Lumbar Spine Range of Motion Lumbar Spine Active Testing Position Standing Flexion 20 Extension 0 Lateral Flexion Left 20 Lateral Flexion Right 20 PT-OP-M Strength Start: 05/04/23 16:33 Freq: Status: Active Protocol: Document 05/05/23 10:30 [facility] (Rec: 05/05/23 11:15 [facility] [id number]) Hip Strength Hip Manual Muscle Testing Right Flexion (L2) 4- Good- Extension (S1) 3- Fair- Abduction 3+ Fair+ Adduction 4- Good- External Rotation 3+ Fair+ Internal Rotation 4- Good- Left Flexion (L2) 3- Fair- Abduction 3+ Fair+ Adduction 4- Good- External Rotation 3+ Fair+ Internal Rotation 4- Good- Knee Strength Knee Manual Muscle Testing Left Flexion (S2) 4 Good Extension (L3) 4 Good Right Flexion (S2) 4 Good Extension (L3) 4 Good Ankle/Foot Strength Ankle and Foot Manual Muscle Testing Left Dorsiflexion (L4) 4 Good Plantarflexion (S1) 4 Good Right Dorsiflexion (L4) 4 Good Plantarflexion (S1) 4 Good PT-OP-Q Treatments Start: 05/04/23 16:33 Freq: Status: Active Protocol: Document 05/10/23 12:30 [facility] (Rec: 05/10/23 13:18 [facility] [id number]) Cardio Equipment Recumbent Stepper (Sci-Fit) Duration (Minutes) 10 Resistance 1 Other Legs only Gym Equipment Shuttle Recovery Unilateral Squats Resistance 37 Shuttle Recovery Platform Stable Reps/Time 10x2 Bilateral Squats Resistance 50 Shuttle Recovery Platform Stable Reps/Time 10x2 Sport Cord fwd Exercise Details walking, wt shift in stride Cord/Resistance green Reps/Duration 5x Comments cues for gluteal activation. Therapeutic Exercises Supine Exercises glut set Supine Exercise Name alternating push into table Reps/Minutes 10x single leg bridge Reps/Minutes 10x Comments isometric initiation of movement only segmental bridge Reps/Minutes 10x Standing Exercises wt shift Standing Exercise Name A/P Reps/Minutes 10 x ea LE Comments stride position, stressed gluteal activation Gait Training Gait Activity trekking pole Surface 8 min Distance/Duration sequencing Treatment Focus gluteal activation Self-Care/Home Management Treatment Education Patient Education Body Mechanics,Home Exercise Program,Pain Management, Posture PT-OP-R Modalities Start: 05/04/23 16:33 Freq: Status: Active Protocol: Document 05/10/23 12:30 [facility] (Rec: 05/10/23 15:48 [facility] [id number]) Hot Pack/Cold Pack Treatment Hot Pack Location herbie lumbosacral spine Patient Position Hooklying Treatment Duration (minutes) 15 Patient Tolerance Good PT-OP-T Assessment and Plan Start: 05/04/23 16:33 Freq: Status: Active Protocol: Document 05/10/23 12:30 [facility] (Rec: 05/10/23 13:18 [facility] [id number]) Physical Therapy Assessment Goals Three Impairment weakness Impairment LE's and core with altered muscle activation Short Term Goal (STG) Patient will be instsructed in HEP for purposes of core and hip strengthening and stabilization STG Duration 06/05/23 Group Home Goal (LTG) Patient will be independent and compliant with HEP and demonstrate improved strength to at least 4+/5 with improved functional activation of gluteals. Two Impairment gait Impairment antalgic, step-to pattern on stairs Short Term Goal (STG) Patient will be able to walk on level surfaces with minimal to no limp STG Duration 06/05/23 Interceptor Operator Goal (LTG) Patient will be able to ambulate on stairs with alternating step pattern LTG Duration 07/05/23 One Impairment activity tolerance Impairment Lower extremity functional scale score 32% Short Term Goal (STG) Improve LEFS score to at least 45% as measure of improved functional activity tolerance STG Duration 06/05/23 Interceptor Operator Goal (LTG) Improve LEFS score to at least 60% as measure of improved functional activity tolerance and quality of life. LTG Duration 07/05/23 Assessment Summary Assessment Much cuing throughout session, by end was beginning to be able to feel gluteals activating. Improved gait with use of a trekking pole after instruction. Feel patient anterior hip pain at least partially caused by anterior femoral glide syndrome with poor gluteal strength and activation. Stressed importance of gluteal activation during gait, added fwd/bck wt shift to HEP with focus on gluteal activation. Physical Therapy Plan Frequency and Duration Frequency of Treatment 2x/Week Duration of treatment (weeks) 8 Plan of Care Start Date 05/05/23 Plan of Care End Date 07/05/23 Therapeutic Interventions Therapeutic Interventions Home Exercise Program,Manual Therapy,Neuromuscular Re- education,Patient/Caregiver Education,Self-Care/Home Management,Soft Tissue Mobilization,Taping, Therapeutic Activities, Therapeutic Exercises Modalities Cold Pack/Ice Massage,Electric Stimulation,Hot Packs, Ultrasound Next Visit Focus/Plan Next Note Type Treatment Note Next Visit Plan Review HEP, Gentle strengthening and core stab. Work on gait mechanics, gluteal activation. Review bed positioning. Modalities and manual therapy as indicated
--- NOTE | 2023-05-13 14:14 | PT.OTN ---
Current Diagnoses Other chronic pain (05/13/23) Pain in right hip (05/13/23) Difficulty in walking, not elsewhere classified (05/13/23) Weakness (05/13/23) Physical Therapy Treatment Note PT-OP-A Visit Information Start: 05/04/23 16:33 Freq: Status: Active Protocol: Document 05/13/23 12:57 SW (Rec: 05/13/23 14:14 [id number]) Out-Patient Physical Therapy Visit Information Visit Information Visit Type Treatment Note Visit Start Time 13:00 Visit Stop Time 13:43 Total Visit Minutes 43 Visit Number 3 Number of HELICOPTER DISPATCHER Visits 1 PT-OP-B Current Condition Start: 05/04/23 16:33 Freq: Status: Active Protocol: Document 05/10/23 12:30 SAK (Rec: 05/10/23 13:18 SAK [id number]) Current Condition History of Current Condition Onset Date 1 year Current Complaints chronic right hip pain History of Current Condition Gradual worsening of right hip pain to the point it is hard to stand and walk. Doesn't use any device for walking. Doing some exercising. Reports right leg short. Sees chiropractor every other week. Prior Treatments and Tests left achilles bone spur removed 1+ year ago Treatment Goals Patient/Caregiver Goals Be able to walk up ramp to house without pain. Able to walk up and down stairs with alternating patter Decrease pain. Current Functional Impairments (Reported) Functional Limitations- ADL's painful Functional Limitations- Mobility/Gait painful Functional Limitations- Work/School unable Functional Limitations- Recreation/ gardens, does puzzles; painful Hobbies gardening Functional Limitations- Other LEFS PT-OP-C Subjective Start: 05/04/23 16:33 Freq: Status: Active Protocol: Document 05/13/23 12:57 (Rec: 05/13/23 14:14 [id number]) OP-PT Subjective Patient Comments Patient Comments Pt reports she has been doing ok. Nothing new to report. PT-OP-G Mobility & Gait Start: 05/04/23 16:33 Freq: Status: Active Protocol: Document 05/05/23 10:30 SAK (Rec: 05/05/23 11:15 SAK [id number]) OP Mobility Evaluation Transfers Sit to Stand decreased weight bearing right OP Gait Assessment Gait Gait Assistance Required: Independent Assistive Devices Assistive Device None Gait Deviations General Gait Pattern Antalgic,Decreased Stride Length,Decreased Feet Clearance Factors Limiting Gait Function Factors Limiting Gait Function Decreased Activity Tolerance, Decreased Strength,Limited Range of Motion,Pain,Poor Balance Stair Climbing Evaluation Evaluation Level of Assist On Stairs Independent Technique/Endurance Stair Climbing Technique Step to Step PT-OP-H Neuro Start: 05/04/23 16:33 Freq: Status: Active Protocol: Document 05/05/23 10:30 SAK (Rec: 05/05/23 11:15 [facility] [id number]) Sensation Evaluation Gross Sensation Gross Sensation WNL PT-OP-J Posture/Palpation/Skin Start: 05/04/23 16:33 Freq: Status: Active Protocol: Document 05/05/23 10:30 SAK (Rec: 05/05/23 11:15 [facility] [id number]) Posture Evaluation Position Standing Head/C-Spine Posture Forward Head T-Spine Posture Increased Kyphosis L-Spine Posture Shifted Right Shoulder Posture (L) Rounded,(R) Rounded,(L) Elevated Scapula Posture (L) Protracted,(R) Protracted Arm Posture (L) Internally Rotated,(R) Internally Rotated Ankle/Foot Posture (R) Pronated Foot Arch (L) Low Arch,(R) No Arch Palpation Assessment Location piriformis lef Palpation Findings Soft Tissue Tightness, Tenderness hip Palpation Location gr trochanter herbie Palpation Findings Tenderness PT-OP-K Range of Motion Start: 05/04/23 16:33 Freq: Status: Active Protocol: Document 05/05/23 10:30 SAK (Rec: 05/05/23 11:15 [facility] [id number]) Lumbar Spine Range of Motion Lumbar Spine Active Testing Position Standing Flexion 20 Extension 0 Lateral Flexion Left 20 Lateral Flexion Right 20 PT-OP-M Strength Start: 05/04/23 16:33 Freq: Status: Active Protocol: Document 05/05/23 10:30 SAK (Rec: 05/05/23 11:15 [facility] [id number]) Hip Strength Hip Manual Muscle Testing Right Flexion (L2) 4- Good- Extension (S1) 3- Fair- Abduction 3+ Fair+ Adduction 4- Good- External Rotation 3+ Fair+ Internal Rotation 4- Good- Left Flexion (L2) 3- Fair- Abduction 3+ Fair+ Adduction 4- Good- External Rotation 3+ Fair+ Internal Rotation 4- Good- Knee Strength Knee Manual Muscle Testing Left Flexion (S2) 4 Good Extension (L3) 4 Good Right Flexion (S2) 4 Good Extension (L3) 4 Good Ankle/Foot Strength Ankle and Foot Manual Muscle Testing Left Dorsiflexion (L4) 4 Good Plantarflexion (S1) 4 Good Right Dorsiflexion (L4) 4 Good Plantarflexion (S1) 4 Good PT-OP-Q Treatments Start: 05/04/23 16:33 Freq: Status: Active Protocol: Document 05/13/23 12:57 SW (Rec: 05/13/23 14:14 SW [id number]) Cardio Equipment Recumbent Stepper (Sci-Fit) Duration (Minutes) 10 Resistance 1 Other Legs only Gym Equipment Shuttle Recovery Unilateral Squats Resistance 37 Shuttle Recovery Platform Stable Reps/Time 10x2 Bilateral Squats Resistance 50 Shuttle Recovery Platform Stable Reps/Time 10x2 Sport Cord fwd Exercise Details walking, wt shift in stride Cord/Resistance green Reps/Duration 5x Comments cues for gluteal activation. Therapeutic Exercises Supine Exercises Core Supine Exercise Name TA activation w/ BKFO, Marches Comments Cues for stabilization Clam- [place] elimated Resistance Isometric Equipment Used Therapist assist glut set Supine Exercise Name alternating push into table Reps/Minutes 10x single leg bridge Reps/Minutes 10x Comments isometric initiation of movement only segmental bridge Reps/Minutes 10x Standing Exercises wt shift Standing Exercise Name A/P Reps/Minutes 10 x ea LE Comments stride position, stressed gluteal activation PT-OP-R Modalities Start: 05/04/23 16:33 Freq: Status: Active Protocol: Document 05/10/23 12:30 SAK (Rec: 05/10/23 15:48 SAK [id number]) Hot Pack/Cold Pack Treatment Hot Pack Location herbie lumbosacral spine Patient Position Hooklying Treatment Duration (minutes) 15 Patient Tolerance Good Comments 90/90 postion PT-OP-T Assessment and Plan Start: 05/04/23 16:33 Freq: Status: Active Protocol: Document 05/13/23 12:57 SW (Rec: 05/13/23 14:14 SW [id number]) Physical Therapy Assessment Goals Three Impairment weakness Impairment LE's and core with altered muscle activation Short Term Goal (STG) Patient will be instsructed in HEP for purposes of core and hip strengthening and stabilization STG Duration 06/05/23 Half-Way Goal (LTG) Patient will be independent and compliant with HEP and demonstrate improved strength to at least 4+/5 with improved functional activation of gluteals. Two Impairment gait Impairment antalgic, step-to pattern on stairs Short Term Goal (STG) Patient will be able to walk on level surfaces with minimal to no limp STG Duration 06/05/23 Head Start Assistant Teacher Goal (LTG) Patient will be able to ambulate on stairs with alternating step pattern LTG Duration 07/05/23 One Impairment activity tolerance Impairment Lower extremity functional scale score 32% Short Term Goal (STG) Improve LEFS score to at least 45% as measure of improved functional activity tolerance STG Duration 06/05/23 Half-Way Goal (LTG) Improve LEFS score to at least 60% as measure of improved functional activity tolerance and quality of life. LTG Duration 07/05/23 Assessment Summary Assessment Started gentle core strengthing, challenged with stabilization during ex, improved with cues for smaller ROM to maintain control and eliminate compensation. pt had difficulty with isolation of gluteal activation, improved with tactile cues. Thomas was able to feel the isolation in a standing functional position . Pt has not obtained trekking pole, suggested checking Sor[employer]. Pt brought in exercises from a prior round of PT, unable to review d/t time. Physical Therapy Plan Frequency and Duration Frequency of Treatment 2x/Week Duration of treatment (weeks) 8 Plan of Care Start Date 05/05/23 Plan of Care End Date 07/05/23 Therapeutic Interventions Therapeutic Interventions Home Exercise Program,Manual Therapy,Neuromuscular Re- education,Patient/Caregiver Education,Self-Care/Home Management,Soft Tissue Mobilization,Taping, Therapeutic Activities, Therapeutic Exercises Modalities Cold Pack/Ice Massage,Electric Stimulation,Hot Packs, Ultrasound Next Visit Focus/Plan Next Note Type Treatment Note Next Visit Plan Review HEP, Gentle strengthening and core stab. Work on gait mechanics, gluteal activation. Review bed positioning. Modalities and manual therapy as indicated
--- NOTE | 2023-05-20 14:20 | PT.OTN ---
Current Diagnoses Other chronic pain (05/20/23) Pain in right hip (05/20/23) Difficulty in walking, not elsewhere classified (05/20/23) Weakness (05/20/23) Physical Therapy Treatment Note PT-OP-A Visit Information Start: 05/04/23 16:33 Freq: Status: Active Protocol: Document 05/20/23 12:30 SAK (Rec: 05/20/23 13:16 [facility] [id number]) Out-Patient Physical Therapy Visit Information Visit Information Visit Type Treatment Note Visit Start Time 12:30 Visit Stop Time 13:25 Total Visit Minutes 55 Visit Number 4 Number of GEOSPATIAL DEVELOPER Visits 0 PT-OP-B Current Condition Start: 05/04/23 16:33 Freq: Status: Active Protocol: Document 05/10/23 12:30 SAK (Rec: 05/10/23 13:18 [facility] [id number]) Current Condition History of Current Condition Onset Date 1 year Current Complaints chronic right hip pain History of Current Condition Gradual worsening of right hip pain to the point it is hard to stand and walk. Doesn't use any device for walking. Doing some exercising. Reports right leg short. Sees chiropractor every other week. Prior Treatments and Tests left achilles bone spur removed 1+ year ago Treatment Goals Patient/Caregiver Goals Be able to walk up ramp to house without pain. Able to walk up and down stairs with alternating patter Decrease pain. Current Functional Impairments (Reported) Functional Limitations- ADL's painful Functional Limitations- Mobility/Gait painful Functional Limitations- Work/School unable Functional Limitations- Recreation/ gardens, does puzzles; painful Hobbies gardening Functional Limitations- Other LEFS PT-OP-C Subjective Start: 05/04/23 16:33 Freq: Status: Active Protocol: Document 05/20/23 12:30 SAK (Rec: 05/20/23 13:16 [facility] [id number]) OP-PT Subjective Patient Comments Patient Comments No new c/o, feeling a bit better. Continues to use heating pad. PT-OP-G Mobility & Gait Start: 05/04/23 16:33 Freq: Status: Active Protocol: Document 05/05/23 10:30 SAK (Rec: 05/05/23 11:15 [facility] [id number]) OP Mobility Evaluation Transfers Sit to Stand decreased weight bearing right OP Gait Assessment Gait Gait Assistance Required: Independent Assistive Devices Assistive Device None Gait Deviations General Gait Pattern Antalgic,Decreased Stride Length,Decreased Feet Clearance Factors Limiting Gait Function Factors Limiting Gait Function Decreased Activity Tolerance, Decreased Strength,Limited Range of Motion,Pain,Poor Balance Stair Climbing Evaluation Evaluation Level of Assist On Stairs Independent Technique/Endurance Stair Climbing Technique Step to Step PT-OP-H Neuro Start: 05/04/23 16:33 Freq: Status: Active Protocol: Document 05/05/23 10:30 SAK (Rec: 05/05/23 11:15 [facility] [id number]) Sensation Evaluation Gross Sensation Gross Sensation WNL PT-OP-J Posture/Palpation/Skin Start: 05/04/23 16:33 Freq: Status: Active Protocol: Document 05/05/23 10:30 SAK (Rec: 05/05/23 11:15 [facility] [id number]) Posture Evaluation Position Standing Head/C-Spine Posture Forward Head T-Spine Posture Increased Kyphosis L-Spine Posture Shifted Right Shoulder Posture (L) Rounded,(R) Rounded,(L) Elevated Scapula Posture (L) Protracted,(R) Protracted Arm Posture (L) Internally Rotated,(R) Internally Rotated Ankle/Foot Posture (R) Pronated Foot Arch (L) Low Arch,(R) No Arch Palpation Assessment Location piriformis lef Palpation Findings Soft Tissue Tightness, Tenderness hip Palpation Location gr trochanter herbie Palpation Findings Tenderness PT-OP-K Range of Motion Start: 05/04/23 16:33 Freq: Status: Active Protocol: Document 05/05/23 10:30 SAK (Rec: 05/05/23 11:15 [facility] [id number]) Lumbar Spine Range of Motion Lumbar Spine Active Testing Position Standing Flexion 20 Extension 0 Lateral Flexion Left 20 Lateral Flexion Right 20 PT-OP-M Strength Start: 05/04/23 16:33 Freq: Status: Active Protocol: Document 05/05/23 10:30 SAK (Rec: 05/05/23 11:15 [facility] [id number]) Hip Strength Hip Manual Muscle Testing Right Flexion (L2) 4- Good- Extension (S1) 3- Fair- Abduction 3+ Fair+ Adduction 4- Good- External Rotation 3+ Fair+ Internal Rotation 4- Good- Left Flexion (L2) 3- Fair- Abduction 3+ Fair+ Adduction 4- Good- External Rotation 3+ Fair+ Internal Rotation 4- Good- Knee Strength Knee Manual Muscle Testing Left Flexion (S2) 4 Good Extension (L3) 4 Good Right Flexion (S2) 4 Good Extension (L3) 4 Good Ankle/Foot Strength Ankle and Foot Manual Muscle Testing Left Dorsiflexion (L4) 4 Good Plantarflexion (S1) 4 Good Right Dorsiflexion (L4) 4 Good Plantarflexion (S1) 4 Good PT-OP-Q Treatments Start: 05/04/23 16:33 Freq: Status: Active Protocol: Document 05/20/23 12:30 [facility] (Rec: 05/20/23 13:16 [facility] [id number]) Cardio Equipment Recumbent Stepper (Sci-Fit) Duration (Minutes) 10 Resistance 1-3 Seat Position 7 Other Legs only Gym Equipment Cable Column (Body Solid) hip ad Resistance 40 Reps/Time 2x10 hip ab Resistance 30 Reps/Time 2x10 Shuttle Recovery Unilateral Squats Resistance 37 Shuttle Recovery Platform Stable Reps/Time 10x2 Bilateral Squats Resistance 50 Shuttle Recovery Platform Stable Reps/Time 10x2 Sport Cord fwd Exercise Details walking, wt shift in stride Cord/Resistance green Reps/Duration 10x Comments cues for gluteal activation. Therapeutic Exercises Supine Exercises ball press Equipment Used 55 cm ball Reps/Minutes 10 Core Supine Exercise Name TA activation w/november, leg lowering, BKFO Comments Cues for stabilization Clam- [place] elimated Resistance Isometric Equipment Used Therapist assist glut set Supine Exercise Name alternating push into table Reps/Minutes 10x single leg bridge Reps/Minutes 10x Comments isometric initiation of movement only segmental bridge Reps/Minutes 10x Standing Exercises sidestepping Resistance yellow TB Reps/Minutes 10 ft hip extension Equipment Used bent at waist over table Reps/Minutes 10x wt shift Standing Exercise Name A/P Reps/Minutes 10 x ea LE Comments stride position, stressed gluteal activation Self-Care/Home Management Treatment Education Patient Education Body Mechanics,Home Exercise Program,Pain Management, Posture PT-OP-R Modalities Start: 05/04/23 16:33 Freq: Status: Active Protocol: Document 05/20/23 12:30 [facility] (Rec: 05/20/23 13:16 [facility] [id number]) Hot Pack/Cold Pack Treatment Hot Pack Location herbie lumbosacral spine Patient Position Hooklying Treatment Duration (minutes) 15 Patient Tolerance Good Comments 90/90 postion PT-OP-T Assessment and Plan Start: 05/04/23 16:33 Freq: Status: Active Protocol: Document 05/20/23 12:30 [facility] (Rec: 05/20/23 13:16 [facility] [id number]) Physical Therapy Assessment Goals Three Impairment weakness Impairment LE's and core with altered muscle activation Short Term Goal (STG) Patient will be instsructed in HEP for purposes of core and hip strengthening and stabilization STG Duration 06/05/23 Detention Goal (LTG) Patient will be independent and compliant with HEP and demonstrate improved strength to at least 4+/5 with improved functional activation of gluteals. Two Impairment gait Impairment antalgic, step-to pattern on stairs Short Term Goal (STG) Patient will be able to walk on level surfaces with minimal to no limp STG Duration 06/05/23 Detention Goal (LTG) Patient will be able to ambulate on stairs with alternating step pattern LTG Duration 07/05/23 One Impairment activity tolerance Impairment Lower extremity functional scale score 32% Short Term Goal (STG) Improve LEFS score to at least 45% as measure of improved functional activity tolerance STG Duration 06/05/23 Legal Word Processor Goal (LTG) Improve LEFS score to at least 60% as measure of improved functional activity tolerance and quality of life. LTG Duration 07/05/23 Assessment Summary Assessment Decreasing pain, improved gait and gluteal activation ability. Progressed HEP. Physical Therapy Plan Frequency and Duration Frequency of Treatment 2x/Week Duration of treatment (weeks) 8 Plan of Care Start Date 05/05/23 Plan of Care End Date 07/05/23 Therapeutic Interventions Therapeutic Interventions Home Exercise Program,Manual Therapy,Neuromuscular Re- education,Patient/Caregiver Education,Self-Care/Home Management,Soft Tissue Mobilization,Taping, Therapeutic Activities, Therapeutic Exercises Modalities Cold Pack/Ice Massage,Electric Stimulation,Hot Packs, Ultrasound Next Visit Focus/Plan Next Note Type Treatment Note Next Visit Plan Review HEP, Gentle strengthening and core stab. Work on gait mechanics, gluteal activation. Review bed positioning. Modalities and manual therapy as indicated
--- NOTE | 2023-05-24 11:15 | PT.OTN ---
Current Diagnoses Other chronic pain (05/24/23) Pain in right hip (05/24/23) Difficulty in walking, not elsewhere classified (05/24/23) Weakness (05/24/23) Physical Therapy Treatment Note PT-OP-A Visit Information Start: 05/04/23 16:33 Freq: Status: Active Protocol: Document 05/24/23 10:33 SAK (Rec: 05/24/23 11:15 [facility] [id number]) Out-Patient Physical Therapy Visit Information Visit Information Visit Type Treatment Note Visit Start Time 10:33 Visit Stop Time 11:26 Total Visit Minutes 53 Visit Number 5 Number of TEACHER PRIVATE Visits 0 PT-OP-B Current Condition Start: 05/04/23 16:33 Freq: Status: Active Protocol: Document 05/10/23 12:30 SAK (Rec: 05/10/23 13:18 [facility] [id number]) Current Condition History of Current Condition Onset Date 1 year Current Complaints chronic right hip pain History of Current Condition Gradual worsening of right hip pain to the point it is hard to stand and walk. Doesn't use any device for walking. Doing some exercising. Reports right leg short. Sees chiropractor every other week. Prior Treatments and Tests left achilles bone spur removed 1+ year ago Treatment Goals Patient/Caregiver Goals Be able to walk up ramp to house without pain. Able to walk up and down stairs with alternating patter Decrease pain. Current Functional Impairments (Reported) Functional Limitations- ADL's painful Functional Limitations- Mobility/Gait painful Functional Limitations- Work/School unable Functional Limitations- Recreation/ gardens, does puzzles; painful Hobbies gardening Functional Limitations- Other LEFS PT-OP-C Subjective Start: 05/04/23 16:33 Freq: Status: Active Protocol: Document 05/24/23 10:33 SAK (Rec: 05/24/23 11:15 [facility] [id number]) OP-PT Subjective Patient Comments Patient Comments No new c/o PT-OP-G Mobility & Gait Start: 05/04/23 16:33 Freq: Status: Active Protocol: Document 05/05/23 10:30 SAK (Rec: 05/05/23 11:15 [facility] [id number]) OP Mobility Evaluation Transfers Sit to Stand decreased weight bearing right OP Gait Assessment Gait Gait Assistance Required: Independent Assistive Devices Assistive Device None Gait Deviations General Gait Pattern Antalgic,Decreased Stride Length,Decreased Feet Clearance Factors Limiting Gait Function Factors Limiting Gait Function Decreased Activity Tolerance, Decreased Strength,Limited Range of Motion,Pain,Poor Balance Stair Climbing Evaluation Evaluation Level of Assist On Stairs Independent Technique/Endurance Stair Climbing Technique Step to Step PT-OP-H Neuro Start: 05/04/23 16:33 Freq: Status: Active Protocol: Document 05/05/23 10:30 [facility] (Rec: 05/05/23 11:15 [facility] [id number]) Sensation Evaluation Gross Sensation Gross Sensation WNL PT-OP-J Posture/Palpation/Skin Start: 05/04/23 16:33 Freq: Status: Active Protocol: Document 05/05/23 10:30 SAK (Rec: 05/05/23 11:15 [facility] [id number]) Posture Evaluation Position Standing Head/C-Spine Posture Forward Head T-Spine Posture Increased Kyphosis L-Spine Posture Shifted Right Shoulder Posture (L) Rounded,(R) Rounded,(L) Elevated Scapula Posture (L) Protracted,(R) Protracted Arm Posture (L) Internally Rotated,(R) Internally Rotated Ankle/Foot Posture (R) Pronated Foot Arch (L) Low Arch,(R) No Arch Palpation Assessment Location piriformis lef Palpation Findings Soft Tissue Tightness, Tenderness hip Palpation Location gr trochanter herbie Palpation Findings Tenderness PT-OP-K Range of Motion Start: 05/04/23 16:33 Freq: Status: Active Protocol: Document 05/05/23 10:30 [facility] (Rec: 05/05/23 11:15 [facility] [id number]) Lumbar Spine Range of Motion Lumbar Spine Active Testing Position Standing Flexion 20 Extension 0 Lateral Flexion Left 20 Lateral Flexion Right 20 PT-OP-M Strength Start: 05/04/23 16:33 Freq: Status: Active Protocol: Document 05/05/23 10:30 [facility] (Rec: 05/05/23 11:15 [facility] [id number]) Hip Strength Hip Manual Muscle Testing Right Flexion (L2) 4- Good- Extension (S1) 3- Fair- Abduction 3+ Fair+ Adduction 4- Good- External Rotation 3+ Fair+ Internal Rotation 4- Good- Left Flexion (L2) 3- Fair- Abduction 3+ Fair+ Adduction 4- Good- External Rotation 3+ Fair+ Internal Rotation 4- Good- Knee Strength Knee Manual Muscle Testing Left Flexion (S2) 4 Good Extension (L3) 4 Good Right Flexion (S2) 4 Good Extension (L3) 4 Good Ankle/Foot Strength Ankle and Foot Manual Muscle Testing Left Dorsiflexion (L4) 4 Good Plantarflexion (S1) 4 Good Right Dorsiflexion (L4) 4 Good Plantarflexion (S1) 4 Good PT-OP-Q Treatments Start: 05/04/23 16:33 Freq: Status: Active Protocol: Document 05/24/23 10:33 [facility] (Rec: 05/24/23 11:15 [facility] [id number]) Cardio Equipment Recumbent Stepper (Sci-Fit) Duration (Minutes) 10 Resistance 1-3 Seat Position 7 Other Legs only Gym Equipment Cable Column (Body Solid) Hamstring curl Resistance 30, 40 Reps/Time 10x2 hip ad Resistance 40 Reps/Time 2x10 hip ab Resistance 30 Reps/Time 2x10 Shuttle Recovery Unilateral Squats Resistance 37 Shuttle Recovery Platform Stable Reps/Time 10x2 Bilateral Squats Resistance 62 Shuttle Recovery Platform Stable Reps/Time 10x2 Sport Cord fwd Exercise Details walking, wt shift in stride Cord/Resistance green Reps/Duration 10x Comments cues for gluteal activation. Therapeutic Exercises Sitting Exercises table press, table pull Reps/Minutes 10x ea Standing Exercises sidestepping Resistance yellow TB Reps/Minutes 10 ft hip extension Equipment Used bent at waist over table Reps/Minutes 10x wt shift Standing Exercise Name A/P Reps/Minutes 10 x ea LE Comments stride position, stressed gluteal activation Self-Care/Home Management Treatment Education Patient Education Body Mechanics,Home Exercise Program,Pain Management, Posture PT-OP-R Modalities Start: 05/04/23 16:33 Freq: Status: Active Protocol: Document 05/24/23 10:33 [facility] (Rec: 05/24/23 11:15 [facility] [id number]) Hot Pack/Cold Pack Treatment Hot Pack Location herbie lumbosacral spine Patient Position Hooklying Treatment Duration (minutes) 15 Patient Tolerance Good Comments 90/90 postion PT-OP-T Assessment and Plan Start: 05/04/23 16:33 Freq: Status: Active Protocol: Document 05/24/23 10:33 [facility] (Rec: 05/24/23 11:15 [facility] [id number]) Physical Therapy Assessment Goals Three Impairment weakness Impairment LE's and core with altered muscle activation Short Term Goal (STG) Patient will be instsructed in HEP for purposes of core and hip strengthening and stabilization STG Duration 06/05/23 Mcc Goal (LTG) Patient will be independent and compliant with HEP and demonstrate improved strength to at least 4+/5 with improved functional activation of gluteals. Two Impairment gait Impairment antalgic, step-to pattern on stairs Short Term Goal (STG) Patient will be able to walk on level surfaces with minimal to no limp STG Duration 06/05/23 Mcc Goal (LTG) Patient will be able to ambulate on stairs with alternating step pattern LTG Duration 07/05/23 One Impairment activity tolerance Impairment Lower extremity functional scale score 32% Short Term Goal (STG) Improve LEFS score to at least 45% as measure of improved functional activity tolerance STG Duration 06/05/23 Private Duty Rn Goal (LTG) Improve LEFS score to at least 60% as measure of improved functional activity tolerance and quality of life. LTG Duration 07/05/23 Assessment Summary Assessment Good tolerance for progression of ther ex for LE strengthening. Physical Therapy Plan Frequency and Duration Frequency of Treatment 2x/Week Duration of treatment (weeks) 8 Plan of Care Start Date 05/05/23 Plan of Care End Date 07/05/23 Therapeutic Interventions Therapeutic Interventions Home Exercise Program,Manual Therapy,Neuromuscular Re- education,Patient/Caregiver Education,Self-Care/Home Management,Soft Tissue Mobilization,Taping, Therapeutic Activities, Therapeutic Exercises Modalities Cold Pack/Ice Massage,Electric Stimulation,Hot Packs, Ultrasound Next Visit Focus/Plan Next Note Type Treatment Note Next Visit Plan Continue PT POC emphasis on LE strengthening, core strengthening and stab
--- NOTE | 2023-05-26 12:24 | PT.OTN ---
Current Diagnoses Other chronic pain (05/26/23) Pain in right hip (05/26/23) Difficulty in walking, not elsewhere classified (05/26/23) Weakness (05/26/23) Physical Therapy Treatment Note PT-OP-A Visit Information Start: 05/04/23 16:33 Freq: Status: Active Protocol: Document 05/26/23 11:29 (Rec: 05/26/23 12:23 [id number]) Out-Patient Physical Therapy Visit Information Visit Information Visit Type Treatment Note Visit Start Time 11:30 Visit Stop Time 12:23 Total Visit Minutes 53 Visit Number 6 Number of MOTOR COACH SUPERVISOR Visits 1 PT-OP-B Current Condition Start: 05/04/23 16:33 Freq: Status: Active Protocol: Document 05/10/23 12:30 SAK (Rec: 05/10/23 13:18 SAK [id number]) Current Condition History of Current Condition Onset Date 1 year Current Complaints chronic right hip pain History of Current Condition Gradual worsening of right hip pain to the point it is hard to stand and walk. Doesn't use any device for walking. Doing some exercising. Reports right leg short. Sees chiropractor every other week. Prior Treatments and Tests left achilles bone spur removed 1+ year ago Treatment Goals Patient/Caregiver Goals Be able to walk up ramp to house without pain. Able to walk up and down stairs with alternating patter Decrease pain. Current Functional Impairments (Reported) Functional Limitations- ADL's painful Functional Limitations- Mobility/Gait painful Functional Limitations- Work/School unable Functional Limitations- Recreation/ gardens, does puzzles; painful Hobbies gardening Functional Limitations- Other LEFS PT-OP-C Subjective Start: 05/04/23 16:33 Freq: Status: Active Protocol: Document 05/26/23 11:29 (Rec: 05/26/23 12:23 [id number]) OP-PT Subjective Patient Comments Patient Comments Pt reports she has been feeling fine, no new c/o. PT-OP-G Mobility & Gait Start: 05/04/23 16:33 Freq: Status: Active Protocol: Document 05/05/23 10:30 SAK (Rec: 05/05/23 11:15 SAK [id number]) OP Mobility Evaluation Transfers Sit to Stand decreased weight bearing right OP Gait Assessment Gait Gait Assistance Required: Independent Assistive Devices Assistive Device None Gait Deviations General Gait Pattern Antalgic,Decreased Stride Length,Decreased Feet Clearance Factors Limiting Gait Function Factors Limiting Gait Function Decreased Activity Tolerance, Decreased Strength,Limited Range of Motion,Pain,Poor Balance Stair Climbing Evaluation Evaluation Level of Assist On Stairs Independent Technique/Endurance Stair Climbing Technique Step to Step PT-OP-H Neuro Start: 05/04/23 16:33 Freq: Status: Active Protocol: Document 05/05/23 10:30 SAK (Rec: 05/05/23 11:15 [facility] [id number]) Sensation Evaluation Gross Sensation Gross Sensation WNL PT-OP-J Posture/Palpation/Skin Start: 05/04/23 16:33 Freq: Status: Active Protocol: Document 05/05/23 10:30 SAK (Rec: 05/05/23 11:15 [facility] [id number]) Posture Evaluation Position Standing Head/C-Spine Posture Forward Head T-Spine Posture Increased Kyphosis L-Spine Posture Shifted Right Shoulder Posture (L) Rounded,(R) Rounded,(L) Elevated Scapula Posture (L) Protracted,(R) Protracted Arm Posture (L) Internally Rotated,(R) Internally Rotated Ankle/Foot Posture (R) Pronated Foot Arch (L) Low Arch,(R) No Arch Palpation Assessment Location piriformis lef Palpation Findings Soft Tissue Tightness, Tenderness hip Palpation Location gr trochanter herbie Palpation Findings Tenderness PT-OP-K Range of Motion Start: 05/04/23 16:33 Freq: Status: Active Protocol: Document 05/05/23 10:30 SAK (Rec: 05/05/23 11:15 [facility] [id number]) Lumbar Spine Range of Motion Lumbar Spine Active Testing Position Standing Flexion 20 Extension 0 Lateral Flexion Left 20 Lateral Flexion Right 20 PT-OP-M Strength Start: 05/04/23 16:33 Freq: Status: Active Protocol: Document 05/05/23 10:30 SAK (Rec: 05/05/23 11:15 [facility] [id number]) Hip Strength Hip Manual Muscle Testing Right Flexion (L2) 4- Good- Extension (S1) 3- Fair- Abduction 3+ Fair+ Adduction 4- Good- External Rotation 3+ Fair+ Internal Rotation 4- Good- Left Flexion (L2) 3- Fair- Abduction 3+ Fair+ Adduction 4- Good- External Rotation 3+ Fair+ Internal Rotation 4- Good- Knee Strength Knee Manual Muscle Testing Left Flexion (S2) 4 Good Extension (L3) 4 Good Right Flexion (S2) 4 Good Extension (L3) 4 Good Ankle/Foot Strength Ankle and Foot Manual Muscle Testing Left Dorsiflexion (L4) 4 Good Plantarflexion (S1) 4 Good Right Dorsiflexion (L4) 4 Good Plantarflexion (S1) 4 Good PT-OP-Q Treatments Start: 05/04/23 16:33 Freq: Status: Active Protocol: Document 05/26/23 11:29 SW (Rec: 05/26/23 12:23 [id number]) Cardio Equipment Recumbent Stepper (Sci-Fit) Duration (Minutes) 10 Resistance 1-3 Seat Position 7 Other Legs only Gym Equipment Cable Column (Body Solid) LE ext Resistance 20 Reps/Time 2x 15 Hamstring curl Resistance 20 Reps/Time 3x10 hip ad Resistance 30 Reps/Time 3x10 hip ab Resistance 20 Reps/Time 3x10 Shuttle Recovery Unilateral Squats Resistance 37 Shuttle Recovery Platform Stable Reps/Time 10x2 Bilateral Squats Resistance 62 Shuttle Recovery Platform Stable Reps/Time 10x2 Sport Cord fwd Exercise Details walking, wt shift in stride Cord/Resistance green Reps/Duration 10x Comments cues for gluteal activation. Therapeutic Exercises Standing Exercises sidestepping Resistance yellow TB Reps/Minutes 10 ft hip extension Equipment Used bent at waist over table Reps/Minutes 10x wt shift Standing Exercise Name A/P Reps/Minutes 10 x ea LE Comments stride position, stressed gluteal activation PT-OP-R Modalities Start: 05/04/23 16:33 Freq: Status: Active Protocol: Document 05/26/23 11:29 (Rec: 05/26/23 12:23 [id number]) Hot Pack/Cold Pack Treatment Hot Pack Location herbie lumbosacral spine Patient Position Hooklying Treatment Duration (minutes) 10 Patient Tolerance Good Comments 90/90 postion, stroud within reach PT-OP-T Assessment and Plan Start: 05/04/23 16:33 Freq: Status: Active Protocol: Document 05/26/23 11:29 SW (Rec: 05/26/23 12:23 [id number]) Physical Therapy Assessment Goals Three Impairment weakness Impairment LE's and core with altered muscle activation Short Term Goal (STG) Patient will be instsructed in HEP for purposes of core and hip strengthening and stabilization STG Duration 06/05/23 Mcfp Goal (LTG) Patient will be independent and compliant with HEP and demonstrate improved strength to at least 4+/5 with improved functional activation of gluteals. Two Impairment gait Impairment antalgic, step-to pattern on stairs Short Term Goal (STG) Patient will be able to walk on level surfaces with minimal to no limp STG Duration 06/05/23 Advanced Quality Engineer Goal (LTG) Patient will be able to ambulate on stairs with alternating step pattern LTG Duration 07/05/23 One Impairment activity tolerance Impairment Lower extremity functional scale score 32% Short Term Goal (STG) Improve LEFS score to at least 45% as measure of improved functional activity tolerance STG Duration 06/05/23 Advanced Quality Engineer Goal (LTG) Improve LEFS score to at least 60% as measure of improved functional activity tolerance and quality of life. LTG Duration 07/05/23 Assessment Summary Assessment Continued LE strengthening this session, tolerated well but quicker to mm fatigue this date during strengthening exercises. Verbal/ tactile cueing required for glute activation and engagement of core during LE strengthing exercises today. Physical Therapy Plan Frequency and Duration Frequency of Treatment 2x/Week Duration of treatment (weeks) 8 Plan of Care Start Date 05/05/23 Plan of Care End Date 07/05/23 Therapeutic Interventions Therapeutic Interventions Home Exercise Program,Manual Therapy,Neuromuscular Re- education,Patient/Caregiver Education,Self-Care/Home Management,Soft Tissue Mobilization,Taping, Therapeutic Activities, Therapeutic Exercises Modalities Cold Pack/Ice Massage,Electric Stimulation,Hot Packs, Ultrasound Next Visit Focus/Plan Next Note Type Treatment Note Next Visit Plan Continue PT POC emphasis on LE strengthening, core strengthening and stab
--- NOTE | 2023-06-02 16:22 | PT.OTN ---
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 Doesn't use any device for walking. Doing some exercising. Reports right leg short. Sees chiropractor every other week. Prior Treatments and Tests left achilles bone spur removed 1+ year ago Treatment Goals Patient/Caregiver Goals Be able to walk up ramp to house without pain. Able to walk up and down stairs with alternating patter Decrease pain. Current Functional Impairments (Reported) Functional Limitations- ADL's painful Functional Limitations- Mobility/Gait painful Functional Limitations- Work/School unable Functional Limitations- Recreation/ gardens, does puzzles; painful Hobbies gardening Functional Limitations- Other LEFS PT-OP-C Subjective Start: 05/04/23 16:33 Freq: Status: Active Protocol: Document 06/02/23 12:54 (Rec: 06/02/23 13:46 [id number]) OP-PT Subjective Patient Comments Patient Comments Pt reports it is all about the same. Continuing to do work in her garden, bending down seems to be the most painful. PT-OP-G Mobility & Gait Start: 05/04/23 16:33 Freq: Status: Active Protocol: Document 05/05/23 10:30 SAK (Rec: 05/05/23 11:15 SAK [id number]) OP Mobility Evaluation Transfers Sit to Stand decreased weight bearing right OP Gait Assessment Gait Gait Assistance Required: Independent Assistive Devices Assistive Device None Gait Deviations General Gait Pattern Antalgic,Decreased Stride Length,Decreased Feet Clearance Factors Limiting Gait Function Factors Limiting Gait Function Decreased Activity Tolerance, Decreased Strength,Limited Range of Motion,Pain,Poor Balance Stair Climbing Evaluation Evaluation Level of Assist On Stairs Independent Technique/Endurance Stair Climbing Technique Step to Step PT-OP-H Neuro Start: 05/04/23 16:33 Freq: Status: Active Protocol: Document 05/05/23 10:30 [facility] (Rec: 05/05/23 11:15 [facility] [id number]) Sensation Evaluation Gross Sensation Gross Sensation WNL PT-OP-J Posture/Palpation/Skin Start: 05/04/23 16:33 Freq: Status: Active Protocol: Document 05/05/23 10:30 [facility] (Rec: 05/05/23 11:15 [facility] [id number]) Posture Evaluation Position Standing Head/C-Spine Posture Forward Head T-Spine Posture Increased Kyphosis L-Spine Posture Shifted Right Shoulder Posture (L) Rounded,(R) Rounded,(L) Elevated Scapula Posture (L) Protracted,(R) Protracted Arm Posture (L) Internally Rotated,(R) Internally Rotated Ankle/Foot Posture (R) Pronated Foot Arch (L) Low Arch,(R) No Arch Palpation Assessment Location piriformis lef Palpation Findings Soft Tissue Tightness, Tenderness hip Palpation Location gr trochanter herbie Palpation Findings Tenderness PT-OP-K Range of Motion Start: 05/04/23 16:33 Freq: Status: Active Protocol: Document 05/05/23 10:30 [facility] (Rec: 05/05/23 11:15 [facility] [id number]) Lumbar Spine Range of Motion Lumbar Spine Active Testing Position Standing Flexion 20 Extension 0 Lateral Flexion Left 20 Lateral Flexion Right 20 PT-OP-M Strength Start: 05/04/23 16:33 Freq: Status: Active Protocol: Document 05/05/23 10:30 [facility] (Rec: 05/05/23 11:15 [facility] [id number]) Hip Strength Hip Manual Muscle Testing Right Flexion (L2) 4- Good- Extension (S1) 3- Fair- Abduction 3+ Fair+ Adduction 4- Good- External Rotation 3+ Fair+ Internal Rotation 4- Good- Left Flexion (L2) 3- Fair- Abduction 3+ Fair+ Adduction 4- Good- External Rotation 3+ Fair+ Internal Rotation 4- Good- Knee Strength Knee Manual Muscle Testing Left Flexion (S2) 4 Good Extension (L3) 4 Good Right Flexion (S2) 4 Good Extension (L3) 4 Good Ankle/Foot Strength Ankle and Foot Manual Muscle Testing Left Dorsiflexion (L4) 4 Good Plantarflexion (S1) 4 Good Right Dorsiflexion (L4) 4 Good Plantarflexion (S1) 4 Good PT-OP-Q Treatments Start: 05/04/23 16:33 Freq: Status: Active Protocol: Document 06/02/23 12:54 SW (Rec: 06/02/23 13:46 [id number]) Cardio Equipment Recumbent Stepper (Sci-Fit) Duration (Minutes) 10 Resistance 2>3 Seat Position 7 Other Legs only Gym Equipment Shuttle Recovery Unilateral Squats Resistance 37 (new) Shuttle Recovery Platform Stable Reps/Time 10x2 Bilateral Squats Resistance 75 (3 new) Shuttle Recovery Platform Stable Reps/Time 2x10 Shuttle Balance Red Details Fwd/side to side Comments Core/hip stabilization Sport Cord fwd Exercise Details walking, wt shift in stride Cord/Resistance green Reps/Duration 10x Comments cues for gluteal activation. forward, backward, side Cord/Resistance green Reps/Duration 5x ea Comments cue for gluteal activation and core stabilization Therapeutic Exercises Supine Exercises Alternating LE/UE Supine Exercise Name Deadbug Side bilateral Reps/Minutes x5 SLR Side bilateral Reps/Minutes 2 x 10 Comments Cues for core stabilization Core Supine Exercise Name TA activation w/march, leg lowering, BKFO Resistance Plank Comments Cues for stabilization segmental bridge Reps/Minutes 10x Sitting Exercises table press, table pull Reps/Minutes 10x ea Standing Exercises wt shift Standing Exercise Name A/P Reps/Minutes 10 x ea LE Comments stride position, stressed gluteal activation PT-OP-R Modalities Start: 05/04/23 16:33 Freq: Status: Active Protocol: Document 06/02/23 12:54 SW (Rec: 06/02/23 13:46 [id number]) Hot Pack/Cold Pack Treatment Hot Pack Location herbie lumbosacral spine Patient Position Hooklying Treatment Duration (minutes) 10 Patient Tolerance Good Comments 90/90 postion, stroud within reach PT-OP-T Assessment and Plan Start: 05/04/23 16:33 Freq: Status: Active Protocol: Document 06/02/23 12:54 SW (Rec: 06/02/23 13:46 [id number]) Physical Therapy Assessment Goals Three Impairment weakness Impairment LE's and core with altered muscle activation Short Term Goal (STG) Patient will be instsructed in HEP for purposes of core and hip strengthening and stabilization STG Duration 06/05/23 [facility] Goal (LTG) Patient will be independent and compliant with HEP and demonstrate improved strength to at least 4+/5 with improved functional activation of gluteals. Two Impairment gait Impairment antalgic, step-to pattern on stairs Short Term Goal (STG) Patient will be able to walk on level surfaces with minimal to no limp STG Duration 06/05/23 Scenario Writer Goal (LTG) Patient will be able to ambulate on stairs with alternating step pattern LTG Duration 07/05/23 One Impairment activity tolerance Impairment Lower extremity functional scale score 32% Short Term Goal (STG) Improve LEFS score to at least 45% as measure of improved functional activity tolerance STG Duration 06/05/23 [facility] Goal (LTG) Improve LEFS score to at least 60% as measure of improved functional activity tolerance and quality of life. LTG Duration 07/05/23 Assessment Summary Assessment Progressed weight with LE strengthening ex this date. Pt continues to be challenged with gluteal activation requiring frequent verbal/ tactile cues, may benefit from continued focus on strengthening. Physical Therapy Plan Frequency and Duration Frequency of Treatment 2x/Week Duration of treatment (weeks) 8 Plan of Care Start Date 05/05/23 Plan of Care End Date 07/05/23 Therapeutic Interventions Therapeutic Interventions Home Exercise Program,Manual Therapy,Neuromuscular Re- education,Patient/Caregiver Education,Self-Care/Home Management,Soft Tissue Mobilization,Taping, Therapeutic Activities, Therapeutic Exercises Modalities Cold Pack/Ice Massage,Electric Stimulation,Hot Packs, Ultrasound Next Visit Focus/Plan Next Note Type Treatment Note Next Visit Plan Continue PT POC emphasis on LE strengthening, core strengthening and stab
--- NOTE | 2023-06-09 14:00 | PT.OTN ---
Current Diagnoses Other chronic pain (06/08/23) Pain in right hip (06/08/23) Difficulty in walking, not elsewhere classified (06/08/23) Weakness (06/08/23) Physical Therapy Treatment Note PT-OP-A Visit Information Start: 05/04/23 16:33 Freq: Status: Active Protocol: Document 06/08/23 08:05 SAK (Rec: 06/09/23 08:47 SAK [id number]) Out-Patient Physical Therapy Visit Information Visit Information Visit Type Treatment Note Visit Start Time 08:45 Visit Stop Time 09:40 Total Visit Minutes 55 Visit Number 8 PT-OP-B Current Condition Start: 05/04/23 16:33 Freq: Status: Active Protocol: Document 05/10/23 12:30 SAK (Rec: 05/10/23 13:18 SAK [id number]) Current Condition History of Current Condition Onset Date 1 year Current Complaints chronic right hip pain History of Current Condition Gradual worsening of right hip pain to the point it is hard to stand and walk. Doesn't use any device for walking. Doing some exercising. Reports right leg short. Sees chiropractor every other week. Prior Treatments and Tests left achilles bone spur removed 1+ year ago Treatment Goals Patient/Caregiver Goals Be able to walk up ramp to house without pain. Able to walk up and down stairs with alternating patter Decrease pain. Current Functional Impairments (Reported) Functional Limitations- ADL's painful Functional Limitations- Mobility/Gait painful Functional Limitations- Work/School unable Functional Limitations- Recreation/ gardens, does puzzles; painful Hobbies gardening Functional Limitations- Other LEFS PT-OP-C Subjective Start: 05/04/23 16:33 Freq: Status: Active Protocol: Document 06/02/23 12:54 SW (Rec: 06/02/23 13:46 SW [id number]) OP-PT Subjective Patient Comments Patient Comments Pt reports it is all about the same. Continuing to do work in her garden, bending down seems to be the most painful. PT-OP-G Mobility & Gait Start: 05/04/23 16:33 Freq: Status: Active Protocol: Document 05/05/23 10:30 SAK (Rec: 05/05/23 11:15 SAK [id number]) OP Mobility Evaluation Transfers Sit to Stand decreased weight bearing right OP Gait Assessment Gait Gait Assistance Required: Independent Assistive Devices Assistive Device None Gait Deviations General Gait Pattern Antalgic,Decreased Stride Length,Decreased Feet Clearance Factors Limiting Gait Function Factors Limiting Gait Function Decreased Activity Tolerance, Decreased Strength,Limited Range of Motion,Pain,Poor Balance Stair Climbing Evaluation Evaluation Level of Assist On Stairs Independent Technique/Endurance Stair Climbing Technique Step to Step PT-OP-H Neuro Start: 05/04/23 16:33 Freq: Status: Active Protocol: Document 05/05/23 10:30 [facility] (Rec: 05/05/23 11:15 [facility] [id number]) Sensation Evaluation Gross Sensation Gross Sensation WNL PT-OP-J Posture/Palpation/Skin Start: 05/04/23 16:33 Freq: Status: Active Protocol: Document 05/05/23 10:30 SAK (Rec: 05/05/23 11:15 [facility] [id number]) Posture Evaluation Position Standing Head/C-Spine Posture Forward Head T-Spine Posture Increased Kyphosis L-Spine Posture Shifted Right Shoulder Posture (L) Rounded,(R) Rounded,(L) Elevated Scapula Posture (L) Protracted,(R) Protracted Arm Posture (L) Internally Rotated,(R) Internally Rotated Ankle/Foot Posture (R) Pronated Foot Arch (L) Low Arch,(R) No Arch Palpation Assessment Location piriformis lef Palpation Findings Soft Tissue Tightness, Tenderness hip Palpation Location gr trochanter herbie Palpation Findings Tenderness PT-OP-K Range of Motion Start: 05/04/23 16:33 Freq: Status: Active Protocol: Document 05/05/23 10:30 [facility] (Rec: 05/05/23 11:15 [facility] [id number]) Lumbar Spine Range of Motion Lumbar Spine Active Testing Position Standing Flexion 20 Extension 0 Lateral Flexion Left 20 Lateral Flexion Right 20 PT-OP-M Strength Start: 05/04/23 16:33 Freq: Status: Active Protocol: Document 05/05/23 10:30 SAK (Rec: 05/05/23 11:15 [facility] [id number]) Hip Strength Hip Manual Muscle Testing Right Flexion (L2) 4- Good- Extension (S1) 3- Fair- Abduction 3+ Fair+ Adduction 4- Good- External Rotation 3+ Fair+ Internal Rotation 4- Good- Left Flexion (L2) 3- Fair- Abduction 3+ Fair+ Adduction 4- Good- External Rotation 3+ Fair+ Internal Rotation 4- Good- Knee Strength Knee Manual Muscle Testing Left Flexion (S2) 4 Good Extension (L3) 4 Good Right Flexion (S2) 4 Good Extension (L3) 4 Good Ankle/Foot Strength Ankle and Foot Manual Muscle Testing Left Dorsiflexion (L4) 4 Good Plantarflexion (S1) 4 Good Right Dorsiflexion (L4) 4 Good Plantarflexion (S1) 4 Good PT-OP-Q Treatments Start: 05/04/23 16:33 Freq: Status: Active Protocol: Document 06/08/23 08:05 [facility] (Rec: 06/09/23 13:57 [facility] [id number]) Cardio Equipment Recumbent Stepper (Sci-Fit) Duration (Minutes) 10 Resistance 3 Seat Position 7 Other Legs only Therapeutic Exercises Supine Exercises over head stretch Supine Exercise Name herbie and unil right Reps/Minutes 2x30 Comments cues fo reaching right UE up, right LE down, lengthening spine figure 4 Comments Next session HS stretch Side bilateral Reps/Minutes 2x30 SKTC Side bilateral Reps/Minutes 2x30 Comments manual assist, towel Eliezer stretch Side bilateral Reps/Minutes 2x30 Prone Exercises prone hip ext Equipment Used table Reps/Minutes 10x ea Comments prone on table legs over edge, opp foot on floor Manual Therapy Treatment Soft Tissue Mobilization psoas Body Location right Mobilization Type Sustained Pressure Intensity/Depth Moderate Body Position Hooklying Joint Mobilizations right hip Direction long axis dist, lat distraction, MWM inf glide with flex Grade III Body Position Supine PT-OP-R Modalities Start: 05/04/23 16:33 Freq: Status: Active Protocol: Document 06/08/23 08:05 [facility] (Rec: 06/09/23 13:57 [facility] [id number]) Hot Pack/Cold Pack Treatment Hot Pack Location herbie lumbosacral spine, ant/lat right hip Patient Position Hooklying Treatment Duration (minutes) 10 Patient Tolerance Good Comments 90/90 postion, stroud within reach PT-OP-T Assessment and Plan Start: 05/04/23 16:33 Freq: Status: Active Protocol: Document 06/08/23 08:05 [facility] (Rec: 06/09/23 08:47 [facility] [id number]) Physical Therapy Assessment Goals Three Impairment weakness Impairment LE's and core with altered muscle activation Short Term Goal (STG) Patient will be instsructed in HEP for purposes of core and hip strengthening and stabilization STG Duration 06/05/23 Shot Blaster Goal (LTG) Patient will be independent and compliant with HEP and demonstrate improved strength to at least 4+/5 with improved functional activation of gluteals. Two Impairment gait Impairment antalgic, step-to pattern on stairs Short Term Goal (STG) Patient will be able to walk on level surfaces with minimal to no limp STG Duration 06/05/23 Shot Blaster Goal (LTG) Patient will be able to ambulate on stairs with alternating step pattern LTG Duration 07/05/23 One Impairment activity tolerance Impairment Lower extremity functional scale score 32% Short Term Goal (STG) Improve LEFS score to at least 45% as measure of improved functional activity tolerance STG Duration 06/05/23 Shelter Goal (LTG) Improve LEFS score to at least 60% as measure of improved functional activity tolerance and quality of life. LTG Duration 07/05/23 Assessment Summary Assessment Emphasis on lengthening of right side due to sidebending dysfunction. Right leg apears shorter, some improvement in symmetry after left hip stretch, worsened after right hip stretch. Fair HEP compliance but over does bending and lifting activities without correct core support. Physical Therapy Plan Frequency and Duration Frequency of Treatment 2x/Week Duration of treatment (weeks) 8 Plan of Care Start Date 05/05/23 Plan of Care End Date 07/05/23 Therapeutic Interventions Therapeutic Interventions Home Exercise Program,Manual Therapy,Neuromuscular Re- education,Patient/Caregiver Education,Self-Care/Home Management,Soft Tissue Mobilization,Taping, Therapeutic Activities, Therapeutic Exercises Modalities Cold Pack/Ice Massage,Electric Stimulation,Hot Packs, Ultrasound Next Visit Focus/Plan Next Note Type Treatment Note Next Visit Plan Continue PT POC emphasis on LE strengthening, core strengthening and stab
--- NOTE | 2023-06-10 16:26 | PT.OTN ---
Current Diagnoses Other chronic pain (06/10/23) Pain in right hip (06/10/23) Difficulty in walking, not elsewhere classified (06/10/23) Weakness (06/10/23) Physical Therapy Treatment Note PT-OP-A Visit Information Start: 05/04/23 16:33 Freq: Status: Active Protocol: Document 06/10/23 13:00 SW (Rec: 06/10/23 13:47 [id number]) Out-Patient Physical Therapy Visit Information Visit Information Visit Type Treatment Note Visit Start Time 01:00 Visit Stop Time 13:45 Total Visit Minutes 45 PT-OP-B Current Condition Start: 05/04/23 16:33 Freq: Status: Active Protocol: Document 05/10/23 12:30 SAK (Rec: 05/10/23 13:18 SAK [id number]) Current Condition History of Current Condition Onset Date 1 year Current Complaints chronic right hip pain History of Current Condition Gradual worsening of right hip pain to the point it is hard to stand and walk. Doesn't use any device for walking. Doing some exercising. Reports right leg short. Sees chiropractor every other week. Prior Treatments and Tests left achilles bone spur removed 1+ year ago Treatment Goals Patient/Caregiver Goals Be able to walk up ramp to house without pain. Able to walk up and down stairs with alternating patter Decrease pain. Current Functional Impairments (Reported) Functional Limitations- ADL's painful Functional Limitations- Mobility/Gait painful Functional Limitations- Work/School unable Functional Limitations- Recreation/ gardens, does puzzles; painful Hobbies gardening Functional Limitations- Other LEFS PT-OP-C Subjective Start: 05/04/23 16:33 Freq: Status: Active Protocol: Document 06/10/23 13:00 (Rec: 06/10/23 13:47 [id number]) OP-PT Subjective Patient Comments Patient Comments Pt reports things are getting better, back doesn't get the instant hurt and the grabbing in the hip like before. PT-OP-G Mobility & Gait Start: 05/04/23 16:33 Freq: Status: Active Protocol: Document 05/05/23 10:30 SAK (Rec: 05/05/23 11:15 SAK [id number]) OP Mobility Evaluation Transfers Sit to Stand decreased weight bearing right OP Gait Assessment Gait Gait Assistance Required: Independent Assistive Devices Assistive Device None Gait Deviations General Gait Pattern Antalgic,Decreased Stride Length,Decreased Feet Clearance Factors Limiting Gait Function Factors Limiting Gait Function Decreased Activity Tolerance, Decreased Strength,Limited Range of Motion,Pain,Poor Balance Stair Climbing Evaluation Evaluation Level of Assist On Stairs Independent Technique/Endurance Stair Climbing Technique Step to Step PT-OP-H Neuro Start: 05/04/23 16:33 Freq: Status: Active Protocol: Document 05/05/23 10:30 SAK (Rec: 05/05/23 11:15 [facility] [id number]) Sensation Evaluation Gross Sensation Gross Sensation WNL PT-OP-J Posture/Palpation/Skin Start: 05/04/23 16:33 Freq: Status: Active Protocol: Document 05/05/23 10:30 SAK (Rec: 05/05/23 11:15 [facility] [id number]) Posture Evaluation Position Standing Head/C-Spine Posture Forward Head T-Spine Posture Increased Kyphosis L-Spine Posture Shifted Right Shoulder Posture (L) Rounded,(R) Rounded,(L) Elevated Scapula Posture (L) Protracted,(R) Protracted Arm Posture (L) Internally Rotated,(R) Internally Rotated Ankle/Foot Posture (R) Pronated Foot Arch (L) Low Arch,(R) No Arch Palpation Assessment Location piriformis lef Palpation Findings Soft Tissue Tightness, Tenderness hip Palpation Location gr trochanter herbie Palpation Findings Tenderness PT-OP-K Range of Motion Start: 05/04/23 16:33 Freq: Status: Active Protocol: Document 05/05/23 10:30 SAK (Rec: 05/05/23 11:15 [facility] [id number]) Lumbar Spine Range of Motion Lumbar Spine Active Testing Position Standing Flexion 20 Extension 0 Lateral Flexion Left 20 Lateral Flexion Right 20 PT-OP-M Strength Start: 05/04/23 16:33 Freq: Status: Active Protocol: Document 05/05/23 10:30 SAK (Rec: 05/05/23 11:15 [facility] [id number]) Hip Strength Hip Manual Muscle Testing Right Flexion (L2) 4- Good- Extension (S1) 3- Fair- Abduction 3+ Fair+ Adduction 4- Good- External Rotation 3+ Fair+ Internal Rotation 4- Good- Left Flexion (L2) 3- Fair- Abduction 3+ Fair+ Adduction 4- Good- External Rotation 3+ Fair+ Internal Rotation 4- Good- Knee Strength Knee Manual Muscle Testing Left Flexion (S2) 4 Good Extension (L3) 4 Good Right Flexion (S2) 4 Good Extension (L3) 4 Good Ankle/Foot Strength Ankle and Foot Manual Muscle Testing Left Dorsiflexion (L4) 4 Good Plantarflexion (S1) 4 Good Right Dorsiflexion (L4) 4 Good Plantarflexion (S1) 4 Good PT-OP-Q Treatments Start: 05/04/23 16:33 Freq: Status: Active Protocol: Document 06/10/23 13:00 SW (Rec: 06/10/23 13:47 SW [id number]) Cardio Equipment Recumbent Stepper (Sci-Fit) Duration (Minutes) 12 Resistance 3>4 Seat Position 7 Other Legs only Gym Equipment Shuttle Recovery Unilateral Squats Resistance 37 (new) Shuttle Recovery Platform Stable Reps/Time 10x2 Bilateral Squats Resistance 75 (3 new) Shuttle Recovery Platform Stable Reps/Time 2x10 Therapeutic Exercises Supine Exercises over head stretch Supine Exercise Name herbie and unil Left (per PT discussion, trial LLE stretching for leg length) Reps/Minutes 2x30 Comments cues fo reaching right UE up, right LE down, lengthening spine figure 4 Side left Reps/Minutes 2x30 Comments Per PT discussion, stretching out LLE only HS stretch Side left Reps/Minutes 2x30 Comments Per PT discussion, stretching out LLE only SKTC Side left Reps/Minutes 2x30 Comments manual assist, towel (Per PT discussion, stretching out LLE only) Eliezer stretch Side left Reps/Minutes 2x30 Comments Per PT discussion, stretching out LLE only Manual Therapy Treatment Soft Tissue Mobilization psoas Body Location Left Mobilization Type Sustained Pressure Intensity/Depth Moderate Body Position Hooklying Comments Per PT discussion, stretching out LLE only Joint Mobilizations right hip Direction long axis dist, lat distraction, MWM inf glide with flex Grade III Body Position Supine PT-OP-R Modalities Start: 05/04/23 16:33 Freq: Status: Active Protocol: Document 06/08/23 08:05 SAK (Rec: 06/09/23 13:57 SAK [id number]) Hot Pack/Cold Pack Treatment Hot Pack Location herbie lumbosacral spine, ant/lat right hip Patient Position Hooklying Treatment Duration (minutes) 10 Patient Tolerance Good Comments 90/90 postion, stroud within reach PT-OP-T Assessment and Plan Start: 05/04/23 16:33 Freq: Status: Active Protocol: Document 06/10/23 13:00 (Rec: 06/10/23 13:47 [id number]) Physical Therapy Assessment Goals Three Impairment weakness Impairment LE's and core with altered muscle activation Short Term Goal (STG) Patient will be instsructed in HEP for purposes of core and hip strengthening and stabilization STG Duration 06/05/23 Longterm Goal (LTG) Patient will be independent and compliant with HEP and demonstrate improved strength to at least 4+/5 with improved functional activation of gluteals. Two Impairment gait Impairment antalgic, step-to pattern on stairs Short Term Goal (STG) Patient will be able to walk on level surfaces with minimal to no limp STG Duration 06/05/23 Health Care Liaison Goal (LTG) Patient will be able to ambulate on stairs with alternating step pattern LTG Duration 07/05/23 One Impairment activity tolerance Impairment Lower extremity functional scale score 32% Short Term Goal (STG) Improve LEFS score to at least 45% as measure of improved functional activity tolerance STG Duration 06/05/23 Longterm Goal (LTG) Improve LEFS score to at least 60% as measure of improved functional activity tolerance and quality of life. LTG Duration 07/05/23 Assessment Summary Assessment Per discussion with PT, worked on LLE stretching and soft tissue, followed by strengthening to reinforce. Assessed leg length prior to and post session, RLE shorter with minimal to no changes prior to and post session. Per patient subjective feedback, she feels like she is improving, able to ambulate further without immediate pain . Physical Therapy Plan Frequency and Duration Frequency of Treatment 2x/Week Duration of treatment (weeks) 8 Plan of Care Start Date 05/05/23 Plan of Care End Date 07/05/23 Therapeutic Interventions Therapeutic Interventions Home Exercise Program,Manual Therapy,Neuromuscular Re- education,Patient/Caregiver Education,Self-Care/Home Management,Soft Tissue Mobilization,Taping, Therapeutic Activities, Therapeutic Exercises Modalities Cold Pack/Ice Massage,Electric Stimulation,Hot Packs, Ultrasound Next Visit Focus/Plan Next Note Type Treatment Note Next Visit Plan Continue PT POC emphasis on LE strengthening, core strengthening and stab
--- NOTE | 2023-06-14 14:01 | PT.OTN ---
Current Diagnoses Other chronic pain (06/14/23) Pain in right hip (06/14/23) Difficulty in walking, not elsewhere classified (06/14/23) Weakness (06/14/23) Physical Therapy Treatment Note PT-OP-A Visit Information Start: 05/04/23 16:33 Freq: Status: Active Protocol: Document 06/14/23 13:17 SAK (Rec: 06/14/23 14:01 [facility] [id number]) Out-Patient Physical Therapy Visit Information Visit Information Visit Type Treatment Note Visit Start Time 13:18 Visit Stop Time 14:13 Total Visit Minutes 55 PT-OP-B Current Condition Start: 05/04/23 16:33 Freq: Status: Active Protocol: Document 05/10/23 12:30 SAK (Rec: 05/10/23 13:18 SAK [id number]) Current Condition History of Current Condition Onset Date 1 year Current Complaints chronic right hip pain History of Current Condition Gradual worsening of right hip pain to the point it is hard to stand and walk. Doesn't use any device for walking. Doing some exercising. Reports right leg short. Sees chiropractor every other week. Prior Treatments and Tests left achilles bone spur removed 1+ year ago Treatment Goals Patient/Caregiver Goals Be able to walk up ramp to house without pain. Able to walk up and down stairs with alternating patter Decrease pain. Current Functional Impairments (Reported) Functional Limitations- ADL's painful Functional Limitations- Mobility/Gait painful Functional Limitations- Work/School unable Functional Limitations- Recreation/ gardens, does puzzles; painful Hobbies gardening Functional Limitations- Other LEFS PT-OP-C Subjective Start: 05/04/23 16:33 Freq: Status: Active Protocol: Document 06/14/23 13:17 SAK (Rec: 06/14/23 14:01 [facility] [id number]) OP-PT Subjective Patient Comments Patient Comments Saw chiropractor on Wednesday; he couldn't gt things in alignment. 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 Pain less overall. Patient Reported Progress Improving PT-OP-G Mobility & Gait Start: 05/04/23 16:33 Freq: Status: Active Protocol: Document 05/05/23 10:30 SAK (Rec: 05/05/23 11:15 SAK [id number]) OP Mobility Evaluation Transfers Sit to Stand decreased weight bearing right OP Gait Assessment Gait Gait Assistance Required: Independent Assistive Devices Assistive Device None Gait Deviations General Gait Pattern Antalgic,Decreased Stride Length,Decreased Feet Clearance Factors Limiting Gait Function Factors Limiting Gait Function Decreased Activity Tolerance, Decreased Strength,Limited Range of Motion,Pain,Poor Balance Stair Climbing Evaluation Evaluation Level of Assist On Stairs Independent Technique/Endurance Stair Climbing Technique Step to Step PT-OP-H Neuro Start: 05/04/23 16:33 Freq: Status: Active Protocol: Document 05/05/23 10:30 [facility] (Rec: 05/05/23 11:15 [facility] [id number]) Sensation Evaluation Gross Sensation Gross Sensation WNL PT-OP-J Posture/Palpation/Skin Start: 05/04/23 16:33 Freq: Status: Active Protocol: Document 05/05/23 10:30 [facility] (Rec: 05/05/23 11:15 [facility] [id number]) Posture Evaluation Position Standing Head/C-Spine Posture Forward Head T-Spine Posture Increased Kyphosis L-Spine Posture Shifted Right Shoulder Posture (L) Rounded,(R) Rounded,(L) Elevated Scapula Posture (L) Protracted,(R) Protracted Arm Posture (L) Internally Rotated,(R) Internally Rotated Ankle/Foot Posture (R) Pronated Foot Arch (L) Low Arch,(R) No Arch Palpation Assessment Location piriformis lef Palpation Findings Soft Tissue Tightness, Tenderness hip Palpation Location gr trochanter herbie Palpation Findings Tenderness PT-OP-K Range of Motion Start: 05/04/23 16:33 Freq: Status: Active Protocol: Document 05/05/23 10:30 [facility] (Rec: 05/05/23 11:15 [facility] [id number]) Lumbar Spine Range of Motion Lumbar Spine Active Testing Position Standing Flexion 20 Extension 0 Lateral Flexion Left 20 Lateral Flexion Right 20 PT-OP-M Strength Start: 05/04/23 16:33 Freq: Status: Active Protocol: Document 05/05/23 10:30 [facility] (Rec: 05/05/23 11:15 [facility] [id number]) Hip Strength Hip Manual Muscle Testing Right Flexion (L2) 4- Good- Extension (S1) 3- Fair- Abduction 3+ Fair+ Adduction 4- Good- External Rotation 3+ Fair+ Internal Rotation 4- Good- Left Flexion (L2) 3- Fair- Abduction 3+ Fair+ Adduction 4- Good- External Rotation 3+ Fair+ Internal Rotation 4- Good- Knee Strength Knee Manual Muscle Testing Left Flexion (S2) 4 Good Extension (L3) 4 Good Right Flexion (S2) 4 Good Extension (L3) 4 Good Ankle/Foot Strength Ankle and Foot Manual Muscle Testing Left Dorsiflexion (L4) 4 Good Plantarflexion (S1) 4 Good Right Dorsiflexion (L4) 4 Good Plantarflexion (S1) 4 Good PT-OP-Q Treatments Start: 05/04/23 16:33 Freq: Status: Active Protocol: Document 06/14/23 13:17 [facility] (Rec: 06/14/23 14:01 [facility] [id number]) Cardio Equipment Recumbent Stepper (Sci-Fit) Duration (Minutes) 12 Resistance 3>4 Seat Position 7 Other Legs only Gym Equipment Shuttle Recovery Unilateral Squats Resistance 37 (new) Shuttle Recovery Platform Stable Reps/Time 10x2 Bilateral Squats Resistance 75 (3 new) Shuttle Recovery Platform Stable Reps/Time 2x10 Therapeutic Exercises Supine Exercises over head stretch Reps/Minutes 2x30 Comments cues for UE reach up, LE's reach down HS stretch Side left Reps/Minutes 2x30 Comments Per PT discussion, stretching out LLE only SKTC Side left Reps/Minutes 2x30 Comments manual assist, towel (Per PT discussion, stretching out LLE only) single leg bridge Reps/Minutes 10x segmental bridge Reps/Minutes 10x Manual Therapy Treatment Soft Tissue Mobilization psoas Body Location Left Mobilization Type Sustained Pressure Intensity/Depth Moderate Body Position Hooklying Joint Mobilizations right hip Direction long axis dist, lat distraction, MWM inf glide with flex Grade III Body Position Supine PT-OP-R Modalities Start: 05/04/23 16:33 Freq: Status: Active Protocol: Document 06/14/23 13:17 [facility] (Rec: 06/14/23 14:01 [facility] [id number]) Hot Pack/Cold Pack Treatment Hot Pack Location herbie lumbosacral spine, ant/lat right hip Patient Position Hooklying Treatment Duration (minutes) 10 Patient Tolerance Good Comments 90/90 postion, stroud within reach PT-OP-T Assessment and Plan Start: 05/04/23 16:33 Freq: Status: Active Protocol: Document 06/14/23 13:17 [facility] (Rec: 06/14/23 14:01 [facility] [id number]) Physical Therapy Assessment Goals Three Impairment weakness Impairment LE's and core with altered muscle activation Short Term Goal (STG) Patient will be instsructed in HEP for purposes of core and hip strengthening and stabilization STG Duration 06/05/23 Usp Goal (LTG) Patient will be independent and compliant with HEP and demonstrate improved strength to at least 4+/5 with improved functional activation of gluteals. 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 LTG Duration 07/05/23 Assessment Summary Assessment Stretching had no effect on leg length today, improved after distraction long axis right hip.Patient unable to fully extend right hip to neutral contributing to relative leg length discrepancy Patient reporting decrease in pain. Physical Therapy Plan Frequency and Duration Frequency of Treatment 2x/Week Duration of treatment (weeks) 8 Plan of Care Start Date 05/05/23 Plan of Care End Date 07/05/23 Therapeutic Interventions Therapeutic Interventions Home Exercise Program,Manual Therapy,Neuromuscular Re- education,Patient/Caregiver Education,Self-Care/Home Management,Soft Tissue Mobilization,Taping, Therapeutic Activities, Therapeutic Exercises Modalities Cold Pack/Ice Massage,Electric Stimulation,Hot Packs, Ultrasound Next Visit Focus/Plan Next Note Type Treatment Note Next Visit Plan Emphasis on strengthening and core stab, decompression and joint mob right hip.
--- NOTE | 2023-06-17 15:43 | PT.OTN ---
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 Doesn't use any device for walking. Doing some exercising. Reports right leg short. Sees chiropractor every other week. Prior Treatments and Tests left achilles bone spur removed 1+ year ago Treatment Goals Patient/Caregiver Goals Be able to walk up ramp to house without pain. Able to walk up and down stairs with alternating patter Decrease pain. Current Functional Impairments (Reported) Functional Limitations- ADL's painful Functional Limitations- Mobility/Gait painful Functional Limitations- Work/School unable Functional Limitations- Recreation/ gardens, does puzzles; painful Hobbies gardening Functional Limitations- Other LEFS PT-OP-C Subjective Start: 05/04/23 16:33 Freq: Status: Active Protocol: Document 06/17/23 12:57 (Rec: 06/17/23 13:48 [id number]) OP-PT Subjective Patient Comments Patient Comments Pt feeling ok today. All in all I feel like it is getting better. PT-OP-G Mobility & Gait Start: 05/04/23 16:33 Freq: Status: Active Protocol: Document 05/05/23 10:30 SAK (Rec: 05/05/23 11:15 SAK [id number]) OP Mobility Evaluation Transfers Sit to Stand decreased weight bearing right OP Gait Assessment Gait Gait Assistance Required: Independent Assistive Devices Assistive Device None Gait Deviations General Gait Pattern Antalgic,Decreased Stride Length,Decreased Feet Clearance Factors Limiting Gait Function Factors Limiting Gait Function Decreased Activity Tolerance, Decreased Strength,Limited Range of Motion,Pain,Poor Balance Stair Climbing Evaluation Evaluation Level of Assist On Stairs Independent Technique/Endurance Stair Climbing Technique Step to Step PT-OP-H Neuro Start: 05/04/23 16:33 Freq: Status: Active Protocol: Document 05/05/23 10:30 SAK (Rec: 05/05/23 11:15 [facility] [id number]) Sensation Evaluation Gross Sensation Gross Sensation WNL PT-OP-J Posture/Palpation/Skin Start: 05/04/23 16:33 Freq: Status: Active Protocol: Document 05/05/23 10:30 SAK (Rec: 05/05/23 11:15 [facility] [id number]) Posture Evaluation Position Standing Head/C-Spine Posture Forward Head T-Spine Posture Increased Kyphosis L-Spine Posture Shifted Right Shoulder Posture (L) Rounded,(R) Rounded,(L) Elevated Scapula Posture (L) Protracted,(R) Protracted Arm Posture (L) Internally Rotated,(R) Internally Rotated Ankle/Foot Posture (R) Pronated Foot Arch (L) Low Arch,(R) No Arch Palpation Assessment Location piriformis lef Palpation Findings Soft Tissue Tightness, Tenderness hip Palpation Location gr trochanter herbie Palpation Findings Tenderness PT-OP-K Range of Motion Start: 05/04/23 16:33 Freq: Status: Active Protocol: Document 05/05/23 10:30 SAK (Rec: 05/05/23 11:15 [facility] [id number]) Lumbar Spine Range of Motion Lumbar Spine Active Testing Position Standing Flexion 20 Extension 0 Lateral Flexion Left 20 Lateral Flexion Right 20 PT-OP-M Strength Start: 05/04/23 16:33 Freq: Status: Active Protocol: Document 05/05/23 10:30 SAK (Rec: 05/05/23 11:15 [facility] [id number]) Hip Strength Hip Manual Muscle Testing Right Flexion (L2) 4- Good- Extension (S1) 3- Fair- Abduction 3+ Fair+ Adduction 4- Good- External Rotation 3+ Fair+ Internal Rotation 4- Good- Left Flexion (L2) 3- Fair- Abduction 3+ Fair+ Adduction 4- Good- External Rotation 3+ Fair+ Internal Rotation 4- Good- Knee Strength Knee Manual Muscle Testing Left Flexion (S2) 4 Good Extension (L3) 4 Good Right Flexion (S2) 4 Good Extension (L3) 4 Good Ankle/Foot Strength Ankle and Foot Manual Muscle Testing Left Dorsiflexion (L4) 4 Good Plantarflexion (S1) 4 Good Right Dorsiflexion (L4) 4 Good Plantarflexion (S1) 4 Good PT-OP-Q Treatments Start: 05/04/23 16:33 Freq: Status: Active Protocol: Document 06/17/23 12:57 SW (Rec: 06/17/23 13:48 [id number]) Cardio Equipment Recumbent Stepper (Sci-Fit) Duration (Minutes) 12 Resistance 3>4 Seat Position 7 Other Legs only Gym Equipment Shuttle Recovery Unilateral Squats Resistance 37 (new) Shuttle Recovery Platform Stable Reps/Time 10x2 Bilateral Squats Resistance 75 (3 new) Shuttle Recovery Platform Stable Reps/Time 2x10 Therapeutic Exercises Supine Exercises single leg bridge Reps/Minutes 10x segmental bridge Supine Exercise Name feet elevated on bolster Reps/Minutes 10x Standing Exercises Mini squat Standing Exercise Name Mini squat Reps/Minutes x10 Comments verbal cue required for mechanics Anti rotation Standing Exercise Name lateral walk out Side bilateral Resistance orange Side Step Up Equipment Used x 5 w/5# weight in opposite hand Reps/Minutes x15 PT-OP-R Modalities Start: 05/04/23 16:33 Freq: Status: Active Protocol: Document 06/17/23 12:57 SW (Rec: 06/17/23 13:48 [id number]) Hot Pack/Cold Pack Treatment Hot Pack Location herbie lumbosacral spine, ant/lat right hip Patient Position Hooklying Treatment Duration (minutes) 10 Patient Tolerance Good Comments 90/90 postion, stroud within reach PT-OP-T Assessment and Plan Start: 05/04/23 16:33 Freq: Status: Active Protocol: Document 06/17/23 12:57 SW (Rec: 06/17/23 13:48 [id number]) Physical Therapy Assessment Goals Three Impairment weakness Impairment LE's and core with altered muscle activation Short Term Goal (STG) Patient will be instsructed in HEP for purposes of core and hip strengthening and stabilization STG Duration 06/05/23 Spice Cleaner Goal (LTG) Patient will be independent and compliant with HEP and demonstrate improved strength to at least 4+/5 with improved functional activation of gluteals. Two Impairment gait Impairment antalgic, step-to pattern on stairs Short Term Goal (STG) Patient will be able to walk on level surfaces with minimal to no limp STG Duration 06/05/23 Skilled Nursing Goal (LTG) Patient will be able to ambulate on stairs with alternating step pattern LTG Duration 07/05/23 One Impairment activity tolerance Impairment Lower extremity functional scale score 32% Short Term Goal (STG) Improve LEFS score to at least 45% as measure of improved functional activity tolerance STG Duration 06/05/23 Spice Cleaner Goal (LTG) Improve LEFS score to at least 60% as measure of improved functional activity tolerance and quality of life. LTG Duration 07/05/23 Assessment Summary Assessment Revisited hip decompression and joint mobs today for R hip mobility. Added anti rotation lateral walk out for core stabilization, tolerated well with no reproduction of pain. Continued LE strength, trialed mini squats heavy verbal cues required for proper mechanics . Physical Therapy Plan Frequency and Duration Frequency of Treatment 2x/Week Duration of treatment (weeks) 8 Plan of Care Start Date 05/05/23 Plan of Care End Date 07/05/23 Therapeutic Interventions Therapeutic Interventions Home Exercise Program,Manual Therapy,Neuromuscular Re- education,Patient/Caregiver Education,Self-Care/Home Management,Soft Tissue Mobilization,Taping, Therapeutic Activities, Therapeutic Exercises Modalities Cold Pack/Ice Massage,Electric Stimulation,Hot Packs, Ultrasound Next Visit Focus/Plan Next Note Type Treatment Note Next Visit Plan Emphasis on strengthening and core stab, decompression and joint mob right hip.
--- NOTE | 2023-06-21 13:21 | PT.OTN ---
Current Diagnoses Other chronic pain (06/21/23) Pain in right hip (06/21/23) Difficulty in walking, not elsewhere classified (06/21/23) Weakness (06/21/23) Physical Therapy Treatment Note PT-OP-A Visit Information Start: 05/04/23 16:33 Freq: Status: Active Protocol: Document 06/17/23 12:57 SW (Rec: 06/17/23 13:48 SW [id number]) Out-Patient Physical Therapy Visit Information Visit Information Visit Type Treatment Note Visit Start Time 13:00 Visit Stop Time 13:45 Total Visit Minutes 55 Number of ASSISTANT ANALYST Visits 1 PT-OP-B Current Condition Start: 05/04/23 16:33 Freq: Status: Active Protocol: Document 05/10/23 12:30 SAK (Rec: 05/10/23 13:18 SAK [id number]) Current Condition History of Current Condition Onset Date 1 year Current Complaints chronic right hip pain History of Current Condition Gradual worsening of right hip pain to the point it is hard to stand and walk. Doesn't use any device for walking. Doing some exercising. Reports right leg short. Sees chiropractor every other week. Prior Treatments and Tests left achilles bone spur removed 1+ year ago Treatment Goals Patient/Caregiver Goals Be able to walk up ramp to house without pain. Able to walk up and down stairs with alternating patter Decrease pain. Current Functional Impairments (Reported) Functional Limitations- ADL's painful Functional Limitations- Mobility/Gait painful Functional Limitations- Work/School unable Functional Limitations- Recreation/ gardens, does puzzles; painful Hobbies gardening Functional Limitations- Other LEFS PT-OP-C Subjective Start: 05/04/23 16:33 Freq: Status: Active Protocol: Document 06/17/23 12:57 (Rec: 06/17/23 13:48 [id number]) OP-PT Subjective Patient Comments Patient Comments Pt feeling ok today. All in all I feel like it is getting better. PT-OP-G Mobility & Gait Start: 05/04/23 16:33 Freq: Status: Active Protocol: Document 05/05/23 10:30 SAK (Rec: 05/05/23 11:15 SAK [id number]) OP Mobility Evaluation Transfers Sit to Stand decreased weight bearing right OP Gait Assessment Gait Gait Assistance Required: Independent Assistive Devices Assistive Device None Gait Deviations General Gait Pattern Antalgic,Decreased Stride Length,Decreased Feet Clearance Factors Limiting Gait Function Factors Limiting Gait Function Decreased Activity Tolerance, Decreased Strength,Limited Range of Motion,Pain,Poor Balance Stair Climbing Evaluation Evaluation Level of Assist On Stairs Independent Technique/Endurance Stair Climbing Technique Step to Step PT-OP-H Neuro Start: 05/04/23 16:33 Freq: Status: Active Protocol: Document 05/05/23 10:30 SAK (Rec: 05/05/23 11:15 [facility] [id number]) Sensation Evaluation Gross Sensation Gross Sensation WNL PT-OP-J Posture/Palpation/Skin Start: 05/04/23 16:33 Freq: Status: Active Protocol: Document 05/05/23 10:30 SAK (Rec: 05/05/23 11:15 [facility] [id number]) Posture Evaluation Position Standing Head/C-Spine Posture Forward Head T-Spine Posture Increased Kyphosis L-Spine Posture Shifted Right Shoulder Posture (L) Rounded,(R) Rounded,(L) Elevated Scapula Posture (L) Protracted,(R) Protracted Arm Posture (L) Internally Rotated,(R) Internally Rotated Ankle/Foot Posture (R) Pronated Foot Arch (L) Low Arch,(R) No Arch Palpation Assessment Location piriformis lef Palpation Findings Soft Tissue Tightness, Tenderness hip Palpation Location gr trochanter herbie Palpation Findings Tenderness PT-OP-K Range of Motion Start: 05/04/23 16:33 Freq: Status: Active Protocol: Document 05/05/23 10:30 SAK (Rec: 05/05/23 11:15 [facility] [id number]) Lumbar Spine Range of Motion Lumbar Spine Active Testing Position Standing Flexion 20 Extension 0 Lateral Flexion Left 20 Lateral Flexion Right 20 PT-OP-M Strength Start: 05/04/23 16:33 Freq: Status: Active Protocol: Document 05/05/23 10:30 SAK (Rec: 05/05/23 11:15 [facility] [id number]) Hip Strength Hip Manual Muscle Testing Right Flexion (L2) 4- Good- Extension (S1) 3- Fair- Abduction 3+ Fair+ Adduction 4- Good- External Rotation 3+ Fair+ Internal Rotation 4- Good- Left Flexion (L2) 3- Fair- Abduction 3+ Fair+ Adduction 4- Good- External Rotation 3+ Fair+ Internal Rotation 4- Good- Knee Strength Knee Manual Muscle Testing Left Flexion (S2) 4 Good Extension (L3) 4 Good Right Flexion (S2) 4 Good Extension (L3) 4 Good Ankle/Foot Strength Ankle and Foot Manual Muscle Testing Left Dorsiflexion (L4) 4 Good Plantarflexion (S1) 4 Good Right Dorsiflexion (L4) 4 Good Plantarflexion (S1) 4 Good PT-OP-Q Treatments Start: 05/04/23 16:33 Freq: Status: Active Protocol: Document 06/17/23 12:57 SW (Rec: 06/17/23 13:48 [id number]) Cardio Equipment Recumbent Stepper (Sci-Fit) Duration (Minutes) 12 Resistance 3>4 Seat Position 7 Other Legs only Gym Equipment Shuttle Recovery Unilateral Squats Resistance 37 (new) Shuttle Recovery Platform Stable Reps/Time 10x2 Bilateral Squats Resistance 75 (3 new) Shuttle Recovery Platform Stable Reps/Time 2x10 Therapeutic Exercises Supine Exercises single leg bridge Reps/Minutes 10x segmental bridge Supine Exercise Name feet elevated on bolster Reps/Minutes 10x Standing Exercises Mini squat Standing Exercise Name Mini squat Reps/Minutes x10 Comments verbal cue required for mechanics Anti rotation Standing Exercise Name lateral walk out Side bilateral Resistance orange Side Step Up Equipment Used x 5 w/5# weight in opposite hand Reps/Minutes x15 PT-OP-R Modalities Start: 05/04/23 16:33 Freq: Status: Active Protocol: Document 06/17/23 12:57 SW (Rec: 06/17/23 13:48 [id number]) Hot Pack/Cold Pack Treatment Hot Pack Location herbie lumbosacral spine, ant/lat right hip Patient Position Hooklying Treatment Duration (minutes) 10 Patient Tolerance Good Comments 90/90 postion, stroud within reach PT-OP-T Assessment and Plan Start: 05/04/23 16:33 Freq: Status: Active Protocol: Document 06/17/23 12:57 SW (Rec: 06/17/23 13:48 [id number]) Physical Therapy Assessment Goals Three Impairment weakness Impairment LE's and core with altered muscle activation Short Term Goal (STG) Patient will be instsructed in HEP for purposes of core and hip strengthening and stabilization STG Duration 06/05/23 Tire Bladder Maker Goal (LTG) Patient will be independent and compliant with HEP and demonstrate improved strength to at least 4+/5 with improved functional activation of gluteals. Two Impairment gait Impairment antalgic, step-to pattern on stairs Short Term Goal (STG) Patient will be able to walk on level surfaces with minimal to no limp STG Duration 06/05/23 Prison Goal (LTG) Patient will be able to ambulate on stairs with alternating step pattern LTG Duration 07/05/23 One Impairment activity tolerance Impairment Lower extremity functional scale score 32% Short Term Goal (STG) Improve LEFS score to at least 45% as measure of improved functional activity tolerance STG Duration 06/05/23 Tire Bladder Maker Goal (LTG) Improve LEFS score to at least 60% as measure of improved functional activity tolerance and quality of life. LTG Duration 07/05/23 Assessment Summary Assessment Revisited hip decompression and joint mobs today for R hip mobility. Added anti rotation lateral walk out for core stabilization, tolerated well with no reproduction of pain. Continued LE strength, trialed mini squats heavy verbal cues required for proper mechanics . Physical Therapy Plan Frequency and Duration Frequency of Treatment 2x/Week Duration of treatment (weeks) 8 Plan of Care Start Date 05/05/23 Plan of Care End Date 07/05/23 Therapeutic Interventions Therapeutic Interventions Home Exercise Program,Manual Therapy,Neuromuscular Re- education,Patient/Caregiver Education,Self-Care/Home Management,Soft Tissue Mobilization,Taping, Therapeutic Activities, Therapeutic Exercises Modalities Cold Pack/Ice Massage,Electric Stimulation,Hot Packs, Ultrasound Next Visit Focus/Plan Next Note Type Treatment Note Next Visit Plan Emphasis on strengthening and core stab, decompression and joint mob right hip.
--- NOTE | 2023-06-21 13:26 | PT.OTN ---
Current Diagnoses Other chronic pain (06/21/23) Pain in right hip (06/21/23) Difficulty in walking, not elsewhere classified (06/21/23) Weakness (06/21/23) Physical Therapy Treatment Note PT-OP-A Visit Information Start: 05/04/23 16:33 Freq: Status: Active Protocol: Document 06/21/23 12:31 [facility] (Rec: 06/21/23 13:26 [facility] [id number]) Out-Patient Physical Therapy Visit Information Visit Information Visit Type Treatment Note Visit Start Time 12:32 Visit Stop Time 12:37 Total Visit Minutes 55 Number of HYDROTECHNICAL SPECIALIST Visits 0 PT-OP-B Current Condition Start: 05/04/23 16:33 Freq: Status: Active Protocol: Document 05/10/23 12:30 [facility] (Rec: 05/10/23 13:18 [facility] [id number]) Current Condition History of Current Condition Onset Date 1 year Current Complaints chronic right hip pain History of Current Condition Gradual worsening of right hip pain to the point it is hard to stand and walk. Doesn't use any device for walking. Doing some exercising. Reports right leg short. Sees chiropractor every other week. Prior Treatments and Tests left achilles bone spur removed 1+ year ago Treatment Goals Patient/Caregiver Goals Be able to walk up ramp to house without pain. Able to walk up and down stairs with alternating patter Decrease pain. Current Functional Impairments (Reported) Functional Limitations- ADL's painful Functional Limitations- Mobility/Gait painful Functional Limitations- Work/School unable Functional Limitations- Recreation/ gardens, does puzzles; painful Hobbies gardening Functional Limitations- Other LEFS PT-OP-C Subjective Start: 05/04/23 16:33 Freq: Status: Active Protocol: Document 06/21/23 12:31 [facility] (Rec: 06/21/23 13:26 [facility] [id number]) OP-PT Subjective Patient Comments Patient Comments Sore from working at [employer] today. Feels she is getting stronger. PT-OP-G Mobility & Gait Start: 05/04/23 16:33 Freq: Status: Active Protocol: Document 05/05/23 10:30 [facility] (Rec: 05/05/23 11:15 [facility] [id number]) OP Mobility Evaluation Transfers Sit to Stand decreased weight bearing right OP Gait Assessment Gait Gait Assistance Required: Independent Assistive Devices Assistive Device None Gait Deviations General Gait Pattern Antalgic,Decreased Stride Length,Decreased Feet Clearance Factors Limiting Gait Function Factors Limiting Gait Function Decreased Activity Tolerance, Decreased Strength,Limited Range of Motion,Pain,Poor Balance Stair Climbing Evaluation Evaluation Level of Assist On Stairs Independent Technique/Endurance Stair Climbing Technique Step to Step PT-OP-H Neuro Start: 05/04/23 16:33 Freq: Status: Active Protocol: Document 05/05/23 10:30 [facility] (Rec: 05/05/23 11:15 [facility] [id number]) Sensation Evaluation Gross Sensation Gross Sensation WNL PT-OP-J Posture/Palpation/Skin Start: 05/04/23 16:33 Freq: Status: Active Protocol: Document 05/05/23 10:30 [facility] (Rec: 05/05/23 11:15 [facility] [id number]) Posture Evaluation Position Standing Head/C-Spine Posture Forward Head T-Spine Posture Increased Kyphosis L-Spine Posture Shifted Right Shoulder Posture (L) Rounded,(R) Rounded,(L) Elevated Scapula Posture (L) Protracted,(R) Protracted Arm Posture (L) Internally Rotated,(R) Internally Rotated Ankle/Foot Posture (R) Pronated Foot Arch (L) Low Arch,(R) No Arch Palpation Assessment Location piriformis lef Palpation Findings Soft Tissue Tightness, Tenderness hip Palpation Location gr trochanter herbie Palpation Findings Tenderness PT-OP-K Range of Motion Start: 05/04/23 16:33 Freq: Status: Active Protocol: Document 05/05/23 10:30 [facility] (Rec: 05/05/23 11:15 [facility] [id number]) Lumbar Spine Range of Motion Lumbar Spine Active Testing Position Standing Flexion 20 Extension 0 Lateral Flexion Left 20 Lateral Flexion Right 20 PT-OP-M Strength Start: 05/04/23 16:33 Freq: Status: Active Protocol: Document 05/05/23 10:30 [facility] (Rec: 05/05/23 11:15 [facility] [id number]) Hip Strength Hip Manual Muscle Testing Right Flexion (L2) 4- Good- Extension (S1) 3- Fair- Abduction 3+ Fair+ Adduction 4- Good- External Rotation 3+ Fair+ Internal Rotation 4- Good- Left Flexion (L2) 3- Fair- Abduction 3+ Fair+ Adduction 4- Good- External Rotation 3+ Fair+ Internal Rotation 4- Good- Knee Strength Knee Manual Muscle Testing Left Flexion (S2) 4 Good Extension (L3) 4 Good Right Flexion (S2) 4 Good Extension (L3) 4 Good Ankle/Foot Strength Ankle and Foot Manual Muscle Testing Left Dorsiflexion (L4) 4 Good Plantarflexion (S1) 4 Good Right Dorsiflexion (L4) 4 Good Plantarflexion (S1) 4 Good PT-OP-Q Treatments Start: 05/04/23 16:33 Freq: Status: Active Protocol: Document 06/21/23 12:31 [facility] (Rec: 06/21/23 13:26 [facility] [id number]) Cardio Equipment Recumbent Stepper (Sci-Fit) Duration (Minutes) 12 Resistance 3>4 Seat Position 7 Other UE's and LEs Gym Equipment Shuttle Recovery Unilateral Squats Resistance 37 (new) Shuttle Recovery Platform Stable Reps/Time 10x2 Bilateral Squats Resistance 75 (3 new) Shuttle Recovery Platform Stable Reps/Time 2x10 Therapeutic Exercises Supine Exercises LTR Supine Exercise Name legs on 55 cm therapy ball Reps/Minutes 10x SLR Side bilateral Reps/Minutes 2 x 10 Comments Cues for core stabilization, right knee and hip sl bent ball press Equipment Used 55 cm ball Reps/Minutes 10x fwd, 10x ea diagnonal Core Supine Exercise Name TA activation w/march, leg lowering, BKFO Reps/Minutes 5x ea Comments Cues for stabilization segmental bridge Supine Exercise Name legs on 55 cm therapy ball Reps/Minutes 10x Standing Exercises split squat Reps/Minutes 10x Mini squat Standing Exercise Name Mini squat Reps/Minutes x10 Comments verbal cue required for mechanics Anti rotation Standing Exercise Name lateral walk out Side bilateral Resistance orange Side Step Up Equipment Used x 5 w/5# weight in opposite hand Reps/Minutes x15 Comments cues for neutral posture, gluteal activation hip extension Resistance orange TB Reps/Minutes 10x PT-OP-R Modalities Start: 05/04/23 16:33 Freq: Status: Active Protocol: Document 06/21/23 12:31 [facility] (Rec: 06/21/23 13:26 [facility] [id number]) Hot Pack/Cold Pack Treatment Hot Pack Location herbie lumbosacral spine, ant/lat right hip Patient Position Hooklying Treatment Duration (minutes) 10 Patient Tolerance Good Comments 90/90 postion, stroud within reach PT-OP-T Assessment and Plan Start: 05/04/23 16:33 Freq: Status: Active Protocol: Document 06/21/23 12:31 [facility] (Rec: 06/21/23 13:26 [facility] [id number]) Physical Therapy Assessment Goals Three Impairment weakness Impairment LE's and core with altered muscle activation Short Term Goal (STG) Patient will be instsructed in HEP for purposes of core and hip strengthening and stabilization STG Duration 06/05/23 Field Artillery Targeting Technician Goal (LTG) Patient will be independent and compliant with HEP and demonstrate improved strength to at least 4+/5 with improved functional activation of gluteals. Two Impairment gait Impairment antalgic, step-to pattern on stairs Short Term Goal (STG) Patient will be able to walk on level surfaces with minimal to no limp STG Duration 06/05/23 Field Artillery Targeting Technician Goal (LTG) Patient will be able to ambulate on stairs with alternating step pattern LTG Duration 07/05/23 One Impairment activity tolerance Impairment Lower extremity functional scale score 32% Short Term Goal (STG) Improve LEFS score to at least 45% as measure of improved functional activity tolerance STG Duration 06/05/23 Field Artillery Targeting Technician Goal (LTG) Improve LEFS score to at least 60% as measure of improved functional activity tolerance and quality of life. LTG Duration 07/05/23 Assessment Summary Assessment Patient continues to require cues for correct mechanics with mini squats, added split squats again with cues. REviewed standing hip ext with TB with mod cues to prevent lumbar extension. Physical Therapy Plan Frequency and Duration Frequency of Treatment 2x/Week Duration of treatment (weeks) 8 Plan of Care Start Date 05/05/23 Plan of Care End Date 07/05/23 Therapeutic Interventions Therapeutic Interventions Home Exercise Program,Manual Therapy,Neuromuscular Re- education,Patient/Caregiver Education,Self-Care/Home Management,Soft Tissue Mobilization,Taping, Therapeutic Activities, Therapeutic Exercises Modalities Cold Pack/Ice Massage,Electric Stimulation,Hot Packs, Ultrasound Next Visit Focus/Plan Next Note Type Treatment Note Next Visit Plan Continue PT to improve strength and core stab, decrease pain with ther ex, manual therapy, modalities PRN .
--- NOTE | 2023-06-21 14:24 | PT.OPPN ---
Current Diagnoses Other chronic pain (06/21/23) Pain in right hip (06/21/23) Difficulty in walking, not elsewhere classified (06/21/23) Weakness (06/21/23) Physical Therapy Progress Note PT-OP-A Visit Information Start: 05/04/23 16:33 Freq: Status: Active Protocol: Document 06/21/23 12:31 [facility] (Rec: 06/21/23 13:26 [facility] [id number]) Out-Patient Physical Therapy Visit Information Visit Information Visit Type Treatment Note Visit Start Time 12:32 Visit Stop Time 12:37 Total Visit Minutes 55 Visit Number 12 Number of ROTARY SWAGING MACHINE OPERATOR Visits 0 PT-OP-B Current Condition Start: 05/04/23 16:33 Freq: Status: Active Protocol: Document 05/10/23 12:30 [facility] (Rec: 05/10/23 13:18 [facility] [id number]) Current Condition History of Current Condition Onset Date 1 year Current Complaints chronic right hip pain History of Current Condition Gradual worsening of right hip pain to the point it is hard to stand and walk. Doesn't use any device for walking. Doing some exercising. Reports right leg short. Sees chiropractor every other week. Prior Treatments and Tests left achilles bone spur removed 1+ year ago Treatment Goals Patient/Caregiver Goals Be able to walk up ramp to house without pain. Able to walk up and down stairs with alternating patter Decrease pain. Current Functional Impairments (Reported) Functional Limitations- ADL's painful Functional Limitations- Mobility/Gait painful Functional Limitations- Work/School unable Functional Limitations- Recreation/ gardens, does puzzles; painful Hobbies gardening Functional Limitations- Other LEFS PT-OP-C Subjective Start: 05/04/23 16:33 Freq: Status: Active Protocol: Document 06/21/23 12:31 [facility] (Rec: 06/21/23 13:26 [facility] [id number]) OP-PT Subjective Patient Comments Patient Comments Sore from working at [employer] today. Feels she is getting stronger. PT-OP-G Mobility & Gait Start: 05/04/23 16:33 Freq: Status: Active Protocol: Document 05/05/23 10:30 [facility] (Rec: 05/05/23 11:15 [facility] [id number]) OP Mobility Evaluation Transfers Sit to Stand decreased weight bearing right OP Gait Assessment Gait Gait Assistance Required: Independent Assistive Devices Assistive Device None Gait Deviations General Gait Pattern Antalgic,Decreased Stride Length,Decreased Feet Clearance Factors Limiting Gait Function Factors Limiting Gait Function Decreased Activity Tolerance, Decreased Strength,Limited Range of Motion,Pain,Poor Balance Stair Climbing Evaluation Evaluation Level of Assist On Stairs Independent Technique/Endurance Stair Climbing Technique Step to Step PT-OP-H Neuro Start: 05/04/23 16:33 Freq: Status: Active Protocol: Document 05/05/23 10:30 [facility] (Rec: 05/05/23 11:15 [facility] [id number]) Sensation Evaluation Gross Sensation Gross Sensation WNL PT-OP-J Posture/Palpation/Skin Start: 05/04/23 16:33 Freq: Status: Active Protocol: Document 05/05/23 10:30 [facility] (Rec: 05/05/23 11:15 [facility] [id number]) Posture Evaluation Position Standing Head/C-Spine Posture Forward Head T-Spine Posture Increased Kyphosis L-Spine Posture Shifted Right Shoulder Posture (L) Rounded,(R) Rounded,(L) Elevated Scapula Posture (L) Protracted,(R) Protracted Arm Posture (L) Internally Rotated,(R) Internally Rotated Ankle/Foot Posture (R) Pronated Foot Arch (L) Low Arch,(R) No Arch Palpation Assessment Location piriformis lef Palpation Findings Soft Tissue Tightness, Tenderness hip Palpation Location gr trochanter herbie Palpation Findings Tenderness PT-OP-K Range of Motion Start: 05/04/23 16:33 Freq: Status: Active Protocol: Document 05/05/23 10:30 [facility] (Rec: 05/05/23 11:15 [facility] [id number]) Lumbar Spine Range of Motion Lumbar Spine Active Testing Position Standing Flexion 20 Extension 0 Lateral Flexion Left 20 Lateral Flexion Right 20 PT-OP-M Strength Start: 05/04/23 16:33 Freq: Status: Active Protocol: Document 05/05/23 10:30 [facility] (Rec: 05/05/23 11:15 [facility] [id number]) Hip Strength Hip Manual Muscle Testing Right Flexion (L2) 4- Good- Extension (S1) 3- Fair- Abduction 3+ Fair+ Adduction 4- Good- External Rotation 3+ Fair+ Internal Rotation 4- Good- Left Flexion (L2) 3- Fair- Abduction 3+ Fair+ Adduction 4- Good- External Rotation 3+ Fair+ Internal Rotation 4- Good- Knee Strength Knee Manual Muscle Testing Left Flexion (S2) 4 Good Extension (L3) 4 Good Right Flexion (S2) 4 Good Extension (L3) 4 Good Ankle/Foot Strength Ankle and Foot Manual Muscle Testing Left Dorsiflexion (L4) 4 Good Plantarflexion (S1) 4 Good Right Dorsiflexion (L4) 4 Good Plantarflexion (S1) 4 Good PT-OP-T Assessment and Plan Start: 05/04/23 16:33 Freq: Status: Active Protocol: Document 06/21/23 12:31 [facility] (Rec: 06/21/23 13:26 [facility] [id number]) Physical Therapy Assessment Goals Three Impairment weakness Impairment LE's and core with altered muscle activation Short Term Goal (STG) Patient will be instsructed in HEP for purposes of core and hip strengthening and stabilization 06/21/23: goal progress; ongoing progression. Patient with good compliance to HEP STG Duration 06/05/23 Custodial Goal (LTG) Patient will be independent and compliant with HEP and demonstrate improved strength to at least 4+/5 with improved functional activation of gluteals. LTG Duration 07/05/23 Two Impairment gait Impairment antalgic, step-to pattern on stairs Short Term Goal (STG) Patient will be able to walk on level surfaces with minimal to no limp 06/21/23: good goal progreess STG Duration 06/05/23 Copy Editor Goal (LTG) Patient will be able to ambulate on stairs with alternating step pattern LTG Duration 07/05/23 One Impairment activity tolerance Impairment Lower extremity functional scale score 32% Short Term Goal (STG) Improve LEFS score to at least 45% as measure of improved functional activity tolerance 06/21/23: goal met, score improved to 50% STG Duration 06/05/23 Copy Editor Goal (LTG) Improve LEFS score to at least 60% as measure of improved functional activity tolerance and quality of life. LTG Duration 07/05/23 Assessment Summary Assessment Patient continues to require cues for correct mechanics with mini squats, added split squats again with cues. REviewed standing hip ext with TB with mod cues to prevent lumbar extension. Physical Therapy Plan Frequency and Duration Frequency of Treatment 2x/Week Duration of treatment (weeks) 8 Plan of Care Start Date 05/05/23 Plan of Care End Date 07/05/23 Therapeutic Interventions Therapeutic Interventions Home Exercise Program,Manual Therapy,Neuromuscular Re- education,Patient/Caregiver Education,Self-Care/Home Management,Soft Tissue Mobilization,Taping, Therapeutic Activities, Therapeutic Exercises Modalities Cold Pack/Ice Massage,Electric Stimulation,Hot Packs, Ultrasound Next Visit Focus/Plan Next Note Type Treatment Note Next Visit Plan Continue PT to improve strength and core stab, decrease pain with ther ex, manual therapy, modalities PRN .
--- NOTE | 2023-06-24 16:33 | PT.OTN ---
Current Diagnoses Other chronic pain (06/24/23) Pain in right hip (06/24/23) Difficulty in walking, not elsewhere classified (06/24/23) Weakness (06/24/23) Physical Therapy Treatment Note PT-OP-A Visit Information Start: 05/04/23 16:33 Freq: Status: Active Protocol: Document 06/24/23 13:02 (Rec: 06/24/23 13:45 [id number]) Out-Patient Physical Therapy Visit Information Visit Information Visit Type Treatment Note Visit Start Time 13:00 Visit Stop Time 13:55 Total Visit Minutes 55 Visit Number 13 Number of IT INTERN Visits 1 PT-OP-B Current Condition Start: 05/04/23 16:33 Freq: Status: Active Protocol: Document 05/10/23 12:30 SAK (Rec: 05/10/23 13:18 SAK [id number]) Current Condition History of Current Condition Onset Date 1 year Current Complaints chronic right hip pain History of Current Condition Gradual worsening of right hip pain to the point it is hard to stand and walk. Doesn't use any device for walking. Doing some exercising. Reports right leg short. Sees chiropractor every other week. Prior Treatments and Tests left achilles bone spur removed 1+ year ago Treatment Goals Patient/Caregiver Goals Be able to walk up ramp to house without pain. Able to walk up and down stairs with alternating patter Decrease pain. Current Functional Impairments (Reported) Functional Limitations- ADL's painful Functional Limitations- Mobility/Gait painful Functional Limitations- Work/School unable Functional Limitations- Recreation/ gardens, does puzzles; painful Hobbies gardening Functional Limitations- Other LEFS PT-OP-C Subjective Start: 05/04/23 16:33 Freq: Status: Active Protocol: Document 06/24/23 13:02 (Rec: 06/24/23 13:45 [id number]) OP-PT Subjective Patient Comments Patient Comments Pt reports sore today, did a lot of walking at [facility] the last two days. PT-OP-G Mobility & Gait Start: 05/04/23 16:33 Freq: Status: Active Protocol: Document 05/05/23 10:30 SAK (Rec: 05/05/23 11:15 SAK [id number]) OP Mobility Evaluation Transfers Sit to Stand decreased weight bearing right OP Gait Assessment Gait Gait Assistance Required: Independent Assistive Devices Assistive Device None Gait Deviations General Gait Pattern Antalgic,Decreased Stride Length,Decreased Feet Clearance Factors Limiting Gait Function Factors Limiting Gait Function Decreased Activity Tolerance, Decreased Strength,Limited Range of Motion,Pain,Poor Balance Stair Climbing Evaluation Evaluation Level of Assist On Stairs Independent Technique/Endurance Stair Climbing Technique Step to Step PT-OP-H Neuro Start: 05/04/23 16:33 Freq: Status: Active Protocol: Document 05/05/23 10:[address] [facility] (Rec: 05/05/23 11:[address] [facility] [id number]) Sensation Evaluation Gross Sensation Gross Sensation WNL PT-OP-J Posture/Palpation/Skin Start: 05/04/23 16:33 Freq: Status: Active Protocol: Document 05/05/23 10:30 SAK (Rec: 05/05/23 11:[address] [facility] [id number]) Posture Evaluation Position Standing Head/C-Spine Posture Forward Head T-Spine Posture Increased Kyphosis L-Spine Posture Shifted Right Shoulder Posture (L) Rounded,(R) Rounded,(L) Elevated Scapula Posture (L) Protracted,(R) Protracted Arm Posture (L) Internally Rotated,(R) Internally Rotated Ankle/Foot Posture (R) Pronated Foot Arch (L) Low Arch,(R) No Arch Palpation Assessment Location piriformis lef Palpation Findings Soft Tissue Tightness, Tenderness hip Palpation Location gr trochanter herbie Palpation Findings Tenderness PT-OP-K Range of Motion Start: 05/04/23 16:33 Freq: Status: Active Protocol: Document 05/05/23 10:[address] [facility] (Rec: 05/05/23 11:[address] [facility] [id number]) Lumbar Spine Range of Motion Lumbar Spine Active Testing Position Standing Flexion 20 Extension 0 Lateral Flexion Left 20 Lateral Flexion Right 20 PT-OP-M Strength Start: 05/04/23 16:33 Freq: Status: Active Protocol: Document 05/05/23 10:30 SAK (Rec: 05/05/23 11:[address] [facility] [id number]) Hip Strength Hip Manual Muscle Testing Right Flexion (L2) 4- Good- Extension (S1) 3- Fair- Abduction 3+ Fair+ Adduction 4- Good- External Rotation 3+ Fair+ Internal Rotation 4- Good- Left Flexion (L2) 3- Fair- Abduction 3+ Fair+ Adduction 4- Good- External Rotation 3+ Fair+ Internal Rotation 4- Good- Knee Strength Knee Manual Muscle Testing Left Flexion (S2) 4 Good Extension (L3) 4 Good Right Flexion (S2) 4 Good Extension (L3) 4 Good Ankle/Foot Strength Ankle and Foot Manual Muscle Testing Left Dorsiflexion (L4) 4 Good Plantarflexion (S1) 4 Good Right Dorsiflexion (L4) 4 Good Plantarflexion (S1) 4 Good PT-OP-Q Treatments Start: 05/04/23 16:33 Freq: Status: Active Protocol: Document 06/24/23 13:02 (Rec: 06/24/23 13:45 [id number]) Cardio Equipment Recumbent Stepper (Sci-Fit) Duration (Minutes) 12 Resistance 3 Seat Position 7 Other UE's and LEs, 1.3 miles Gym Equipment Shuttle Recovery Unilateral Squats Resistance 37 (new) Shuttle Recovery Platform Stable Reps/Time 10x2 Bilateral Squats Resistance 75 (3 new) Shuttle Recovery Platform Stable Reps/Time 2x10 Therapeutic Exercises Supine Exercises LTR Supine Exercise Name legs on 55 cm therapy ball Reps/Minutes 10x SLR Side bilateral Reps/Minutes 2 x 10 Comments Cues for core stabilization, right knee and hip sl bent ball press Equipment Used 55 cm ball Reps/Minutes 10x fwd, 10x ea diagnonal Core Supine Exercise Name TA activation w/march, leg lowering, BKFO Reps/Minutes 5x ea Comments Cues for stabilization segmental bridge Supine Exercise Name legs on 55 cm therapy ball Reps/Minutes 10x Standing Exercises split squat Reps/Minutes 10x Mini squat Standing Exercise Name Mini squat Reps/Minutes x10 Comments verbal cue required for mechanics Anti rotation Standing Exercise Name lateral walk out Side bilateral Resistance orange Side Step Up Equipment Used 7# weight in opposite hand Reps/Minutes x10 Comments cues for neutral posture, gluteal activation hip extension Resistance orange TB Reps/Minutes 10x Manual Therapy Treatment Joint Mobilizations right hip Joint R hip Direction long axis distraction Body Position Supine Reps/Duration 3 x 30 PT-OP-R Modalities Start: 05/04/23 16:33 Freq: Status: Active Protocol: Document 06/24/23 13:02 (Rec: 06/24/23 13:45 [id number]) Hot Pack/Cold Pack Treatment Hot Pack Location herbie lumbosacral spine, ant/lat right hip Patient Position Hooklying Treatment Duration (minutes) 10 Patient Tolerance Good Comments 90/90 postion, stroud within reach PT-OP-T Assessment and Plan Start: 05/04/23 16:33 Freq: Status: Active Protocol: Document 06/24/23 13:02 (Rec: 06/24/23 13:45 [id number]) Physical Therapy Assessment Goals Three Impairment weakness Impairment LE's and core with altered muscle activation Short Term Goal (STG) Patient will be instsructed in HEP for purposes of core and hip strengthening and stabilization 06/21/23: goal progress; ongoing progression. Patient with good compliance to HEP STG Duration 06/05/23 Paster Operator Goal (LTG) Patient will be independent and compliant with HEP and demonstrate improved strength to at least 4+/5 with improved functional activation of gluteals. LTG Duration 07/05/23 Two Impairment gait Impairment antalgic, step-to pattern on stairs Short Term Goal (STG) Patient will be able to walk on level surfaces with minimal to no limp 06/21/23: good goal progreess STG Duration 06/05/23 Fpc Goal (LTG) Patient will be able to ambulate on stairs with alternating step pattern LTG Duration 07/05/23 One Impairment activity tolerance Impairment Lower extremity functional scale score 32% Short Term Goal (STG) Improve LEFS score to at least 45% as measure of improved functional activity tolerance 06/21/23: goal met, score improved to 50% STG Duration 06/05/23 Fpc Goal (LTG) Improve LEFS score to at least 60% as measure of improved functional activity tolerance and quality of life. LTG Duration 07/05/23 Assessment Summary Assessment Progressed patient with increased resistance with walk outs and weight with side step ups, tolerated well, no increase in symptoms. Pt recalled correct mechanics with both mini squats and split squats today, but demonstrated difficulty with carryover into exercise. Physical Therapy Plan Frequency and Duration Frequency of Treatment 2x/Week Duration of treatment (weeks) 8 Plan of Care Start Date 05/05/23 Plan of Care End Date 07/05/23 Therapeutic Interventions Therapeutic Interventions Home Exercise Program,Manual Therapy,Neuromuscular Re- education,Patient/Caregiver Education,Self-Care/Home Management,Soft Tissue Mobilization,Taping, Therapeutic Activities, Therapeutic Exercises Modalities Cold Pack/Ice Massage,Electric Stimulation,Hot Packs, Ultrasound Next Visit Focus/Plan Next Note Type Treatment Note Next Visit Plan Continue PT to improve strength and core stab, decrease pain with ther ex, manual therapy, modalities PRN .
--- NOTE | 2023-06-28 13:24 | PT.OTN ---
Current Diagnoses Other chronic pain (06/28/23) Pain in right hip (06/28/23) Difficulty in walking, not elsewhere classified (06/28/23) Weakness (06/28/23) Physical Therapy Treatment Note PT-OP-A Visit Information Start: 05/04/23 16:33 Freq: Status: Active Protocol: Document 06/28/23 12:33 SAK (Rec: 06/28/23 13:24 [facility] [id number]) Out-Patient Physical Therapy Visit Information Visit Information Visit Type Treatment Note Visit Start Time 12:33 Visit Stop Time 01:26 Total Visit Minutes 53 Visit Number 14 PT-OP-B Current Condition Start: 05/04/23 16:33 Freq: Status: Active Protocol: Document 05/10/23 12:30 SAK (Rec: 05/10/23 13:18 [facility] [id number]) Current Condition History of Current Condition Onset Date 1 year Current Complaints chronic right hip pain History of Current Condition Gradual worsening of right hip pain to the point it is hard to stand and walk. Doesn't use any device for walking. Doing some exercising. Reports right leg short. Sees chiropractor every other week. Prior Treatments and Tests left achilles bone spur removed 1+ year ago Treatment Goals Patient/Caregiver Goals Be able to walk up ramp to house without pain. Able to walk up and down stairs with alternating patter Decrease pain. Current Functional Impairments (Reported) Functional Limitations- ADL's painful Functional Limitations- Mobility/Gait painful Functional Limitations- Work/School unable Functional Limitations- Recreation/ gardens, does puzzles; painful Hobbies gardening Functional Limitations- Other LEFS PT-OP-C Subjective Start: 05/04/23 16:33 Freq: Status: Active Protocol: Document 06/28/23 12:33 [facility] (Rec: 06/28/23 13:24 [facility] [id number]) OP-PT Subjective Patient Comments Patient Comments No new c/o. Saw chiropractor Wednesday; states increased pain after he puts my hip back in) ) PT-OP-G Mobility & Gait Start: 05/04/23 16:33 Freq: Status: Active Protocol: Document 05/05/23 10:30 SAK (Rec: 05/05/23 11:15 [facility] [id number]) OP Mobility Evaluation Transfers Sit to Stand decreased weight bearing right OP Gait Assessment Gait Gait Assistance Required: Independent Assistive Devices Assistive Device None Gait Deviations General Gait Pattern Antalgic,Decreased Stride Length,Decreased Feet Clearance Factors Limiting Gait Function Factors Limiting Gait Function Decreased Activity Tolerance, Decreased Strength,Limited Range of Motion,Pain,Poor Balance Stair Climbing Evaluation Evaluation Level of Assist On Stairs Independent Technique/Endurance Stair Climbing Technique Step to Step PT-OP-H Neuro Start: 05/04/23 16:33 Freq: Status: Active Protocol: Document 05/05/23 10:30 [facility] (Rec: 05/05/23 11:15 [facility] [id number]) Sensation Evaluation Gross Sensation Gross Sensation WNL PT-OP-J Posture/Palpation/Skin Start: 05/04/23 16:33 Freq: Status: Active Protocol: Document 05/05/23 10:30 [facility] (Rec: 05/05/23 11:15 [facility] [id number]) Posture Evaluation Position Standing Head/C-Spine Posture Forward Head T-Spine Posture Increased Kyphosis L-Spine Posture Shifted Right Shoulder Posture (L) Rounded,(R) Rounded,(L) Elevated Scapula Posture (L) Protracted,(R) Protracted Arm Posture (L) Internally Rotated,(R) Internally Rotated Ankle/Foot Posture (R) Pronated Foot Arch (L) Low Arch,(R) No Arch Palpation Assessment Location piriformis lef Palpation Findings Soft Tissue Tightness, Tenderness hip Palpation Location gr trochanter herbie Palpation Findings Tenderness PT-OP-K Range of Motion Start: 05/04/23 16:33 Freq: Status: Active Protocol: Document 05/05/23 10:30 [facility] (Rec: 05/05/23 11:15 [facility] [id number]) Lumbar Spine Range of Motion Lumbar Spine Active Testing Position Standing Flexion 20 Extension 0 Lateral Flexion Left 20 Lateral Flexion Right 20 PT-OP-M Strength Start: 05/04/23 16:33 Freq: Status: Active Protocol: Document 05/05/23 10:30 [facility] (Rec: 05/05/23 11:15 [facility] [id number]) Hip Strength Hip Manual Muscle Testing Right Flexion (L2) 4- Good- Extension (S1) 3- Fair- Abduction 3+ Fair+ Adduction 4- Good- External Rotation 3+ Fair+ Internal Rotation 4- Good- Left Flexion (L2) 3- Fair- Abduction 3+ Fair+ Adduction 4- Good- External Rotation 3+ Fair+ Internal Rotation 4- Good- Knee Strength Knee Manual Muscle Testing Left Flexion (S2) 4 Good Extension (L3) 4 Good Right Flexion (S2) 4 Good Extension (L3) 4 Good Ankle/Foot Strength Ankle and Foot Manual Muscle Testing Left Dorsiflexion (L4) 4 Good Plantarflexion (S1) 4 Good Right Dorsiflexion (L4) 4 Good Plantarflexion (S1) 4 Good PT-OP-Q Treatments Start: 05/04/23 16:33 Freq: Status: Active Protocol: Document 06/28/23 12:33 [facility] (Rec: 06/28/23 13:24 [facility] [id number]) Cardio Equipment Recumbent Stepper (Sci-Fit) Duration (Minutes) 12 Resistance 3 Seat Position 7 Other UE's and LEs, 1.48 miles (3 rounds of 30:30 intervals) Gym Equipment Shuttle Recovery Unilateral Squats Resistance 50 (new) Shuttle Recovery Platform Stable Reps/Time 10x2 Bilateral Squats Resistance 87 (3 new) Shuttle Recovery Platform Stable Reps/Time 2x10 Therapeutic Exercises Supine Exercises crunch Reps/Minutes 10x2 Comments straight and diagonal LTR Supine Exercise Name legs on 55 cm therapy ball Reps/Minutes 10x SLR Side bilateral Reps/Minutes 2 x 10 Comments Cues for core stabilization, right knee and hip sl bent ball press Equipment Used 55 cm ball Reps/Minutes 10x fwd, 10x ea diagnonal Core Supine Exercise Name TA activation w/march, leg lowering, BKFO Reps/Minutes 5x ea Comments Cues for stabilization single leg bridge Reps/Minutes 10x segmental bridge Supine Exercise Name legs on 55 cm therapy ball Reps/Minutes 12x Standing Exercises split squat Reps/Minutes 10x Mini squat Standing Exercise Name Mini squat Reps/Minutes x10 Comments verbal cue required for mechanics Anti rotation Standing Exercise Name lateral walk out Side bilateral Resistance orange Side Step Up Equipment Used 7# weight in opposite hand Reps/Minutes x10 Comments cues for neutral posture, gluteal activation sidestepping Resistance yellow TB Reps/Minutes 10 ft hip extension Resistance orange TB Reps/Minutes 10x Lymphedema Treatment Other Other 1/8 cork put in right shoe for trial. PT-OP-R Modalities Start: 05/04/23 16:33 Freq: Status: Active Protocol: Document 06/28/23 12:33 [facility] (Rec: 06/28/23 13:24 [facility] [id number]) Hot Pack/Cold Pack Treatment Hot Pack Location herbie lumbosacral spine, ant/lat right hip Patient Position Hooklying Treatment Duration (minutes) 10 Patient Tolerance Good Comments 90/90 postion, stroud within reach PT-OP-T Assessment and Plan Start: 05/04/23 16:33 Freq: Status: Active Protocol: Document 06/28/23 12:33 [facility] (Rec: 06/28/23 13:24 [facility] [id number]) Physical Therapy Assessment Goals Three Impairment weakness Impairment LE's and core with altered muscle activation Short Term Goal (STG) Patient will be instsructed in HEP for purposes of core and hip strengthening and stabilization 06/21/23: goal progress; ongoing progression. Patient with good compliance to HEP STG Duration 06/05/23 Manager Military Goal (LTG) Patient will be independent and compliant with HEP and demonstrate improved strength to at least 4+/5 with improved functional activation of gluteals. LTG Duration 07/05/23 Two Impairment gait Impairment antalgic, step-to pattern on stairs Short Term Goal (STG) Patient will be able to walk on level surfaces with minimal to no limp 06/21/23: good goal progreess STG Duration 06/05/23 Usp Goal (LTG) Patient will be able to ambulate on stairs with alternating step pattern LTG Duration 07/05/23 One Impairment activity tolerance Impairment Lower extremity functional scale score 32% Short Term Goal (STG) Improve LEFS score to at least 45% as measure of improved functional activity tolerance 06/21/23: goal met, score improved to 50% STG Duration 06/05/23 Manager Military Goal (LTG) Improve LEFS score to at least 60% as measure of improved functional activity tolerance and quality of life. LTG Duration 07/05/23 Assessment Summary Assessment Improved exercise tolerance with addition of resistance with ball roll and addition of crunch fwd and lateral. Patient previously benefitted from use of cork in shoe, doesn't have anymore; cut 1/8 thick cork for shoe. Physical Therapy Plan Frequency and Duration Frequency of Treatment 2x/Week Duration of treatment (weeks) 8 Plan of Care Start Date 05/05/23 Plan of Care End Date 07/05/23 Therapeutic Interventions Therapeutic Interventions Home Exercise Program,Manual Therapy,Neuromuscular Re- education,Patient/Caregiver Education,Self-Care/Home Management,Soft Tissue Mobilization,Taping, Therapeutic Activities, Therapeutic Exercises Modalities Cold Pack/Ice Massage,Electric Stimulation,Hot Packs, Ultrasound Next Visit Focus/Plan Next Note Type Treatment Note Next Visit Plan ASsess response to cork in shoe, consider second 10/04 piece. Continue ther ex progression.
--- NOTE | 2023-06-30 16:32 | PT.OTN ---
Current Diagnoses Other chronic pain (06/30/23) Pain in right hip (06/30/23) Difficulty in walking, not elsewhere classified (06/30/23) Weakness (06/30/23) Physical Therapy Treatment Note PT-OP-A Visit Information Start: 05/04/23 16:33 Freq: Status: Active Protocol: Document 06/30/23 15:33 SW (Rec: 06/30/23 16:31 SW [id number]) Out-Patient Physical Therapy Visit Information Visit Information Visit Type Treatment Note Visit Start Time 15:30 Visit Stop Time 16:55 Total Visit Minutes 55 Visit Number 15 Number of BENCH WORKER Visits 1 PT-OP-B Current Condition Start: 05/04/23 16:33 Freq: Status: Active Protocol: Document 05/10/23 12:30 SAK (Rec: 05/10/23 13:18 SAK [id number]) Current Condition History of Current Condition Onset Date 1 year Current Complaints chronic right hip pain History of Current Condition Gradual worsening of right hip pain to the point it is hard to stand and walk. Doesn't use any device for walking. Doing some exercising. Reports right leg short. Sees chiropractor every other week. Prior Treatments and Tests left achilles bone spur removed 1+ year ago Treatment Goals Patient/Caregiver Goals Be able to walk up ramp to house without pain. Able to walk up and down stairs with alternating patter Decrease pain. Current Functional Impairments (Reported) Functional Limitations- ADL's painful Functional Limitations- Mobility/Gait painful Functional Limitations- Work/School unable Functional Limitations- Recreation/ gardens, does puzzles; painful Hobbies gardening Functional Limitations- Other LEFS PT-OP-C Subjective Start: 05/04/23 16:33 Freq: Status: Active Protocol: Document 06/30/23 15:33 SW (Rec: 06/30/23 16:31 SW [id number]) OP-PT Subjective Patient Comments Patient Comments Pt reports doing ok today, himanshu horse in hip this morning. Reports has not noticed a difference with cork in shoe. PT-OP-G Mobility & Gait Start: 05/04/23 16:33 Freq: Status: Active Protocol: Document 05/05/23 10:30 SAK (Rec: 05/05/23 11:15 SAK [id number]) OP Mobility Evaluation Transfers Sit to Stand decreased weight bearing right OP Gait Assessment Gait Gait Assistance Required: Independent Assistive Devices Assistive Device None Gait Deviations General Gait Pattern Antalgic,Decreased Stride Length,Decreased Feet Clearance Factors Limiting Gait Function Factors Limiting Gait Function Decreased Activity Tolerance, Decreased Strength,Limited Range of Motion,Pain,Poor Balance Stair Climbing Evaluation Evaluation Level of Assist On Stairs Independent Technique/Endurance Stair Climbing Technique Step to Step PT-OP-H Neuro Start: 05/04/23 16:33 Freq: Status: Active Protocol: Document 05/05/23 10:30 [facility] (Rec: 05/05/23 11:15 [facility] [id number]) Sensation Evaluation Gross Sensation Gross Sensation WNL PT-OP-J Posture/Palpation/Skin Start: 05/04/23 16:33 Freq: Status: Active Protocol: Document 05/05/23 10:30 [facility] (Rec: 05/05/23 11:15 [facility] [id number]) Posture Evaluation Position Standing Head/C-Spine Posture Forward Head T-Spine Posture Increased Kyphosis L-Spine Posture Shifted Right Shoulder Posture (L) Rounded,(R) Rounded,(L) Elevated Scapula Posture (L) Protracted,(R) Protracted Arm Posture (L) Internally Rotated,(R) Internally Rotated Ankle/Foot Posture (R) Pronated Foot Arch (L) Low Arch,(R) No Arch Palpation Assessment Location piriformis lef Palpation Findings Soft Tissue Tightness, Tenderness hip Palpation Location gr trochanter herbie Palpation Findings Tenderness PT-OP-K Range of Motion Start: 05/04/23 16:33 Freq: Status: Active Protocol: Document 05/05/23 10:30 [facility] (Rec: 05/05/23 11:15 [facility] [id number]) Lumbar Spine Range of Motion Lumbar Spine Active Testing Position Standing Flexion 20 Extension 0 Lateral Flexion Left 20 Lateral Flexion Right 20 PT-OP-M Strength Start: 05/04/23 16:33 Freq: Status: Active Protocol: Document 05/05/23 10:30 SAK (Rec: 05/05/23 11:15 [facility] [id number]) Hip Strength Hip Manual Muscle Testing Right Flexion (L2) 4- Good- Extension (S1) 3- Fair- Abduction 3+ Fair+ Adduction 4- Good- External Rotation 3+ Fair+ Internal Rotation 4- Good- Left Flexion (L2) 3- Fair- Abduction 3+ Fair+ Adduction 4- Good- External Rotation 3+ Fair+ Internal Rotation 4- Good- Knee Strength Knee Manual Muscle Testing Left Flexion (S2) 4 Good Extension (L3) 4 Good Right Flexion (S2) 4 Good Extension (L3) 4 Good Ankle/Foot Strength Ankle and Foot Manual Muscle Testing Left Dorsiflexion (L4) 4 Good Plantarflexion (S1) 4 Good Right Dorsiflexion (L4) 4 Good Plantarflexion (S1) 4 Good PT-OP-Q Treatments Start: 05/04/23 16:33 Freq: Status: Active Protocol: Document 06/30/23 15:33 (Rec: 06/30/23 16:31 [id number]) Cardio Equipment Recumbent Stepper (Sci-Fit) Duration (Minutes) 12 Resistance 3 Seat Position 7 Other UE's and LEs, 1.53 miles (57 rpms throughout) Gym Equipment Shuttle Recovery Unilateral Squats Resistance 50 (new) Shuttle Recovery Platform Stable Reps/Time 10x2 Bilateral Squats Resistance 87 (1 new) Shuttle Recovery Platform Stable Reps/Time 2x10 Therapeutic Exercises Supine Exercises crunch Supine Exercise Name straight and diagonal Reps/Minutes 10x2 Comments cues for breathwork LTR Supine Exercise Name legs on 55 cm therapy ball Reps/Minutes 10x ball press Equipment Used 55 cm ball Reps/Minutes 10x fwd, 10x ea diagnonal Core Supine Exercise Name TA activation w/march, leg lowering, BKFO Reps/Minutes 5x ea Comments Cues for stabilization single leg bridge Reps/Minutes 10x Standing Exercises Mini squat Standing Exercise Name Mini squat Reps/Minutes x10 Comments verbal cue required for mechanics Anti rotation Standing Exercise Name lateral walk out Side bilateral Resistance orange Side Step Up Equipment Used 7# weight in opposite hand Reps/Minutes x10 Comments cues for neutral posture, gluteal activation hip extension Resistance orange TB Reps/Minutes 10x Self-Care/Home Management Treatment Activities Self-Care/Home Management Activities 10/04 cork added for RLE leg length PT-OP-R Modalities Start: 05/04/23 16:33 Freq: Status: Active Protocol: Document 06/30/23 15:33 SW (Rec: 06/30/23 16:31 [id number]) Hot Pack/Cold Pack Treatment Hot Pack Location herbie lumbosacral spine, ant/lat right hip Patient Position Hooklying Treatment Duration (minutes) 10 Patient Tolerance Good Comments 90/90 postion, stroud within reach PT-OP-T Assessment and Plan Start: 05/04/23 16:33 Freq: Status: Active Protocol: Document 06/30/23 15:33 SW (Rec: 06/30/23 16:31 [id number]) Physical Therapy Assessment Goals Three Impairment weakness Impairment LE's and core with altered muscle activation Short Term Goal (STG) Patient will be instsructed in HEP for purposes of core and hip strengthening and stabilization 06/21/23: goal progress; ongoing progression. Patient with good compliance to HEP STG Duration 06/05/23 Fur Matcher Goal (LTG) Patient will be independent and compliant with HEP and demonstrate improved strength to at least 4+/5 with improved functional activation of gluteals. LTG Duration 07/05/23 Two Impairment gait Impairment antalgic, step-to pattern on stairs Short Term Goal (STG) Patient will be able to walk on level surfaces with minimal to no limp 06/21/23: good goal progreess STG Duration 06/05/23 Fur Matcher Goal (LTG) Patient will be able to ambulate on stairs with alternating step pattern LTG Duration 07/05/23 One Impairment activity tolerance Impairment Lower extremity functional scale score 32% Short Term Goal (STG) Improve LEFS score to at least 45% as measure of improved functional activity tolerance 06/21/23: goal met, score improved to 50% STG Duration 06/05/23 Care Home Goal (LTG) Improve LEFS score to at least 60% as measure of improved functional activity tolerance and quality of life. LTG Duration 07/05/23 Assessment Summary Assessment Pt did not notice a difference with cork in R shoe for leg length difference, cut additional 1/8 cork in session today, plan to follow up next session for pt tolerance. Lowered resistance with shuttle recovery resistance this session d/t pain in pt L knee. Pt required verbal cueing for breathwork during core strengthening exercises, continues to be challenged with last session progression. Physical Therapy Plan Frequency and Duration Frequency of Treatment 2x/Week Duration of treatment (weeks) 8 Plan of Care Start Date 05/05/23 Plan of Care End Date 07/05/23 Therapeutic Interventions Therapeutic Interventions Home Exercise Program,Manual Therapy,Neuromuscular Re- education,Patient/Caregiver Education,Self-Care/Home Management,Soft Tissue Mobilization,Taping, Therapeutic Activities, Therapeutic Exercises Modalities Cold Pack/Ice Massage,Electric Stimulation,Hot Packs, Ultrasound Next Visit Focus/Plan Next Note Type Treatment Note Next Visit Plan ASsess response to cork in shoe, consider second 10/04 piece. Continue ther ex progression.
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
--- NOTE | 2023-07-06 14:34 | PT.OPPOC ---
Physical, Occupational & Speech Therapy At [facility] Current Diagnoses Other chronic pain (07/06/23) Pain in right hip (07/06/23) Difficulty in walking, not elsewhere classified (07/06/23) Weakness (07/06/23) Visit Care Team Role Provider Type Carlos Bradley DO Attending Provider Physician Family Provider Primary Care Provider Referring Provider Specialty: [facility] Practice Address: [address] [place] [address], [facility] Email: Plan Of Care PT-OP-T Assessment and Plan Start: 05/04/23 16:33 Freq: Status: Active Protocol: Document 07/06/23 08:45 SAK (Rec: 07/06/23 09:34 SAK [id number]) Physical Therapy Assessment Goals Three Impairment weakness Impairment LE's and core with altered muscle activation Short Term Goal (STG) Patient will be instsructed in HEP for purposes of core and hip strengthening and stabilization 06/21/23: goal progress; ongoing progression. Patient with good compliance to HEP STG Duration goal met Usp Goal (LTG) Patient will be independent and compliant with HEP and demonstrate improved strength to at least 4+/5 with improved functional activation of gluteals. LTG Duration 07/27/23 Two Impairment gait Impairment antalgic, step-to pattern on stairs Short Term Goal (STG) Patient will be able to walk on level surfaces with minimal to no limp 06/21/23: good goal progreess STG Duration goal met Police Shift Commander Goal (LTG) Patient will be able to ambulate on stairs with alternating step pattern LTG Duration 07/27/23 One Impairment activity tolerance Impairment Lower extremity functional scale score 32% Short Term Goal (STG) Improve LEFS score to at least 45% as measure of improved functional activity tolerance 06/21/23: goal met, score improved to 50% STG Duration goal met Usp Goal (LTG) Improve LEFS score to at least 60% as measure of improved functional activity tolerance and quality of life. LTG Duration 07/27/23 Assessment Summary Assessment Noting goal progress in all areas, good compliance to HEP. Issued new exercises from [facility] of pelvis and hips after education and practice in today's PT session with good understanding. Will benefit from further PT to help patient fully achieve her PT goals and return to prior level of function. Physical Therapy Plan Frequency and Duration Frequency of Treatment 2x/Week Duration of treatment (weeks) 4 Plan of Care Start Date 07/06/23 Plan of Care End Date 07/27/23 Therapeutic Interventions Therapeutic Interventions Home Exercise Program,Manual Therapy,Neuromuscular Re- education,Patient/Caregiver Education,Self-Care/Home Management,Soft Tissue Mobilization,Taping, Therapeutic Activities, Therapeutic Exercises Modalities Cold Pack/Ice Massage,Electric Stimulation,Hot Packs, Ultrasound Next Visit Focus/Plan Next Note Type Treatment Note Plan of Care Dates Plan of Care Start Date 07/06/23 Plan of Care End Date 07/27/23 Electronically Signed by: Lo Martinez, PT 07/06/23 6575 If you are in agreement with this Plan of Care, please return a signed and dated copy. I have reviewed this Plan of Care and certify that the skilled therapy services above are required to meet the patient?s needs. Physician Signature Date Printed Name and Credentials Clinical Instructor Signature Printed Name and Credentials
--- NOTE | 2023-07-08 13:16 | PT.OTN ---
Current Diagnoses Other chronic pain (07/08/23) Pain in right hip (07/08/23) Difficulty in walking, not elsewhere classified (07/08/23) Weakness (07/08/23) Physical Therapy Treatment Note PT-OP-A Visit Information Start: 05/04/23 16:33 Freq: Status: Active Protocol: Document 07/08/23 12:30 [facility] (Rec: 07/08/23 13:16 [facility] [id number]) Out-Patient Physical Therapy Visit Information Visit Information Visit Type Treatment Note Visit Start Time 12:30 Visit Stop Time 13:25 Total Visit Minutes 55 Visit Number 17 PT-OP-B Current Condition Start: 05/04/23 16:33 Freq: Status: Active Protocol: Document 05/10/23 12:30 [facility] (Rec: 05/10/23 13:18 [facility] [id number]) Current Condition History of Current Condition Onset Date 1 year Current Complaints chronic right hip pain History of Current Condition Gradual worsening of right hip pain to the point it is hard to stand and walk. Doesn't use any device for walking. Doing some exercising. Reports right leg short. Sees chiropractor every other week. Prior Treatments and Tests left achilles bone spur removed 1+ year ago Treatment Goals Patient/Caregiver Goals Be able to walk up ramp to house without pain. Able to walk up and down stairs with alternating patter Decrease pain. Current Functional Impairments (Reported) Functional Limitations- ADL's painful Functional Limitations- Mobility/Gait painful Functional Limitations- Work/School unable Functional Limitations- Recreation/ gardens, does puzzles; painful Hobbies gardening Functional Limitations- Other LEFS PT-OP-C Subjective Start: 05/04/23 16:33 Freq: Status: Active Protocol: Document 07/08/23 12:30 [facility] (Rec: 07/08/23 13:16 [facility] [id number]) OP-PT Subjective Patient Comments Patient Comments Didn't do the new exercises yet. Today an ok day so far. PT-OP-G Mobility & Gait Start: 05/04/23 16:33 Freq: Status: Active Protocol: Document 05/05/23 10:30 [facility] (Rec: 05/05/23 11:15 [facility] [id number]) OP Mobility Evaluation Transfers Sit to Stand decreased weight bearing right OP Gait Assessment Gait Gait Assistance Required: Independent Assistive Devices Assistive Device None Gait Deviations General Gait Pattern Antalgic,Decreased Stride Length,Decreased Feet Clearance Factors Limiting Gait Function Factors Limiting Gait Function Decreased Activity Tolerance, Decreased Strength,Limited Range of Motion,Pain,Poor Balance Stair Climbing Evaluation Evaluation Level of Assist On Stairs Independent Technique/Endurance Stair Climbing Technique Step to Step PT-OP-H Neuro Start: 05/04/23 16:33 Freq: Status: Active Protocol: Document 05/05/23 10:30 [facility] (Rec: 05/05/23 11:15 [facility] [id number]) Sensation Evaluation Gross Sensation Gross Sensation WNL PT-OP-J Posture/Palpation/Skin Start: 05/04/23 16:33 Freq: Status: Active Protocol: Document 05/05/23 10:30 [facility] (Rec: 05/05/23 11:15 [facility] [id number]) Posture Evaluation Position Standing Head/C-Spine Posture Forward Head T-Spine Posture Increased Kyphosis L-Spine Posture Shifted Right Shoulder Posture (L) Rounded,(R) Rounded,(L) Elevated Scapula Posture (L) Protracted,(R) Protracted Arm Posture (L) Internally Rotated,(R) Internally Rotated Ankle/Foot Posture (R) Pronated Foot Arch (L) Low Arch,(R) No Arch Palpation Assessment Location piriformis lef Palpation Findings Soft Tissue Tightness, Tenderness hip Palpation Location gr trochanter herbie Palpation Findings Tenderness PT-OP-K Range of Motion Start: 05/04/23 16:33 Freq: Status: Active Protocol: Document 05/05/23 10:30 [facility] (Rec: 05/05/23 11:15 [facility] [id number]) Lumbar Spine Range of Motion Lumbar Spine Active Testing Position Standing Flexion 20 Extension 0 Lateral Flexion Left 20 Lateral Flexion Right 20 PT-OP-M Strength Start: 05/04/23 16:33 Freq: Status: Active Protocol: Document 05/05/23 10:30 [facility] (Rec: 05/05/23 11:15 [facility] [id number]) Hip Strength Hip Manual Muscle Testing Right Flexion (L2) 4- Good- Extension (S1) 3- Fair- Abduction 3+ Fair+ Adduction 4- Good- External Rotation 3+ Fair+ Internal Rotation 4- Good- Left Flexion (L2) 3- Fair- Abduction 3+ Fair+ Adduction 4- Good- External Rotation 3+ Fair+ Internal Rotation 4- Good- Knee Strength Knee Manual Muscle Testing Left Flexion (S2) 4 Good Extension (L3) 4 Good Right Flexion (S2) 4 Good Extension (L3) 4 Good Ankle/Foot Strength Ankle and Foot Manual Muscle Testing Left Dorsiflexion (L4) 4 Good Plantarflexion (S1) 4 Good Right Dorsiflexion (L4) 4 Good Plantarflexion (S1) 4 Good PT-OP-Q Treatments Start: 05/04/23 16:33 Freq: Status: Active Protocol: Document 07/08/23 12:30 [facility] (Rec: 07/08/23 13:16 [facility] [id number]) Cardio Equipment Recumbent Stepper (Sci-Fit) Duration (Minutes) 10 Resistance 3 Seat Position 7 Other UE's and LE's first 5 min, LE' s only last 5 min Therapeutic Exercises Supine Exercises 90-90 hip lift Equipment Used wall, ball between knees Reps/Minutes 5x2 Comments (see handout in EMR) Sidelying Exercises left sidelying scissor slide Reps/Minutes 5x left sidelying, right glut max Equipment Used wall, towel roll under feet, towel under left abdominals Reps/Minutes 5x2 right sidelying respiratory scissor slides Equipment Used wall, ball between knees Reps/Minutes 5x2 Standing Exercises calf stretch Equipment Used stair Reps/Minutes 2x30 PT-OP-R Modalities Start: 05/04/23 16:33 Freq: Status: Active Protocol: Document 07/08/23 12:30 [facility] (Rec: 07/08/23 13:16 [facility] [id number]) Hot Pack/Cold Pack Treatment Hot Pack Location herbie lumbosacral spine, ant/lat right hip Patient Position Hooklying Treatment Duration (minutes) 10 Patient Tolerance Good Comments 90/90 postion, stroud within reach PT-OP-T Assessment and Plan Start: 05/04/23 16:33 Freq: Status: Active Protocol: Document 07/08/23 12:30 [facility] (Rec: 07/08/23 13:16 [facility] [id number]) Physical Therapy Assessment Goals Three Impairment weakness Impairment LE's and core with altered muscle activation Short Term Goal (STG) Patient will be instsructed in HEP for purposes of core and hip strengthening and stabilization 06/21/23: goal progress; ongoing progression. Patient with good compliance to HEP STG Duration goal met Custodial Goal (LTG) Patient will be independent and compliant with HEP and demonstrate improved strength to at least 4+/5 with improved functional activation of gluteals. LTG Duration 07/27/23 Two Impairment gait Impairment antalgic, step-to pattern on stairs Short Term Goal (STG) Patient will be able to walk on level surfaces with minimal to no limp 06/21/23: good goal progreess STG Duration goal met Custodial Goal (LTG) Patient will be able to ambulate on stairs with alternating step pattern LTG Duration 07/27/23 One Impairment activity tolerance Impairment Lower extremity functional scale score 32% Short Term Goal (STG) Improve LEFS score to at least 45% as measure of improved functional activity tolerance 06/21/23: goal met, score improved to 50% STG Duration goal met Custodial Goal (LTG) Improve LEFS score to at least 60% as measure of improved functional activity tolerance and quality of life. LTG Duration 07/27/23 Assessment Summary Assessment Demonstrated improved understanding of new exercises with further instruction and review. Patient reported a little sore day after last PT session but pretty good today. No change in leg length but noted improved adduction drop test and extension drop test after ex. Physical Therapy Plan Frequency and Duration Frequency of Treatment 2x/Week Duration of treatment (weeks) 4 Plan of Care Start Date 07/06/23 Plan of Care End Date 07/27/23 Therapeutic Interventions Therapeutic Interventions Home Exercise Program,Manual Therapy,Neuromuscular Re- education,Patient/Caregiver Education,Self-Care/Home Management,Soft Tissue Mobilization,Taping, Therapeutic Activities, Therapeutic Exercises Modalities Cold Pack/Ice Massage,Electric Stimulation,Hot Packs, Ultrasound Next Visit Focus/Plan Next Note Type Treatment Note Next Visit Plan Assess response and performance of ex, progress with postural religion exercises as tolerated.
--- NOTE | 2023-07-14 16:39 | PT.OTN ---
Current Diagnoses Other chronic pain (07/14/23) Pain in right hip (07/14/23) Difficulty in walking, not elsewhere classified (07/14/23) Weakness (07/14/23) Physical Therapy Treatment Note PT-OP-A Visit Information Start: 05/04/23 16:33 Freq: Status: Active Protocol: Document 07/14/23 14:47 [facility] (Rec: 07/14/23 15:30 [facility] [id number]) Out-Patient Physical Therapy Visit Information Visit Information Visit Type Treatment Note Visit Start Time 14:45 Visit Stop Time 15:27 Total Visit Minutes 42 Visit Number 18 Number of KISS [employer]TER HAND Visits 1 PT-OP-B Current Condition Start: 05/04/23 16:33 Freq: Status: Active Protocol: Document 05/10/23 12:30 [facility] (Rec: 05/10/23 13:18 [facility] [id number]) Current Condition History of Current Condition Onset Date 1 year Current Complaints chronic right hip pain History of Current Condition Gradual worsening of right hip pain to the point it is hard to stand and walk. Doesn't use any device for walking. Doing some exercising. Reports right leg short. Sees chiropractor every other week. Prior Treatments and Tests left achilles bone spur removed 1+ year ago Treatment Goals Patient/Caregiver Goals Be able to walk up ramp to house without pain. Able to walk up and down stairs with alternating patter Decrease pain. Current Functional Impairments (Reported) Functional Limitations- ADL's painful Functional Limitations- Mobility/Gait painful Functional Limitations- Work/School unable Functional Limitations- Recreation/ gardens, does puzzles; painful Hobbies gardening Functional Limitations- Other LEFS PT-OP-C Subjective Start: 05/04/23 16:33 Freq: Status: Active Protocol: Document 07/14/23 14:47 [facility] (Rec: 07/14/23 15:30 [facility] [id number]) OP-PT Subjective Patient Comments Patient Comments Pt reports she is sore today, pn in ball and socket area, worked today. Pt reported good tolerance to new exercises. PT-OP-G Mobility & Gait Start: 05/04/23 16:33 Freq: Status: Active Protocol: Document 05/05/23 10:30 [facility] (Rec: 05/05/23 11:15 [facility] [id number]) OP Mobility Evaluation Transfers Sit to Stand decreased weight bearing right OP Gait Assessment Gait Gait Assistance Required: Independent Assistive Devices Assistive Device None Gait Deviations General Gait Pattern Antalgic,Decreased Stride Length,Decreased Feet Clearance Factors Limiting Gait Function Factors Limiting Gait Function Decreased Activity Tolerance, Decreased Strength,Limited Range of Motion,Pain,Poor Balance Stair Climbing Evaluation Evaluation Level of Assist On Stairs Independent Technique/Endurance Stair Climbing Technique Step to Step PT-OP-H Neuro Start: 05/04/23 16:33 Freq: Status: Active Protocol: Document 05/05/23 10:30 [facility] (Rec: 05/05/23 11:15 [facility] [id number]) Sensation Evaluation Gross Sensation Gross Sensation WNL PT-OP-J Posture/Palpation/Skin Start: 05/04/23 16:33 Freq: Status: Active Protocol: Document 05/05/23 10:30 [facility] (Rec: 05/05/23 11:15 [facility] [id number]) Posture Evaluation Position Standing Head/C-Spine Posture Forward Head T-Spine Posture Increased Kyphosis L-Spine Posture Shifted Right Shoulder Posture (L) Rounded,(R) Rounded,(L) Elevated Scapula Posture (L) Protracted,(R) Protracted Arm Posture (L) Internally Rotated,(R) Internally Rotated Ankle/Foot Posture (R) Pronated Foot Arch (L) Low Arch,(R) No Arch Palpation Assessment Location piriformis lef Palpation Findings Soft Tissue Tightness, Tenderness hip Palpation Location gr trochanter herbie Palpation Findings Tenderness PT-OP-K Range of Motion Start: 05/04/23 16:33 Freq: Status: Active Protocol: Document 05/05/23 10:30 [facility] (Rec: 05/05/23 11:15 [facility] [id number]) Lumbar Spine Range of Motion Lumbar Spine Active Testing Position Standing Flexion 20 Extension 0 Lateral Flexion Left 20 Lateral Flexion Right 20 PT-OP-M Strength Start: 05/04/23 16:33 Freq: Status: Active Protocol: Document 05/05/23 10:30 [facility] (Rec: 05/05/23 11:15 [facility] [id number]) Hip Strength Hip Manual Muscle Testing Right Flexion (L2) 4- Good- Extension (S1) 3- Fair- Abduction 3+ Fair+ Adduction 4- Good- External Rotation 3+ Fair+ Internal Rotation 4- Good- Left Flexion (L2) 3- Fair- Abduction 3+ Fair+ Adduction 4- Good- External Rotation 3+ Fair+ Internal Rotation 4- Good- Knee Strength Knee Manual Muscle Testing Left Flexion (S2) 4 Good Extension (L3) 4 Good Right Flexion (S2) 4 Good Extension (L3) 4 Good Ankle/Foot Strength Ankle and Foot Manual Muscle Testing Left Dorsiflexion (L4) 4 Good Plantarflexion (S1) 4 Good Right Dorsiflexion (L4) 4 Good Plantarflexion (S1) 4 Good PT-OP-Q Treatments Start: 05/04/23 16:33 Freq: Status: Active Protocol: Document 07/14/23 14:47 [facility] (Rec: 07/14/23 15:30 [facility] [id number]) Cardio Equipment Recumbent Stepper (Sci-Fit) Duration (Minutes) 10 Resistance 3 Seat Position 7 Other UE's and LE's first 5 min, LE' s only last 5 min Therapeutic Exercises Supine Exercises 90-90 hip lift Equipment Used wall, ball between knees Reps/Minutes 5x2 Comments (see handout in EMR) Sidelying Exercises left sidelying scissor slide Reps/Minutes 5x left sidelying, right glut max Equipment Used wall, towel roll under feet, towel under left abdominals Reps/Minutes 5x2 right sidelying respiratory scissor slides Equipment Used wall, ball between knees Reps/Minutes 5x2 Standing Exercises calf stretch Equipment Used stair Reps/Minutes 2x30 Mini squat Standing Exercise Name Mini squat Reps/Minutes x10 Comments verbal cue required for mechanics PT-OP-R Modalities Start: 05/04/23 16:33 Freq: Status: Active Protocol: Document 07/08/23 12:30 [facility] (Rec: 07/08/23 13:16 [facility] [id number]) Hot Pack/Cold Pack Treatment Hot Pack Location herbie lumbosacral spine, ant/lat right hip Patient Position Hooklying Treatment Duration (minutes) 10 Patient Tolerance Good Comments 90/90 postion, stroud within reach PT-OP-T Assessment and Plan Start: 05/04/23 16:33 Freq: Status: Active Protocol: Document 07/14/23 14:47 [facility] (Rec: 07/14/23 15:30 [facility] [id number]) Physical Therapy Assessment Goals Three Impairment weakness Impairment LE's and core with altered muscle activation Short Term Goal (STG) Patient will be instsructed in HEP for purposes of core and hip strengthening and stabilization 06/21/23: goal progress; ongoing progression. Patient with good compliance to HEP STG Duration goal met Alf Goal (LTG) Patient will be independent and compliant with HEP and demonstrate improved strength to at least 4+/5 with improved functional activation of gluteals. LTG Duration 07/27/23 Two Impairment gait Impairment antalgic, step-to pattern on stairs Short Term Goal (STG) Patient will be able to walk on level surfaces with minimal to no limp 06/21/23: good goal progreess STG Duration goal met Water Quality Analyst Goal (LTG) Patient will be able to ambulate on stairs with alternating step pattern LTG Duration 07/27/23 One Impairment activity tolerance Impairment Lower extremity functional scale score 32% Short Term Goal (STG) Improve LEFS score to at least 45% as measure of improved functional activity tolerance 06/21/23: goal met, score improved to 50% STG Duration goal met Water Quality Analyst Goal (LTG) Improve LEFS score to at least 60% as measure of improved functional activity tolerance and quality of life. LTG Duration 07/27/23 Assessment Summary Assessment Pt was sore after last session , recovered appropriate. Continued new exercises this session, no increase in symptoms, good carryover. Physical Therapy Plan Frequency and Duration Frequency of Treatment 2x/Week Duration of treatment (weeks) 4 Plan of Care Start Date 07/06/23 Plan of Care End Date 07/27/23 Therapeutic Interventions Therapeutic Interventions Home Exercise Program,Manual Therapy,Neuromuscular Re- education,Patient/Caregiver Education,Self-Care/Home Management,Soft Tissue Mobilization,Taping, Therapeutic Activities, Therapeutic Exercises Modalities Cold Pack/Ice Massage,Electric Stimulation,Hot Packs, Ultrasound Next Visit Focus/Plan Next Note Type Treatment Note Next Visit Plan Assess response and performance of ex, progress with postural episcopalian exercises as tolerated.
--- NOTE | 2023-07-19 14:57 | PT.OTN ---
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 Doesn't use any device for walking. Doing some exercising. Reports right leg short. Sees chiropractor every other week. Prior Treatments and Tests left achilles bone spur removed 1+ year ago Treatment Goals Patient/Caregiver Goals Be able to walk up ramp to house without pain. Able to walk up and down stairs with alternating patter Decrease pain. Current Functional Impairments (Reported) Functional Limitations- ADL's painful Functional Limitations- Mobility/Gait painful Functional Limitations- Work/School unable Functional Limitations- Recreation/ gardens, does puzzles; painful Hobbies gardening Functional Limitations- Other LEFS PT-OP-C Subjective Start: 05/04/23 16:33 Freq: Status: Active Protocol: Document 07/19/23 13:19 SAK (Rec: 07/19/23 14:09 [facility] [id number]) OP-PT Subjective Patient Comments Patient Comments A little sore after long road trip to [place], [place] over the weekend. Only standing exercises over the weekend. Patient Reported Progress Improving PT-OP-G Mobility & Gait Start: 05/04/23 16:33 Freq: Status: Active Protocol: Document 05/05/23 10:30 SAK (Rec: 05/05/23 11:15 SAK [id number]) OP Mobility Evaluation Transfers Sit to Stand decreased weight bearing right OP Gait Assessment Gait Gait Assistance Required: Independent Assistive Devices Assistive Device None Gait Deviations General Gait Pattern Antalgic,Decreased Stride Length,Decreased Feet Clearance Factors Limiting Gait Function Factors Limiting Gait Function Decreased Activity Tolerance, Decreased Strength,Limited Range of Motion,Pain,Poor Balance Stair Climbing Evaluation Evaluation Level of Assist On Stairs Independent Technique/Endurance Stair Climbing Technique Step to Step PT-OP-H Neuro Start: 05/04/23 16:33 Freq: Status: Active Protocol: Document 05/05/23 10:30 SAK (Rec: 05/05/23 11:15 [facility] [id number]) Sensation Evaluation Gross Sensation Gross Sensation WNL PT-OP-J Posture/Palpation/Skin Start: 05/04/23 16:33 Freq: Status: Active Protocol: Document 05/05/23 10:30 SAK (Rec: 05/05/23 11:15 [facility] [id number]) Posture Evaluation Position Standing Head/C-Spine Posture Forward Head T-Spine Posture Increased Kyphosis L-Spine Posture Shifted Right Shoulder Posture (L) Rounded,(R) Rounded,(L) Elevated Scapula Posture (L) Protracted,(R) Protracted Arm Posture (L) Internally Rotated,(R) Internally Rotated Ankle/Foot Posture (R) Pronated Foot Arch (L) Low Arch,(R) No Arch Palpation Assessment Location piriformis lef Palpation Findings Soft Tissue Tightness, Tenderness hip Palpation Location gr trochanter herbie Palpation Findings Tenderness PT-OP-K Range of Motion Start: 05/04/23 16:33 Freq: Status: Active Protocol: Document 05/05/23 10:30 SAK (Rec: 05/05/23 11:15 [facility] [id number]) Lumbar Spine Range of Motion Lumbar Spine Active Testing Position Standing Flexion 20 Extension 0 Lateral Flexion Left 20 Lateral Flexion Right 20 PT-OP-M Strength Start: 05/04/23 16:33 Freq: Status: Active Protocol: Document 05/05/23 10:30 SAK (Rec: 05/05/23 11:15 [facility] [id number]) Hip Strength Hip Manual Muscle Testing Right Flexion (L2) 4- Good- Extension (S1) 3- Fair- Abduction 3+ Fair+ Adduction 4- Good- External Rotation 3+ Fair+ Internal Rotation 4- Good- Left Flexion (L2) 3- Fair- Abduction 3+ Fair+ Adduction 4- Good- External Rotation 3+ Fair+ Internal Rotation 4- Good- Knee Strength Knee Manual Muscle Testing Left Flexion (S2) 4 Good Extension (L3) 4 Good Right Flexion (S2) 4 Good Extension (L3) 4 Good Ankle/Foot Strength Ankle and Foot Manual Muscle Testing Left Dorsiflexion (L4) 4 Good Plantarflexion (S1) 4 Good Right Dorsiflexion (L4) 4 Good Plantarflexion (S1) 4 Good PT-OP-Q Treatments Start: 05/04/23 16:33 Freq: Status: Active Protocol: Document 07/19/23 13:19 [facility] (Rec: 07/19/23 14:09 [facility] [id number]) Cardio Equipment Recumbent Stepper (Sci-Fit) Duration (Minutes) 10 Resistance 3 Seat Position 7 Other UE's and LE's first 5 min, LE' s only last 5 min Therapeutic Exercises Supine Exercises 90-90 hip lift Equipment Used wall, ball between knees Reps/Minutes 5x2 Comments (see handout in EMR) Sidelying Exercises left sidelying scissor slide Reps/Minutes 5x left sidelying, right glut max Equipment Used wall, towel roll under feet, towel under left abdominals Reps/Minutes 5x2 right sidelying respiratory scissor slides Equipment Used wall, ball between knees Reps/Minutes 5x2 Standing Exercises wall posture Reps/Minutes 5x Mini squat Standing Exercise Name squat Equipment Used mirror Reps/Minutes x10 Comments verbal cue required for mechanics Manual Therapy Treatment Soft Tissue Mobilization psoas Body Location Left Mobilization Type Sustained Pressure Intensity/Depth Moderate Body Position Hooklying PT-OP-R Modalities Start: 05/04/23 16:33 Freq: Status: Active Protocol: Document 07/19/23 13:19 [facility] (Rec: 07/19/23 14:09 [facility] [id number]) Hot Pack/Cold Pack Treatment Hot Pack Location herbie lumbosacral spine, ant/lat right hip Patient Position Hooklying Treatment Duration (minutes) 10 Patient Tolerance Good Comments 90/90 postion, stroud within reach PT-OP-T Assessment and Plan Start: 05/04/23 16:33 Freq: Status: Active Protocol: Document 07/19/23 13:19 [facility] (Rec: 07/19/23 14:09 [facility] [id number]) Physical Therapy Assessment Goals Three Impairment weakness Impairment LE's and core with altered muscle activation Short Term Goal (STG) Patient will be instsructed in HEP for purposes of core and hip strengthening and stabilization 06/21/23: goal progress; ongoing progression. Patient with good compliance to HEP STG Duration goal met Quantitative Research Analyst Goal (LTG) Patient will be independent and compliant with HEP and demonstrate improved strength to at least 4+/5 with improved functional activation of gluteals. LTG Duration 07/27/23 Two Impairment gait Impairment antalgic, step-to pattern on stairs Short Term Goal (STG) Patient will be able to walk on level surfaces with minimal to no limp 06/21/23: good goal progreess STG Duration goal met [facility] Goal (LTG) Patient will be able to ambulate on stairs with alternating step pattern LTG Duration 07/27/23 One Impairment activity tolerance Impairment Lower extremity functional scale score 32% Short Term Goal (STG) Improve LEFS score to at least 45% as measure of improved functional activity tolerance 06/21/23: goal met, score improved to 50% STG Duration goal met [facility] Goal (LTG) Improve LEFS score to at least 60% as measure of improved functional activity tolerance and quality of life. LTG Duration 07/27/23 Physical Therapy Plan Frequency and Duration Frequency of Treatment 2x/Week Duration of treatment (weeks) 4 Plan of Care Start Date 07/06/23 Plan of Care End Date 07/27/23 Therapeutic Interventions Therapeutic Interventions Home Exercise Program,Manual Therapy,Neuromuscular Re- education,Patient/Caregiver Education,Self-Care/Home Management,Soft Tissue Mobilization,Taping, Therapeutic Activities, Therapeutic Exercises Modalities Cold Pack/Ice Massage,Electric Stimulation,Hot Packs, Ultrasound Next Visit Focus/Plan Next Note Type Treatment Note Next Visit Plan Assess response and performance of ex, progress with postural zoroastrianism exercises as tolerated.
--- NOTE | 2023-07-22 16:43 | PT.OTN ---
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 Doesn't use any device for walking. Doing some exercising. Reports right leg short. Sees chiropractor every other week. Prior Treatments and Tests left achilles bone spur removed 1+ year ago Treatment Goals Patient/Caregiver Goals Be able to walk up ramp to house without pain. Able to walk up and down stairs with alternating patter Decrease pain. Current Functional Impairments (Reported) Functional Limitations- ADL's painful Functional Limitations- Mobility/Gait painful Functional Limitations- Work/School unable Functional Limitations- Recreation/ gardens, does puzzles; painful Hobbies gardening Functional Limitations- Other LEFS PT-OP-C Subjective Start: 05/04/23 16:33 Freq: Status: Active Protocol: Document 07/22/23 15:34 (Rec: 07/22/23 16:42 [id number]) OP-PT Subjective Patient Comments Patient Comments Pt reports being sore today. PT-OP-G Mobility & Gait Start: 05/04/23 16:33 Freq: Status: Active Protocol: Document 05/05/23 10:30 SAK (Rec: 05/05/23 11:15 SAK [id number]) OP Mobility Evaluation Transfers Sit to Stand decreased weight bearing right OP Gait Assessment Gait Gait Assistance Required: Independent Assistive Devices Assistive Device None Gait Deviations General Gait Pattern Antalgic,Decreased Stride Length,Decreased Feet Clearance Factors Limiting Gait Function Factors Limiting Gait Function Decreased Activity Tolerance, Decreased Strength,Limited Range of Motion,Pain,Poor Balance Stair Climbing Evaluation Evaluation Level of Assist On Stairs Independent Technique/Endurance Stair Climbing Technique Step to Step PT-OP-H Neuro Start: 05/04/23 16:33 Freq: Status: Active Protocol: Document 05/05/23 10:30 SAK (Rec: 05/05/23 11:15 [facility] [id number]) Sensation Evaluation Gross Sensation Gross Sensation WNL PT-OP-J Posture/Palpation/Skin Start: 05/04/23 16:33 Freq: Status: Active Protocol: Document 05/05/23 10:30 SAK (Rec: 05/05/23 11:15 [facility] [id number]) Posture Evaluation Position Standing Head/C-Spine Posture Forward Head T-Spine Posture Increased Kyphosis L-Spine Posture Shifted Right Shoulder Posture (L) Rounded,(R) Rounded,(L) Elevated Scapula Posture (L) Protracted,(R) Protracted Arm Posture (L) Internally Rotated,(R) Internally Rotated Ankle/Foot Posture (R) Pronated Foot Arch (L) Low Arch,(R) No Arch Palpation Assessment Location piriformis lef Palpation Findings Soft Tissue Tightness, Tenderness hip Palpation Location gr trochanter herbie Palpation Findings Tenderness PT-OP-K Range of Motion Start: 05/04/23 16:33 Freq: Status: Active Protocol: Document 05/05/23 10:30 SAK (Rec: 05/05/23 11:15 [facility] [id number]) Lumbar Spine Range of Motion Lumbar Spine Active Testing Position Standing Flexion 20 Extension 0 Lateral Flexion Left 20 Lateral Flexion Right 20 PT-OP-M Strength Start: 05/04/23 16:33 Freq: Status: Active Protocol: Document 05/05/23 10:30 SAK (Rec: 05/05/23 11:15 [facility] [id number]) Hip Strength Hip Manual Muscle Testing Right Flexion (L2) 4- Good- Extension (S1) 3- Fair- Abduction 3+ Fair+ Adduction 4- Good- External Rotation 3+ Fair+ Internal Rotation 4- Good- Left Flexion (L2) 3- Fair- Abduction 3+ Fair+ Adduction 4- Good- External Rotation 3+ Fair+ Internal Rotation 4- Good- Knee Strength Knee Manual Muscle Testing Left Flexion (S2) 4 Good Extension (L3) 4 Good Right Flexion (S2) 4 Good Extension (L3) 4 Good Ankle/Foot Strength Ankle and Foot Manual Muscle Testing Left Dorsiflexion (L4) 4 Good Plantarflexion (S1) 4 Good Right Dorsiflexion (L4) 4 Good Plantarflexion (S1) 4 Good PT-OP-Q Treatments Start: 05/04/23 16:33 Freq: Status: Active Protocol: Document 07/22/23 15:34 (Rec: 07/22/23 16:42 [id number]) Cardio Equipment Recumbent Stepper (Sci-Fit) Duration (Minutes) 10 Resistance 3 Seat Position 7 Other UE's and LE's first 5 min, LE' s only last 5 min 1.33 mi Therapeutic Exercises Supine Exercises 90-90 hip lift Equipment Used wall, ball between knees Reps/Minutes 5x2 Comments (see handout in EMR) Sidelying Exercises left sidelying scissor slide Reps/Minutes 5x left sidelying, right glut max Equipment Used wall, towel roll under feet, towel under left abdominals Reps/Minutes 5x2 right sidelying respiratory scissor slides Equipment Used wall, ball between knees Reps/Minutes 5x2 Standing Exercises wall posture Reps/Minutes 5x split squat Reps/Minutes 10x Comments cues for glute engagement on RLE Mini squat Standing Exercise Name squat Equipment Used mirror Reps/Minutes x10 Comments verbal cue required for mechanics PT-OP-R Modalities Start: 05/04/23 16:33 Freq: Status: Active Protocol: Document 07/22/23 15:34 (Rec: 07/22/23 16:42 [id number]) Hot Pack/Cold Pack Treatment Hot Pack Location herbie lumbosacral spine, ant/lat right hip Patient Position Hooklying Treatment Duration (minutes) 10 Patient Tolerance Good Comments 90/90 postion, stroud within reach PT-OP-T Assessment and Plan Start: 05/04/23 16:33 Freq: Status: Active Protocol: Document 07/22/23 15:34 (Rec: 07/22/23 16:42 [id number]) Physical Therapy Assessment Goals Three Impairment weakness Impairment LE's and core with altered muscle activation Short Term Goal (STG) Patient will be instsructed in HEP for purposes of core and hip strengthening and stabilization 06/21/23: goal progress; ongoing progression. Patient with good compliance to HEP STG Duration goal met Therapy Technician Goal (LTG) Patient will be independent and compliant with HEP and demonstrate improved strength to at least 4+/5 with improved functional activation of gluteals. LTG Duration 07/27/23 Two Impairment gait Impairment antalgic, step-to pattern on stairs Short Term Goal (STG) Patient will be able to walk on level surfaces with minimal to no limp 06/21/23: good goal progreess STG Duration goal met Group Home Goal (LTG) Patient will be able to ambulate on stairs with alternating step pattern LTG Duration 07/27/23 One Impairment activity tolerance Impairment Lower extremity functional scale score 32% Short Term Goal (STG) Improve LEFS score to at least 45% as measure of improved functional activity tolerance 06/21/23: goal met, score improved to 50% STG Duration goal met Group Home Goal (LTG) Improve LEFS score to at least 60% as measure of improved functional activity tolerance and quality of life. LTG Duration 07/27/23 Assessment Summary Assessment Reviewed functional strengthening today, heavy verbal cues for glute activation with split squats. Minimal pain reported in bilateral knees with squats, verbal/visual cues required for mechanics, pain relieved with carryover of improved hip hinge to avoid sheer force on knees. Continued exercises for pelvic rotation, checked leg length discrepancy pre and post session, min improvement . Physical Therapy Plan Frequency and Duration Frequency of Treatment 2x/Week Duration of treatment (weeks) 4 Plan of Care Start Date 07/06/23 Plan of Care End Date 07/27/23 Therapeutic Interventions Therapeutic Interventions Home Exercise Program,Manual Therapy,Neuromuscular Re- education,Patient/Caregiver Education,Self-Care/Home Management,Soft Tissue Mobilization,Taping, Therapeutic Activities, Therapeutic Exercises Modalities Cold Pack/Ice Massage,Electric Stimulation,Hot Packs, Ultrasound Next Visit Focus/Plan Next Note Type Treatment Note Next Visit Plan Assess response and performance of ex, progress with postural temple exercises as tolerated.
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
--- NOTE | 2023-07-26 16:21 | PT.OPPOC ---
Physical, Occupational & Speech Therapy At [facility] Current Diagnoses Other chronic pain (07/26/23) Pain in right hip (07/26/23) Difficulty in walking, not elsewhere classified (07/26/23) Weakness (07/26/23) Visit Care Team Role Provider Type Carlos Bradley DO Attending Provider Physician Family Provider Primary Care Provider Referring Provider Specialty: [facility] Address: [address] [place] [address], [facility] Email: Plan Of Care PT-OP-T Assessment and Plan Start: 05/04/23 16:33 Freq: Status: Active Protocol: Document 07/26/23 14:08 [facility] (Rec: 07/26/23 14:52 [facility] [id number]) Physical Therapy Assessment Goals Three Impairment weakness Impairment LE's and core with altered muscle activation Short Term Goal (STG) Patient will be instsructed in HEP for purposes of core and hip strengthening and stabilization 06/21/23: goal progress; ongoing progression. Patient with good compliance to HEP STG Duration goal met [facility] Goal (LTG) Patient will be independent and compliant with HEP and demonstrate improved strength to at least 4+/5 with improved functional activation of gluteals. 07/26/23: patient independent with HEP, good compliance. Strength 4-/5 hip abd and ext, 4/5 flex, ER, and IR. Core 4 -/5. LTG Duration 08/26/23 Two Impairment gait Impairment antalgic, step-to pattern on stairs Short Term Goal (STG) Patient will be able to walk on level surfaces with minimal to no limp 06/21/23: good goal progreess STG Duration goal met Heel Cover Softener Goal (LTG) Patient will be able to ambulate on stairs with alternating step pattern 07/26/23: variable ability depending on the day, not consistent LTG Duration 08/26/23 One Impairment activity tolerance Impairment Lower extremity functional scale score 32% Short Term Goal (STG) Improve LEFS score to at least 45% as measure of improved functional activity tolerance 06/21/23: goal met, score improved to 50% STG Duration goal met Heel Cover Softener Goal (LTG) Improve LEFS score to at least 60% as measure of improved functional activity tolerance and quality of life. 07/26/23: LEFS 55%, goal progress LTG Duration 08/26/23 Assessment Summary Assessment Good progress toward goals, not fully met. Recommend 4 further PT visits within the next month to further progress and modify patient HEP as indicated and help her fully achieve the qbove goals. Patient is in agreement. Physical Therapy Plan Frequency and Duration Frequency of Treatment 4 visits Duration of treatment (weeks) 4 Plan of Care Start Date 07/26/23 Plan of Care End Date 08/26/32 Therapeutic Interventions Therapeutic Interventions Home Exercise Program,Manual Therapy,Neuromuscular Re- education,Patient/Caregiver Education,Self-Care/Home Management,Soft Tissue Mobilization,Taping, Therapeutic Activities, Therapeutic Exercises Modalities Cold Pack/Ice Massage,Electric Stimulation,Hot Packs, Ultrasound Next Visit Focus/Plan Next Note Type Treatment Note Next Visit Plan Continue PT for strengthening, manual techniques and modalities PRN to decrease pain and improve patient's function. Plan of Care Dates Plan of Care Start Date 07/26/23 Plan of Care End Date 08/26/32 Electronically Signed by: Lo Martinez, PT 07/26/23 [id number] If you are in agreement with this Plan of Care, please return a signed and dated copy. I have reviewed this Plan of Care and certify that the skilled therapy services above are required to meet the patient?s needs. Physician Signature Date Printed Name and Credentials Clinical Instructor Signature Printed Name and Credentials
--- NOTE | 2023-07-29 16:37 | PT.OTN ---
Current Diagnoses Other chronic pain (07/29/23) Pain in right hip (07/29/23) Difficulty in walking, not elsewhere classified (07/29/23) Weakness (07/29/23) Physical Therapy Treatment Note PT-OP-A Visit Information Start: 05/04/23 16:33 Freq: Status: Active Protocol: Document 07/29/23 15:35 SW (Rec: 07/29/23 16:37 SW [id number]) Out-Patient Physical Therapy Visit Information Visit Information Visit Type Treatment Note Visit Start Time 15:32 Visit Stop Time 16:25 Total Visit Minutes 53 Visit Number 22 Number of PIPE INSULATOR Visits 1 PT-OP-B Current Condition Start: 05/04/23 16:33 Freq: Status: Active Protocol: Document 05/10/23 12:30 SAK (Rec: 05/10/23 13:18 SAK [id number]) Current Condition History of Current Condition Onset Date 1 year Current Complaints chronic right hip pain History of Current Condition Gradual worsening of right hip pain to the point it is hard to stand and walk. Doesn't use any device for walking. Doing some exercising. Reports right leg short. Sees chiropractor every other week. Prior Treatments and Tests left achilles bone spur removed 1+ year ago Treatment Goals Patient/Caregiver Goals Be able to walk up ramp to house without pain. Able to walk up and down stairs with alternating patter Decrease pain. Current Functional Impairments (Reported) Functional Limitations- ADL's painful Functional Limitations- Mobility/Gait painful Functional Limitations- Work/School unable Functional Limitations- Recreation/ gardens, does puzzles; painful Hobbies gardening Functional Limitations- Other LEFS PT-OP-C Subjective Start: 05/04/23 16:33 Freq: Status: Active Protocol: Document 07/29/23 15:35 SW (Rec: 07/29/23 16:37 [id number]) OP-PT Subjective Patient Comments Patient Comments Pt reports doing alright. PT-OP-G Mobility & Gait Start: 05/04/23 16:33 Freq: Status: Active Protocol: Document 05/05/23 10:30 SAK (Rec: 05/05/23 11:15 SAK [id number]) OP Mobility Evaluation Transfers Sit to Stand decreased weight bearing right OP Gait Assessment Gait Gait Assistance Required: Independent Assistive Devices Assistive Device None Gait Deviations General Gait Pattern Antalgic,Decreased Stride Length,Decreased Feet Clearance Factors Limiting Gait Function Factors Limiting Gait Function Decreased Activity Tolerance, Decreased Strength,Limited Range of Motion,Pain,Poor Balance Stair Climbing Evaluation Evaluation Level of Assist On Stairs Independent Technique/Endurance Stair Climbing Technique Step to Step PT-OP-H Neuro Start: 05/04/23 16:33 Freq: Status: Active Protocol: Document 05/05/23 10:30 SAK (Rec: 05/05/23 11:15 [facility] [id number]) Sensation Evaluation Gross Sensation Gross Sensation WNL PT-OP-J Posture/Palpation/Skin Start: 05/04/23 16:33 Freq: Status: Active Protocol: Document 05/05/23 10:30 SAK (Rec: 05/05/23 11:15 [facility] [id number]) Posture Evaluation Position Standing Head/C-Spine Posture Forward Head T-Spine Posture Increased Kyphosis L-Spine Posture Shifted Right Shoulder Posture (L) Rounded,(R) Rounded,(L) Elevated Scapula Posture (L) Protracted,(R) Protracted Arm Posture (L) Internally Rotated,(R) Internally Rotated Ankle/Foot Posture (R) Pronated Foot Arch (L) Low Arch,(R) No Arch Palpation Assessment Location piriformis lef Palpation Findings Soft Tissue Tightness, Tenderness hip Palpation Location gr trochanter herbie Palpation Findings Tenderness PT-OP-K Range of Motion Start: 05/04/23 16:33 Freq: Status: Active Protocol: Document 05/05/23 10:30 SAK (Rec: 05/05/23 11:15 [facility] [id number]) Lumbar Spine Range of Motion Lumbar Spine Active Testing Position Standing Flexion 20 Extension 0 Lateral Flexion Left 20 Lateral Flexion Right 20 PT-OP-M Strength Start: 05/04/23 16:33 Freq: Status: Active Protocol: Document 05/05/23 10:30 SAK (Rec: 05/05/23 11:15 [facility] [id number]) Hip Strength Hip Manual Muscle Testing Right Flexion (L2) 4- Good- Extension (S1) 3- Fair- Abduction 3+ Fair+ Adduction 4- Good- External Rotation 3+ Fair+ Internal Rotation 4- Good- Left Flexion (L2) 3- Fair- Abduction 3+ Fair+ Adduction 4- Good- External Rotation 3+ Fair+ Internal Rotation 4- Good- Knee Strength Knee Manual Muscle Testing Left Flexion (S2) 4 Good Extension (L3) 4 Good Right Flexion (S2) 4 Good Extension (L3) 4 Good Ankle/Foot Strength Ankle and Foot Manual Muscle Testing Left Dorsiflexion (L4) 4 Good Plantarflexion (S1) 4 Good Right Dorsiflexion (L4) 4 Good Plantarflexion (S1) 4 Good PT-OP-Q Treatments Start: 05/04/23 16:33 Freq: Status: Active Protocol: Document 07/29/23 15:35 SW (Rec: 07/29/23 16:37 SW [id number]) Cardio Equipment Recumbent Stepper (Sci-Fit) Duration (Minutes) 10 Resistance 3 Seat Position 7 Other UE's and LE's first 5 min, LE' s only last 5 min Gym Equipment Shuttle Recovery Unilateral Squats Resistance 50 (new) Shuttle Recovery Platform Stable Reps/Time 10x2 Bilateral Squats Resistance 87 (1 new) Shuttle Recovery Platform Stable Reps/Time 2x10 Therapeutic Exercises Supine Exercises hamstring dig Equipment Used 65 cm ball Reps/Minutes 10x 90-90 hip lift Equipment Used wall, ball between knees Reps/Minutes 5x2 Comments (see handout in EMR) LTR Supine Exercise Name legs on 65 cm therapy ball Reps/Minutes 10x SLR Supine Exercise Name SLR Side bilateral Reps/Minutes 2 x 10 Comments Opposite LE flexion, cues for core engagement prior to lift single leg bridge Reps/Minutes 10x Comments verbal and tactile cues, min lift Standing Exercises hip extension Standing Exercise Name Reviewed for HEP, trialed prone to assist with stabilization Resistance orange TB Reps/Minutes 10x Comments verbal cues required for compensation and targeted mm Manual Therapy Treatment Joint Mobilizations right hip Joint R hip Direction long axis distraction, lateral distraction Body Position Supine PT-OP-R Modalities Start: 05/04/23 16:33 Freq: Status: Active Protocol: Document 07/29/23 15:35 SW (Rec: 07/29/23 16:37 [id number]) Hot Pack/Cold Pack Treatment Hot Pack Location herbie lumbosacral spine, ant/lat right hip Patient Position Hooklying Treatment Duration (minutes) 10 Patient Tolerance Good Comments 90/90 postion, stroud within reach PT-OP-T Assessment and Plan Start: 05/04/23 16:33 Freq: Status: Active Protocol: Document 07/29/23 15:35 SW (Rec: 07/29/23 16:37 [id number]) Physical Therapy Assessment Goals Three Impairment weakness Impairment LE's and core with altered muscle activation Short Term Goal (STG) Patient will be instsructed in HEP for purposes of core and hip strengthening and stabilization 06/21/23: goal progress; ongoing progression. Patient with good compliance to HEP STG Duration goal met Development And Housing Director Goal (LTG) Patient will be independent and compliant with HEP and demonstrate improved strength to at least 4+/5 with improved functional activation of gluteals. 07/26/23: patient independent with HEP, good compliance. Strength 4-/5 hip abd and ext, 4/5 flex, ER, and IR. Core 4 -/5. LTG Duration 08/26/23 Two Impairment gait Impairment antalgic, step-to pattern on stairs Short Term Goal (STG) Patient will be able to walk on level surfaces with minimal to no limp 06/21/23: good goal progreess STG Duration goal met Retirement Goal (LTG) Patient will be able to ambulate on stairs with alternating step pattern 07/26/23: variable ability depending on the day, not consistent LTG Duration 08/26/23 One Impairment activity tolerance Impairment Lower extremity functional scale score 32% Short Term Goal (STG) Improve LEFS score to at least 45% as measure of improved functional activity tolerance 06/21/23: goal met, score improved to 50% STG Duration goal met Retirement Goal (LTG) Improve LEFS score to at least 60% as measure of improved functional activity tolerance and quality of life. 07/26/23: LEFS 55%, goal progress LTG Duration 08/26/23 Assessment Summary Assessment Initiated SLR for hip flex/ core strengthening goal. Reviewed hip extension strengthening for progress toward goal, trialed prone hip extension to assist with compensations, discontinued d/ t compensation in the back in the antigravity position. Physical Therapy Plan Frequency and Duration Frequency of Treatment 4 visits Duration of treatment (weeks) 4 Plan of Care Start Date 07/26/23 Plan of Care End Date 08/26/32 Therapeutic Interventions Therapeutic Interventions Home Exercise Program,Manual Therapy,Neuromuscular Re- education,Patient/Caregiver Education,Self-Care/Home Management,Soft Tissue Mobilization,Taping, Therapeutic Activities, Therapeutic Exercises Modalities Cold Pack/Ice Massage,Electric Stimulation,Hot Packs, Ultrasound Next Visit Focus/Plan Next Note Type Treatment Note Next Visit Plan Continue PT for strengthening, manual techniques and modalities PRN to decrease pain and improve patient's function.
--- NOTE | 2023-08-03 13:43 | PT.OTN ---
Current Diagnoses Other chronic pain (08/02/23) Pain in right hip (08/02/23) Difficulty in walking, not elsewhere classified (08/02/23) Weakness (08/02/23) Physical Therapy Treatment Note PT-OP-A Visit Information Start: 05/04/23 16:33 Freq: Status: Active Protocol: Document 08/02/23 12:31 SAK (Rec: 08/02/23 13:17 [facility] [id number]) Out-Patient Physical Therapy Visit Information Visit Information Visit Type Treatment Note Visit Start Time 12:32 Visit Stop Time 13:26 Total Visit Minutes 54 Visit Number 23 Number of MACHINE CANDLE MOLDER Visits 0 PT-OP-B Current Condition Start: 05/04/23 16:33 Freq: Status: Active Protocol: Document 05/10/23 12:30 SAK (Rec: 05/10/23 13:18 SAK [id number]) Current Condition History of Current Condition Onset Date 1 year Current Complaints chronic right hip pain History of Current Condition Gradual worsening of right hip pain to the point it is hard to stand and walk. Doesn't use any device for walking. Doing some exercising. Reports right leg short. Sees chiropractor every other week. Prior Treatments and Tests left achilles bone spur removed 1+ year ago Treatment Goals Patient/Caregiver Goals Be able to walk up ramp to house without pain. Able to walk up and down stairs with alternating patter Decrease pain. Current Functional Impairments (Reported) Functional Limitations- ADL's painful Functional Limitations- Mobility/Gait painful Functional Limitations- Work/School unable Functional Limitations- Recreation/ gardens, does puzzles; painful Hobbies gardening Functional Limitations- Other LEFS PT-OP-C Subjective Start: 05/04/23 16:33 Freq: Status: Active Protocol: Document 08/02/23 12:31 SAK (Rec: 08/02/23 13:17 [facility] [id number]) OP-PT Subjective Patient Comments Patient Comments Increased soreness from moving boxes at work, pretty soon will be working 6 days per week for holidays, boxes up to 30 lbs. Reports her chiropractor can't seem to adjust her pelvis either. PT-OP-G Mobility & Gait Start: 05/04/23 16:33 Freq: Status: Active Protocol: Document 05/05/23 10:30 SAK (Rec: 05/05/23 11:15 SAK [id number]) OP Mobility Evaluation Transfers Sit to Stand decreased weight bearing right OP Gait Assessment Gait Gait Assistance Required: Independent Assistive Devices Assistive Device None Gait Deviations General Gait Pattern Antalgic,Decreased Stride Length,Decreased Feet Clearance Factors Limiting Gait Function Factors Limiting Gait Function Decreased Activity Tolerance, Decreased Strength,Limited Range of Motion,Pain,Poor Balance Stair Climbing Evaluation Evaluation Level of Assist On Stairs Independent Technique/Endurance Stair Climbing Technique Step to Step PT-OP-H Neuro Start: 05/04/23 16:33 Freq: Status: Active Protocol: Document 05/05/23 10:30 [facility] (Rec: 05/05/23 11:15 [facility] [id number]) Sensation Evaluation Gross Sensation Gross Sensation WNL PT-OP-J Posture/Palpation/Skin Start: 05/04/23 16:33 Freq: Status: Active Protocol: Document 05/05/23 10:30 [facility] (Rec: 05/05/23 11:15 [facility] [id number]) Posture Evaluation Position Standing Head/C-Spine Posture Forward Head T-Spine Posture Increased Kyphosis L-Spine Posture Shifted Right Shoulder Posture (L) Rounded,(R) Rounded,(L) Elevated Scapula Posture (L) Protracted,(R) Protracted Arm Posture (L) Internally Rotated,(R) Internally Rotated Ankle/Foot Posture (R) Pronated Foot Arch (L) Low Arch,(R) No Arch Palpation Assessment Location piriformis lef Palpation Findings Soft Tissue Tightness, Tenderness hip Palpation Location gr trochanter herbie Palpation Findings Tenderness PT-OP-K Range of Motion Start: 05/04/23 16:33 Freq: Status: Active Protocol: Document 05/05/23 10:30 [facility] (Rec: 05/05/23 11:15 [facility] [id number]) Lumbar Spine Range of Motion Lumbar Spine Active Testing Position Standing Flexion 20 Extension 0 Lateral Flexion Left 20 Lateral Flexion Right 20 PT-OP-M Strength Start: 05/04/23 16:33 Freq: Status: Active Protocol: Document 05/05/23 10:30 [facility] (Rec: 05/05/23 11:15 [facility] [id number]) Hip Strength Hip Manual Muscle Testing Right Flexion (L2) 4- Good- Extension (S1) 3- Fair- Abduction 3+ Fair+ Adduction 4- Good- External Rotation 3+ Fair+ Internal Rotation 4- Good- Left Flexion (L2) 3- Fair- Abduction 3+ Fair+ Adduction 4- Good- External Rotation 3+ Fair+ Internal Rotation 4- Good- Knee Strength Knee Manual Muscle Testing Left Flexion (S2) 4 Good Extension (L3) 4 Good Right Flexion (S2) 4 Good Extension (L3) 4 Good Ankle/Foot Strength Ankle and Foot Manual Muscle Testing Left Dorsiflexion (L4) 4 Good Plantarflexion (S1) 4 Good Right Dorsiflexion (L4) 4 Good Plantarflexion (S1) 4 Good PT-OP-Q Treatments Start: 05/04/23 16:33 Freq: Status: Active Protocol: Document 08/02/23 12:31 [facility] (Rec: 08/02/23 13:17 [facility] [id number]) Cardio Equipment Recumbent Stepper (Sci-Fit) Duration (Minutes) 10 Resistance 3 Seat Position 7 Other UE's and LE's first 5 min, LE' s only last 5 min Therapeutic Exercises Supine Exercises figure 4 stretch Reps/Minutes 2x30 LTR Supine Exercise Name legs on 65 cm therapy ball Reps/Minutes 10x figure 4 Side left Reps/Minutes 2x30 Comments Per PT discussion, stretching out LLE only HS stretch Side left Reps/Minutes 2x30 SKTC Side left Reps/Minutes 2x30 SLR Supine Exercise Name SLR Side bilateral Reps/Minutes 2 x 10 Comments Opposite LE flexion, cues for core engagement prior to lift Clam- [place] elimated Resistance L2 TB Equipment Used Therapist assist Comments cues for core stab segmental bridge Supine Exercise Name legs on 55 cm therapy ball Reps/Minutes 12x Sidelying Exercises clamshell Resistance L2 TB left, no TB right Reps/Minutes 10x hip abduction Reps/Minutes 10x Comments mod cues for alignment, correct muscle activation Standing Exercises hip extension Standing Exercise Name Reviewed for HEP, trialed prone to assist with stabilization Resistance orange TB Reps/Minutes 10x Comments verbal cues required for compensation and targeted mm Self-Care/Home Management Treatment Education Patient Education Body Mechanics,Home Exercise Program,Pain Management, Posture Other Education lifting techniques for back protection Consider back brace Consider Even-Up shoe attachment PT-OP-R Modalities Start: 05/04/23 16:33 Freq: Status: Active Protocol: Document 08/02/23 12:31 [facility] (Rec: 08/02/23 13:17 [facility] [id number]) Hot Pack/Cold Pack Treatment Hot Pack Location herbie lumbosacral spine, ant/lat right hip Patient Position Hooklying Treatment Duration (minutes) 10 Patient Tolerance Good Comments 90/90 postion, stroud within reach PT-OP-T Assessment and Plan Start: 05/04/23 16:33 Freq: Status: Active Protocol: Document 08/02/23 12:31 [facility] (Rec: 08/02/23 13:17 [facility] [id number]) Physical Therapy Assessment Goals Three Impairment weakness Impairment LE's and core with altered muscle activation Short Term Goal (STG) Patient will be instsructed in HEP for purposes of core and hip strengthening and stabilization 06/21/23: goal progress; ongoing progression. Patient with good compliance to HEP STG Duration goal met Alf Goal (LTG) Patient will be independent and compliant with HEP and demonstrate improved strength to at least 4+/5 with improved functional activation of gluteals. 07/26/23: patient independent with HEP, good compliance. Strength 4-/5 hip abd and ext, 4/5 flex, ER, and IR. Core 4 -/5. LTG Duration 08/26/23 Two Impairment gait Impairment antalgic, step-to pattern on stairs Short Term Goal (STG) Patient will be able to walk on level surfaces with minimal to no limp 06/21/23: good goal progreess STG Duration goal met Buyer Assistant Goal (LTG) Patient will be able to ambulate on stairs with alternating step pattern 07/26/23: variable ability depending on the day, not consistent LTG Duration 08/26/23 One Impairment activity tolerance Impairment Lower extremity functional scale score 32% Short Term Goal (STG) Improve LEFS score to at least 45% as measure of improved functional activity tolerance 06/21/23: goal met, score improved to 50% STG Duration goal met Buyer Assistant Goal (LTG) Improve LEFS score to at least 60% as measure of improved functional activity tolerance and quality of life. 07/26/23: LEFS 55%, goal progress LTG Duration 08/26/23 Assessment Summary Assessment Patient has difficulty with correct body mechanics for lifting despite prior education and review today; cues for long spine, core activation, use of LE's. Verbalizes understanding but states her knees hurt and arms are short. Discussed and educated in options. Instructed to consider obtaining back support. Also encouraged to consider trying Even-up shoe attachment for better assessment of whether orthopedic shoe with raised sole might be beneficial for her due to PT and chiropractor unable to attain any progress with leg length. Patient also encouraged to consider x- ray right hip, may need LIBERTY in the future. Physical Therapy Plan Frequency and Duration Frequency of Treatment 4 visits Duration of treatment (weeks) 4 Plan of Care Start Date 07/26/23 Plan of Care End Date 08/26/32 Therapeutic Interventions Therapeutic Interventions Home Exercise Program,Manual Therapy,Neuromuscular Re- education,Patient/Caregiver Education,Self-Care/Home Management,Soft Tissue Mobilization,Taping, Therapeutic Activities, Therapeutic Exercises Modalities Cold Pack/Ice Massage,Electric Stimulation,Hot Packs, Ultrasound Next Visit Focus/Plan Next Note Type Treatment Note Next Visit Plan Anticipate discharge after next visit. Finalize HEP, further discussion of Even-up and back brace.
--- NOTE | 2023-08-05 16:09 | PT.OTN ---
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 Doesn't use any device for walking. Doing some exercising. Reports right leg short. Sees chiropractor every other week. Prior Treatments and Tests left achilles bone spur removed 1+ year ago Treatment Goals Patient/Caregiver Goals Be able to walk up ramp to house without pain. Able to walk up and down stairs with alternating patter Decrease pain. Current Functional Impairments (Reported) Functional Limitations- ADL's painful Functional Limitations- Mobility/Gait painful Functional Limitations- Work/School unable Functional Limitations- Recreation/ gardens, does puzzles; painful Hobbies gardening Functional Limitations- Other LEFS PT-OP-C Subjective Start: 05/04/23 16:33 Freq: Status: Active Protocol: Document 08/05/23 14:48 SAK (Rec: 08/05/23 16:08 [facility] [id number]) OP-PT Subjective Patient Comments Patient Comments REports no exercises yesterday , in hospital with her mother yesterday. REports she did better with lifting yesterday. PT-OP-G Mobility & Gait Start: 05/04/23 16:33 Freq: Status: Active Protocol: Document 05/05/23 10:30 SAK (Rec: 05/05/23 11:15 [facility] [id number]) OP Mobility Evaluation Transfers Sit to Stand decreased weight bearing right OP Gait Assessment Gait Gait Assistance Required: Independent Assistive Devices Assistive Device None Gait Deviations General Gait Pattern Antalgic,Decreased Stride Length,Decreased Feet Clearance Factors Limiting Gait Function Factors Limiting Gait Function Decreased Activity Tolerance, Decreased Strength,Limited Range of Motion,Pain,Poor Balance Stair Climbing Evaluation Evaluation Level of Assist On Stairs Independent Technique/Endurance Stair Climbing Technique Step to Step PT-OP-H Neuro Start: 05/04/23 16:33 Freq: Status: Active Protocol: Document 05/05/23 10:30 [facility] (Rec: 05/05/23 11:15 [facility] [id number]) Sensation Evaluation Gross Sensation Gross Sensation WNL PT-OP-J Posture/Palpation/Skin Start: 05/04/23 16:33 Freq: Status: Active Protocol: Document 05/05/23 10:30 [facility] (Rec: 05/05/23 11:15 [facility] [id number]) Posture Evaluation Position Standing Head/C-Spine Posture Forward Head T-Spine Posture Increased Kyphosis L-Spine Posture Shifted Right Shoulder Posture (L) Rounded,(R) Rounded,(L) Elevated Scapula Posture (L) Protracted,(R) Protracted Arm Posture (L) Internally Rotated,(R) Internally Rotated Ankle/Foot Posture (R) Pronated Foot Arch (L) Low Arch,(R) No Arch Palpation Assessment Location piriformis lef Palpation Findings Soft Tissue Tightness, Tenderness hip Palpation Location gr trochanter herbie Palpation Findings Tenderness PT-OP-K Range of Motion Start: 05/04/23 16:33 Freq: Status: Active Protocol: Document 05/05/23 10:30 [facility] (Rec: 05/05/23 11:15 [facility] [id number]) Lumbar Spine Range of Motion Lumbar Spine Active Testing Position Standing Flexion 20 Extension 0 Lateral Flexion Left 20 Lateral Flexion Right 20 PT-OP-M Strength Start: 05/04/23 16:33 Freq: Status: Active Protocol: Document 05/05/23 10:30 SAK (Rec: 05/05/23 11:15 [facility] [id number]) Hip Strength Hip Manual Muscle Testing Right Flexion (L2) 4- Good- Extension (S1) 3- Fair- Abduction 3+ Fair+ Adduction 4- Good- External Rotation 3+ Fair+ Internal Rotation 4- Good- Left Flexion (L2) 3- Fair- Abduction 3+ Fair+ Adduction 4- Good- External Rotation 3+ Fair+ Internal Rotation 4- Good- Knee Strength Knee Manual Muscle Testing Left Flexion (S2) 4 Good Extension (L3) 4 Good Right Flexion (S2) 4 Good Extension (L3) 4 Good Ankle/Foot Strength Ankle and Foot Manual Muscle Testing Left Dorsiflexion (L4) 4 Good Plantarflexion (S1) 4 Good Right Dorsiflexion (L4) 4 Good Plantarflexion (S1) 4 Good PT-OP-Q Treatments Start: 05/04/23 16:33 Freq: Status: Active Protocol: Document 08/05/23 14:48 [facility] (Rec: 08/05/23 16:08 [facility] [id number]) Cardio Equipment Recumbent Stepper (Sci-Fit) Duration (Minutes) 10 Resistance 3 Seat Position 7 Other UE's and LE's first 5 min, LE' s only last 5 min Gym Equipment Shuttle Recovery Unilateral Squats Details 1/4 cork under right foot Resistance 50 (new) Shuttle Recovery Platform Stable Reps/Time 10x2 Bilateral Squats Details 1/3 cork under right foot Resistance 87 (1 new) Shuttle Recovery Platform Stable Reps/Time 2x10 Therapeutic Exercises Supine Exercises crunches Supine Exercise Name fwd and diagonal Reps/Minutes 10x ea LTR Supine Exercise Name legs on 65 cm therapy ball Reps/Minutes 10x Clam- Wallace elimated Resistance L2 TB Equipment Used Therapist assist Comments cues for core stab segmental bridge Supine Exercise Name legs on 55 cm therapy ball Reps/Minutes 12x PT-OP-R Modalities Start: 05/04/23 16:33 Freq: Status: Active Protocol: Document 08/05/23 14:48 [facility] (Rec: 08/05/23 16:08 [facility] [id number]) Hot Pack/Cold Pack Treatment Hot Pack Location herbie lumbosacral spine, ant/lat right hip Patient Position Hooklying Treatment Duration (minutes) 10 Patient Tolerance Good Comments 90/90 postion, stroud within reach PT-OP-T Assessment and Plan Start: 05/04/23 16:33 Freq: Status: Active Protocol: Document 08/05/23 14:48 [facility] (Rec: 08/05/23 16:08 [facility] [id number]) Physical Therapy Assessment Goals Three Impairment weakness Impairment LE's and core with altered muscle activation Short Term Goal (STG) Patient will be instsructed in HEP for purposes of core and hip strengthening and stabilization 06/21/23: goal progress; ongoing progression. Patient with good compliance to HEP STG Duration goal met Half-Way Goal (LTG) Patient will be independent and compliant with HEP and demonstrate improved strength to at least 4+/5 with improved functional activation of gluteals. 07/26/23: patient independent with HEP, good compliance. Strength 4-/5 hip abd and ext, 4/5 flex, ER, and IR. Core 4 -/5. LTG Duration 08/26/23 Two Impairment gait Impairment antalgic, step-to pattern on stairs Short Term Goal (STG) Patient will be able to walk on level surfaces with minimal to no limp 06/21/23: good goal progreess STG Duration goal met Half-Way Goal (LTG) Patient will be able to ambulate on stairs with alternating step pattern 07/26/23: variable ability depending on the day, not consistent LTG Duration 08/26/23 One Impairment activity tolerance Impairment Lower extremity functional scale score 32% Short Term Goal (STG) Improve LEFS score to at least 45% as measure of improved functional activity tolerance 06/21/23: goal met, score improved to 50% STG Duration goal met Half-Way Goal (LTG) Improve LEFS score to at least 60% as measure of improved functional activity tolerance and quality of life. 07/26/23: LEFS 55%, goal progress LTG Duration 08/26/23 Assessment Summary Assessment Patient independent with HEP, demonstrates good understanding of lifting principles. She is going to order an Even Up shoe attachment after day. Patient was instructed in starting with smallest lift and wearing schedule. Ready for discharge from PT Physical Therapy Plan Discharge Physical Therapy Discharge Reasons Plateau in Progress
== END 2023-08-10 08:38 | disposition home or self-care (01) ==
LOC: PHYS 15:00
PROVIDERS: Family Provider Family Medicine; PCP Family Medicine; Referring Provider Family Medicine; Visit Provider Family Medicine
DX: M25.551 Pain in right hip (principal); G89.29 Other chronic pain; R26.2 Difficulty in walking, not elsewhere classified; R53.1 Weakness
CPT/HCPCS: 97010; 97110; 97116; 97140; 97162; 97530; 97535

== ENCOUNTER → 2023-08-07 09:06 | Outpatient (CLI) | payer OTHER, MEDICAID, SELFPAY ==
[2023-08-07 09:59] LABS: Influenza A - CEPHEID Flu A NEGATIVE (NEGATIVE); Influenza B - CEPHEID Flu B NEGATIVE (NEGATIVE); Respiratory Syncytial Virus Negative (Negative)
[2023-08-07 10:24] LABS: COVID-19 CEPHEID 4-PLEX PCR Negative (Negative)
== END ==
PROVIDERS: Family Provider Family Medicine; PCP Family Medicine; Visit Provider Registered Nurse
DX: R05.9 Cough, unspecified (principal)
CPT/HCPCS: 0241U

== ENCOUNTER → 2023-08-07 09:18 | Outpatient (CLI) | payer OTHER, MEDICAID, SELFPAY ==
--- NOTE | 2023-08-07 09:20 | DI.RAD.S_ITS ---
PROCEDURE: XR CHEST 2V INDICATIONS: Cough TECHNIQUE: 2 views of the chest were acquired. COMPARISON: None. FINDINGS: Surgical changes and devices: None. Lungs and pleura: Lungs are clear. No pleural effusions or pneumothorax. Mediastinum: Mediastinal contours are normal. Heart size is normal. Bones and chest wall: No suspicious bony abnormalities. Soft tissues appear unremarkable. IMPRESSION: Normal to chest x-ray Approved by: Kushal Freeman M.D. on 08/07/2023 at 9:03
== END ==
PROVIDERS: Family Provider Family Medicine; PCP Family Medicine; Referring Provider Registered Nurse; Visit Provider Registered Nurse
DX: R05.9 Cough, unspecified (principal)
CPT/HCPCS: 0241U; 71046

== ENCOUNTER 2023-10-05 08:13 | Day surgery (SDC) | payer OTHER, MEDICAID, SELFPAY ==
--- NOTE | 2023-10-05 | PATH_ITS ---
[facility] Accession Number: [id number] No. of containers..03 Tissue . 01 Material submitted: . PART A: cecum - CECUM PART B: colon - TRANSVERSE PART C: rectum - RECTAL BX X 2 . 01 Diagnosis: A. Cecum, Polyp: Tubular adenoma. . B. Transverse Colon, Polyp: Tubular adenoma. . C. Rectum, Biopsy x2: Hyperplastic polyps. MRV 10/07/2023 1512 Local . 01 Electronically signed: . Yana Brothers MD, Pathologist NPI- [id number] . 01 Gross description: . Part A: CECUM: Received in formalin are 2 fragment(s) of hammond, soft tissue measuring 0.1 x 0.1 x 0.1 cm to 0.4 x 0.3 x 0.3 cm submitted entirely in 1 cassette(s) Part B: TRANSVERSE: Received in formalin are 4 fragment(s) of hammond, soft tissue measuring 0.1 x 0.1 x 0.1 cm to 0.4 x 0.3 x 0.3 cm submitted entirely in 1 cassette(s) Part C: RECTAL BX X 2: Received in formalin are 3 fragment(s) of hammond, soft tissue measuring 0.2 x 0.2 x 0.2 cm to 0.3 x 0.3 x 0.3 cm submitted entirely in 1 cassette(s) /NURY 10/06/2023 2244 Local . 01 Pathologist provided ICD-10: D12.0, D12.3 . 01 CPT . 312825, 324123, 904448 Specimen Comment: A courtesy copy of this report has been sent to [phone] Performed at: 01 [facility] [address] [place] [address] [id number] MD Emre Goddard MD Phone: [phone]
[2023-10-05] MEDS: LACTATED RINGERS 1,000 ML 42 ML IV (08:25)
[2023-10-05 08:33] VITALS: BP 160/99; PULSE 73; RESP 18; TEMP 36.2; O2SAT 94; BMI 35.6
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
--- NOTE | 2023-10-05 09:12 | P.OP.COLON_ITS ---
Operative Date/Time/Diagnoses Date of procedure: 10/05/23 Pre-op diagnosis: Personal history of colonic polyps Procedure & Clinicians Study performed: Colonoscopy and polypectomy Same procedure as scheduled: Yes Indications: Personal history of colonic polyps Colorectal screening Surgeon: Aristides Rivas Procedure Notes Procedure in detail: The history and physical was performed/updated and the patient is ASA class is 2. The procedure was discussed in detail with the patient. Potential risks complications including infection, bleeding, missed diagnosis, perforation, need for surgery, and were explained. Their questions were answered and informed consent was obtained. Patient was brought to the procedure room and placed standard monitoring equipment. The patient's vital signs were monitored continuously throughout the entire procedure. Prior to starting time-out was performed. The patient was placed in the left lateral recumbent position. Procedural sedation was administered by anesthesia. Examination began with a thorough inspection of the perianal area there was no evidence of fissures, fistulae, external hemorrhoids or cutaneous malignancy. The colonoscopy scope was then placed into the anal canal and was advanced to the cecum, which was identified by the ileocecal valve, the appendiceal orifice and the confluence of the taenia. The scope was then slowly withdrawn examining colon thoroughly in all directions, irrigating it of any residual stool. The scope was retroflexed within the rectum The patient tolerated the procedure well. They will be discharged once criteria are met. The prep was of good/excellent quality. The withdrawl time was 15 m inutes. FINDINGS * Cecum-5 mm polyp removed with cold snare * Transverse colon 3 mm polyp x2 removed with biopsy forceps * Rectum 3 mm polyp x2 removed with biopsy forceps Specimen(s): other (Cecal, transverse and rectal polyps) Impression: Colonic polyps x5 Post-procedure Plan for aftercare: Follow-up is dependent on pathology findings Disposition: same day surgery
[2023-10-05 09:52] VITALS: BP 151/82; PULSE 70; RESP 13; TEMP 36.3; O2SAT 93
[2023-10-05 09:57] VITALS: BP 130/89; PULSE 73; RESP 16; O2SAT 96
[2023-10-05 10:02] VITALS: BP 133/86; PULSE 72; RESP 20; TEMP 37; O2SAT 96
== END 2023-10-05 10:27 | disposition home or self-care (01) ==
PROVIDERS: Family Provider Family Medicine; PCP Family Medicine; Referring Provider Surgery; Visit Provider Surgery
PROC: 0DJD8ZZ Inspection of Lower Intestinal Tract, Via Natural or Artificial Opening Endoscopic (ICD-10-PCS; CPT 45378; principal; 2023-10-05 09:15)
DX: Z12.11 Encounter for screening for malignant neoplasm of colon (principal); Z86.010 Personal history of colon polyps; D12.0 Benign neoplasm of cecum; D12.3 Benign neoplasm of transverse colon; K62.1 Rectal polyp
CPT/HCPCS: 45385; 45380; J2704

== ENCOUNTER → 2024-04-06 09:11 | Outpatient (CLI) | payer OTHER, MEDICAID, SELFPAY ==
[2024-04-06 10:59] LABS: Add Manual Diff / Slide Review NO; Basophils Absolute Auto 0 /uL (0-100); Basophils Percent Auto 0.9 % (0-2); Eosinophils Absolute Auto 100 /uL (0-450); Eosinophils Percent Auto 1.7 % (2-4); Hematocrit 42.9 % (36-46); Hemoglobin 14.6 g/dL (12.0-16.0); Lymphocytes Absolute Auto 1700 /uL (1100-4500); Lymphocytes Percent Auto 32.2 % (25-40); Mean Corpuscular Hemoglobin 31.3 PG (26-34); Mean Corpuscular Volume 91.9 fL (80-100); Monocytes Absolute Auto 300 /uL (0-900); Monocytes Percent Auto 6.5 % (3-14); Neutrophils Absolute Auto 3100 /uL (1500-7000); Neutrophils Percent Auto 58.7 % (50-75); Platelet Count 194 X10^3/uL (150-400); Red Blood Cell Count 4.66 X10^6/uL (4.0-5.2); Red Cell Distribution Width 12.7 % (11.6-14.8); White Blood Cell Count 5.3 X10^3/uL (4.5-11.0)
[2024-04-06 11:19] LABS: Alanine Aminotransferase 16 IU/L (<35); Albumin 3.9 g/dL (3.5-5.0); Albumin Globulin Ratio 1.3 (1.0-2.8); Alkaline Phosphatase 73 U/L (38-126); Aspartate Aminotransferase 24 IU/L (14-36); BUN Creatinine Ratio 17.5 (6-22); Bilirubin Total 0.6 mg/dL (0.2-1.3); Blood Urea Nitrogen 11 mg/dL (7-17); Calcium 8.7 mg/dL (8.4-10.2); Carbon Dioxide 27 mmol/L (22-32); Chloride 108 mmol/L (98-107); Cholesterol 144 mg/dL (140-199); Estimated Glomerular Filt Rate > 60 mL/min (>60); Glucose 102 mg/dL (80-110); HDL Cholesterol 57 mg/dL (40-60); HEMOLYSIS < 15 (0-50); LDL Cholesterol Calculated 75 mg/dL (<100); Potassium 4.1 mmol/L (3.4-5.1); Sodium 138 mmol/L (137-145); Total Protein 6.9 g/dL (6.3-8.2); Triglycerides 62 mg/dL (35-150)
[2024-04-06 11:52] LABS: TSH w/ Reflex to FT4 2.11 uIU/mL (0.47-4.68)
== END ==
PROVIDERS: Family Provider Family Medicine; PCP Family Medicine; Referring Provider Family Medicine; Visit Provider Family Medicine
DX: E03.9 Hypothyroidism, unspecified (principal); E78.5 Hyperlipidemia, unspecified; I10 Essential (primary) hypertension
CPT/HCPCS: 36415; 80053; 80061; 84443; 85025

== ENCOUNTER → 2024-06-15 09:29 | Outpatient (CLI) | payer OTHER, MEDICAID, SELFPAY ==
--- NOTE | 2024-06-15 10:07 | EKG_ITS ---
[facility] [address] [place] [address] Test Date: 2024-06-15 Pat Name: Thomas Tsang Department: Room: Gender: Female Homemaker Companion: : 1960 Requested By: Order Number: [id number] Reading MD: Sukhi Phillips Measurements Intervals [place] Rate: 58 P: 63 LA: 166 QRS: 47 QRSD: 98 T: 22 QT: 464 QTc: 455 Interpretive Statements Sinus bradycardia T wave abnormality, consider anterolateral ischemia Electronically Signed On 06-15-2024 19:52:19 PDT by Sukhi Phillips
[2024-06-15 10:44] LABS: Add Manual Diff / Slide Review NO; Basophils Absolute Auto 0 /uL (0-100); Basophils Percent Auto 0.5 % (0-2); Eosinophils Absolute Auto 200 /uL (0-450); Hematocrit 39.2 % (36-46); Hemoglobin 13.7 g/dL (12.0-16.0); Lymphocytes Absolute Auto 2300 /uL (1100-4500); Lymphocytes Percent Auto 27.3 % (25-40); Mean Corpuscular Hemoglobin 31.5 PG (26-34); Mean Corpuscular Volume 90.2 fL (80-100); Monocytes Absolute Auto 600 /uL (0-900); Monocytes Percent Auto 6.5 % (3-14); Neutrophils Absolute Auto 5400 /uL (1500-7000); Neutrophils Percent Auto 63.7 % (50-75); Platelet Count 210 X10^3/uL (150-400); Red Blood Cell Count 4.35 X10^6/uL (4.0-5.2); Red Cell Distribution Width 13.5 % (11.6-14.8); White Blood Cell Count 8.4 X10^3/uL (4.5-11.0)
[2024-06-15 11:03] LABS: Hemoglobin A1C% w Est Avg Glu 5.6 % (4.0-6.0)
[2024-06-15 11:09] LABS: BUN Creatinine Ratio 21.4 (6-22); Blood Urea Nitrogen 18 mg/dL (7-17); Calcium 9.1 mg/dL (8.4-10.2); Carbon Dioxide 28 mmol/L (22-32); Chloride 97 mmol/L (98-107); Estimated Glomerular Filt Rate > 60 mL/min (>60); Glucose 103 mg/dL (80-110); HEMOLYSIS < 15 (0-50); Potassium 2.8 mmol/L (3.4-5.1); Sodium 136 mmol/L (137-145)
[2024-06-15 11:16] LABS: Prealbumin 19.7 mg/dL (17.6-36.0)
[2024-06-15 11:25] LABS: Vitamin D 25 Hydroxy (D3) 40.1 ng/mL (30.0-100.0)
== END ==
PROVIDERS: Family Provider Family Medicine; PCP Family Medicine; Referring Provider Orthopaedic Surgery Adult Reconstructive Orthopaedic Surgery; Visit Provider Orthopaedic Surgery Adult Reconstructive Orthopaedic Surgery
DX: Z01.818 Encounter for other preprocedural examination (principal); E55.9 Vitamin D deficiency, unspecified; R73.9 Hyperglycemia, unspecified; R77.0 Abnormality of albumin; Z01.812 Encounter for preprocedural laboratory examination
CPT/HCPCS: 36415; 80048; 82040; 82306; 83036; 84134; 85025; 93005

== ENCOUNTER → 2024-06-26 16:30 | Outpatient (CLI) | payer OTHER, MEDICAID, SELFPAY | PROVIDERS: Family Provider Family Medicine; PCP Family Medicine; Referring Provider Orthopaedic Surgery Adult Reconstructive Orthopaedic Surgery; Visit Provider Orthopaedic Surgery Adult Reconstructive Orthopaedic Surgery | DX: M16.11 Unilateral primary osteoarthritis, right hip (principal) | CPT/HCPCS: 80307 ==

== ENCOUNTER → 2024-07-14 11:21 | Outpatient (CLI) | payer OTHER, MEDICAID, SELFPAY ==
[2024-07-14 13:08] LABS: Influenza A - CEPHEID Flu A NEGATIVE (NEGATIVE); Influenza B - CEPHEID Flu B NEGATIVE (NEGATIVE); Respiratory Syncytial Virus Negative (Negative)
[2024-07-14 13:15] LABS: COVID-19 CEPHEID 4-PLEX PCR Negative (Negative)
== END ==
PROVIDERS: Family Provider Family Medicine; PCP Family Medicine; Visit Provider Nurse Practitioner Family
DX: J02.9 Acute pharyngitis, unspecified (principal); R05.9 Cough, unspecified
CPT/HCPCS: 0241U; 87070

== ENCOUNTER → 2024-07-14 11:29 | Outpatient (CLI) | payer OTHER, MEDICAID, SELFPAY ==
--- NOTE | 2024-07-14 11:30 | DI.RAD.S_ITS ---
PROCEDURE: XR CHEST 2V INDICATIONS: Cough TECHNIQUE: 2 views of the chest were acquired. COMPARISON: [facility], CR, XR CHEST 2V, 08/07/2023, 9:22. FINDINGS: New or increased [id number] bilateral perihilar and lower lobe peribronchial thickening more than expected for expiratory result, and bronchitis, viral infection, asthma or other process should be considered. No pneumothorax, no pleural effusion, no lobar consolidation. Mild to moderate degenerate changes of the thoracic spine unchanged. Cardiopericardial silhouette and pulmonary vasculature within normal limits. IMPRESSION: New or increased [id number] bilateral peribronchial thickening as discussed above. Follow-up suggested. If symptoms persist or worsen, CT chest could be performed. Dictated by: Mike Hubbard M.D. on 07/17/2024 at 11:43 Approved by: Mike Hubbard M.D. on 07/17/2024 at 11:46
== END ==
PROVIDERS: Family Provider Family Medicine; PCP Family Medicine; Referring Provider Nurse Practitioner Family; Visit Provider Nurse Practitioner Family
DX: J02.9 Acute pharyngitis, unspecified (principal); R05.9 Cough, unspecified
CPT/HCPCS: 0241U; 71046; 87070

== ENCOUNTER → 2024-10-10 10:03 | Outpatient (CLI) | payer OTHER, MEDICAID, SELFPAY ==
[2024-10-10 10:38] LABS: Add Manual Diff / Slide Review NO; Basophils Absolute Auto 100 /uL (0-100); Eosinophils Absolute Auto 100 /uL (0-450); Eosinophils Percent Auto 2.1 % (2-4); Hematocrit 42.7 % (36-46); Hemoglobin 14.5 g/dL (12.0-16.0); Lymphocytes Absolute Auto 2100 /uL (1100-4500); Lymphocytes Percent Auto 32.8 % (25-40); Mean Corpuscular HGB Conc 33.9 % (30-36); Mean Corpuscular Hemoglobin 31.2 PG (26-34); Monocytes Absolute Auto 400 /uL (0-900); Monocytes Percent Auto 6.3 % (3-14); Neutrophils Absolute Auto 3600 /uL (1500-7000); Neutrophils Percent Auto 57.8 % (50-75); Platelet Count 255 X10^3/uL (150-400); Red Blood Cell Count 4.64 X10^6/uL (4.0-5.2); Red Cell Distribution Width 13.3 % (11.6-14.8); White Blood Cell Count 6.3 X10^3/uL (4.5-11.0)
[2024-10-10 11:06] LABS: Blood Urea Nitrogen 21 mg/dL (7-17); Calcium 9.7 mg/dL (8.4-10.2); Carbon Dioxide 30 mmol/L (22-32); Chloride 100 mmol/L (98-107); Estimated Glomerular Filt Rate > 60 mL/min (>60); Glucose 117 mg/dL (80-110); HEMOLYSIS < 15 (0-50); Potassium 3.7 mmol/L (3.4-5.1); Sodium 136 mmol/L (137-145)
== END ==
PROVIDERS: Family Provider Family Medicine; PCP Family Medicine; Referring Provider Orthopaedic Surgery Adult Reconstructive Orthopaedic Surgery; Visit Provider Orthopaedic Surgery Adult Reconstructive Orthopaedic Surgery
DX: Z01.812 Encounter for preprocedural laboratory examination (principal)
CPT/HCPCS: 36415; 80048; 85025

== ENCOUNTER 2024-10-23 09:12 | Day surgery (SDC) | payer OTHER, MEDICAID, SELFPAY ==
[2024-10-17 12:42] VITALS: BMI 37.8
[2024-10-23] VITALS (11 sets, daily range): BP systolic 113–141; BP diastolic 69–89; PULSE 65–85; RESP 10–19; TEMP 36–36.7; O2SAT 93–98; BMI 37.0
--- NOTE | 2024-10-23 | DI.RAD.S_ITS ---
PROCEDURE: XR HIP W PEL IF DONE RT 2V INDICATIONS: RT HIP ANTERIOR TECHNIQUE: AP pelvis and lateral view of the hip acquired. COMPARISON: [facility], [place]AL, XR HIP W PEL IF DONE RT 2V, 10/23/2024, 11:55. [facility], [place], XR HIP W PEL IF DONE RT 2V, 02/20/2023, 10:12. FINDINGS: Bones: Patient is status post right hip arthroplasty, with hardware components in expected positions. The hip joint appears congruent. The visualized bony structures appear intact. Soft tissues: Overlying postoperative changes are noted. No suspicious soft tissue densities. IMPRESSION: Expected post-operative appearance of a hip arthroplasty. Dictated by: Ric Sage M.D. on 10/23/2024 at 15:44 Approved by: Ric Sage M.D. on 10/23/2024 at 15:45
--- NOTE | 2024-10-23 06:00 | DI.RAD.S_ITS ---
PROCEDURE: XR HIP W PEL IF DONE RT 2V INDICATIONS: LIBERTY TECHNIQUE: Fluoroscopic guidance utilized for a right total hip arthroplasty placement COMPARISON: None. FINDINGS: Fluoroscopic images submitted for a right total hip arthroplasty placement. Please see operative note for further discussion. IMPRESSION: Fluoroscopic guidance. Dictated by: Ric Sage M.D. on 10/23/2024 at 15:47 Approved by: Ric Sage M.D. on 10/23/2024 at 15:47
[2024-10-23] MEDS: ACETAMINOPHEN 325 MG TABLET 975 MG PO (10:06)
[2024-10-23] MEDS: LACTATED RINGERS 1,000 ML 42 ML IV ×2 (10:06→12:40)
[2024-10-23] MEDS: MELOXICAM 7.5 MG TABLET 15 MG PO (10:06)
--- NOTE | 2024-10-23 10:22 | PM.PREOP ---
Pre-operative Note Interval Note History & Physical reviewed/Exam performed by Physician: Yes Changes to H&P: No H&P completed within 30 days and has changed as indicated here:: Patient measures 2 mm short on the operative side radiographically. Clinically she appears to be more than 2 mm short on the operative side so I will err towards adding length during today's surgery
[2024-10-23] MEDS: CEFAZOLIN 2 GM/100 ML PREMIX 100 ML IV (11:04)
[2024-10-23] MEDS: ROPIVACAINE/EPI/CLONIDINE/KET 50 ML SYRINGE INJ (12:38)
[2024-10-23] MEDS: TRANEXAMIC ACID 1,000 MG in SODIUM CHLORIDE 0.9% 100 ML 200 MG IV (12:40)
--- NOTE | 2024-10-23 12:55 | P.OP_ITS ---
Operative Date/Time/Diagnoses Date of procedure: 10/23/24 Pre-op diagnosis: Right hip osteoarthritis Post-op diagnosis: same Procedure & Clinicians Procedure: Right total hip arthroplasty Same procedure as scheduled: Yes Surgeon: Kushal Faulkner [employer] [facility] Consultant: Marianna Rodriguez Anesthesia Type: General, Spinal and Local Operative Notes Estimated Blood Loss (mL): 350 Procedure in detail: Right Uncemented Direct Anterior Depuy Total Hip Arthroplasty: Implants: * [place] Gription size 54 cup? * Actis femoral stem size 6 high offset? * 36 mm -2 ceramic femoral head? Procedure Summary: This 64-year-old female patient was actively smoking at the time of my initial evaluation with her. Prior to proceeding with surgery she successfully quit smoking which was verified with a codeine test. Because of her smoking history and greta-incisional soft tissue envelope I utilized a incisional wound VAC for her dressing to aid with wound healing. Intraoperatively I found that she was slightly under templated, as I achieved an appropriate fit with 1 size up on both the femur and the acetabulum. I had initially templated her for a +5 head but this was significantly too long so I downsized to a +1.5 head which was still too long at eventually implanted a-2 head which still maintained stability with maximum external rotation and a 45 degree drop test while appearing more appropriately from a length perspective on radiographs. Procedure in Detail: This patient was seen preoperatively and evaluated for hip pain which was refractory to numerous nonoperative treatment modalities. Their hip pain correlated with radiographic changes demonstrating significant degeneration in the hip joint. The risks and benefits of continued nonoperative management versus operative management were discussed at length and all of the patient?s questions were answered. Additional educational materials providing further details beyond our discussion in clinic were provided via a publicly available patient education video which included the incidence of medical complications associated with total hip arthroplasty, reasons for revision following total hip arthroplasty, and patient satisfaction rates following total hip arthroplasty. That video can be accessed at [email or web address] . With this understanding of the risks inherent to the procedure, the patient elected to move forward with operative management. Following preoperative optimization, the patient was scheduled for surgery. The patient was met in the preoperative holding area the day of the procedure and all questions were answered. The patient?s nares were swabbed with betadine in order to decolonize them from MRSA. Informed consent was signed and the right limb was marked with indelible ink.? The patient was brought back to the operating room where anesthesia was induced. The patient was transferred to the [place] table and all bony prominences were padded. The operative site was prepped and draped in the usual sterile fashion. Prior to incision, tranexamic acid and cefazolin were administered. Operative templating images were displayed demonstrating the anticipated implant sizes and correct operative extremity. A timeout procedure was performed verifying the patient?s identity, medical comorbidities, allergies, relevant medications, anesthesia type and the surgical plan. All present were in agreement. The assistance of a physician assistant professor of theater was required for positioning, room setup, soft tissue retraction and wound closure. Without this assistance, the procedure would have been significantly more challenging and time consuming.?? A direct anterior approach to the hip was utilized. This was performed with a l ongitudinal incision through a Heuter interval. The incision was planned 2 cm distal and 2 cm lateral to the ASIS extending towards the lateral patella, in line with the muscle body of the TFL. Following incision, the subcutaneous tissue was dissected while taking care to avoid injury to the lateral femoral cutaneous nerve. The fascia overlying the TFL was identified by dissecting off the overlying fat and identifying perforating vessels to the TFL. The TFL fascia was incised and dissected away from the medial border of the TFL. A cobra retractor was placed over the superior femoral neck between the abductors and the hip capsule and used to reflect the TFL laterally. A [place] self-retainer was then placed in the distal aspect of the wound between the TFL and the rectus femoris. This was tensioned to open up the direct anterior interval and the lateral circumflex vessels were identified and coagulated using electrocautery. The floor of the TFL fascia was incised, exposing the pericapsular fat overlying the hip capsule. A second cobra retractor was placed on the inferior femoral neck. A double-bent soft tissue retractor was placed on the anterior wall of the acetabulum and used to tension the reflected head of rectus femoris, which was then released in order to limit soft tissue tension. A capsulotomy was made in the midline of the anterior hip capsule in line with the femoral neck ending at the vastus tubercle. The double-bent retractor was removed in order to limit the amount of time that a soft tissue retractor remained on the anterior wall and protect the femoral nerve. Tag stitches were placed in the superior and inferior leaflets of the hip capsule. An Anthony soft tissue retractor was introduced over the tag stitches and tensioned in the interval between the rectus femoris and the TFL in order to retract and protect those muscles. The cobra retractors were replaced intracapsularly, with one over the superior neck in the pocket created by the base of the greater trochanter and the other on the femoral head. The capsulotomy was extended laterally to the base of the greater trochanter and medially to the lesser trochanter. This required externally rotating the hip. Once the lesser trochanter had been identified, a neck cut was planned according to measurements from preoperative templating. A ruler was cut at the length measured between the superior aspect of the lesser trochanter and the collar of the prosthesis. This line was extended towards the inferior aspect of the lateral cobra retractor to plan a cut which would leave minimal residual femoral neck laterally. The neck was cut at 60 degrees of external rotation along that line. A second cut was performed to remove a large napkin ring and facilitate head extraction. The napkin ring cut and femoral head were removed.?? A broad anterior wall retractor was placed between the labrum and the anterior capsule so that the anterior capsule would prevent capturing and pinching the femoral nerve anteriorly. An additional retractor was placed on the posterior wall. External rotation and traction were applied through the [place] table so that the cut surface of the femoral neck would not restrict access to the acetabulum. The labrum was excised sharply and the pulvinar was excised with electrocautery to limit bleeding from branches of the obturator artery. Acetabular reamers were selected based on preoperative templating and measurements of the excised femoral head. These were introduced into the acetabulum. Fluoroscopy was utilized to replicate a standing AP pelvis radiograph by centering over the pelvis, rotating until there was appropriate symmetry between the obturator foramen, and introducing caudal tilt to match the position of the pubic symphysis relative to the sacrococcygeal junction according to the patient?s anatomy. Fluoroscopy was utilized to ensure appropriate reaming depth. Once satisfied with the reaming depth corresponding to the preoperative template and the pinch fit between the columns, an appropriate sized acetabular cup was selected which would provide 1 mm of press-fit. This cup was introduced and manipulated until appropriate abduction and anteversion angles were obtained with careful attention to appropriate abduction and anteversion angles as evaluated by the position of the cup relative to the anterior and posterior roy of the acetabulum and the AP fluoroscopy which recreated the patient?s standing radiograph. The cup was impacted into place. Peripheral osteophytes were removed. The acetabular liner was then placed with care to ensure locking of the locking mechanism.? Attention was then turned to the femur. All retractors were removed, traction was released, a retractor was placed in the interval between the hip capsule and the gluteus minimus, and the hip was externally rotated to 90 degrees. Traction was applied through the [place] table to tension the lateral capsule and this was released using electrocautery. Traction was released and a [place] hook was placed posteriorly around the proximal femur at the level of the vastus ridge. The table height was lowered in order to restrict the tension on the anterior structures during hip hyperextension to limit the risk of femoral nerve palsy. With traction off and the hip at 90 degrees of external rotation, the hip was hyperextended and adducted while manually elevating the femur away from the acetabulum with the [place] hook to ensure it would not be caught behind the greater trochanter. An asymmetric retractor was placed over the calcar and a broad double-pronged retractor was placed over the greater trochanter. The tag stitch capturing the lateral leaflet of the capsule was moved to the medial side, leaving the conjoined and piriformis tendons isolated in the face of the greater trochanter. The hip was externally rotated and elevated. A release of the conjoined tendon was necessary in order to obtain adequate exposure for broaching. The canal was opened with an opening broach and a rasp was used to remove cancellous bone. A rongeur was used to remove the residual lateral bone at the base of the greater trochanter to avoid placing the stem in varus. The femur was then broached to the appropriate sized stem yielding good rotational fit and fill of the canal as well as appropriate version of the stem trial. Neck and head trials were placed, all retractors were removed and the hip was returned to neutral abduction and extension. I then reduced the hip. Initial trialing was performed with a size 6 broach, a high offset neck and a +5 head. I initially manually externally rotated the hip and found no instability. I then locked the hip in 45 degrees of external rotation and dropped it to the floor with traction off which demonstrated no instability. An AP pelvis fluoroscopic image matching the preoperative standing radiograph with both lesser trochanters visible and both hips in 40 degrees of external rotation demonstrated that the operative side was too long. AP and lateral hip fluoroscopic images were obtained to evaluate the broach size which demonstrated good canal fill. The hip was dislocated and I returned to the broaching position. Based on my evaluation during initial trialing I planned to downsize the head so I transitioned to a +1.5 head. I reduced the hip. Trialing was still appropriate and all parameters with no instability with maximum external rotation and a 45 degree drop test however the operative side still appeared long radiographically on an AP pelvis x-ray with a long metal bar extending across the transitional line. I therefore downsized to a-2 head. Trialing with a-2 head again did not demonstrate any provokable instability with maximum external rotation or a 45 degree drop test and fluoroscopically leg lengths appe ared more appropriate. I therefore planned to insert those definitive components. I returned to the broaching position. I tested the stability of the broach and found that it was rotationally stable. The definitive stem was placed and the trunnion was cleaned and dried. I placed a ceramic head onto the trunnion and impacted it into place on the Lopez taper.?? All retractors were removed and the hip was reduced. A dilute mixture of betadine and peroxide was used to bathe the soft tissues during final fluoroscopic assessment. Appropriate component positioning was confirmed on an AP pelvis radiograph with the operative and nonoperative legs in 40 degrees of external rotation, evaluating leg length and offset. Appropriate stem fill was evaluated on AP and lateral hip radiographs. No fractures were identified on these radiographs. There was no hip instability with maximum (115?) external rotation as well as a 45 degree drop test. The hip was copiously irrigated with pulse lavage. The capsule was closed with absorbable interrupted suture. The TFL fascia was closed with barbed suture while carefully protecting the lateral femoral cutaneous nerve from entrapment. A mixture of Ropivacaine, Epinephrine, Clonidine and Toradol was infiltrated throughout the soft tissues. The skin was closed with 2-0 and 3-0 sutures. Surgical glue was applied and a soft dressing was placed.??The sponge, instrument and needle counts were reported as being correct at the end of the case.??No obvious complications occurred. The patient was transferred from the [place] table back to a stretcher. The patient emerged from anesthesia without difficulty and was taken to the PACU in a stable condition.? Plan for aftercare: * Anterior hip precautions * Weightbearing as tolerated * Aspirin 81 twice per day for DVT prophylaxis * Anticipate discharge home today. If patient remains in the hospital overnight I have ordered respiratory therapy given her smoking status * Artem incisional wound VAC in place. This will remain in place until follow up. The cord can be removed after a week when the battery dies * Change into normal clothes upon arrival on the hospital floor * Mobilize in the halls as much as is logistically possible. If physical therapy is unavailable for mobilization, then patient should mobilize with nursing staff * Multimodal pain regimen with no IV opioids ordered * Apply ice machine to operative hip. Ensure that sufficient ice is in the chamber for the pad to remain cold * Follow up at [facility] in 2 weeks * Detailed postoperative instructions available at [email or web address]
--- NOTE | 2024-10-23 14:23 | PC.NURSE ---
Patient brought up to room 225, oriented to room and call light. RENZO dressing is intact, with green light flashing. VSS. 92-93% on RA. Patient denies pain. Patient is eager for discharge to home sarina, states her plan was to dc home after the surgery. Will continue to monitor.
--- NOTE | 2024-10-23 16:02 | PC.NURSE ---
Addendum entered by Ant Singh R.N. 10/23/24 17:35: Discharge instructions and home care handouts reviewed with patient, she states understanding and has no further questions or concerns. Patient escorted out via wheelchair, to be picked up by her sister for discharge to home. Patient re iterates that she has medications and needed equipment at home already, along with I watched all the information videos. IV dc'd intact. Original Note: Patient cleared by Physical therapy for discharge. Message left for Dr. Faulkner that she is wanting to discharge home.
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
[2024-10-23] MEDS: ACETAMINOPHEN 325 MG TABLET 650 MG PO (17:09)
== END 2024-10-23 17:30 | disposition home or self-care (01) ==
LOC: OR 09:13 → AC 09:16
PROVIDERS: Family Provider Family Medicine; PCP Family Medicine; Referring Provider Orthopaedic Surgery Adult Reconstructive Orthopaedic Surgery; Visit Provider Orthopaedic Surgery Adult Reconstructive Orthopaedic Surgery
PROC: (CPT 27130; principal; 2024-10-23 10:45)
DX: M16.11 Unilateral primary osteoarthritis, right hip (principal); I10 Essential (primary) hypertension; E78.5 Hyperlipidemia, unspecified; J44.9 Chronic obstructive pulmonary disease, unspecified; Z87.891 Personal history of nicotine dependence; F41.9 Anxiety disorder, unspecified; F32.A Depression, unspecified; E03.9 Hypothyroidism, unspecified
CPT/HCPCS: 27130; 73502; 76000; 97161; C1776; C1713; J0330; J0690; J1100; J1885; J2250; J2405; J2704; J3010

== ENCOUNTER 2024-12-06 13:00 | Outpatient (RCR) | payer OTHER, MEDICAID, SELFPAY ==
[2024-10-23 10:42] VITALS: BMI 37.0
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
--- NOTE | 2024-10-30 16:00 | PT.OPPOC ---
Physical, Occupational & Speech Therapy At [facility] Current Diagnoses Unilateral primary osteoarthritis, right hip (10/30/24) Visit Care Team Role Provider Type Carlos Bradley DO Family Provider Physician Primary Care Provider Specialty: Family Practice Address: [address] [place] [address], [address] Email: Kushal Faulkner MD Attending Provider Physician Referring Provider Specialty: Orthopedics Orthopedic Surgery Address: [address] [place] [address], [address] Email: [email or web address] Plan Of Care PT-OP-B Current Condition Start: 10/30/24 08:11 Freq: Status: Active Protocol: Document 10/30/24 11:32 [facility] (Rec: 10/30/24 12:18 [facility] [id number]) Current Condition History of Current Condition Onset Date 10/23/23 Current Complaints right hip dysfunction and limited mobility History of Current Condition R hip anterior approach Dr. Maravilla. Pain control fair. Watching precautions ( don't fall and don't kick leg back.) Doing HEP: ankle pumps , quad sets, and glut sets. Using ice occasionally. Pain control fair, takes 2 Oxycodone per day. Walking with 4WW, occasional furniture surfs. Patient hopeful leg length more symmetrical. Denies N/T. Pain 2-5/10. 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 Maravilla 11/03/24 for post op. Currently has postop dressing and drain in place. Prior Treatments and Tests R ant LIBERTY 10/23/24 Treatment Goals Patient/Caregiver Goals be able to walk without pain, pelvis and leg length even. Prior Functional Status Baseline Function- ADL's Modified Independent Baseline Function- Mobility Modified Independent Baseline Function- Gait none Baseline Function- Work/School retired Baseline Function- Recreation/Hobbies yardwork unable. Baseline Function- Other has ramp in backyard Personal Factors Other Personal Factors That May Effect chronicity of hip pain, prior Therapy/Recovery compensatory patterns PT-OP-T Assessment and Plan Start: 10/30/24 08:11 Freq: Status: Active Protocol: Document 10/30/24 11:32 [facility] (Rec: 10/31/24 09:39 [facility] [id number]) Physical Therapy Assessment Rehab Potential Rehabilitation Potential Good Evaluation Complexity Number of Personal Factors/Comorbidities 1-2 Number of Body Systems Impaired 3 Clinical Presentation at Evaluation Evolving Impairments Impairments Balance,Gait,Soft Tissue Mobility,Strength Other Concerns Barriers to Rehabilitation smoker Goals Four Impairment balance dysfunction Process Safety Engineering Technologist Goal (LTG) Patient will be able to stand on 1 foot for at least 10 sec to improve safety with mobility LTG Duration 12/30/24 Three Impairment LE weakness Short Term Goal (STG) Patient will be instrsucted in progressive, individualized HEP for purposes of right hip strengthening STG Duration 11/24/24 [facility] Goal (LTG) Patient will be independent and compliant with HEP and demonstrate LE strength at least 4+/5 and functionally be able to perform sit to stand from standard height chair without UE's x 10 reps. Two Impairment gait dysfunction; antalgic, using 4WW Process Safety Engineering Technologist Goal (LTG) Patient will be able to ambulate on level surfaces without limp without assistive device and ascend and descend stairs with alternating pattern without difficulty or pain LTG Duration 12/30/24 One Impairment Lower extremity functional scale score 20/80 Fdc Goal (LTG) Improve LEFS score to at least 70% as measure of improved right hip function LTG Duration 12/30/24 Assessment Summary Assessment Patient presents to PT with gait dysfunction, balance dysfunction, weakness, and limited mobility s/p R anterior LIBERTY 10/23/24. She is currently ambulating with a 4 wheeled walker with flexed trunk and antalgic gait with poor gluteal activation. She will benefit from LIBERTY rehab to help her improve her gait, strength, balance and safety with mobility. POC was discussed and patient was in agreement. Post-op HEP was reviewed today, initiated gait training, and PT session ended with ice to right hip. Patient appears highly motivated. Physical Therapy Plan Frequency and Duration Frequency of Treatment 2x/Week Duration of treatment (weeks) 8 Plan of Care Start Date 10/30/24 Plan of Care End Date 12/30/24 Therapeutic Interventions Therapeutic Interventions Balance Training,Gait Training ,Home Exercise Program,Manual Therapy,Neuromuscular Re- education,Patient/Caregiver Education,Self-Care/Home Management,Soft Tissue Mobilization,Taping, Therapeutic Activities, Therapeutic Exercises Modalities Cold Pack/Ice Massage,Electric Stimulation,Hot Packs Next Visit Focus/Plan Next Note Type Treatment Note Next Visit Plan Start with recumbant elliptical, gait training with 4WW, possibly cane if able without limp. Shallow knee bends with hip hinge and cues for gluteal activation, seated hip abd with band, add with ball. Review HEP. End with ice. Plan of Care Dates Plan of Care Start Date 10/30/24 Plan of Care End Date 12/30/24 Electronically Signed by: Lo Martinez, PT 10/31/24 1111 If you are in agreement with this Plan of Care, please return a signed and dated copy. I have reviewed this Plan of Care and certify that the skilled therapy services above are required to meet the patient?s needs. Physician Signature Date Printed Name and Credentials Clinical Instructor Signature Printed Name and Credentials
--- NOTE | 2024-11-02 12:22 | PT.OTN ---
Current Diagnoses Unilateral primary osteoarthritis, right hip (11/02/24) Physical Therapy Treatment Note PT-OP-A Visit Information Start: 10/30/24 08:11 Freq: Status: Active Protocol: Document 11/02/24 11:36 [facility] (Rec: 11/02/24 12:21 [facility] [id number]) Out-Patient Physical Therapy Visit Information Visit Information Visit Type Treatment Note Visit Start Time 11:36 Visit Stop Time 12:27 Visit Number 2 Evaluation Information Evaluation Date 10/30/24 Precautions Precautions ANT LIBERTY PT-OP-B Current Condition Start: 10/30/24 08:11 Freq: Status: Active Protocol: Document 11/02/24 11:36 [facility]AK (Rec: 11/02/24 12:21 [facility] [id number]) Current Condition History of Current Condition Onset Date 10/23/23 Current Complaints right hip dysfunction and limited mobility History of Current Condition R hip anterior approach Dr. Maravilla. Pain control fair. Watching precautions ( don't fall and don't kick leg back.) Doing HEP: ankle pumps , quad sets, and glut sets. Using ice occasionally. Pain control fair, takes 2 Oxycodone per day. Walking with 4WW, occasional furniture surfs. Patient hopeful leg length more symmetrical. Denies N/T. Pain 2-02/03. 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 Maravilla 11/03/24 for post op. Currently has postop dressing and drain in place. Prior Treatments and Tests R ant LIBERTY 10/23/24 Treatment Goals Patient/Caregiver Goals be able to walk without pain, pelvis and leg length even. PT-OP-C Subjective Start: 10/30/24 08:11 Freq: Status: Active Protocol: Document 11/02/24 11:36 [facility]AK (Rec: 11/02/24 12:21 [facility] [id number]) OP-PT Subjective Patient Comments Patient Comments Patient reports doing well overall, quit painpills due to constipation. Hasn't really been using her walker. Brought cane. Doing HEP, taking walks around the counter at home. Muscles in right leg tight. PT-OP-D Balance Start: 10/30/24 08:11 Freq: Status: Active Protocol: Document 10/30/24 11:32 [facility]AK (Rec: 10/31/24 09:39 [facility] [id number]) OP-PT Balance Assessment Sitting Balance Static Sitting Balance Ability Normal Dynamic Sitting Balance Ability Normal Standing Balance Static Standing Balance Ability Fair Dynamic Standing Balance Ability Fair Device Used 4WW Lopez Fall Scale Copyright Permission PT-OP-F Manual Assessment Start: 10/30/24 08:11 Freq: Status: Active Protocol: Document 10/30/24 11:32 [facility] (Rec: 10/31/24 09:39 [facility] [id number]) Manual Assessments Soft Tissue Assessment Soft Tissue Mobility Assessment post-op dressing intact, no rednes or increased warmth. Will be removed on Wednesday PT-OP-G Mobility & Gait Start: 10/30/24 08:11 Freq: Status: Active Protocol: Document 10/30/24 11:32 [facility] (Rec: 10/31/24 09:39 [facility] [id number]) OP Gait Assessment Gait Gait Assistance Required: Independent Assistive Devices Assistive Device 4 Wheeled Walker Orthotic/Prosthetic Devices or Brace: No Gait Deviations General Gait Pattern Antalgic,Flexed Trunk Factors Limiting Gait Function Factors Limiting Gait Function Limited Range of Motion,Pain Comments Gait Comments Patient with chronic right hip pain prior to surgery and was unable to extend to neutral, or stand or walk with fully upright trunk Stair Climbing Evaluation Evaluation Level of Assist On Stairs Standby Assistance Devices Stair Climbing Assistive Devices Left Railing,Right Railing Technique/Endurance Stair Climbing Technique Step to Step PT-OP-H Neuro Start: 10/30/24 08:11 Freq: Status: Active Protocol: Document 10/30/24 11:32 [facility] (Rec: 10/31/24 09:39 [facility] [id number]) Sensation Evaluation Gross Sensation Gross Sensation WNL PT-OP-J Posture/Palpation/Skin Start: 10/30/24 08:11 Freq: Status: Active Protocol: Document 10/30/24 11:32 [facility] (Rec: 10/31/24 09:39 [facility] [id number]) Palpation Assessment Location right hip Palpation Findings Soft Tissue Tightness Palpation Details as above, no signs or symptoms of infection Skin Assessment Incisional Assessment Incision Appearance/Comments post-op dressing in place PT-OP-K Range of Motion Start: 10/30/24 08:11 Freq: Status: Active Protocol: Document 10/30/24 11:32 [facility] (Rec: 10/31/24 09:39 [facility] [id number]) Hip Goniometric Range of Motion Hip Right Hip ROM WFL No Comments initially lacking 10 degrees from neutral, after heelslides 5 deg left Hip ROM WFL Yes Hip ROM Limitations Hip ROM Limitations Soft Tissue Tightness Knee Goniometric Range of Motion Knee herbie Knee ROM WFL Yes PT-OP-M Strength Start: 10/30/24 08:11 Freq: Status: Active Protocol: Document 10/30/24 11:32 [facility] (Rec: 10/31/24 09:39 [facility] [id number]) Hip Strength Hip Manual Muscle Testing Left Comments left has antigravity strength in flex right NA due to recent surgery , able to flex actively less than full ROM PT-OP-Q Treatments Start: 10/30/24 08:11 Freq: Status: Active Protocol: Document 11/02/24 11:36 [facility] (Rec: 11/02/24 12:21 [facility] [id number]) Cardio Equipment Recumbent Stepper (Sci-Fit) Duration (Minutes) 8 Resistance 1 Seat Position 7 Other 0.7 Therapeutic Exercises Sitting Exercises chair squats Reps/Minutes 10x Comments cues for hip hinge and gluteal activation ball squeeze Reps/Minutes 10x5 Standing Exercises march Reps/Minutes 10x herbie heel raises Reps/Minutes 10x Hip abd Reps/Minutes 10x R Gait Training Gait Activity cane Device Used SPC Level of Assistance CGA, cues Surface firm, 6 stairs Distance/Duration 150 ft, 4 stairs x 2 Treatment Focus sequencing, safety on stairs Manual Therapy Treatment Consent Patient gave verbal consent for manual Yes treatment Self-Care/Home Management Treatment Education Other Education updated HEP PT-OP-R Modalities Start: 10/30/24 08:11 Freq: Status: Active Protocol: Document 11/02/24 11:36 [facility] (Rec: 11/02/24 12:21 [facility] [id number]) Hot Pack/Cold Pack Treatment Cold Pack Location right hip Patient Position Sitting Patient Tolerance Good PT-OP-T Assessment and Plan Start: 10/30/24 08:11 Freq: Status: Active Protocol: Document 11/02/24 11:36 [facility] (Rec: 11/02/24 12:21 [facility] [id number]) Physical Therapy Assessment Impairments Impairments Balance,Gait,Soft Tissue Mobility,Strength Other Concerns Barriers to Rehabilitation smoker Goals Four Impairment balance dysfunction Fuel Truck Driver Goal (LTG) Patient will be able to stand on 1 foot for at least 10 sec to improve safety with mobility LTG Duration 4/5/25 Three Impairment LE weakness Impairment LE's and core with altered muscle activation Short Term Goal (STG) Patient will be instrsucted in progressive, individualized HEP for purposes of right hip strengthening STG Duration 11/24/24 Longterm Goal (LTG) Patient will be independent and compliant with HEP and demonstrate LE strength at least 4+/5 and functionally be able to perform sit to stand from standard height chair without UE's x 10 reps. Two Impairment gait dysfunction; antalgic, using 4WW Impairment antalgic, step-to pattern on stairs Longterm Goal (LTG) Patient will be able to ambulate on level surfaces without limp without assistive device and ascend and descend stairs with alternating pattern without difficulty or pain LTG Duration 12/30/24 One Impairment Lower extremity functional scale score 20/80 Impairment Lower extremity functional scale score 32% Fuel Truck Driver Goal (LTG) Improve LEFS score to at least 70% as measure of improved right hip function LTG Duration 12/30/24 Progress Towards Goals Progress Towards Goals Progressing Toward Goals Assessment Summary Assessment Patient demonstrated good understanding of sequencing using SPC in left hand, occasional reminders, improved with practice, no LOB. Progressed HEP to add heel raises, hip ab, chair squat, ball squeeze. STM right thigh adjacent to incision/dressing to decrease soft tissue tension and promote healing; good tolerance. ended with ice pack right hip. Physical Therapy Plan Frequency and Duration Frequency of Treatment 2x/Week Duration of treatment (weeks) 8 Plan of Care Start Date 10/30/24 Plan of Care End Date 12/30/24 Therapeutic Interventions Therapeutic Interventions Balance Training,Gait Training ,Home Exercise Program,Manual Therapy,Neuromuscular Re- education,Patient/Caregiver Education,Self-Care/Home Management,Soft Tissue Mobilization,Taping, Therapeutic Activities, Therapeutic Exercises Modalities Cold Pack/Ice Massage,Electric Stimulation,Hot Packs Next Visit Focus/Plan Next Note Type Treatment Note Next Visit Plan Continue gait training with cane level and stairs, add balance exercises tiltboard or balance machine. Further work on chair squat with hip hinge.
--- NOTE | 2024-11-06 14:42 | PT.OTN ---
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 Maravilla. Pain control fair. Watching precautions ( don't fall and don't kick leg back.) Doing HEP: ankle pumps , quad sets, and glut sets. Using ice occasionally. Pain control fair, takes 2 Oxycodone per day. Walking with 4WW, occasional furniture surfs. Patient hopeful leg length more symmetrical. Denies N/T. Pain 2-02/03. 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 Maravilla 11/03/24 for post op. Currently has postop dressing and drain in place. Prior Treatments and Tests R ant LIBERTY 10/23/24 Treatment Goals Patient/Caregiver Goals be able to walk without pain, pelvis and leg length even. PT-OP-C Subjective Start: 10/30/24 08:11 Freq: Status: Active Protocol: Document 11/06/24 13:00 [facility] (Rec: 11/06/24 14:42 [facility] [id number]) OP-PT Subjective Patient Comments Patient Comments Patient rates pain 2/10 L hip ambulating into session with SPC. Patient reports she can put her sock on and is able to lift LE onto bed without use of hands. SLS right LE 2,2,2 sec without UE use. PT-OP-D Balance Start: 10/30/24 08:11 Freq: Status: Active Protocol: Document 10/30/24 11:32 [facility] (Rec: 10/31/24 09:39 [facility] [id number]) OP-PT Balance Assessment Sitting Balance Static Sitting Balance Ability Normal Dynamic Sitting Balance Ability Normal Standing Balance Static Standing Balance Ability Fair Dynamic Standing Balance Ability Fair Device Used 4WW Lopez Fall Scale Copyright Permission PT-OP-F Manual Assessment Start: 10/30/24 08:11 Freq: Status: Active Protocol: Document 10/30/24 11:32 [facility] (Rec: 10/31/24 09:39 [facility] [id number]) Manual Assessments Soft Tissue Assessment Soft Tissue Mobility Assessment post-op dressing intact, no rednes or increased warmth. Will be removed on Wednesday PT-OP-G Mobility & Gait Start: 10/30/24 08:11 Freq: Status: Active Protocol: Document 10/30/24 11:32 [facility] (Rec: 10/31/24 09:39 [facility] [id number]) OP Gait Assessment Gait Gait Assistance Required: Independent Assistive Devices Assistive Device 4 Wheeled Walker Orthotic/Prosthetic Devices or Brace: No Gait Deviations General Gait Pattern Antalgic,Flexed Trunk Factors Limiting Gait Function Factors Limiting Gait Function Limited Range of Motion,Pain Comments Gait Comments Patient with chronic right hip pain prior to surgery and was unable to extend to neutral, or stand or walk with fully upright trunk Stair Climbing Evaluation Evaluation Level of Assist On Stairs Standby Assistance Devices Stair Climbing Assistive Devices Left Railing,Right Railing Technique/Endurance Stair Climbing Technique Step to Step PT-OP-H Neuro Start: 10/30/24 08:11 Freq: Status: Active Protocol: Document 10/30/24 11:32 [facility] (Rec: 10/31/24 09:39 [facility] [id number]) Sensation Evaluation Gross Sensation Gross Sensation WNL PT-OP-J Posture/Palpation/Skin Start: 10/30/24 08:11 Freq: Status: Active Protocol: Document 10/30/24 11:32 [facility] (Rec: 10/31/24 09:39 [facility] [id number]) Palpation Assessment Location right hip Palpation Findings Soft Tissue Tightness Palpation Details as above, no signs or symptoms of infection Skin Assessment Incisional Assessment Incision Appearance/Comments post-op dressing in place PT-OP-K Range of Motion Start: 10/30/24 08:11 Freq: Status: Active Protocol: Document 10/30/24 11:32 [facility] (Rec: 10/31/24 09:39 [facility] [id number]) Hip Goniometric Range of Motion Hip Right Hip ROM WFL No Comments initially lacking 10 degrees from neutral, after heelslides 5 deg left Hip ROM WFL Yes Hip ROM Limitations Hip ROM Limitations Soft Tissue Tightness Knee Goniometric Range of Motion Knee herbie Knee ROM WFL Yes PT-OP-M Strength Start: 10/30/24 08:11 Freq: Status: Active Protocol: Document 10/30/24 11:32 [facility] (Rec: 10/31/24 09:39 [facility] [id number]) Hip Strength Hip Manual Muscle Testing Left Comments left has antigravity strength in flex right NA due to recent surgery , able to flex actively less than full ROM PT-OP-Q Treatments Start: 10/30/24 08:11 Freq: Status: Active Protocol: Document 11/06/24 13:00 [facility] (Rec: 11/06/24 14:42 [facility] [id number]) Gym Equipment Shuttle Recovery Unilateral Squats Details 50# Reps/Time X15 each LE Bilateral Squats Details 50 easy 75 hard 62# X 15 Shuttle Recovery Platform Stable Reps/Time X15 Shuttle Balance Red Details Fwd/side to side Comments CGA hands above bar, also visual scanning and head turns with normal EVARISTO Therapeutic Exercises Supine Exercises quad set Reps/Minutes 10x glut set Reps/Minutes 10x Sitting Exercises seated hip abd with band Sitting Exercise Name to neutral Side bilateral Resistance level 3 soboba green band Reps/Minutes one min X 1 Comments Verbal cues, SLS increase to 11 sec without UE use post chair squats Sitting Exercise Name black mat lowest level Side bilateral Resistance level 2 teal band HEP Reps/Minutes X 6 and X 10 with band Comments verbal cues for hip hinge ball squeeze Reps/Minutes 10x5 Manual Therapy Treatment Consent Patient gave verbal consent for manual Yes treatment Soft Tissue Mobilization R hip Body Location scar tissue, glute/piriformis area Mobilization Type Cross-Friction,Rolling, Sustained Pressure Intensity/Depth Superficial Body Position hooklying and sidelying Comments moderate to glute/piriformis area Neuro Re-Education Treatment Balance Activities tilt board Details ap, and lateral Reps/Duration X10 each Comments CGA foam Details Romberg eyes closed Comments CGA PT-OP-R Modalities Start: 10/30/24 08:11 Freq: Status: Active Protocol: Document 11/02/24 11:36 [facility] (Rec: 11/02/24 12:21 [facility] [id number]) Hot Pack/Cold Pack Treatment Cold Pack Location right hip Patient Position Sitting Patient Tolerance Good PT-OP-T Assessment and Plan Start: 10/30/24 08:11 Freq: Status: Active Protocol: Document 11/06/24 13:00 [facility] (Rec: 11/06/24 14:42 [facility] [id number]) Physical Therapy Assessment Goals Four Impairment balance dysfunction Exhibit Designer Goal (LTG) Patient will be able to stand on 1 foot for at least 10 sec to improve safety with mobility LTG Duration 12/30/24 Three Impairment LE weakness Impairment LE's and core with altered muscle activation Short Term Goal (STG) Patient will be instrsucted in progressive, individualized HEP for purposes of right hip strengthening STG Duration 11/24/24 Mcfp Goal (LTG) Patient will be independent and compliant with HEP and demonstrate LE strength at least 4+/5 and functionally be able to perform sit to stand from standard height chair without UE's x 10 reps. Two Impairment gait dysfunction; antalgic, using 4WW Impairment antalgic, step-to pattern on stairs Exhibit Designer Goal (LTG) Patient will be able to ambulate on level surfaces without limp without assistive device and ascend and descend stairs with alternating pattern without difficulty or pain LTG Duration 12/30/24 One Impairment Lower extremity functional scale score 20/80 Impairment Lower extremity functional scale score 32% Exhibit Designer Goal (LTG) Improve LEFS score to at least 70% as measure of improved right hip function LTG Duration 12/30/24 Assessment Summary Assessment Good claire to squat with band and good return demonstration for hip hinge this session. Physical Therapy Plan Frequency and Duration Frequency of Treatment 2x/Week Duration of treatment (weeks) 8 Plan of Care Start Date 10/30/24 Plan of Care End Date 12/30/24 Next Visit Focus/Plan Next Note Type Treatment Note Next Visit Plan Continue gait training with cane level and stairs, continue chair squat with hip hinge.
--- NOTE | 2024-11-09 13:47 | PT.OTN ---
Current Diagnoses Unilateral primary osteoarthritis, right hip (11/09/24) Physical Therapy Treatment Note PT-OP-A Visit Information Start: 10/30/24 08:11 Freq: Status: Active Protocol: Document 11/09/24 12:58 AB (Rec: 11/09/24 13:47 AB [id number]) Out-Patient Physical Therapy Visit Information Visit Information Visit Type Treatment Note Visit Start Time 13:03 Visit Stop Time 13:45 Visit Number 4 Number of TOLL COLLECTOR Visits 1 Evaluation Information Evaluation Date 10/30/24 Precautions Precautions ANT LIBERTY PT-OP-B Current Condition Start: 10/30/24 08:11 Freq: Status: Active Protocol: Document 11/02/24 11:36 SAK (Rec: 11/02/24 12:21 SAK [id number]) Current Condition History of Current Condition Onset Date 10/23/23 Current Complaints right hip dysfunction and limited mobility History of Current Condition R hip anterior approach Dr. Maravilla. Pain control fair. Watching precautions ( don't fall and don't kick leg back.) Doing HEP: ankle pumps , quad sets, and glut sets. Using ice occasionally. Pain control fair, takes 2 Oxycodone per day. Walking with 4WW, occasional furniture surfs. Patient hopeful leg length more symmetrical. Denies N/T. Pain 2-02/03. 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 Maravilla 11/03/24 for post op. Currently has postop dressing and drain in place. Prior Treatments and Tests R ant LIBERTY 10/23/24 Treatment Goals Patient/Caregiver Goals be able to walk without pain, pelvis and leg length even. PT-OP-C Subjective Start: 10/30/24 08:11 Freq: Status: Active Protocol: Document 11/09/24 12:58 AB (Rec: 11/09/24 13:47 AB [id number]) OP-PT Subjective Patient Comments Patient Comments Patient reports walking is better, tailbone with sitting continues to be a problem. PT-OP-D Balance Start: 10/30/24 08:11 Freq: Status: Active Protocol: Document 10/30/24 11:32 SAK (Rec: 10/31/24 09:39 SAK [id number]) OP-PT Balance Assessment Sitting Balance Static Sitting Balance Ability Normal Dynamic Sitting Balance Ability Normal Standing Balance Static Standing Balance Ability Fair Dynamic Standing Balance Ability Fair Device Used 4WW Lopez Fall Scale Copyright Permission PT-OP-F Manual Assessment Start: 10/30/24 08:11 Freq: Status: Active Protocol: Document 10/30/24 11:32 [facility] (Rec: 10/31/24 09:39 [facility] [id number]) Manual Assessments Soft Tissue Assessment Soft Tissue Mobility Assessment post-op dressing intact, no rednes or increased warmth. Will be removed on Wednesday PT-OP-G Mobility & Gait Start: 10/30/24 08:11 Freq: Status: Active Protocol: Document 10/30/24 11:32 [facility] (Rec: 10/31/24 09:39 [facility] [id number]) OP Gait Assessment Gait Gait Assistance Required: Independent Assistive Devices Assistive Device 4 Wheeled Walker Orthotic/Prosthetic Devices or Brace: No Gait Deviations General Gait Pattern Antalgic,Flexed Trunk Factors Limiting Gait Function Factors Limiting Gait Function Limited Range of Motion,Pain Comments Gait Comments Patient with chronic right hip pain prior to surgery and was unable to extend to neutral, or stand or walk with fully upright trunk Stair Climbing Evaluation Evaluation Level of Assist On Stairs Standby Assistance Devices Stair Climbing Assistive Devices Left Railing,Right Railing Technique/Endurance Stair Climbing Technique Step to Step PT-OP-H Neuro Start: 10/30/24 08:11 Freq: Status: Active Protocol: Document 10/30/24 11:32 [facility] (Rec: 10/31/24 09:39 [facility] [id number]) Sensation Evaluation Gross Sensation Gross Sensation WNL PT-OP-J Posture/Palpation/Skin Start: 10/30/24 08:11 Freq: Status: Active Protocol: Document 10/30/24 11:32 [facility] (Rec: 10/31/24 09:39 [facility] [id number]) Palpation Assessment Location right hip Palpation Findings Soft Tissue Tightness Palpation Details as above, no signs or symptoms of infection Skin Assessment Incisional Assessment Incision Appearance/Comments post-op dressing in place PT-OP-K Range of Motion Start: 10/30/24 08:11 Freq: Status: Active Protocol: Document 10/30/24 11:32 [facility] (Rec: 10/31/24 09:39 [facility] [id number]) Hip Goniometric Range of Motion Hip Right Hip ROM WFL No Comments initially lacking 10 degrees from neutral, after heelslides 5 deg left Hip ROM WFL Yes Hip ROM Limitations Hip ROM Limitations Soft Tissue Tightness Knee Goniometric Range of Motion Knee herbie Knee ROM WFL Yes PT-OP-M Strength Start: 10/30/24 08:11 Freq: Status: Active Protocol: Document 10/30/24 11:32 SAK (Rec: 10/31/24 09:39 SAK [id number]) Hip Strength Hip Manual Muscle Testing Left Comments left has antigravity strength in flex right NA due to recent surgery , able to flex actively less than full ROM PT-OP-Q Treatments Start: 10/30/24 08:11 Freq: Status: Active Protocol: Document 11/09/24 12:58 AB (Rec: 11/09/24 13:47 AB [id number]) Gym Equipment Cable Column (Body Solid) hip ad Resistance 30 Reps/Time 2X15 hip ab Resistance 20 Reps/Time X15 Shuttle Recovery Unilateral Squats Details 37# Reps/Time X15 each LE Bilateral Squats Details 62# Shuttle Recovery Platform Stable Reps/Time X 15 X2 Shuttle Balance Red Details Fwd/side to side Comments CGA hands above bar Therapeutic Exercises Sitting Exercises seated hip abd with band Sitting Exercise Name to neutral Side bilateral Resistance level 4 royal blue band Reps/Minutes one min X 1 Comments Verbal cues to neutral chair squats Sitting Exercise Name black mat lowest level Side bilateral Resistance level 4 royal blue HEP Reps/Minutes 2X 10 with band Comments verbal cues for hip hinge ball squeeze Reps/Minutes 10x5 Standing Exercises side stepping with band Side bilateral Resistance level 4 band above knees Reps/Minutes 8 ft left and right X 4 Comments vc to avoid toeing out Neuro Re-Education Treatment Balance Activities tilt board Details ap, and lateral Reps/Duration X10 each Comments CGA foam Details Romberg eyes closed and SLS L and right LE Comments CGA PT-OP-R Modalities Start: 10/30/24 08:11 Freq: Status: Active Protocol: Document 11/02/24 11:36 SAK (Rec: 11/02/24 12:21 SAK [id number]) Hot Pack/Cold Pack Treatment Cold Pack Location right hip Patient Position Sitting Patient Tolerance Good PT-OP-T Assessment and Plan Start: 10/30/24 08:11 Freq: Status: Active Protocol: Document 11/09/24 12:58 AB (Rec: 11/09/24 13:47 AB [id number]) Physical Therapy Assessment Goals Four Impairment balance dysfunction Auto Body Man Goal (LTG) Patient will be able to stand on 1 foot for at least 10 sec to improve safety with mobility LTG Duration 12/30/24 Three Impairment LE weakness Impairment LE's and core with altered muscle activation Short Term Goal (STG) Patient will be instrsucted in progressive, individualized HEP for purposes of right hip strengthening STG Duration 11/24/24 Auto Body Man Goal (LTG) Patient will be independent and compliant with HEP and demonstrate LE strength at least 4+/5 and functionally be able to perform sit to stand from standard height chair without UE's x 10 reps. Two Impairment gait dysfunction; antalgic, using 4WW Impairment antalgic, step-to pattern on stairs Auto Body Man Goal (LTG) Patient will be able to ambulate on level surfaces without limp without assistive device and ascend and descend stairs with alternating pattern without difficulty or pain LTG Duration 12/30/24 One Impairment Lower extremity functional scale score 20/80 Impairment Lower extremity functional scale score 32% Auto Body Man Goal (LTG) Improve LEFS score to at least 70% as measure of improved right hip function LTG Duration 12/30/24 Assessment Summary Assessment SLS R LE 12 sec without UE use post glute med activation. Thomas reports having no pain end of session just tired. Physical Therapy Plan Frequency and Duration Frequency of Treatment 2x/Week Duration of treatment (weeks) 8 Plan of Care Start Date 10/30/24 Plan of Care End Date 12/30/24 Therapeutic Interventions Therapeutic Interventions Balance Training,Gait Training ,Home Exercise Program,Manual Therapy,Neuromuscular Re- education,Patient/Caregiver Education,Self-Care/Home Management,Soft Tissue Mobilization,Taping, Therapeutic Activities, Therapeutic Exercises Modalities Cold Pack/Ice Massage,Electric Stimulation,Hot Packs Next Visit Focus/Plan Next Note Type Treatment Note Next Visit Plan Continue gait training with cane level and stairs, continue chair squat with hip hinge.
--- NOTE | 2024-11-14 14:47 | PT.OTN ---
Current Diagnoses Unilateral primary osteoarthritis, right hip (11/14/24) Physical Therapy Treatment Note PT-OP-A Visit Information Start: 10/30/24 08:11 Freq: Status: Active Protocol: Document 11/14/24 13:50 SAK (Rec: 11/14/24 14:28 [facility] [id number]) Out-Patient Physical Therapy Visit Information Visit Information Visit Type Treatment Note Visit Start Time 13:45 Visit Stop Time 14:30 Visit Number 5 Number of ROLL CONTOUR GRINDER Visits 0 Evaluation Information Evaluation Date 10/30/24 Precautions Precautions ANT LIBERTY PT-OP-B Current Condition Start: 10/30/24 08:11 Freq: Status: Active Protocol: Document 11/14/24 13:50 SAK (Rec: 11/14/24 14:28 [facility] [id number]) Current Condition History of Current Condition Onset Date 10/23/23 Current Complaints right hip dysfunction and limited mobility History of Current Condition R hip anterior approach Dr. Maravilla. Pain control fair. Watching precautions ( don't fall and don't kick leg back.) Doing HEP: ankle pumps , quad sets, and glut sets. Using ice occasionally. Pain control fair, takes 2 Oxycodone per day. Walking with 4WW, occasional furniture surfs. Patient hopeful leg length more symmetrical. Denies N/T. Pain 2-02/03. 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 Maravilla 11/03/24 for post op. Currently has postop dressing and drain in place. Prior Treatments and Tests R ant LIBERTY 10/23/24 PT-OP-C Subjective Start: 10/30/24 08:11 Freq: Status: Active Protocol: Document 11/14/24 13:50 SAK (Rec: 11/14/24 14:28 [facility] [id number]) OP-PT Subjective Patient Comments Patient Comments Not using cane anymore, is driving locally. Reports tailbone pain limits her driving, [place] has to [place] up. Reports scar hurts, not sure massaging right. Reports muscle soreness from hip abd machine. PT-OP-D Balance Start: 10/30/24 08:11 Freq: Status: Active Protocol: Document 10/30/24 11:32 SAK (Rec: 10/31/24 09:39 [facility] [id number]) OP-PT Balance Assessment Sitting Balance Static Sitting Balance Ability Normal Dynamic Sitting Balance Ability Normal Standing Balance Static Standing Balance Ability Fair Dynamic Standing Balance Ability Fair Device Used 4WW Lopez Fall Scale Copyright Permission PT-OP-F Manual Assessment Start: 10/30/24 08:11 Freq: Status: Active Protocol: Document 10/30/24 11:32 [facility] (Rec: 10/31/24 09:39 [facility] [id number]) Manual Assessments Soft Tissue Assessment Soft Tissue Mobility Assessment post-op dressing intact, no rednes or increased warmth. Will be removed on Wednesday PT-OP-G Mobility & Gait Start: 10/30/24 08:11 Freq: Status: Active Protocol: Document 10/30/24 11:32 [facility] (Rec: 10/31/24 09:39 [facility] [id number]) OP Gait Assessment Gait Gait Assistance Required: Independent Assistive Devices Assistive Device 4 Wheeled Walker Orthotic/Prosthetic Devices or Brace: No Gait Deviations General Gait Pattern Antalgic,Flexed Trunk Factors Limiting Gait Function Factors Limiting Gait Function Limited Range of Motion,Pain Comments Gait Comments Patient with chronic right hip pain prior to surgery and was unable to extend to neutral, or stand or walk with fully upright trunk Stair Climbing Evaluation Evaluation Level of Assist On Stairs Standby Assistance Devices Stair Climbing Assistive Devices Left Railing,Right Railing Technique/Endurance Stair Climbing Technique Step to Step PT-OP-H Neuro Start: 10/30/24 08:11 Freq: Status: Active Protocol: Document 10/30/24 11:32 [facility] (Rec: 10/31/24 09:39 [facility] [id number]) Sensation Evaluation Gross Sensation Gross Sensation WNL PT-OP-J Posture/Palpation/Skin Start: 10/30/24 08:11 Freq: Status: Active Protocol: Document 10/30/24 11:32 [facility] (Rec: 10/31/24 09:39 [facility] [id number]) Palpation Assessment Location right hip Palpation Findings Soft Tissue Tightness Palpation Details as above, no signs or symptoms of infection Skin Assessment Incisional Assessment Incision Appearance/Comments post-op dressing in place PT-OP-K Range of Motion Start: 10/30/24 08:11 Freq: Status: Active Protocol: Document 10/30/24 11:32 [facility] (Rec: 10/31/24 09:39 [facility] [id number]) Hip Goniometric Range of Motion Hip Right Hip ROM WFL No Comments initially lacking 10 degrees from neutral, after heelslides 5 deg left Hip ROM WFL Yes Hip ROM Limitations Hip ROM Limitations Soft Tissue Tightness Knee Goniometric Range of Motion Knee herbie Knee ROM WFL Yes PT-OP-M Strength Start: 10/30/24 08:11 Freq: Status: Active Protocol: Document 10/30/24 11:32 SAK (Rec: 10/31/24 09:39 [facility] [id number]) Hip Strength Hip Manual Muscle Testing Left Comments left has antigravity strength in flex right NA due to recent surgery , able to flex actively less than full ROM PT-OP-Q Treatments Start: 10/30/24 08:11 Freq: Status: Active Protocol: Document 11/14/24 13:50 SAK (Rec: 11/14/24 14:28 [facility] [id number]) Cardio Equipment Recumbent Stepper (Sci-Fit) Duration (Minutes) 8 Resistance 1 Seat Position 7 Other 0.7 Gym Equipment Cable Column (Body Solid) hip ad Resistance 30 Reps/Time 2x15 hip ab Resistance 20 Reps/Time X15 Shuttle Recovery Unilateral Squats Details 37# Reps/Time X15 each LE Bilateral Squats Details 62# Shuttle Recovery Platform Stable Reps/Time 15x2 Shuttle Balance Red Details Fwd/side to side bal and wt shifts Comments CGA hands above bar Therapeutic Exercises Sitting Exercises seated hip abd with band Sitting Exercise Name to neutral Side bilateral Resistance level 4 royal blue band Reps/Minutes one min X 1 Comments Verbal cues to neutral chair squats Sitting Exercise Name black mat lowest level Side bilateral Resistance level 4 royal blue HEP Reps/Minutes 2X 10 with band Comments verbal cues for hip hinge ball squeeze Sitting Exercise Name HEP Standing Exercises side stepping with band Side bilateral Resistance level 4 band above knees Reps/Minutes 8 ft left and right X 4 Comments vc to avoid toeing out Gait Training Gait Activity mirror Device Used none Surface firm Distance/Duration 10 ft x 3 Treatment Focus upright posture, no lateral sway stairs Device Used hands above railings Surface 4 stairs x 4 Treatment Focus alternating feet, eccentric control Comments more difficulty with eccentric control right LE Manual Therapy Treatment Consent Patient gave verbal consent for manual Yes treatment Soft Tissue Mobilization R hip Mobilization Type Myofascial Release,Strumming Body Position Hooklying Comments gentle to moderate pressure right hip adjacent to incision , review with patient spend more time tight areas. Wait until all scabs gone from incision prior to massaging directly on scar, consider getting vitamin E oil. Self-Care/Home Management Treatment Education Other Education self massage adjacent to incision PT-OP-R Modalities Start: 10/30/24 08:11 Freq: Status: Active Protocol: Document 11/02/24 11:36 SAK (Rec: 11/02/24 12:21 SAK [id number]) Hot Pack/Cold Pack Treatment Cold Pack Location right hip Patient Position Sitting Patient Tolerance Good PT-OP-T Assessment and Plan Start: 10/30/24 08:11 Freq: Status: Active Protocol: Document 11/14/24 13:50 SAK (Rec: 11/14/24 14:28 SAK [id number]) Physical Therapy Assessment Goals Four Impairment balance dysfunction Scrap Charger Goal (LTG) Patient will be able to stand on 1 foot for at least 10 sec to improve safety with mobility LTG Duration 12/30/24 Three Impairment LE weakness Impairment LE's and core with altered muscle activation Short Term Goal (STG) Patient will be instrsucted in progressive, individualized HEP for purposes of right hip strengthening STG Duration 11/24/24 Scrap Charger Goal (LTG) Patient will be independent and compliant with HEP and demonstrate LE strength at least 4+/5 and functionally be able to perform sit to stand from standard height chair without UE's x 10 reps. Two Impairment gait dysfunction; antalgic, using 4WW Impairment antalgic, step-to pattern on stairs Scrap Charger Goal (LTG) Patient will be able to ambulate on level surfaces without limp without assistive device and ascend and descend stairs with alternating pattern without difficulty or pain LTG Duration 12/30/24 One Impairment Lower extremity functional scale score 20/80 Impairment Lower extremity functional scale score 32% Scrap Charger Goal (LTG) Improve LEFS score to at least 70% as measure of improved right hip function LTG Duration 12/30/24 Assessment Summary Assessment Patient demonstrated good understanding of self massage adjacent to scar, don't start scar massage until fully healed, scabs gone. Improving gait with focus using mirror, increased lateral sway when not focusing on it. Physical Therapy Plan Frequency and Duration Frequency of Treatment 2x/Week Duration of treatment (weeks) 8 Plan of Care Start Date 10/30/24 Plan of Care End Date 12/30/24 Therapeutic Interventions Therapeutic Interventions Balance Training,Gait Training ,Home Exercise Program,Manual Therapy,Neuromuscular Re- education,Patient/Caregiver Education,Self-Care/Home Management,Soft Tissue Mobilization,Taping, Therapeutic Activities, Therapeutic Exercises Modalities Cold Pack/Ice Massage,Electric Stimulation,Hot Packs Next Visit Focus/Plan Next Note Type Treatment Note Next Visit Plan Continue gait training with visual feedback, gait training on stairs in hallway next session. Add bridge, not beyond neutral hip ext. Scar mobiization if incision healed , o/w continue adjacent.
--- NOTE | 2024-11-17 12:22 | PT.OTN ---
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 Maravilla. Pain control fair. Watching precautions ( don't fall and don't kick leg back.) Doing HEP: ankle pumps , quad sets, and glut sets. Using ice occasionally. Pain control fair, takes 2 Oxycodone per day. Walking with 4WW, occasional furniture surfs. Patient hopeful leg length more symmetrical. Denies N/T. Pain 2-5/10. 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 Maravilla 11/03/24 for post op. Currently has postop dressing and drain in place. Prior Treatments and Tests R ant LIBERTY 10/23/24 PT-OP-C Subjective Start: 10/30/24 08:11 Freq: Status: Active Protocol: Document 11/17/24 10:46 AB (Rec: 11/17/24 12:22 AB [id number]) OP-PT Subjective Patient Comments Patient Comments Thomas rates hip pain 2/10 ambulating into session, ipsilateral trunk side bend stance phase. Patient reports she thinks she goes [place] to [place] in a week or 2. PT-OP-D Balance Start: 10/30/24 08:11 Freq: Status: Active Protocol: Document 10/30/24 11:32 SAK (Rec: 10/31/24 09:39 SAK [id number]) OP-PT Balance Assessment Sitting Balance Static Sitting Balance Ability Normal Dynamic Sitting Balance Ability Normal Standing Balance Static Standing Balance Ability Fair Dynamic Standing Balance Ability Fair Device Used 4WW Lopez Fall Scale Copyright Permission PT-OP-F Manual Assessment Start: 10/30/24 08:11 Freq: Status: Active Protocol: Document 10/30/24 11:32 [facility] (Rec: 10/31/24 09:39 [facility] [id number]) Manual Assessments Soft Tissue Assessment Soft Tissue Mobility Assessment post-op dressing intact, no rednes or increased warmth. Will be removed on Wednesday PT-OP-G Mobility & Gait Start: 10/30/24 08:11 Freq: Status: Active Protocol: Document 10/30/24 11:32 [facility] (Rec: 10/31/24 09:39 [facility] [id number]) OP Gait Assessment Gait Gait Assistance Required: Independent Assistive Devices Assistive Device 4 Wheeled Walker Orthotic/Prosthetic Devices or Brace: No Gait Deviations General Gait Pattern Antalgic,Flexed Trunk Factors Limiting Gait Function Factors Limiting Gait Function Limited Range of Motion,Pain Comments Gait Comments Patient with chronic right hip pain prior to surgery and was unable to extend to neutral, or stand or walk with fully upright trunk Stair Climbing Evaluation Evaluation Level of Assist On Stairs Standby Assistance Devices Stair Climbing Assistive Devices Left Railing,Right Railing Technique/Endurance Stair Climbing Technique Step to Step PT-OP-H Neuro Start: 10/30/24 08:11 Freq: Status: Active Protocol: Document 10/30/24 11:32 [facility] (Rec: 10/31/24 09:39 [facility] [id number]) Sensation Evaluation Gross Sensation Gross Sensation WNL PT-OP-J Posture/Palpation/Skin Start: 10/30/24 08:11 Freq: Status: Active Protocol: Document 10/30/24 11:32 [facility] (Rec: 10/31/24 09:39 [facility] [id number]) Palpation Assessment Location right hip Palpation Findings Soft Tissue Tightness Palpation Details as above, no signs or symptoms of infection Skin Assessment Incisional Assessment Incision Appearance/Comments post-op dressing in place PT-OP-K Range of Motion Start: 10/30/24 08:11 Freq: Status: Active Protocol: Document 10/30/24 11:32 [facility] (Rec: 10/31/24 09:39 [facility] [id number]) Hip Goniometric Range of Motion Hip Right Hip ROM WFL No Comments initially lacking 10 degrees from neutral, after heelslides 5 deg left Hip ROM WFL Yes Hip ROM Limitations Hip ROM Limitations Soft Tissue Tightness Knee Goniometric Range of Motion Knee herbie Knee ROM WFL Yes PT-OP-M Strength Start: 10/30/24 08:11 Freq: Status: Active Protocol: Document 10/30/24 11:32 SAK (Rec: 10/31/24 09:39 SAK [id number]) Hip Strength Hip Manual Muscle Testing Left Comments left has antigravity strength in flex right NA due to recent surgery , able to flex actively less than full ROM PT-OP-Q Treatments Start: 10/30/24 08:11 Freq: Status: Active Protocol: Document 11/17/24 10:46 AB (Rec: 11/17/24 12:22 AB [id number]) Gym Equipment Shuttle Recovery Unilateral Squats Details 37# Reps/Time X15 each LE Bilateral Squats Details 62# and 75# Shuttle Recovery Platform Stable Reps/Time 15x each set Shuttle Balance Red Details Normal EVARISTO and stagger L LE back Comments CGA hands above bar with head turns and visual scanning Therapeutic Exercises Supine Exercises bridge Supine Exercise Name Does not reach neutral Side bilateral Resistance level 4 royal blue band second set Reps/Minutes X 15 X 2 Comments monitored for neutral or less and pain, verbal cues Sidelying Exercises sidelying hip abduction Side right Reps/Minutes X15 X 2 Comments verbal and tactile cues Sitting Exercises seated hip abd with band Sitting Exercise Name to neutral Side bilateral Resistance level 4 royal blue band Reps/Minutes one min X 1 Comments Verbal cues to neutral Standing Exercises side stepping with band Side bilateral Resistance level 4 band above knees Reps/Minutes 10 feet left and right X 3 Comments vc to avoid toeing out Gait Training Gait Activity w/o device Level of Assistance ~16 feet X 3 Comments Verbal cues for heel toe pattern. stairs Description 13 steps X 3 close supervision Device Used above railing to one UE use Treatment Focus reciprocal pattern, Verbal and visual cues for less quad dominant pattern Comments improved velocity and reports of dec pain with less quad dom pattern descending. Manual Therapy Treatment Consent Patient gave verbal consent for manual Yes treatment Soft Tissue Mobilization R hip Mobilization Type Cross-Friction,Myofascial Release,Strumming Body Position Hooklying Comments gentle to moderate pressure right hip adjacent to incision , review with patient spend more time tight areas. Wait until all scabs gone from incision prior to massaging directly on scar, consider getting vitamin E oil. PT-OP-R Modalities Start: 10/30/24 08:11 Freq: Status: Active Protocol: Document 11/02/24 11:36 SAK (Rec: 11/02/24 12:21 SAK [id number]) Hot Pack/Cold Pack Treatment Cold Pack Location right hip Patient Position Sitting Patient Tolerance Good PT-OP-T Assessment and Plan Start: 10/30/24 08:11 Freq: Status: Active Protocol: Document 11/17/24 10:46 AB (Rec: 11/17/24 12:22 AB [id number]) Physical Therapy Assessment Goals Four Impairment balance dysfunction Senior Living Goal (LTG) Patient will be able to stand on 1 foot for at least 10 sec to improve safety with mobility LTG Duration 12/30/24 Three Impairment LE weakness Impairment LE's and core with altered muscle activation Short Term Goal (STG) Patient will be instrsucted in progressive, individualized HEP for purposes of right hip strengthening STG Duration 11/24/24 Senior Living Goal (LTG) Patient will be independent and compliant with HEP and demonstrate LE strength at least 4+/5 and functionally be able to perform sit to stand from standard height chair without UE's x 10 reps. Two Impairment gait dysfunction; antalgic, using 4WW Impairment antalgic, step-to pattern on stairs Narcotics Detective Goal (LTG) Patient will be able to ambulate on level surfaces without limp without assistive device and ascend and descend stairs with alternating pattern without difficulty or pain LTG Duration 12/30/24 One Impairment Lower extremity functional scale score 20/80 Impairment Lower extremity functional scale score 32% Senior Living Goal (LTG) Improve LEFS score to at least 70% as measure of improved right hip function LTG Duration 12/30/24 Assessment Summary Assessment Patient demonstrated improved control descending stairs with less quad dominant pattern with one UE use. Thomas rates right hip pain 2/10 end of session ambulating out of session without device. Physical Therapy Plan Frequency and Duration Frequency of Treatment 2x/Week Duration of treatment (weeks) 8 Plan of Care Start Date 10/30/24 Plan of Care End Date 12/30/24 Next Visit Focus/Plan Next Note Type Treatment Note Next Visit Plan Continue gait training with visual feedback, gait training on stairs in hallway next session. review and Add bridge to HEP, not beyond neutral hip ext. Scar mobiization if incision healed, o/w continue adjacent.
--- NOTE | 2024-11-20 08:51 | PT.OTN ---
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 Maravilla. Pain control fair. Watching precautions ( don't fall and don't kick leg back.) Doing HEP: ankle pumps , quad sets, and glut sets. Using ice occasionally. Pain control fair, takes 2 Oxycodone per day. Walking with 4WW, occasional furniture surfs. Patient hopeful leg length more symmetrical. Denies N/T. Pain 2-02/03. 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 Maravilla 11/03/24 for post op. Currently has postop dressing and drain in place. Prior Treatments and Tests R ant LIBERTY 10/23/24 PT-OP-C Subjective Start: 10/30/24 08:11 Freq: Status: Active Protocol: Document 11/20/24 08:12 SAK (Rec: 11/20/24 08:51 [facility] [id number]) OP-PT Subjective Patient Comments Patient Comments Haven't been sleeping well, didn't do exercises as much. PT-OP-D Balance Start: 10/30/24 08:11 Freq: Status: Active Protocol: Document 10/30/24 11:32 SAK (Rec: 10/31/24 09:39 [facility] [id number]) OP-PT Balance Assessment Sitting Balance Static Sitting Balance Ability Normal Dynamic Sitting Balance Ability Normal Standing Balance Static Standing Balance Ability Fair Dynamic Standing Balance Ability Fair Device Used 4WW Lopez Fall Scale Copyright Permission PT-OP-F Manual Assessment Start: 10/30/24 08:11 Freq: Status: Active Protocol: Document 10/30/24 11:32 [facility] (Rec: 10/31/24 09:39 [facility] [id number]) Manual Assessments Soft Tissue Assessment Soft Tissue Mobility Assessment post-op dressing intact, no rednes or increased warmth. Will be removed on Wednesday PT-OP-G Mobility & Gait Start: 10/30/24 08:11 Freq: Status: Active Protocol: Document 10/30/24 11:32 [facility] (Rec: 10/31/24 09:39 [facility] [id number]) OP Gait Assessment Gait Gait Assistance Required: Independent Assistive Devices Assistive Device 4 Wheeled Walker Orthotic/Prosthetic Devices or Brace: No Gait Deviations General Gait Pattern Antalgic,Flexed Trunk Factors Limiting Gait Function Factors Limiting Gait Function Limited Range of Motion,Pain Comments Gait Comments Patient with chronic right hip pain prior to surgery and was unable to extend to neutral, or stand or walk with fully upright trunk Stair Climbing Evaluation Evaluation Level of Assist On Stairs Standby Assistance Devices Stair Climbing Assistive Devices Left Railing,Right Railing Technique/Endurance Stair Climbing Technique Step to Step PT-OP-H Neuro Start: 10/30/24 08:11 Freq: Status: Active Protocol: Document 10/30/24 11:32 [facility] (Rec: 10/31/24 09:39 [facility] [id number]) Sensation Evaluation Gross Sensation Gross Sensation WNL PT-OP-J Posture/Palpation/Skin Start: 10/30/24 08:11 Freq: Status: Active Protocol: Document 10/30/24 11:32 [facility] (Rec: 10/31/24 09:39 [facility] [id number]) Palpation Assessment Location right hip Palpation Findings Soft Tissue Tightness Palpation Details as above, no signs or symptoms of infection Skin Assessment Incisional Assessment Incision Appearance/Comments post-op dressing in place PT-OP-K Range of Motion Start: 10/30/24 08:11 Freq: Status: Active Protocol: Document 10/30/24 11:32 [facility] (Rec: 10/31/24 09:39 [facility] [id number]) Hip Goniometric Range of Motion Hip Right Hip ROM WFL No Comments initially lacking 10 degrees from neutral, after heelslides 5 deg left Hip ROM WFL Yes Hip ROM Limitations Hip ROM Limitations Soft Tissue Tightness Knee Goniometric Range of Motion Knee herbie Knee ROM WFL Yes PT-OP-M Strength Start: 10/30/24 08:11 Freq: Status: Active Protocol: Document 10/30/24 11:32 SAK (Rec: 10/31/24 09:39 SAK [id number]) Hip Strength Hip Manual Muscle Testing Left Comments left has antigravity strength in flex right NA due to recent surgery , able to flex actively less than full ROM PT-OP-Q Treatments Start: 10/30/24 08:11 Freq: Status: Active Protocol: Document 11/20/24 08:12 SAK (Rec: 11/20/24 08:51 SAK [id number]) Cardio Equipment Recumbent Stepper (Sci-Fit) Duration (Minutes) 8 Resistance 1 Seat Position 7 Other 0.7, LE's only, cues to push through heels Gym Equipment Shuttle Recovery Unilateral Squats Details 37# Reps/Time X15 each LE Bilateral Squats Details 62# and 75# Shuttle Recovery Platform Stable Reps/Time 15x each set Therapeutic Exercises Sidelying Exercises clamshell Reps/Minutes 10x Comments cues for not rolling backward sidelying hip abduction Side bilateral Reps/Minutes 10x2 Comments verbal and tactile cues Standing Exercises HC stretch Standing Exercise Name gastroc and soleus Reps/Minutes 2x30 side stepping with band Side bilateral Resistance level 4 band above knees Reps/Minutes 10 feet left and right X 3 Comments vc to avoid toeing out Gait Training Gait Activity w/o device Level of Assistance ~16 feet X 3 Comments Verbal cues for heel toe pattern. mirror for visual feedback stairs Description 13 steps X 3 close supervision Device Used above railing to one UE use Treatment Focus reciprocal pattern, Verbal and visual cues for less quad dominant pattern Comments cues for gluteal activation, eccentric control on lowering PT-OP-R Modalities Start: 10/30/24 08:11 Freq: Status: Active Protocol: Document 11/20/24 08:15 SAK (Rec: 11/20/24 08:51 [facility] [id number]) Hot Pack/Cold Pack Treatment Cold Pack Location right hip Patient Position Sitting Patient Tolerance Good PT-OP-T Assessment and Plan Start: 10/30/24 08:11 Freq: Status: Active Protocol: Document 11/20/24 08:12 SAK (Rec: 11/20/24 08:51 SAK [id number]) Physical Therapy Assessment Goals Four Impairment balance dysfunction Alternative Dispute Resolution Mediator Goal (LTG) Patient will be able to stand on 1 foot for at least 10 sec to improve safety with mobility LTG Duration 12/30/24 Three Impairment LE weakness Impairment LE's and core with altered muscle activation Short Term Goal (STG) Patient will be instrsucted in progressive, individualized HEP for purposes of right hip strengthening STG Duration 11/24/24 Group Home Goal (LTG) Patient will be independent and compliant with HEP and demonstrate LE strength at least 4+/5 and functionally be able to perform sit to stand from standard height chair without UE's x 10 reps. Two Impairment gait dysfunction; antalgic, using 4WW Impairment antalgic, step-to pattern on stairs Group Home Goal (LTG) Patient will be able to ambulate on level surfaces without limp without assistive device and ascend and descend stairs with alternating pattern without difficulty or pain LTG Duration 12/30/24 One Impairment Lower extremity functional scale score 20/80 Impairment Lower extremity functional scale score 32% Alternative Dispute Resolution Mediator Goal (LTG) Improve LEFS score to at least 70% as measure of improved right hip function LTG Duration 12/30/24 Assessment Summary Assessment Improving gait with visual and verbal feedback, improving scar mobillity. Good progress . Pain minimal after session, reports fatigue. Physical Therapy Plan Frequency and Duration Frequency of Treatment 2x/Week Duration of treatment (weeks) 8 Plan of Care Start Date 10/30/24 Plan of Care End Date 12/30/24 Therapeutic Interventions Therapeutic Interventions Balance Training,Gait Training ,Home Exercise Program,Manual Therapy,Neuromuscular Re- education,Patient/Caregiver Education,Self-Care/Home Management,Soft Tissue Mobilization,Taping, Therapeutic Activities, Therapeutic Exercises Modalities Cold Pack/Ice Massage,Electric Stimulation,Hot Packs Next Visit Focus/Plan Next Note Type Treatment Note Next Visit Plan review sidelying exercises, continue strengthening, gait training.
--- NOTE | 2024-11-24 12:25 | PT.OTN ---
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 Maravilla. Pain control fair. Watching precautions ( don't fall and don't kick leg back.) Doing HEP: ankle pumps , quad sets, and glut sets. Using ice occasionally. Pain control fair, takes 2 Oxycodone per day. Walking with 4WW, occasional furniture surfs. Patient hopeful leg length more symmetrical. Denies N/T. Pain 2-5/10. 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 Maravilla 11/03/24 for post op. Currently has postop dressing and drain in place. Prior Treatments and Tests R ant LIBERTY 10/23/24 PT-OP-C Subjective Start: 10/30/24 08:11 Freq: Status: Active Protocol: Document 11/24/24 10:40 AB (Rec: 11/24/24 12:25 AB [id number]) OP-PT Subjective Patient Comments Patient Comments Patient reports tailbone is hurting attributes to sitting at computer. Thomas rates pain 0 /10 seated at rest, R ant hip pain incision 2-3/10 ambulating into session without device, SLS right LE 15+ seconds, but LOB within 2 seconds of adding head turns. PT-OP-D Balance Start: 10/30/24 08:11 Freq: Status: Active Protocol: Document 10/30/24 11:32 SAK (Rec: 10/31/24 09:39 SAK [id number]) OP-PT Balance Assessment Sitting Balance Static Sitting Balance Ability Normal Dynamic Sitting Balance Ability Normal Standing Balance Static Standing Balance Ability Fair Dynamic Standing Balance Ability Fair Device Used 4WW Lopez Fall Scale Copyright Permission PT-OP-F Manual Assessment Start: 10/30/24 08:11 Freq: Status: Active Protocol: Document 10/30/24 11:32 SAK (Rec: 10/31/24 09:39 [facility] [id number]) Manual Assessments Soft Tissue Assessment Soft Tissue Mobility Assessment post-op dressing intact, no rednes or increased warmth. Will be removed on Wednesday PT-OP-G Mobility & Gait Start: 10/30/24 08:11 Freq: Status: Active Protocol: Document 10/30/24 11:32 [facility] (Rec: 10/31/24 09:39 [facility] [id number]) OP Gait Assessment Gait Gait Assistance Required: Independent Assistive Devices Assistive Device 4 Wheeled Walker Orthotic/Prosthetic Devices or Brace: No Gait Deviations General Gait Pattern Antalgic,Flexed Trunk Factors Limiting Gait Function Factors Limiting Gait Function Limited Range of Motion,Pain Comments Gait Comments Patient with chronic right hip pain prior to surgery and was unable to extend to neutral, or stand or walk with fully upright trunk Stair Climbing Evaluation Evaluation Level of Assist On Stairs Standby Assistance Devices Stair Climbing Assistive Devices Left Railing,Right Railing Technique/Endurance Stair Climbing Technique Step to Step PT-OP-H Neuro Start: 10/30/24 08:11 Freq: Status: Active Protocol: Document 10/30/24 11:32 [facility] (Rec: 10/31/24 09:39 [facility] [id number]) Sensation Evaluation Gross Sensation Gross Sensation WNL PT-OP-J Posture/Palpation/Skin Start: 10/30/24 08:11 Freq: Status: Active Protocol: Document 10/30/24 11:32 [facility] (Rec: 10/31/24 09:39 [facility] [id number]) Palpation Assessment Location right hip Palpation Findings Soft Tissue Tightness Palpation Details as above, no signs or symptoms of infection Skin Assessment Incisional Assessment Incision Appearance/Comments post-op dressing in place PT-OP-K Range of Motion Start: 10/30/24 08:11 Freq: Status: Active Protocol: Document 10/30/24 11:32 [facility] (Rec: 10/31/24 09:39 [facility] [id number]) Hip Goniometric Range of Motion Hip Right Hip ROM WFL No Comments initially lacking 10 degrees from neutral, after heelslides 5 deg left Hip ROM WFL Yes Hip ROM Limitations Hip ROM Limitations Soft Tissue Tightness Knee Goniometric Range of Motion Knee herbie Knee ROM WFL Yes PT-OP-M Strength Start: 10/30/24 08:11 Freq: Status: Active Protocol: Document 10/30/24 11:32 SAK (Rec: 10/31/24 09:39 SAK [id number]) Hip Strength Hip Manual Muscle Testing Left Comments left has antigravity strength in flex right NA due to recent surgery , able to flex actively less than full ROM PT-OP-Q Treatments Start: 10/30/24 08:11 Freq: Status: Active Protocol: Document 11/24/24 10:40 AB (Rec: 11/24/24 12:25 AB [id number]) Therapeutic Exercises Supine Exercises Modified/Modified Eliezer stretch Supine Exercise Name R LE on mat to neutral L LE on bolster Side right Reps/Minutes 2 min Comments Vc for breathing from diaphragm/assist to position bridge Supine Exercise Name Does not reach neutral Side bilateral Resistance level 4 royal blue band second set Reps/Minutes X 15 X 2 Comments monitored for neutral or less and pain, verbal cues Sidelying Exercises clamshell Side bilateral Reps/Minutes 2X10 Comments cues for not rolling backward sidelying hip abduction Side bilateral Reps/Minutes 10x2 Comments verbal and tactile cues Sitting Exercises seated hip abd with band Sitting Exercise Name to neutral Side bilateral Resistance level 4 royal blue band Reps/Minutes one min X 1 Comments Verbal cues to neutral Standing Exercises HC stretch Standing Exercise Name gastroc and soleus Reps/Minutes 2x60 Manual Therapy Treatment Consent Patient gave verbal consent for manual Yes treatment Soft Tissue Mobilization R hip Body Location scar tissue Mobilization Type Cross-Friction,Myofascial Release,Strumming Body Position Hooklying Neuro Re-Education Treatment Balance Activities tilt board Details ap, and lateral Reps/Duration X10 each Comments CGA with head turns foam Details Romberg eyes closed and SLS L and right LE Comments CGA with and without head turns PT-OP-R Modalities Start: 10/30/24 08:11 Freq: Status: Active Protocol: Document 11/20/24 08:15 SAK (Rec: 11/20/24 08:51 SAK [id number]) Hot Pack/Cold Pack Treatment Cold Pack Location right hip Patient Position Sitting Patient Tolerance Good PT-OP-T Assessment and Plan Start: 10/30/24 08:11 Freq: Status: Active Protocol: Document 11/24/24 10:40 AB (Rec: 11/24/24 12:25 AB [id number]) Physical Therapy Assessment Goals Four Impairment balance dysfunction Snf Goal (LTG) Patient will be able to stand on 1 foot for at least 10 sec to improve safety with mobility LTG Duration 12/30/24 Three Impairment LE weakness Impairment LE's and core with altered muscle activation Short Term Goal (STG) Patient will be instrsucted in progressive, individualized HEP for purposes of right hip strengthening STG Duration 11/24/24 Secret Service Agent Goal (LTG) Patient will be independent and compliant with HEP and demonstrate LE strength at least 4+/5 and functionally be able to perform sit to stand from standard height chair without UE's x 10 reps. Two Impairment gait dysfunction; antalgic, using 4WW Impairment antalgic, step-to pattern on stairs Snf Goal (LTG) Patient will be able to ambulate on level surfaces without limp without assistive device and ascend and descend stairs with alternating pattern without difficulty or pain LTG Duration 12/30/24 One Impairment Lower extremity functional scale score 20/80 Impairment Lower extremity functional scale score 32% Secret Service Agent Goal (LTG) Improve LEFS score to at least 70% as measure of improved right hip function LTG Duration 12/30/24 Assessment Summary Assessment Patient ambulates out of session without device reports pain ant R hip/scar tissue area is less end of session compared to start of session. Physical Therapy Plan Frequency and Duration Frequency of Treatment 2x/Week Duration of treatment (weeks) 8 Plan of Care Start Date 10/30/24 Plan of Care End Date 12/30/24 Next Visit Focus/Plan Next Note Type Treatment Note Next Visit Plan continue strengthening, gait training.
--- NOTE | 2024-11-27 12:23 | PT.OTN ---
Current Diagnoses Unilateral primary osteoarthritis, right hip (11/27/24) Physical Therapy Treatment Note PT-OP-A Visit Information Start: 10/30/24 08:11 Freq: Status: Active Protocol: Document 11/27/24 11:25 AB (Rec: 11/27/24 12:23 AB [id number]) Out-Patient Physical Therapy Visit Information Visit Information Visit Type Treatment Note Visit Start Time 11:34 Visit Stop Time 12:17 Visit Number 9 Number of DRYING UNIT FELTING MACHINE OPERATOR Visits 2 Evaluation Information Evaluation Date 10/30/24 Precautions Precautions ANT LIBERTY PT-OP-B Current Condition Start: 10/30/24 08:11 Freq: Status: Active Protocol: Document 11/20/24 08:12 SAK (Rec: 11/20/24 08:51 SAK [id number]) Current Condition History of Current Condition Onset Date 10/23/23 Current Complaints right hip dysfunction and limited mobility History of Current Condition R hip anterior approach Dr. Maravilla. Pain control fair. Watching precautions ( don't fall and don't kick leg back.) Doing HEP: ankle pumps , quad sets, and glut sets. Using ice occasionally. Pain control fair, takes 2 Oxycodone per day. Walking with 4WW, occasional furniture surfs. Patient hopeful leg length more symmetrical. Denies N/T. Pain 2-02/03. 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 Maravilla 11/03/24 for post op. Currently has postop dressing and drain in place. Prior Treatments and Tests R ant LIBERTY 10/23/24 PT-OP-C Subjective Start: 10/30/24 08:11 Freq: Status: Active Protocol: Document 11/27/24 11:25 AB (Rec: 11/27/24 12:23 AB [id number]) OP-PT Subjective Patient Comments Patient Comments Patient reports the hip is probably a little better, comments theh hip hurts when she first gets up in the morning, but post walking it gets better. Patient reports the incision levy, sings/ reports SMT last session helped. Pt reports MD appt is 12/11/2024 PT-OP-D Balance Start: 10/30/24 08:11 Freq: Status: Active Protocol: Document 10/30/24 11:32 SAK (Rec: 10/31/24 09:39 SAK [id number]) OP-PT Balance Assessment Sitting Balance Static Sitting Balance Ability Normal Dynamic Sitting Balance Ability Normal Standing Balance Static Standing Balance Ability Fair Dynamic Standing Balance Ability Fair Device Used 4WW Lopez Fall Scale Copyright Permission PT-OP-F Manual Assessment Start: 10/30/24 08:11 Freq: Status: Active Protocol: Document 10/30/24 11:32 SAK (Rec: 10/31/24 09:39 [facility] [id number]) Manual Assessments Soft Tissue Assessment Soft Tissue Mobility Assessment post-op dressing intact, no rednes or increased warmth. Will be removed on Wednesday PT-OP-G Mobility & Gait Start: 10/30/24 08:11 Freq: Status: Active Protocol: Document 10/30/24 11:32 SAK (Rec: 10/31/24 09:39 [facility] [id number]) OP Gait Assessment Gait Gait Assistance Required: Independent Assistive Devices Assistive Device 4 Wheeled Walker Orthotic/Prosthetic Devices or Brace: No Gait Deviations General Gait Pattern Antalgic,Flexed Trunk Factors Limiting Gait Function Factors Limiting Gait Function Limited Range of Motion,Pain Comments Gait Comments Patient with chronic right hip pain prior to surgery and was unable to extend to neutral, or stand or walk with fully upright trunk Stair Climbing Evaluation Evaluation Level of Assist On Stairs Standby Assistance Devices Stair Climbing Assistive Devices Left Railing,Right Railing Technique/Endurance Stair Climbing Technique Step to Step PT-OP-H Neuro Start: 10/30/24 08:11 Freq: Status: Active Protocol: Document 10/30/24 11:32 [facility] (Rec: 10/31/24 09:39 [facility] [id number]) Sensation Evaluation Gross Sensation Gross Sensation WNL PT-OP-J Posture/Palpation/Skin Start: 10/30/24 08:11 Freq: Status: Active Protocol: Document 10/30/24 11:32 SAK (Rec: 10/31/24 09:39 [facility] [id number]) Palpation Assessment Location right hip Palpation Findings Soft Tissue Tightness Palpation Details as above, no signs or symptoms of infection Skin Assessment Incisional Assessment Incision Appearance/Comments post-op dressing in place PT-OP-K Range of Motion Start: 10/30/24 08:11 Freq: Status: Active Protocol: Document 10/30/24 11:32 SAK (Rec: 10/31/24 09:39 [facility] [id number]) Hip Goniometric Range of Motion Hip Right Hip ROM WFL No Comments initially lacking 10 degrees from neutral, after heelslides 5 deg left Hip ROM WFL Yes Hip ROM Limitations Hip ROM Limitations Soft Tissue Tightness Knee Goniometric Range of Motion Knee herbie Knee ROM WFL Yes PT-OP-M Strength Start: 10/30/24 08:11 Freq: Status: Active Protocol: Document 10/30/24 11:32 SAK (Rec: 10/31/24 09:39 SAK [id number]) Hip Strength Hip Manual Muscle Testing Left Comments left has antigravity strength in flex right NA due to recent surgery , able to flex actively less than full ROM PT-OP-Q Treatments Start: 10/30/24 08:11 Freq: Status: Active Protocol: Document 11/27/24 11:25 AB (Rec: 11/27/24 12:23 AB [id number]) Gym Equipment Shuttle Balance Red Details Normal EVARISTO and stagger L LE back Comments CGA hands above bar with head turns and visual scanning also AP weight shift and mini squats Sport Cord forward, backward, side Cord/Resistance green Reps/Duration 5x ea Comments cue for gluteal activation and core stabilization/ Balance supervision Therapeutic Exercises Supine Exercises Modified/Modified Eliezer stretch Supine Exercise Name R LE on mat to neutral L LE on bolster Side right Reps/Minutes 2 min Comments Vc for breathing from diaphragm/assist to position Sidelying Exercises clamshell Side bilateral Resistance blue band level one Reps/Minutes X 15 Comments Verbal cues to avoid rolling back sidelying hip abduction Side bilateral Resistance level one band Reps/Minutes X15 Comments verbal and tactile cues Sitting Exercises seated hip abd with band Sitting Exercise Name to neutral Side bilateral Resistance level 4 royal blue band Reps/Minutes one min X 1 Comments Verbal cues to neutral ball squeeze Sitting Exercise Name HEP Reps/Minutes X15 Comments review Standing Exercises HC stretch Standing Exercise Name gastroc and soleus Reps/Minutes 1x60 heel raises Standing Exercise Name on 4 inch step with UE use Reps/Minutes 10x Manual Therapy Treatment Consent Patient gave verbal consent for manual Yes treatment Soft Tissue Mobilization R hip Body Location scar tissue Mobilization Type Cross-Friction,Myofascial Release,Strumming Body Position Hooklying Neuro Re-Education Treatment Balance Activities foam Details Romberg eyes closed and SLS L and right LE Equipment green therapads this session Comments CGA with and without head turns, eyes closed PT-OP-R Modalities Start: 10/30/24 08:11 Freq: Status: Active Protocol: Document 11/20/24 08:15 SAK (Rec: 11/20/24 08:51 SAK [id number]) Hot Pack/Cold Pack Treatment Cold Pack Location right hip Patient Position Sitting Patient Tolerance Good PT-OP-T Assessment and Plan Start: 10/30/24 08:11 Freq: Status: Active Protocol: Document 11/27/24 11:25 AB (Rec: 11/27/24 12:23 AB [id number]) Physical Therapy Assessment Goals Four Impairment balance dysfunction Television Maintenance Man Goal (LTG) Patient will be able to stand on 1 foot for at least 10 sec to improve safety with mobility LTG Duration 12/30/24 Three Impairment LE weakness Impairment LE's and core with altered muscle activation Short Term Goal (STG) Patient will be instrsucted in progressive, individualized HEP for purposes of right hip strengthening STG Duration 11/24/24 Television Maintenance Man Goal (LTG) Patient will be independent and compliant with HEP and demonstrate LE strength at least 4+/5 and functionally be able to perform sit to stand from standard height chair without UE's x 10 reps. Two Impairment gait dysfunction; antalgic, using 4WW Impairment antalgic, step-to pattern on stairs Custodial Goal (LTG) Patient will be able to ambulate on level surfaces without limp without assistive device and ascend and descend stairs with alternating pattern without difficulty or pain LTG Duration 12/30/24 One Impairment Lower extremity functional scale score 20/80 Impairment Lower extremity functional scale score 32% Television Maintenance Man Goal (LTG) Improve LEFS score to at least 70% as measure of improved right hip function LTG Duration 12/30/24 Assessment Summary Assessment Thomas reports having no pain end of session ambulating out of sessoin without device. Physical Therapy Plan Frequency and Duration Frequency of Treatment 2x/Week Duration of treatment (weeks) 8 Plan of Care Start Date 10/30/24 Plan of Care End Date 12/30/24 Next Visit Focus/Plan Next Note Type Progress Note Next Visit Plan Progress note next session. ( 12/11) continue strengthening, gait training.
--- NOTE | 2024-11-29 14:31 | PT.OTN ---
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 Maravilla. Pain control fair. Watching precautions ( don't fall and don't kick leg back.) Doing HEP: ankle pumps , quad sets, and glut sets. Using ice occasionally. Pain control fair, takes 2 Oxycodone per day. Walking with 4WW, occasional furniture surfs. Patient hopeful leg length more symmetrical. Denies N/T. Pain 2-02/03. 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 Maravilla 11/03/24 for post op. Currently has postop dressing and drain in place. Prior Treatments and Tests R ant LIBERTY 10/23/24 PT-OP-C Subjective Start: 10/30/24 08:11 Freq: Status: Active Protocol: Document 11/29/24 13:50 SAK (Rec: 11/29/24 14:30 [facility] [id number]) OP-PT Subjective Patient Comments Patient Comments Feeling she is improving, not sure how much longer she needs to come, sees surgeon (Dr. Maravilla) next Wednesday or Wednesday. Patient Reported Progress Improving PT-OP-D Balance Start: 10/30/24 08:11 Freq: Status: Active Protocol: Document 10/30/24 11:32 SAK (Rec: 10/31/24 09:39 [facility] [id number]) OP-PT Balance Assessment Sitting Balance Static Sitting Balance Ability Normal Dynamic Sitting Balance Ability Normal Standing Balance Static Standing Balance Ability Fair Dynamic Standing Balance Ability Fair Device Used 4WW Lopez Fall Scale Copyright Permission PT-OP-F Manual Assessment Start: 10/30/24 08:11 Freq: Status: Active Protocol: Document 10/30/24 11:32 [facility] (Rec: 10/31/24 09:39 [facility] [id number]) Manual Assessments Soft Tissue Assessment Soft Tissue Mobility Assessment post-op dressing intact, no rednes or increased warmth. Will be removed on Wednesday PT-OP-G Mobility & Gait Start: 10/30/24 08:11 Freq: Status: Active Protocol: Document 10/30/24 11:32 [facility] (Rec: 10/31/24 09:39 [facility] [id number]) OP Gait Assessment Gait Gait Assistance Required: Independent Assistive Devices Assistive Device 4 Wheeled Walker Orthotic/Prosthetic Devices or Brace: No Gait Deviations General Gait Pattern Antalgic,Flexed Trunk Factors Limiting Gait Function Factors Limiting Gait Function Limited Range of Motion,Pain Comments Gait Comments Patient with chronic right hip pain prior to surgery and was unable to extend to neutral, or stand or walk with fully upright trunk Stair Climbing Evaluation Evaluation Level of Assist On Stairs Standby Assistance Devices Stair Climbing Assistive Devices Left Railing,Right Railing Technique/Endurance Stair Climbing Technique Step to Step PT-OP-H Neuro Start: 10/30/24 08:11 Freq: Status: Active Protocol: Document 10/30/24 11:32 [facility] (Rec: 10/31/24 09:39 [facility] [id number]) Sensation Evaluation Gross Sensation Gross Sensation WNL PT-OP-J Posture/Palpation/Skin Start: 10/30/24 08:11 Freq: Status: Active Protocol: Document 10/30/24 11:32 [facility] (Rec: 10/31/24 09:39 [facility] [id number]) Palpation Assessment Location right hip Palpation Findings Soft Tissue Tightness Palpation Details as above, no signs or symptoms of infection Skin Assessment Incisional Assessment Incision Appearance/Comments post-op dressing in place PT-OP-K Range of Motion Start: 10/30/24 08:11 Freq: Status: Active Protocol: Document 10/30/24 11:32 [facility] (Rec: 10/31/24 09:39 [facility] [id number]) Hip Goniometric Range of Motion Hip Right Hip ROM WFL No Comments initially lacking 10 degrees from neutral, after heelslides 5 deg left Hip ROM WFL Yes Hip ROM Limitations Hip ROM Limitations Soft Tissue Tightness Knee Goniometric Range of Motion Knee herbie Knee ROM WFL Yes PT-OP-M Strength Start: 10/30/24 08:11 Freq: Status: Active Protocol: Document 10/30/24 11:32 SAK (Rec: 10/31/24 09:39 [facility] [id number]) Hip Strength Hip Manual Muscle Testing Left Comments left has antigravity strength in flex right NA due to recent surgery , able to flex actively less than full ROM PT-OP-Q Treatments Start: 10/30/24 08:11 Freq: Status: Active Protocol: Document 11/29/24 13:50 SAK (Rec: 11/29/24 14:30 [facility] [id number]) Cardio Equipment Recumbent Stepper (Sci-Fit) Duration (Minutes) 5 Resistance 3 Seat Position 9 Other 0.7, LE's only, cues to push through heels Gym Equipment Shuttle Balance Red Details Normal EVARISTO and stagger L LE back Comments CGA hands above bar with head turns and visual scanning also AP weight shift and mini squats Sport Cord forward, backward, side Cord/Resistance green Reps/Duration 5x ea Comments cue for gluteal activation and core stabilization/ Balance supervision Therapeutic Exercises Supine Exercises bridge Supine Exercise Name Does not reach neutral Side bilateral Resistance level 4 royal blue band second set Reps/Minutes X 15 X 2 Comments monitored for neutral or less and pain, verbal cues Sitting Exercises seated hip abd with band Sitting Exercise Name to neutral Side bilateral Resistance level 4 royal blue band Reps/Minutes one min X 1 Comments Verbal cues to neutral Manual Therapy Treatment Soft Tissue Mobilization R hip Body Location scar tissue Mobilization Type Cross-Friction,Myofascial Release,Strumming Body Position Hooklying PT-OP-R Modalities Start: 10/30/24 08:11 Freq: Status: Active Protocol: Document 11/20/24 08:15 [facility] (Rec: 11/20/24 08:51 [facility] [id number]) Hot Pack/Cold Pack Treatment Cold Pack Location right hip Patient Position Sitting Patient Tolerance Good PT-OP-T Assessment and Plan Start: 10/30/24 08:11 Freq: Status: Active Protocol: Document 11/29/24 13:50 SAK (Rec: 11/29/24 14:30 [facility] [id number]) Physical Therapy Assessment Goals Four Impairment balance dysfunction Hunting Sales Associate Goal (LTG) Patient will be able to stand on 1 foot for at least 10 sec to improve safety with mobility 11/29/24: 10 sec with 2 touches for UE support to balance LTG Duration 12/30/24 Three Impairment LE weakness Impairment LE's and core with altered muscle activation Short Term Goal (STG) Patient will be instrsucted in progressive, individualized HEP for purposes of right hip strengthening 11/29/24: goal met STG Duration goal met [facility] Goal (LTG) Patient will be independent and compliant with HEP and demonstrate LE strength at least 4+/5 and functionally be able to perform sit to stand from standard height chair without UE's x 10 reps 11/29/24: good goal progress, strength 4/5, able to perform sit to stand 10x without UE's LTG Duration 12/30/24 Two Impairment gait dysfunction; antalgic, using 4WW Impairment antalgic, step-to pattern on stairs [facility]it[facility]iary Goal (LTG) Patient will be able to ambulate on level surfaces without limp without assistive device and ascend and descend stairs with alternating pattern without difficulty or pain 11/29/24: good goal progress; no pain, but does have mild lateral sway, possibly due to leg length discrepancy LTG Duration 12/30/24 One Impairment Lower extremity functional scale score 20/80 Impairment Lower extremity functional scale score 32% [facility]iary Goal (LTG) Improve LEFS score to at least 70% as measure of improved right hip function 11/29/24: 85% goal met LTG Duration goal met Progress Towards Goals Progress Towards Goals Progressing Toward Goals Assessment Summary Assessment Excellent progress as above. Anticipate 2 further PT sessions then discharge to independent HEP and self managment. Physical Therapy Plan Frequency and Duration Frequency of Treatment 2x/Week Duration of treatment (weeks) 8 Plan of Care Start Date 10/30/24 Plan of Care End Date 12/30/24 Next Visit Focus/Plan Next Note Type Treatment Note Next Visit Plan Continue PT for hip strengthening, gait traaining, balance
--- NOTE | 2024-12-04 16:42 | PT.OTN ---
Current Diagnoses Unilateral primary osteoarthritis, right hip (12/04/24) Physical Therapy Treatment Note PT-OP-A Visit Information Start: 10/30/24 08:11 Freq: Status: Active Protocol: Document 12/04/24 12:58 SAK (Rec: 12/04/24 13:45 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 [id number]) Current Condition History of Current Condition Onset Date 10/23/23 Current Complaints right hip dysfunction and limited mobility History of Current Condition R hip anterior approach Dr. Maravilla. Pain control fair. Watching precautions ( don't fall and don't kick leg back.) Doing HEP: ankle pumps , quad sets, and glut sets. Using ice occasionally. Pain control fair, takes 2 Oxycodone per day. Walking with 4WW, occasional furniture surfs. Patient hopeful leg length more symmetrical. Denies N/T. Pain 2-02/03. 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 Maravilla 11/03/24 for post op. Currently has postop dressing and drain in place. Prior Treatments and Tests R ant LIBERTY 10/23/24 PT-OP-C Subjective Start: 10/30/24 08:11 Freq: Status: Active Protocol: Document 12/04/24 12:58 SAK (Rec: 12/04/24 13:45 [facility] [id number]) OP-PT Subjective Patient Comments Patient Comments No new c/o. Patient Reported Progress Improving PT-OP-D Balance Start: 10/30/24 08:11 Freq: Status: Active Protocol: Document 10/30/24 11:32 SAK (Rec: 10/31/24 09:39 [facility] [id number]) OP-PT Balance Assessment Sitting Balance Static Sitting Balance Ability Normal Dynamic Sitting Balance Ability Normal Standing Balance Static Standing Balance Ability Fair Dynamic Standing Balance Ability Fair Device Used 4WW Lopez Fall Scale Copyright Permission PT-OP-F Manual Assessment Start: 10/30/24 08:11 Freq: Status: Active Protocol: Document 10/30/24 11:32 [facility] (Rec: 10/31/24 09:39 [facility] [id number]) Manual Assessments Soft Tissue Assessment Soft Tissue Mobility Assessment post-op dressing intact, no rednes or increased warmth. Will be removed on Wednesday PT-OP-G Mobility & Gait Start: 10/30/24 08:11 Freq: Status: Active Protocol: Document 10/30/24 11:32 [facility] (Rec: 10/31/24 09:39 [facility] [id number]) OP Gait Assessment Gait Gait Assistance Required: Independent Assistive Devices Assistive Device 4 Wheeled Walker Orthotic/Prosthetic Devices or Brace: No Gait Deviations General Gait Pattern Antalgic,Flexed Trunk Factors Limiting Gait Function Factors Limiting Gait Function Limited Range of Motion,Pain Comments Gait Comments Patient with chronic right hip pain prior to surgery and was unable to extend to neutral, or stand or walk with fully upright trunk Stair Climbing Evaluation Evaluation Level of Assist On Stairs Standby Assistance Devices Stair Climbing Assistive Devices Left Railing,Right Railing Technique/Endurance Stair Climbing Technique Step to Step PT-OP-H Neuro Start: 10/30/24 08:11 Freq: Status: Active Protocol: Document 10/30/24 11:32 [facility] (Rec: 10/31/24 09:39 [facility] [id number]) Sensation Evaluation Gross Sensation Gross Sensation WNL PT-OP-J Posture/Palpation/Skin Start: 10/30/24 08:11 Freq: Status: Active Protocol: Document 10/30/24 11:32 [facility] (Rec: 10/31/24 09:39 [facility] [id number]) Palpation Assessment Location right hip Palpation Findings Soft Tissue Tightness Palpation Details as above, no signs or symptoms of infection Skin Assessment Incisional Assessment Incision Appearance/Comments post-op dressing in place PT-OP-K Range of Motion Start: 10/30/24 08:11 Freq: Status: Active Protocol: Document 10/30/24 11:32 [facility] (Rec: 10/31/24 09:39 [facility] [id number]) Hip Goniometric Range of Motion Hip Right Hip ROM WFL No Comments initially lacking 10 degrees from neutral, after heelslides 5 deg left Hip ROM WFL Yes Hip ROM Limitations Hip ROM Limitations Soft Tissue Tightness Knee Goniometric Range of Motion Knee herbie Knee ROM WFL Yes PT-OP-M Strength Start: 10/30/24 08:11 Freq: Status: Active Protocol: Document 10/30/24 11:32 SAK (Rec: 10/31/24 09:39 [facility] [id number]) Hip Strength Hip Manual Muscle Testing Left Comments left has antigravity strength in flex right NA due to recent surgery , able to flex actively less than full ROM PT-OP-Q Treatments Start: 10/30/24 08:11 Freq: Status: Active Protocol: Document 12/04/24 12:58 SAK (Rec: 12/04/24 13:45 [facility] [id number]) Cardio Equipment Recumbent Stepper (Sci-Fit) Duration (Minutes) 10 Resistance 3 Seat Position 9 Other 0.7, LE's only, cues to push through heels Gym Equipment Shuttle Recovery Unilateral Squats Details 37# Reps/Time X15 each LE Bilateral Squats Details 62# and 75# Shuttle Recovery Platform Stable Reps/Time 15x each set Shuttle Balance Red Details Normal EVARISTO and stagger L LE back Comments CGA hands above bar with head turns and visual scanning also AP weight shift and mini squats Sport Cord forward, backward, side Cord/Resistance green Reps/Duration 5x ea Comments cue for gluteal activation and core stabilization/ Balance supervision Therapeutic Exercises Supine Exercises bridge Supine Exercise Name Does not reach neutral Side bilateral Resistance level 4 royal blue band second set Reps/Minutes X 15 X 2 Comments monitored for neutral or less and pain, verbal cues Sitting Exercises seated hip abd with band Sitting Exercise Name to neutral Side bilateral Resistance level 4 royal blue band Reps/Minutes one min X 1 Comments Verbal cues to neutral Standing Exercises HC stretch Standing Exercise Name gastroc and soleus Reps/Minutes 1x60 side stepping with band Side bilateral Resistance level 4 band above knees Reps/Minutes 10 feet left and right X 3 Comments vc to avoid toeing out march Equipment Used 1# herbie Reps/Minutes 10x herbie heel raises Standing Exercise Name on 4 inch step with min UE use Reps/Minutes 10x Manual Therapy Treatment Soft Tissue Mobilization R hip Body Location scar tissue Mobilization Type Cross-Friction,Myofascial Release,Strumming Body Position Hooklying PT-OP-R Modalities Start: 10/30/24 08:11 Freq: Status: Active Protocol: Document 11/20/24 08:15 [facility] (Rec: 11/20/24 08:51 [facility] [id number]) Hot Pack/Cold Pack Treatment Cold Pack Location right hip Patient Position Sitting Patient Tolerance Good PT-OP-T Assessment and Plan Start: 10/30/24 08:11 Freq: Status: Active Protocol: Document 12/04/24 12:58 [facility] (Rec: 12/04/24 13:45 [facility] [id number]) Physical Therapy Assessment Goals Four Impairment balance dysfunction Care Home Goal (LTG) Patient will be able to stand on 1 foot for at least 10 sec to improve safety with mobility 11/29/24: 10 sec with 2 touches for UE support to balance LTG Duration 12/30/24 Three Impairment LE weakness Impairment LE's and core with altered muscle activation Short Term Goal (STG) Patient will be instrsucted in progressive, individualized HEP for purposes of right hip strengthening 11/29/24: goal met STG Duration goal met [facility] Home Goal (LTG) Patient will be independent and compliant with HEP and demonstrate LE strength at least 4+/5 and functionally be able to perform sit to stand from standard height chair without UE's x 10 reps 11/29/24: good goal progress, strength 4/5, able to perform sit to stand 10x without UE's LTG Duration 12/30/24 Two Impairment gait dysfunction; antalgic, using 4WW Impairment antalgic, step-to pattern on stairs Data Capture Clerk Goal (LTG) Patient will be able to ambulate on level surfaces without limp without assistive device and ascend and descend stairs with alternating pattern without difficulty or pain 11/29/24: good goal progress; no pain, but does have mild lateral sway, possibly due to leg length discrepancy LTG Duration 12/30/24 One Impairment Lower extremity functional scale score 20/80 Impairment Lower extremity functional scale score 32% Care Home Goal (LTG) Improve LEFS score to at least 70% as measure of improved right hip function 11/29/24: 85% goal met LTG Duration goal met Progress Towards Goals Progress Towards Goals Progressing Toward Goals Assessment Summary Assessment Good improvements in gait, function, strength. Should be ready for discharge next visit. Physical Therapy Plan Frequency and Duration Frequency of Treatment 2x/Week Duration of treatment (weeks) 8 Plan of Care Start Date 10/30/24 Plan of Care End Date 12/30/24 Next Visit Focus/Plan Next Note Type Treatment Note Next Visit Plan Patient to see surgeon. Discuss outcome. Possible discharge from PT
--- NOTE | 2024-12-06 13:50 | PT.OTN ---
Current Diagnoses Unilateral primary osteoarthritis, right hip (12/06/24) Physical Therapy Treatment Note PT-OP-A Visit Information Start: 10/30/24 08:11 Freq: Status: Active Protocol: Document 12/06/24 12:59 SAK (Rec: 12/06/24 13:49 [facility] [id number]) Out-Patient Physical Therapy Visit Information Visit Information Visit Type Treatment Note Visit Start Time 13:00 Visit Stop Time 13:50 Visit Number 12 Number of SQUADRON WORKER Visits 0 Evaluation Information Evaluation Date 10/30/24 Precautions Precautions ANT LIBERTY PT-OP-B Current Condition Start: 10/30/24 08:11 Freq: Status: Active Protocol: Document 12/06/24 12:59 SAK (Rec: 12/06/24 13:49 [facility] [id number]) Current Condition History of Current Condition Onset Date 10/23/23 Current Complaints right hip dysfunction and limited mobility History of Current Condition R hip anterior approach Dr. Maravilla. Pain control fair. Watching precautions ( don't fall and don't kick leg back.) Doing HEP: ankle pumps , quad sets, and glut sets. Using ice occasionally. Pain control fair, takes 2 Oxycodone per day. Walking with 4WW, occasional furniture surfs. Patient hopeful leg length more symmetrical. Denies N/T. Pain 2-02/03. 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 Maravilla 11/03/24 for post op. Currently has postop dressing and drain in place. Prior Treatments and Tests R ant LIBERTY 10/23/24 PT-OP-C Subjective Start: 10/30/24 08:11 Freq: Status: Active Protocol: Document 12/06/24 12:59 SAK (Rec: 12/06/24 13:49 [facility] [id number]) OP-PT Subjective Patient Comments Patient Comments Saw surgeon, doing well, goes back in 5 weeks. Ok to discharge from PT today. PT-OP-D Balance Start: 10/30/24 08:11 Freq: Status: Active Protocol: Document 10/30/24 11:32 SAK (Rec: 10/31/24 09:39 [facility] [id number]) OP-PT Balance Assessment Sitting Balance Static Sitting Balance Ability Normal Dynamic Sitting Balance Ability Normal Standing Balance Static Standing Balance Ability Fair Dynamic Standing Balance Ability Fair Device Used 4WW Lopez Fall Scale Copyright Permission PT-OP-F Manual Assessment Start: 10/30/24 08:11 Freq: Status: Active Protocol: Document 10/30/24 11:32 [facility] (Rec: 10/31/24 09:39 [facility] [id number]) Manual Assessments Soft Tissue Assessment Soft Tissue Mobility Assessment post-op dressing intact, no rednes or increased warmth. Will be removed on Wednesday PT-OP-G Mobility & Gait Start: 10/30/24 08:11 Freq: Status: Active Protocol: Document 10/30/24 11:32 [facility] (Rec: 10/31/24 09:39 [facility] [id number]) OP Gait Assessment Gait Gait Assistance Required: Independent Assistive Devices Assistive Device 4 Wheeled Walker Orthotic/Prosthetic Devices or Brace: No Gait Deviations General Gait Pattern Antalgic,Flexed Trunk Factors Limiting Gait Function Factors Limiting Gait Function Limited Range of Motion,Pain Comments Gait Comments Patient with chronic right hip pain prior to surgery and was unable to extend to neutral, or stand or walk with fully upright trunk Stair Climbing Evaluation Evaluation Level of Assist On Stairs Standby Assistance Devices Stair Climbing Assistive Devices Left Railing,Right Railing Technique/Endurance Stair Climbing Technique Step to Step PT-OP-H Neuro Start: 10/30/24 08:11 Freq: Status: Active Protocol: Document 10/30/24 11:32 [facility] (Rec: 10/31/24 09:39 [facility] [id number]) Sensation Evaluation Gross Sensation Gross Sensation WNL PT-OP-J Posture/Palpation/Skin Start: 10/30/24 08:11 Freq: Status: Active Protocol: Document 10/30/24 11:32 [facility] (Rec: 10/31/24 09:39 [facility] [id number]) Palpation Assessment Location right hip Palpation Findings Soft Tissue Tightness Palpation Details as above, no signs or symptoms of infection Skin Assessment Incisional Assessment Incision Appearance/Comments post-op dressing in place PT-OP-K Range of Motion Start: 10/30/24 08:11 Freq: Status: Active Protocol: Document 10/30/24 11:32 [facility] (Rec: 10/31/24 09:39 [facility] [id number]) Hip Goniometric Range of Motion Hip Right Hip ROM WFL No Comments initially lacking 10 degrees from neutral, after heelslides 5 deg left Hip ROM WFL Yes Hip ROM Limitations Hip ROM Limitations Soft Tissue Tightness Knee Goniometric Range of Motion Knee herbie Knee ROM WFL Yes PT-OP-M Strength Start: 10/30/24 08:11 Freq: Status: Active Protocol: Document 10/30/24 11:32 [facility] (Rec: 10/31/24 09:39 [facility] [id number]) Hip Strength Hip Manual Muscle Testing Left Comments left has antigravity strength in flex right NA due to recent surgery , able to flex actively less than full ROM PT-OP-Q Treatments Start: 10/30/24 08:11 Freq: Status: Active Protocol: Document 12/06/24 12:59 [facility] (Rec: 12/06/24 13:49 [facility] [id number]) Cardio Equipment Recumbent Stepper (Sci-Fit) Duration (Minutes) 10 Resistance 3 Seat Position 10 Other 1.2 mi, LE's only, cues to push through heels Gym Equipment Shuttle Recovery Unilateral Squats Details 37# Reps/Time X15 each LE Bilateral Squats Details 62# and 75# Shuttle Recovery Platform Stable Reps/Time 15x each set Therapeutic Exercises Standing Exercises HC stretch Standing Exercise Name gastroc and soleus Equipment Used CARLITA Reps/Minutes 1x60 november Equipment Used 2# herbie Reps/Minutes 10x herbie Hip abd Equipment Used 2# Reps/Minutes 10x herbie alternating Comments postural cues Gait Training Gait Activity stairs Description 13 steps X 3 close supervision Device Used above railing to one UE use Treatment Focus reciprocal pattern, Verbal and visual cues for less quad dominant pattern Comments cues for gluteal activation, eccentric control on lowering Manual Therapy Treatment Soft Tissue Mobilization R hip Body Location scar tissue Mobilization Type Cross-Friction,Myofascial Release,Strumming Body Position Hooklying Neuro Re-Education Treatment Balance Activities tandem stand Details head turns, EC Reps/Duration 2 min ea side SLS Reps/Duration 5x ea Comments 10 sec today. Self-Care/Home Management Treatment Education Patient Education Home Exercise Program,Pain Management,Posture PT-OP-R Modalities Start: 10/30/24 08:11 Freq: Status: Active Protocol: Document 11/20/24 08:15 [facility] (Rec: 11/20/24 08:51 [facility] [id number]) Hot Pack/Cold Pack Treatment Cold Pack Location right hip Patient Position Sitting Patient Tolerance Good PT-OP-T Assessment and Plan Start: 10/30/24 08:11 Freq: Status: Active Protocol: Document 12/06/24 12:59 [facility] (Rec: 12/06/24 13:49 [facility] [id number]) Physical Therapy Assessment Goals Four Impairment balance dysfunction Custodian Athletic Equipment Goal (LTG) Patient will be able to stand on 1 foot for at least 10 sec to improve safety with mobility 11/29/24: 10 sec with 2 touches for UE support to balance 12/06/24: LTG Duration 12/30/24 Three Impairment LE weakness Impairment LE's and core with altered muscle activation Short Term Goal (STG) Patient will be instrsucted in progressive, individualized HEP for purposes of right hip strengthening 11/29/24: goal met STG Duration goal met Custodian Athletic Equipment Goal (LTG) Patient will be independent and compliant with HEP and demonstrate LE strength at least 4+/5 and functionally be able to perform sit to stand from standard height chair without UE's x 10 reps 11/29/24: good goal progress, strength 4/5, able to perform sit to stand 10x without UE's 12/06/24: goal met LTG Duration 12/30/24 Two Impairment gait dysfunction; antalgic, using 4WW Impairment antalgic, step-to pattern on stairs Custodial Goal (LTG) Patient will be able to ambulate on level surfaces without limp without assistive device and ascend and descend stairs with alternating pattern without difficulty or pain 11/29/24: good goal progress; no pain, but does have mild lateral sway, possibly due to leg length discrepancy; : surgeon says still might settle out LTG Duration goal met One Impairment Lower extremity functional scale score 20/80 Impairment Lower extremity functional scale score 32% Custodial Goal (LTG) Improve LEFS score to at least 70% as measure of improved right hip function 11/29/24: 85% goal met LTG Duration goal met Progress Towards Goals Progress Towards Goals Progressing Toward Goals,Goals Met Assessment Summary Assessment All PT goals met, patient ready for discharge from PT Physical Therapy Plan Discharge Physical Therapy Discharge Reasons Goals Met
--- NOTE | 2024-12-06 13:50 | PT.OPDS ---
Current Diagnoses Unilateral primary osteoarthritis, right hip (12/06/24) Visit Care Team Role Provider Type Carlos Bradley DO Family Provider Physician Primary Care Provider Specialty: Family Practice Address: [address] [place] [address], [id number] Email: Kushal aFulkner MD Attending Provider Physician Referring Provider Specialty: Orthopedics Orthopedic Surgery Address: [address] [place] [address], [place], [address] Email: [email or web address] Visit Number Visit Number 12 Discharge Summary PT-OP-B Current Condition Start: 10/30/24 08:11 Freq: Status: Active Protocol: Document 12/06/24 12:59 SAK (Rec: 12/06/24 13:49 SAK [id number]) Current Condition History of Current Condition Onset Date 10/23/23 Current Complaints right hip dysfunction and limited mobility History of Current Condition R hip anterior approach Dr. Maravilla. Pain control fair. Watching precautions ( don't fall and don't kick leg back.) Doing HEP: ankle pumps , quad sets, and glut sets. Using ice occasionally. Pain control fair, takes 2 Oxycodone per day. Walking with 4WW, occasional furniture surfs. Patient hopeful leg length more symmetrical. Denies N/T. Pain 2-5/10. 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 Maravilla 11/03/24 for post op. Currently has postop dressing and drain in place. Prior Treatments and Tests R ant LIBERTY 10/23/24 PT-OP-C Subjective Start: 10/30/24 08:11 Freq: Status: Active Protocol: Document 12/06/24 12:59 SAK (Rec: 12/06/24 13:49 SAK [id number]) OP-PT Subjective Patient Comments Patient Comments Saw surgeon, doing well, goes back in 5 weeks. Ok to discharge from PT today. PT-OP-D Balance Start: 10/30/24 08:11 Freq: Status: Active Protocol: Document 10/30/24 11:32 SAK (Rec: 10/31/24 09:39 SAK [id number]) OP-PT Balance Assessment Sitting Balance Static Sitting Balance Ability Normal Dynamic Sitting Balance Ability Normal Standing Balance Static Standing Balance Ability Fair Dynamic Standing Balance Ability Fair Device Used 4WW Lopez Fall Scale Copyright Permission PT-OP-F Manual Assessment Start: 10/30/24 08:11 Freq: Status: Active Protocol: Document 10/30/24 11:32 [facility] (Rec: 10/31/24 09:39 [facility] [id number]) Manual Assessments Soft Tissue Assessment Soft Tissue Mobility Assessment post-op dressing intact, no rednes or increased warmth. Will be removed on Wednesday PT-OP-G Mobility & Gait Start: 10/30/24 08:11 Freq: Status: Active Protocol: Document 10/30/24 11:32 [facility] (Rec: 10/31/24 09:39 [facility] [id number]) OP Gait Assessment Gait Gait Assistance Required: Independent Assistive Devices Assistive Device 4 Wheeled Walker Orthotic/Prosthetic Devices or Brace: No Gait Deviations General Gait Pattern Antalgic,Flexed Trunk Factors Limiting Gait Function Factors Limiting Gait Function Limited Range of Motion,Pain Comments Gait Comments Patient with chronic right hip pain prior to surgery and was unable to extend to neutral, or stand or walk with fully upright trunk Stair Climbing Evaluation Evaluation Level of Assist On Stairs Standby Assistance Devices Stair Climbing Assistive Devices Left Railing,Right Railing Technique/Endurance Stair Climbing Technique Step to Step PT-OP-H Neuro Start: 10/30/24 08:11 Freq: Status: Active Protocol: Document 10/30/24 11:32 [facility] (Rec: 10/31/24 09:39 [facility] [id number]) Sensation Evaluation Gross Sensation Gross Sensation WNL PT-OP-J Posture/Palpation/Skin Start: 10/30/24 08:11 Freq: Status: Active Protocol: Document 10/30/24 11:32 [facility] (Rec: 10/31/24 09:39 [facility] [id number]) Palpation Assessment Location right hip Palpation Findings Soft Tissue Tightness Palpation Details as above, no signs or symptoms of infection Skin Assessment Incisional Assessment Incision Appearance/Comments post-op dressing in place PT-OP-K Range of Motion Start: 10/30/24 08:11 Freq: Status: Active Protocol: Document 10/30/24 11:32 [facility] (Rec: 10/31/24 09:39 [facility] [id number]) Hip Goniometric Range of Motion Hip Right Hip ROM WFL No Comments initially lacking 10 degrees from neutral, after heelslides 5 deg left Hip ROM WFL Yes Hip ROM Limitations Hip ROM Limitations Soft Tissue Tightness Knee Goniometric Range of Motion Knee herbie Knee ROM WFL Yes PT-OP-M Strength Start: 10/30/24 08:11 Freq: Status: Active Protocol: Document 10/30/24 11:32 SAK (Rec: 10/31/24 09:39 [facility] [id number]) Hip Strength Hip Manual Muscle Testing Left Comments left has antigravity strength in flex right NA due to recent surgery , able to flex actively less than full ROM PT-OP-T Assessment and Plan Start: 10/30/24 08:11 Freq: Status: Active Protocol: Document 12/06/24 12:59 SAK (Rec: 12/06/24 13:49 [facility] [id number]) Physical Therapy Assessment Goals Four Impairment balance dysfunction Bookie Goal (LTG) Patient will be able to stand on 1 foot for at least 10 sec to improve safety with mobility 11/29/24: 10 sec with 2 touches for UE support to balance 12/06/24: LTG Duration 12/30/24 Three Impairment LE weakness Impairment LE's and core with altered muscle activation Short Term Goal (STG) Patient will be instrsucted in progressive, individualized HEP for purposes of right hip strengthening 11/29/24: goal met STG Duration goal met Senior Care Goal (LTG) Patient will be independent and compliant with HEP and demonstrate LE strength at least 4+/5 and functionally be able to perform sit to stand from standard height chair without UE's x 10 reps 11/29/24: good goal progress, strength 4/5, able to perform sit to stand 10x without UE's 12/06/24: goal met LTG Duration 12/30/24 Two Impairment gait dysfunction; antalgic, using 4WW Impairment antalgic, step-to pattern on stairs Senior Care Goal (LTG) Patient will be able to ambulate on level surfaces without limp without assistive device and ascend and descend stairs with alternating pattern without difficulty or pain 11/29/24: good goal progress; no pain, but does have mild lateral sway, possibly due to leg length discrepancy; : surgeon says still might settle out LTG Duration goal met One Impairment Lower extremity functional scale score 20/80 Impairment Lower extremity functional scale score 32% Senior Care Goal (LTG) Improve LEFS score to at least 70% as measure of improved right hip function 11/29/24: 85% goal met LTG Duration goal met Progress Towards Goals Progress Towards Goals Progressing Toward Goals,Goals Met Assessment Summary Assessment All PT goals met, patient ready for discharge from PT Physical Therapy Plan Discharge Physical Therapy Discharge Reasons Goals Met
== END 2024-12-07 10:34 | disposition home or self-care (01) ==
LOC: PHYS 13:00
PROVIDERS: Family Provider Family Medicine; PCP Family Medicine; Referring Provider Orthopaedic Surgery Adult Reconstructive Orthopaedic Surgery; Visit Provider Orthopaedic Surgery Adult Reconstructive Orthopaedic Surgery
DX: M16.11 Unilateral primary osteoarthritis, right hip (principal)
CPT/HCPCS: 97110; 97112; 97116; 97140; 97162; 97535